=== PATIENT | male | born 1955 | race Caucasian/White ===

== ENCOUNTER → 2018-01-14 | Outpatient (CLI) | payer MEDICARE, MEDICAID ==
[~2018-01-14] MED LIST: ALBU2.5V4 IH; ALBU8.5H2 IH; ASPI-892 PO; BENZ-36 PO; CEFU500T5 PO; CHOL10003 PO; CRAN200C PO; DAYQUIL PO; DCS100C PO; DOCU100C37 PO; FURO20TA4 PO; FURO80TA3 PO; GENERLAC; GENERLAC PO; GUAI10SY4 PO; GUAI480S5 PO; HYDR-2856 PO; HYDR-700 PO; HYDR28CR43 TP; LACT10SO33 PO; MAGN296S PO; METO5TAB2 PO; METO5TAB75 PO; METO5TAB79 PO; MTL2.5T PO; MULT-418 PO; NA P133E22 RC; NEOM15OI26 TOP; NF-ESOM40C PO; NF-FLON16G NSEACH; NYQUIL PO; PETR368J TP; PHEN100C11 PO; PHEN100C4 PO; POLY17PO6 PO; POTA10CA16 PO; POTA20TA15 PO; RIVA15TA PO; RIVA20TA PO; RT-ALBUINH IH; SILV400C23 TP; SILVADENE TP; SNN187T PO; SPIR100T PO; SPIR100T4 PO; TERB24CR3 TP; TR1C15 TOP; VITA42.5 TP; WHEA1POW PO; [UNRECOGNIZED DRUG - OTHER] PO
--- NOTE | 2018-01-14 17:59 | Diagnostic Imaging Report ---
INDICATION: Pneumonia. FINDINGS: PA and lateral views of the chest are obtained. Since 01/17/2016, there is continued elevation of the left hemidiaphragm with significant gaseous distention of underlying bowel. There may be left parahilar atelectasis and/or scarring. There is no evidence of pneumothorax or focal consolidation. There is no evidence of significant pleural fluid. IMPRESSION: Continued elevation of left hemidiaphragm. There may be mild increase in left parahilar atelectasis and/or pneumonitis. No consolidation is identified. Dictated by: Dictated on workstation # [id number]
== END ==
LOC: RAD 12:52
PROVIDERS: ATTEND Family Medicine
DX: J18.9 Pneumonia, unspecified organism (principal)
CPT/HCPCS: 71046

== ENCOUNTER 2021-08-06 15:01 | Inpatient (IN) | payer MEDICARE, MEDICAID ==
[~2021-08-06] VITALS: Ht 170 cm; Wt 69.4 kg
[~2021-08-06 15:01] MED LIST changes: +ALBU2.5V4 NEB; +POTA-179 PO; -RIVA15TA PO; +RIVA15TA2 PO; -RIVA20TA PO; +RIVA20TA2 PO
[2021-08-06] MEDS ORDERED: NS IV 1000 ML 1,000 ML IV SCH (15:30)
[2021-08-06] MEDS ORDERED: VANCOMYCIN INJECTION 2,000 MG in NS (IVPB) 250 ML IV ONE (15:30)
--- NOTE | 2021-08-06 15:30 | ED Integumentary General ---
General Chief Complaint: Skin/Wound Problems Stated Complaint: SORE ON L ELBOW Source: other (health social work professor) Exam Limitations: language barrier History of Present Illness Date Seen by Provider: Aug 06, 2021 Time Seen by Provider: 15:09 Initial Comments 66-year-old male that is intellectually disabled and selectively mute, has high blood pressure, CHF coming in with a health social work professor from [place] due to concerns for left elbow infection. She believes he fell on it roughly 9 days ago. He has been picking at it incessantly, and now it is putting out purulent drainage and redness running up his arm. No fever that they know of. They said lately he has been refusing to swallow any medications and has not really been wanting to eat as well. The patient is mute and unable to add to the history and physical. Because of this further elements of the history and physical are were unable to be obtained. Allergies and Home Medications Allergies Coded Allergies: No Known Drug Allergies (Verified , 05/20/08) Patient Home Medication List Home Medication List Reviewed: Yes Albuterol Sulfate (Proair Hfa) 8.5 Gm Hfa.aer.ad, 2 PUFF IH Q4H PRN for SHORTNESS OF BREATH, (Reported) Entered as Reported by: KURTIS PA on 02/18/15 1453 Albuterol Sulfate (Albuterol Sulfate) 2.5 Mg/3 Ml Vial.neb, 2.5 MG IH Q4H PRN for SHORTNESS OF BREATH, (Reported) Entered as Reported by: KURTIS PA on 02/18/15 1453 Benzonatate (Benzonatate) 100 Mg Capsule, 100 MG PO TID PRN for COUGH, (Reported) Entered as Reported by: KURTIS PA on 02/18/15 1428 Cholecalciferol (Vitamin D) 1,000 Unit Tablet, 1,000 UNITS PO DAILY, (Reported) Entered as Reported by: TEDDY WAN on 02/23/112124 Docusate Sodium (Docusate Sodium) 100 Mg Capsule, 100 MG PO BID Prescribed by: RAMY SAMPSON on 03/02/15 1131 Esomeprazole Magnesium (Nexium) 40 Mg Cap, 40 MG PO DAILY, (Reported) Entered as Reported by: KURTIS PA on 02/18/15 1453 Furosemide (Furosemide) 20 Mg Tablet, 20 MG PO DAILY, (Reported) Entered as Reported by: KURTIS PA on 02/18/15 145 Guaifenesin/Dextromethorphan (Q-Tussin Dm Syrup) 473 Ml Syrup, 10 ML PO Q6H PRN for COUGH, (Reported) Entered as Reported by: KURTIS PA on 02/18/15 145 Hydrocortisone (Neosporin) 28 Gm Cream..g., TP DAILY PRN for UNTIL WOUND HEALS, (Reported) Entered as Reported by: KURTIS PA on 02/18/15 145 Metoclopramide HCl (Reglan) 5 Mg Tablet, 5 MG PO, (Reported) Entered as Reported by: MARTY PARKER on 04/28/15 1326 Na Phos,M-B/Na Phos,Di-Ba (Fleet Enema) 133 Ml Enema, RC BID PRN for CONSTIPATION, (Reported) Entered as Reported by: KURTIS PA on 02/24/15 1311 Petrolatum,White (Petroleum Jelly) 368 Gm Jelly..g., TP DAILY PRN for FOR WOUND, (Reported) Entered as Reported by: KURTIS PA on 02/18/15 145 Phenytoin Sodium Extended (Phenytoin Sodium Extended) 100 Mg Capsule, 300 MG PO HS, (Reported) Entered as Reported by: KURTIS PA on 02/18/15 145 Polyethylene Glycol 3350 (Miralax) 17 Gm Powd.pack, 17 GM PO BID Prescribed by: ELADIO QUEVEDO on 04/28/15 1544 Potassium Chloride (Potassium Chloride) 20 Meq Tab.er.prt, 20 MEQ PO DAILY, (Reported) Entered as Reported by: KURTIS PA on 02/18/15 145 Rivaroxaban (Xarelto Tablet) 15 Mg Tablet, 15 MG PO BID@07,17 Prescribed by: RAMY SAMPSON on 03/02/15 1143 Silver Sulfadiazine (Silver Sulfadiazine) 400 Gm Cream..g., TP BID PRN for UNTIL WOUND HEALS, (Reported) Entered as Reported by: KURTIS PA on 02/18/15 145 Spironolactone (Spironolactone) 100 Mg Tablet, 100 MG PO DAILY, (Reported) Entered as Reported by: KURTIS PA on 02/18/15 1453 Vits A & D/White Pet/Lanolin (A + D Ointment) 42.5 Gm Oint...g., TP DAILY PRN for FOR WOUND, (Reported) Entered as Reported by: KURTIS PA on 02/18/15 1453 [hydoxyzine] , 25 MG PO, (Reported) Entered as Reported by: MARTY PARKER on 04/28/15 1326 Review of Systems Review of Systems Constitutional: No fever Past Alihqnj-Cweeew-Qcczkf Hx Patient Social History Tobacco Use?: No Immunizations Up To Date Tetanus Booster (TDap): Less than 5yrs Seasonal Allergies Seasonal Allergies: No Past Medical History Surgeries: Yes Abdominal Asthma, Pulmonary Embolism Currently Using CPAP: No Currently Using BIPAP: No Seizure Disorder Reproductive Disorders: No Sexually Transmitted Disease: No HIV/AIDS: No Gastroesophageal Reflux, Chronic Constipation Adverse Reaction/Blood Tranf: No Family Medical History Patient reports no known family medical history. Physical Exam Vital Signs Vital Signs - First Documented 08/06/21 15:10 Temp 36.1 Pulse 65 Resp 20 B/P (MAP) 129/85 (100) Pulse Ox 95 Capillary Refill : General Appearance: WD/WN, no apparent distress HEENT: PERRL/EOMI, normal ENT inspection, pharynx normal Neck: non-tender, full range of motion, supple, normal inspection Cardiovascular: regular rate, rhythm, no edema, no murmur Respiratory: chest non-tender, lungs clear, normal breath sounds, no respiratory distress, no accessory muscle use Gastrointestinal: normal bowel sounds, non tender, soft; No distended, No guarding, No rebound Extremities: normal range of motion, no pedal edema, no calf tenderness, normal capillary refill, other (Left elbow with unstageable ulcer at this time with purulent discharge and erythematous margins going up the forearm that are blanching and concerning for cellulitis) Neurologic/Psychiatric: no motor/sensory deficits, alert, other (Moving all 4 extremities equally) Skin: normal color, warm/dry Lymphatic: no adenopathy Progress/Results/Core Measures Results/Orders Lab Results Laboratory Tests Test 08/06/21 15:38 Range/Units My Orders Orders - HIGINIO CHURCH MD Cbc With Automated Diff (08/06/21 15:23) Comprehensive Metabolic Panel (08/06/21 15:23) Blood Culture (08/06/21 15:23) Protime With Inr (08/06/21 15:23) Partial Thromboplastin Time (08/06/21 15:23) Ed Iv/Invasive Line Start (08/06/21 15:23) Ed Iv/Invasive Line Start (08/06/21 15:23) Vital Signs Adult Sepsis Patie Q15M (08/06/21 15:23) O2 (08/06/21 15:23) Remove Rings In Anticipation O (08/06/21 15:23) Lactic Acid Analyzer (08/06/21 15:23) Ns Iv 1000 Ml (Sodium Chloride 0.9%) (08/06/21 15:30) Vancomycin Injection (Vancomycin Injecti (08/06/21 15:30) Wound Culture (08/06/21 15:23) Erythrocyte Sedimentation Rate (08/06/21 15:23) Hs C Reactive Protein (08/06/21 15:23) Elbow, Left, 3 Views (08/06/21 15:23) Vital Signs/I&O 08/06/21 15:10 Temp 36.1 Pulse 65 Resp 20 B/P (MAP) 129/85 (100) Pulse Ox 95 Progress Progress Note : Progress Note 66-year-old male with above history coming in due to left elbow wound infection. ABCs were intact and vitals were stable on presentation. Physical exam with obvious purulent drainage and cellulitis of the left elbow with an unstageable ulcer. An IV was placed and the patient was given vancomycin after labs, lactate, blood cultures drawn. He currently is not willing to take oral medications so p.o. medications will not be possible at this time. I called and discussed the case with the hospitalist and she will admit the patient under inpatient status for further evaluation and management. Departure Impression Primary Impression: Elbow wound Qualified Codes: S51.002A - Unspecified open wound of left elbow, initial encounter Additional Impression: Cellulitis Qualified Codes: L03.114 - Cellulitis of left upper limb Disposition: ADMITTED INPATIENT Condition: Stable Admissions Decision to Admit Reason: Admit from ER (General) Decision to Admit/Date: Aug 06, 2021 Time/Decision to Admit Time: 15:40 Departure-Patient Inst. Referrals: ALMAZ SILVA MD (PCP/Family) Primary Care Physician HIGINIO CHURCH MD Aug 06, 2021 15:30
[2021-08-06 15:47] LABS: BASOPHILS % (AUTO) 1 % (0-10); EOSINOPHILS # (AUTO) 0.1 10^3/uL (0.0-0.3); EOSINOPHILS % (AUTO) 1 % (0-10); HEMATOCRIT 39 % (40-54); LYMPHOCYTES # (AUTO) 1.1 X 10^3 (1.0-4.0); LYMPHOCYTES % (AUTO) 12 % (12-44); MEAN CORPUSCULAR HEMOGLOBIN 28 pg (25-34); MEAN CORPUSCULAR HGB CONC 33 g/dL (32-36); MEAN CORPUSCULAR VOLUME 84 fL (80-99); MEAN PLATELET VOLUME 9.4 fL (9.0-12.2); MONOCYTES # (AUTO) 0.7 X 10^3 (0.0-1.0); MONOCYTES % (AUTO) 7 % (0-12); NEUTROPHILS % (AUTO) 79 % (42-75); PLATELET COUNT 230 10^3/uL (130-400); WHITE BLOOD COUNT 8.8 10^3/uL (4.3-11.0)
[2021-08-06 15:59] LABS: POTASSIUM 4.7 MMOL/L (3.6-5.0)
[2021-08-06 16:00] LABS: CALCIUM 10.5 MG/DL (8.5-10.1); INR 1.1 (0.8-1.4); PROTHROMBIN TIME PATIENT 14.7 SEC (12.2-14.7)
[2021-08-06 16:12] LABS: ERYTHROCYTE SEDIMENTATION RATE 54 MM/HR (0-30)
[2021-08-06 16:14] LABS: BILIRUBIN,TOTAL 0.3 MG/DL (0.1-1.0)
[2021-08-06 16:37] LABS: ALBUMIN 3.3 GM/DL (3.2-4.5); CREATININE SERUM 0.46 MG/DL (0.60-1.30)
--- NOTE | 2021-08-06 17:08 | Diagnostic Imaging Report ---
INDICATION: Wound on left elbow post fall two weeks ago. TECHNIQUE: 3 views of the left elbow. CORRELATION STUDY: None. FINDINGS: Soft tissue defect along the dorsal aspect of the elbow. The underlying osseous structures appear to be intact. No kian erosion or destructive change. Joint spaces maintained. IMPRESSION: Soft tissue defect at the dorsal aspect of the elbow along with some generalized soft tissue edema. No definitive acute bony abnormality or kian bony destructive change. If continued concern for potential osteomyelitis, MRI would be recommended. Dictated by: Dictated on workstation # [id number]
[2021-08-06 17:30] VITALS: BP 151/81
[2021-08-06] MEDS ORDERED: IBUP-30 PO (18:04)
[2021-08-06] MEDS ORDERED: ASPI-999 PO (18:07)
[2021-08-06] MEDS ORDERED: DIPH25CA79 PO (18:08)
[2021-08-06] MEDS ORDERED: CIME-48 PO (18:11)
[2021-08-06] MEDS ORDERED: MOM10U PO (18:15)
[2021-08-06] MEDS ORDERED: RT-ALBUINH INH (18:19)
[2021-08-06] MEDS ORDERED: MIRT-94 PO (18:21)
[2021-08-06] MEDS ORDERED: POLY17PO6 PO (18:24)
[2021-08-06] MEDS ORDERED: BENZ100C18 PO (18:25)
[2021-08-06] MEDS ORDERED: CALC500T7 PO (18:27)
[2021-08-06] MEDS ORDERED: ACET325T38 PO (18:28)
[2021-08-06] MEDS ORDERED: VITAMIN D PO (18:29)
[2021-08-06] MEDS ORDERED: SILVER SULFADIAZINE 400 GM CREAM TP PRN (18:45)
[2021-08-06] MEDS ORDERED: RT-ALBUTEROL SULF 2.5 MG/3 ML PRE-MIX VIAL IH PRN (18:45)
[2021-08-06] MEDS ORDERED: guaiFENesin/DM (ROBITUSSIN DM) 10 ML UDC PO PRN (18:45)
[2021-08-06] MEDS ORDERED: RT-ALBUTEROL SULF 2.5 MG/3 ML PRE-MIX VIAL INH SCH (18:45)
[2021-08-06 20:27] VITALS: BP 125/69
[2021-08-06] MEDS ORDERED: ACETAMINOPHEN 500 MG TAB (TYLENOL) PO PRN (21:00)
[2021-08-06] MEDS ORDERED: MILK OF MAGNESIA 400 MG/5 ML 30 ML UDC PO PRN (21:30)
[2021-08-06] MEDS: METOCLOPRAMIDE 5 MG (REGLAN) TAB PO SCH (21:47)
[2021-08-06] MEDS: PHENYTOIN 100 MG (DILANTIN) CAP PO SCH (21:47)
[2021-08-06] MEDS: DOCUSATE SODIUM 100 MG (COLACE) CAP PO SCH (21:47)
[2021-08-06] MEDS: hydrOXYzine (VISTARIL/ATARAX) 25 MG capsule/tablet PO SCH (21:48)
[2021-08-06] MEDS: CATHETER FLUSH 10 ML SYR IVP SCH ×2 (21:48→23:49)
[2021-08-06 23:41] VITALS: BP 141/76
[2021-08-06] MEDS: VANCOMYCIN 1250 MG/NS 250 ML IVPB IV SCH ×2 (23:46)
[2021-08-07 04:36] VITALS: BP 122/70
[2021-08-07 05:50] LABS: MONOCYTES # (AUTO) 0.5 10^3/uL (0.0-1.0)
[2021-08-07 05:51] LABS: BASOPHILS # (AUTO) 0.1 10^3/uL (0.0-0.1); BASOPHILS % (AUTO) 1 % (0-10); EOSINOPHILS # (AUTO) 0.1 10^3/uL (0.0-0.3); EOSINOPHILS % (AUTO) 1 % (0-10); HEMATOCRIT 34 % (40-54); HEMOGLOBIN 11.2 g/dL (13.3-17.7); LYMPHOCYTES # (AUTO) 1.1 10^3/uL (1.0-4.0); LYMPHOCYTES % (AUTO) 19 % (12-44); MEAN CORPUSCULAR HEMOGLOBIN 28 pg (25-34); MEAN CORPUSCULAR HGB CONC 33 g/dL (32-36); MEAN CORPUSCULAR VOLUME 86 fL (80-99); MEAN PLATELET VOLUME 9.9 fL (9.0-12.2); MONOCYTES % (AUTO) 8 % (0-12); NEUTROPHILS % (AUTO) 70 % (42-75); PLATELET COUNT 124 10^3/uL (130-400); WHITE BLOOD COUNT 5.8 10^3/uL (4.3-11.0)
[2021-08-07 07:10] VITALS: BP 119/79
[2021-08-07] MEDS: VANCOMYCIN 1250 MG/NS 250 ML IVPB IV SCH ×6 (08:06→23:42)
[2021-08-07] MEDS: polyethylene glycoL POWDER 17 GM (MIRALAX) PACK PO SCH (10:42)
[2021-08-07] MEDS: METOCLOPRAMIDE 5 MG (REGLAN) TAB PO SCH ×4 (10:42→20:30)
[2021-08-07] MEDS: hydrOXYzine (VISTARIL/ATARAX) 25 MG capsule/tablet PO SCH ×2 (10:42→20:30)
[2021-08-07] MEDS: DOCUSATE SODIUM 100 MG (COLACE) CAP PO SCH ×2 (10:42→20:30)
[2021-08-07] MEDS: SPIRONOLACTONE 100 MG (ALDACTONE) TABLET PO SCH (10:42)
[2021-08-07] MEDS: FAMOTIDINE 20 MG (PEPCID) TABLET PO SCH ×2 (10:42→20:30)
[2021-08-07] MEDS: ASPIRIN 81 MG CHEW (CHILDREN'S ASA) PO SCH (10:43)
[2021-08-07] MEDS: cefTRIAXone 1 GM/50 ML (PRE-MIX) IV SCH (10:43)
[2021-08-07 11:27] VITALS: BP 139/84
--- NOTE | 2021-08-07 11:50 | Consultation - Surgery ---
RONN NOE 08/07/21 1150: History of Present Illness History of Present Illness Patient Consulted On(samir/time) 08/07/21 11:50 Date Seen by Provider: Aug 07, 2021 Time Seen by Provider: 11:55 Reason for Visit: L elbow erythema and drainage History of Present Illness Consult requested by Dr. eHredia regarding a left elbow ulcer and cellulitis. Pt is 66 year old mute male who presented to the [facility] from [place]. According to ER documentation, he fell on his elbow 9 days ago and has been p icking at the wound. The ulceration is a [id number] deep wound on his left elbow. It is draining greenish-yellow fluid, which completely saturated his dressing overnight. The wound is deep enough to feel bone on palpation. The tissue does not appear to be necrotic; the tissue perimeter is a elaine color. There is erythema extending from the ulcer that is presumably cellulitis. It is a mottled red and white appearance. The micro for the elbow ulcer came back as Staph aureus, presumably MRSA, as well as a gram negative gato. His bilateral forearms are mottled white, possibly from healed scabbing. He has 3 other healing sores visible on his left forearm and hand that are scabbed over, as well as one other sore on his R forearm. The pt has bilateral cellulitis on his shins that also include scabbing. He is currently on Vancomycin and Ceftriaxone. According to the ER, he has a hx of abdominal surgery. He has a small ostomy bag on his L abdomen that is empty currently. The ER also reports a hx of pulmonary embolism, seizures, GERD, and chronic constipation. Xarelto is listed as a home medication, though it is not on his current medication list. Allergies and Home Medications Allergies Coded Allergies: No Known Drug Allergies (Verified , 05/20/08) Patient Home Medication List Acetaminophen (Tylenol) 325 Mg Tablet, 650 MG PO Q6H PRN for PAIN-MILD (1-4), (Reported) Entered as Reported by: PATRICE LEROY on 08/06/21 5848 Last Action: Reviewed Albuterol Sulfate (Albuterol Sulfate) 2.5 Mg/3 Ml Vial.neb, 3 ML NEB Q4H PRN for SHORTNESS OF BREATH, (Reported) Entered as Reported by: KURTIS PA on 02/18/15 1453 Last Action: Reviewed Albuterol Sulfate (Proventil Hfa) 6.7 Gm Hfa.aer.ad, 2 PUFF INH Q4H, (Reported) Entered as Reported by: PATRICE LEROY on 08/06/211818 Last Action: Reviewed Aspirin (Aspirin EC) 81 Mg Tablet.dr, 81 MG PO DAILY, (Reported) Entered as Reported by: ERIC MALHOTRA on 08/07/211150 Last Action: Reviewed Benzonatate (Tessalon Perles) 100 Mg Capsule, 100 MG PO Q8H PRN for COUGH, (Reported) Entered as Reported by: PATRICE LEROY on 08/06/211824 Last Action: Reviewed Calcium Carbonate (Antacid Maximum Strength) 400 Mg Tab.chew, 1,000 MG PO Q4H PRN for HEARTBURN/INDIGESTION, (Reported) Entered as Reported by: ERIC MALHOTRA on 08/07/211150 Last Action: Reviewed Cholecalciferol (Vitamin D3) (Vitamin D3) 25 Mcg Capsule, 25 MCG PO DAILY, (Reported) Entered as Reported by: ERIC MALHOTRA on 08/07/211150 Last Action: Reviewed Cimetidine (Cimetidine) 400 Mg Tablet, 400 MG PO BID, (Reported) Entered as Reported by: PATRICE LEROY on 08/06/211810 Last Action: Reviewed Diphenhydramine HCl (Benadryl) 25 Mg Capsule, 25-50 MG PO Q6H PRN for ALLERGY SYMPTOMS, (Reported) Entered as Reported by: PATRICE LEROY on 08/06/211807 Last Action: Reviewed Docusate Sodium (Dok) 100 Mg Tablet, 100 MG PO BID, (Reported) Entered as Reported by: ERIC MALHOTRA on 08/07/211150 Last Action: Reviewed Guaifenesin/Dextromethorphan (Expectorant Dm Cough Liquid) 118 Ml Liquid, 10 ML PO Q4H PRN for COUGH, (Reported) Entered as Reported by: ERIC MALHOTRA on 08/07/211150 Last Action: Reviewed Hydroxyzine HCl (Hydroxyzine HCl) 25 Mg Tablet, 25 MG PO BID PRN for ANXIETY/ITCHING, (Reported) Entered as Reported by: ERIC MALHOTRA on 08/07/211150 Last Action: Reviewed Ibuprofen (Advil) 200 Mg Tablet, 400 MG PO Q6H PRN for PAIN-MILD (1-4), (Reported) Entered as Reported by: PATRICE LEROY on 08/06/211803 Last Action: Reviewed Magnesium Hydroxide (Milk of Magnesia) 2,400 Mg/10 Ml Oral.susp, 30 ML PO Q12H PRN for CONSTIPATION-7TH LINE, (Reported) Entered as Reported by: PATRICE LEROY on 08/06/211814 Last Action: Reviewed Metoclopramide HCl (Reglan) 5 Mg Tablet, 5 MG PO QID, (Reported) Entered as Reported by: MARTY PARKER on 04/28/15 1326 Last Action: Reviewed Mirtazapine (Remeron) 30 Mg Tablet, 30 MG PO HS, (Reported) Entered as Reported by: PATRICE LEROY on 08/06/211820 Last Action: Reviewed Phenytoin Sodium Extended (Phenytoin Sodium Extended) 100 Mg Capsule, 200 MG PO HS, (Reported) Entered as Reported by: KURTIS PA on 02/18/151452 Last Action: Reviewed Polyethylene Glycol 3350 (Miralax) 17 Gm Powd.pack, 17 GM PO DAILY PRN for CONSTIPATION-2ND LINE, (Reported) Entered as Reported by: PATRICE LEROY on 08/06/211823 Last Action: Reviewed Silver Sulfadiazine (Silver Sulfadiazine) 50 Gm Cream..g., 1 APPLIC TP Q12H PRN for SKIN CONDITION, (Reported) Entered as Reported by: ERIC MALHOTRA on 08/07/21 1151 Last Action: Reviewed Spironolactone (Spironolactone) 100 Mg Tablet, 100 MG PO DAILY, (Reported) Entered as Reported by: KURTIS PA on 02/18/151452 Last Action: Reviewed Discontinued Medications Albuterol Sulfate (Proair Hfa) 8.5 Gm Hfa.aer.ad, 2 PUFF IH Q4H PRN for SHORTNESS OF BREATH, (Reported) Discontinued Reason: No Longer Taking Entered as Reported by: KURTIS PA on 02/18/151452 Last Action: Discontinued Aspirin (Aspirin) 81 Mg Tab.chew, 81 MG PO DAILY, (Reported) Discontinued Reason: Duplicate Order Entered as Reported by: PATRICE LEROY on 08/06/211806 Last Action: Discontinued Benzonatate (Benzonatate) 100 Mg Capsule, 100 MG PO TID PRN for COUGH, (Reported) Discontinued Reason: No Longer Taking Entered as Reported by: KURTIS PA on 02/18/15 1428 Last Action: Discontinued Calcium Carbonate (Tums) 200 Mg Tab.chew, 1,000 MG PO Q4H, (Reported) Discontinued Reason: Prescription changed Entered as Reported by: PATRICE LEROY on 08/06/21 182 Last Action: Held Cholecalciferol (Vitamin D) 1,000 Unit Tablet, 1,000 UNITS PO DAILY, (Reported) Discontinued Reason: Prescription changed Entered as Reported by: TEDDY WAN on 02/23/112124 Last Action: Held Docusate Sodium (Docusate Sodium) 100 Mg Capsule, 100 MG PO BID Discontinued Reason: Duplicate Order Prescribed by: RAMY SAMPSON on 03/02/15 113 Last Action: Discontinued Esomeprazole Magnesium (Nexium) 40 Mg Cap, 40 MG PO DAILY, (Reported) Discontinued Reason: No Longer Taking Entered as Reported by: KURTIS PA on 02/18/151452 Last Action: Discontinued Furosemide (Furosemide) 20 Mg Tablet, 20 MG PO DAILY, (Reported) Discontinued Reason: No Longer Taking Entered as Reported by: KURTIS PA on 02/18/151452 Last Action: Discontinued Guaifenesin/Dextromethorphan (Q-Tussin Dm Syrup) 473 Ml Syrup, 10 ML PO Q4H PRN for COUGH, (Reported) Discontinued Reason: Prescription changed Entered as Reported by: KURTIS PA on 02/18/151452 Last Action: Continued Hydrocortisone (Neosporin) 28 Gm Cream..g., TP DAILY PRN for UNTIL WOUND HEALS, (Reported) Discontinued Reason: No Longer Taking Entered as Reported by: KURTIS PA on 02/18/151452 Last Action: Discontinued Na Phos,M-B/Na Phos,Di-Ba (Fleet Enema) 133 Ml Enema, RC BID PRN for CONSTIPATI ON, (Reported) Discontinued Reason: No Longer Taking Entered as Reported by: KURTIS PA on 02/24/15 1311 Last Action: Discontinued Petrolatum,White (Petroleum Jelly) 368 Gm Jelly..g., TP DAILY PRN for FOR WOUND, (Reported) Discontinued Reason: No Longer Taking Entered as Reported by: KURTIS PA on 02/18/151452 Last Action: Discontinued Polyethylene Glycol 3350 (Miralax) 17 Gm Powd.pack, 17 GM PO BID Discontinued Reason: No Longer Taking Prescribed by: ELADIO QUEVEDO on 04/28/15 1544 Last Action: Discontinued Potassium Chloride (Potassium Chloride) 20 Meq Tab.er.prt, 20 MEQ PO DAILY, (Reported) Discontinued Reason: No Longer Taking Entered as Reported by: KURTIS PA on 02/18/151452 Last Action: Discontinued Rivaroxaban (Xarelto Tablet) 15 Mg Tablet, 15 MG PO BID@ Discontinued Reason: No Longer Taking Prescribed by: RAMY SAMPSON on 03/02/15 114 Last Action: Discontinued Silver Sulfadiazine (Silver Sulfadiazine) 400 Gm Cream..g., TP BID PRN for UNTIL WOUND HEALS, (Reported) Discontinued Reason: Prescription changed Entered as Reported by: KURTIS PA on 02/18/151452 Last Action: Continued Vits A & D/White Pet/Lanolin (A + D Ointment) 42.5 Gm Oint...g., TP DAILY PRN for FOR WOUND, (Reported) Discontinued Reason: No Longer Taking Entered as Reported by: KURTIS PA on 02/18/151452 Last Action: Discontinued [hydoxyzine] , 25 MG PO BID, (Reported) Discontinued Reason: Duplicate Order Entered as Reported by: MARTY PARKER on 04/28/15 1326 Last Action: Discontinued Past Efiixvb-Ayrcba-Efbabb Hx Patient Social History Recent Hopitalizations: Yes (colostomy placement) Alcohol Use?: No Have you traveled recently?: No Immunizations Up To Date Tetanus Booster (TDap): Less than 5yrs Date of Pneumonia Vaccine: Mar 02, 2015 Date of Influenza Vaccine: Mar 02, 2015 Seasonal Allergies Seasonal Allergies: No Surgeries History of Surgeries: Yes Surgeries: Abdominal Respiratory Respiratory Disorders: Asthma, Pulmonary Embolism Neurological Neurological Disorders: Seizure Disorder Reproductive System Hx Reproductive Disorders: No Sexually Transmitted Disease: No HIV/AIDS: No Gastrointestinal Gastrointestinal Disorders: Gastroesophageal Reflux, Chronic Constipation Blood Transfusions Adverse Reaction to a Blood Tr: No Family Medical History Other Unable to Obtain from pt due to aphasia; what is listed was gathered in the ER Family Medial History: Patient reports no known family medical history. Review of Systems-General Other Unable to obtain due to pt aphasia Physical Exam-General Problems Physical Exam Vital Signs Vital Signs - First Documented 08/06/21 08/06/21 15:10 17:30 Temp 36.1 Pulse 65 Resp 20 B/P (MAP) 129/85 (100) Pulse Ox 95 O2 Delivery Room Air Capillary Refill : General Appearance: no apparent distress, thin Respiratory: normal breath sounds, no respiratory distress, no accessory muscle use Cardiovascular: regular rate, rhythm, no murmur Peripheral Pulses: 2+ Radial Pulses (R), 2+ Radial Pulses (L) Gastrointestinal: soft, other (ostomy bag empty currently) Extremities: no pedal edema, other (bilateral cellulitis) Neurologic/Psychiatric: alert, other (aphasia) Skin: mottled (bilateral arms mottled white), rash (bilateral leg cellulitis, left elbow cellulitis with ulceration) Comments Exam limited by aphasia Data Review Labs Laboratory Tests 08/06/21 15:38: White Blood Count 8.8, Red Blood Count 4.66, Hemoglobin 13.0L, Hematocrit 39L, Mean Corpuscular Volume 84, Mean Corpuscular Hemoglobin 28, Mean Corpuscular Hemoglobin Concent 33, Red Cell Distribution Width 16.6H, Platelet Count 230, Mean Platelet Volume 9.4, Immature Granulocyte % (Auto) 1, Neutrophils (%) (Auto) 79H, Lymphocytes (%) (Auto) 12, Monocytes (%) (Auto) 7, Eosinophils (%) (Auto) 1, Basophils (%) (Auto) 1, Neutrophils # (Auto) 7.0, Lymphocytes # (Auto) 1.1, Monocytes # (Auto) 0.7, Eosinophils # (Auto) 0.1, Basophils # (Auto) 0.0, Immature Granulocyte # (Auto) 0.0, Erythrocyte Sedimentation Rate 54H, Prothrombin Time 14.7, INR Comment 1.1, Activated Partial Thromboplast Time 41H, Sodium Level 140, Potassium Level 4.7, Chloride Level 103, Carbon Dioxide Level 23, Anion Gap 14, Blood Urea Nitrogen 26H, Creatinine 0.46L, Estimat Glomerular Filtration Rate 115, BUN/Creatinine Ratio 57, Glucose Level 71, Lactic Acid Level 1.46, Calcium Level 10.5H, Corrected Calcium 11.1H, Total Bilirubin 0.3, Aspartate Amino Transf (AST/SGOT) 46H, Alanine Aminotransferase (ALT/SGPT) 51, Alkaline Phosphatase 121, C-Reactive Protein High Sensitivity 22.84H, Total Protein 7.0, Albumin 3.3 08/07/21 05:27: White Blood Count 5.8, Red Blood Count 3.99L, Hemoglobin 11.2L, Hematocrit 34L, Mean Corpuscular Volume 86, Mean Corpuscular Hemoglobin 28, Mean Corpuscular Hemoglobin Concent 33, Red Cell Distribution Width 16.0H, Platelet Count 124L, Mean Platelet Volume 9.9, Immature Granulocyte % (Auto) 1, Neutrophils (%) (Auto) 70, Lymphocytes (%) (Auto) 19, Monocytes (%) (Auto) 8, Eosinophils (%) (Auto) 1, Basophils (%) (Auto) 1, Neutrophils # (Auto) 4.0, Lymphocytes # (Auto) 1.1, Monocytes # (Auto) 0.5, Eosinophils # (Auto) 0.1, Basophils # (Auto) 0.1, Immature Granulocyte # (Auto) 0.1, Percent Immature Platelet Fraction 3.2 Microbiology 08/06/21 Gram Stain, Resulted Pending 08/06/21 Wound Culture - Preliminary, Resulted Staphylococcus aureus Gram Negative Gato Radiology ELBOW, LEFT, 3 VIEWS INDICATION: Wound on left elbow post fall two weeks ago. TECHNIQUE: 3 views of the left elbow. CORRELATION STUDY: None. FINDINGS: Soft tissue defect along the dorsal aspect of the elbow. The underlying osseous structures appear to be intact. No kian erosion or destructive change. Joint spaces maintained. IMPRESSION: Soft tissue defect at the dorsal aspect of the elbow along with some generalized soft tissue edema. No definitive acute bony abnormality or kian bony destructive change. If continued concern for potential osteomyelitis, MRI would be recommended. Assessment/Plan Assessment/Plan Assessment/Plan Left elbow ulceration/erythema- cellulitis, concern for osteomyelitis though XRay showed no acute bony abnormality Bilateral navarro cellulitis Hx abdominal surgery- ostomy bag Hx seizures Aphasia Hx Pulmonary embolism WBC 5.8 from 8.8 Hgb 11.2 from 13.0 Continue vancomycin and ceftriaxone MRI if suspicion for osteomyelitis grows Change dressing as needed Imer edges of erythema on L elbow and shins for progress Consider DVT prophylaxis when cleared by surgery Monitor labs and vitals JO ANN ÁLVAREZ DO 08/07/21 7346: History of Present Illness History of Present Illness Time Seen by Provider: 16:52 History of Present Illness Surgery asked to consult regarding Left elbow ulcer. Pt does not talk and therefore information is obtained from chart. Wound care nurse was concerned about depth of wound and possible osteomyelitis. Pt was eating when I saw him and did not appear to be in any pain, feeding himself with right arm. Allergies and Home Medications Allergies Coded Allergies: No Known Drug Allergies (Verified , 05/20/08) Patient Home Medication List Home Medication List Reviewed: Yes Acetaminophen (Tylenol) 325 Mg Tablet, 650 MG PO Q6H PRN for PAIN-MILD (1-4), (Reported) Entered as Reported by: PATRICE LEROY on 08/06/211827 Last Action: Reviewed Albuterol Sulfate (Albuterol Sulfate) 2.5 Mg/3 Ml Vial.neb, 3 ML NEB Q4H PRN for SHORTNESS OF BREATH, (Reported) Entered as Reported by: KURTIS PA on 02/18/15 1453 Last Action: Reviewed Albuterol Sulfate (Proventil Hfa) 6.7 Gm Hfa.aer.ad, 2 PUFF INH Q4H, (Reported) Entered as Reported by: PATRICE LEROY on 08/06/211818 Last Action: Reviewed Aspirin (Aspirin EC) 81 Mg Tablet.dr, 81 MG PO DAILY, (Reported) Entered as Reported by: ERIC MALHOTRA on 08/07/211150 Last Action: Reviewed Benzonatate (Tessalon Perles) 100 Mg Capsule, 100 MG PO Q8H PRN for COUGH, (Reported) Entered as Reported by: PATRICE LEROY on 08/06/211824 Last Action: Reviewed Calcium Carbonate (Antacid Maximum Strength) 400 Mg Tab.chew, 1,000 MG PO Q4H PRN for HEARTBURN/INDIGESTION, (Reported) Entered as Reported by: ERIC MALHOTRA on 08/07/211150 Last Action: Reviewed Cholecalciferol (Vitamin D3) (Vitamin D3) 25 Mcg Capsule, 25 MCG PO DAILY, (Reported) Entered as Reported by: ERIC MALHOTRA on 08/07/211150 Last Action: Reviewed Cimetidine (Cimetidine) 400 Mg Tablet, 400 MG PO BID, (Reported) Entered as Reported by: PATRICE LEROY on 08/06/211810 Last Action: Reviewed Diphenhydramine HCl (Benadryl) 25 Mg Capsule, 25-50 MG PO Q6H PRN for ALLERGY SYMPTOMS, (Reported) Entered as Reported by: PATRICE LEROY on 08/06/211807 Last Action: Reviewed Docusate Sodium (Dok) 100 Mg Tablet, 100 MG PO BID, (Reported) Entered as Reported by: ERIC MALHOTRA on 08/07/21 115 Last Action: Reviewed Guaifenesin/Dextromethorphan (Expectorant Dm Cough Liquid) 118 Ml Liquid, 10 ML PO Q4H PRN for COUGH, (Reported) Entered as Reported by: ERIC MALHOTRA on 08/07/211150 Last Action: Reviewed Hydroxyzine HCl (Hydroxyzine HCl) 25 Mg Tablet, 25 MG PO BID PRN for ANXIETY/ITCHING, (Reported) Entered as Reported by: ERIC MALHOTRA on 08/07/211150 Last Action: Reviewed Ibuprofen (Advil) 200 Mg Tablet, 400 MG PO Q6H PRN for PAIN-MILD (1-4), (Reported) Entered as Reported by: PATRICE LEROY on 08/06/211803 Last Action: Reviewed Magnesium Hydroxide (Milk of Magnesia) 2,400 Mg/10 Ml Oral.susp, 30 ML PO Q12H PRN for CONSTIPATION-7TH LINE, (Reported) Entered as Reported by: PATRICE LEROY on 08/06/211814 Last Action: Reviewed Metoclopramide HCl (Reglan) 5 Mg Tablet, 5 MG PO QID, (Reported) Entered as Reported by: MARTY PARKER on 04/28/15 1326 Last Action: Reviewed Mirtazapine (Remeron) 30 Mg Tablet, 30 MG PO HS, (Reported) Entered as Reported by: PATRICE LEROY on 08/06/211820 Last Action: Reviewed Phenytoin Sodium Extended (Phenytoin Sodium Extended) 100 Mg Capsule, 200 MG PO HS, (Reported) Entered as Reported by: KURTIS PA on 02/18/15 1453 Last Action: Reviewed Polyethylene Glycol 3350 (Miralax) 17 Gm Powd.pack, 17 GM PO DAILY PRN for CONSTIPATION-2ND LINE, (Reported) Entered as Reported by: PATRICE LEROY on 08/06/211823 Last Action: Reviewed Silver Sulfadiazine (Silver Sulfadiazine) 50 Gm Cream..g., 1 APPLIC TP Q12H PRN for SKIN CONDITION, (Reported) Entered as Reported by: ERIC MALHOTRA on 08/07/21 1151 Last Action: Reviewed Spironolactone (Spironolactone) 100 Mg Tablet, 100 MG PO DAILY, (Reported) Entered as Reported by: KURTIS PA on 02/18/151452 Last Action: Reviewed Discontinued Medications Albuterol Sulfate (Proair Hfa) 8.5 Gm Hfa.aer.ad, 2 PUFF IH Q4H PRN for SHORTNESS OF BREATH, (Reported) Discontinued Reason: No Longer Taking Entered as Reported by: KURTIS PA on 02/18/151452 Last Action: Discontinued Aspirin (Aspirin) 81 Mg Tab.chew, 81 MG PO DAILY, (Reported) Discontinued Reason: Duplicate Order Entered as Reported by: PATRICE LEROY on 08/06/21 180 Last Action: Discontinued Benzonatate (Benzonatate) 100 Mg Capsule, 100 MG PO TID PRN for COUGH, (Reported) Discontinued Reason: No Longer Taking Entered as Reported by: KURTIS PA on 02/18/151427 Last Action: Discontinued Calcium Carbonate (Tums) 200 Mg Tab.chew, 1,000 MG PO Q4H, (Reported) Discontinued Reason: Prescription changed Entered as Reported by: PATRICE LEROY on 08/06/211826 Last Action: Held Cholecalciferol (Vitamin D) 1,000 Unit Tablet, 1,000 UNITS PO DAILY, (Reported) Discontinued Reason: Prescription changed Entered as Reported by: TEDDY WAN on 02/23/112124 Last Action: Held Docusate Sodium (Docusate Sodium) 100 Mg Capsule, 100 MG PO BID Discontinued Reason: Duplicate Order Prescribed by: RAMY SAMPSON on 03/02/15 1131 Last Action: Discontinued Esomeprazole Magnesium (Nexium) 40 Mg Cap, 40 MG PO DAILY, (Reported) Discontinued Reason: No Longer Taking Entered as Reported by: KURTIS PA on 02/18/151452 Last Action: Discontinued Furosemide (Furosemide) 20 Mg Tablet, 20 MG PO DAILY, (Reported) Discontinued Reason: No Longer Taking Entered as Reported by: KURTIS PA on 02/18/151452 Last Action: Discontinued Guaifenesin/Dextromethorphan (Q-Tussin Dm Syrup) 473 Ml Syrup, 10 ML PO Q4H PRN for COUGH, (Reported) Discontinued Reason: Prescription changed Entered as Reported by: KURTIS PA on 02/18/151452 Last Action: Continued Hydrocortisone (Neosporin) 28 Gm Cream..g., TP DAILY PRN for UNTIL WOUND HEALS, (Reported) Discontinued Reason: No Longer Taking Entered as Reported by: KURTIS PA on 02/18/151452 Last Action: Discontinued Na Phos,M-B/Na Phos,Di-Ba (Fleet Enema) 133 Ml Enema, RC BID PRN for CONSTIPATION, (Reported) Discontinued Reason: No Longer Taking Entered as Reported by: KURTIS PA on 02/24/15 1311 Last Action: Discontinued Petrolatum,White (Petroleum Jelly) 368 Gm Jelly..g., TP DAILY PRN for FOR WOUND, (Reported) Discontinued Reason: No Longer Taking Entered as Reported by: KURTIS PA on 02/18/151452 Last Action: Discontinued Polyethylene Glycol 3350 (Miralax) 17 Gm Powd.pack, 17 GM PO BID Discontinued Reason: No Longer Taking Prescribed by: ELADIO QUEVEDO on 04/28/15 1544 Last Action: Discontinued Potassium Chloride (Potassium Chloride) 20 Meq Tab.er.prt, 20 MEQ PO DAILY, (Reported) Discontinued Reason: No Longer Taking Entered as Reported by: KURTIS PA on 02/18/151452 Last Action: Discontinued Rivaroxaban (Xarelto Tablet) 15 Mg Tablet, 15 MG PO BID@07,17 Discontinued Reason: No Longer Taking Prescribed by: RAMY SAMPSON on 03/02/15 1143 Last Action: Discontinued Silver Sulfadiazine (Silver Sulfadiazine) 400 Gm Cream..g., TP BID PRN for UNTIL WOUND HEALS, (Reported) Discontinued Reason: Prescription changed Entered as Reported by: KURTIS PA on 02/18/151452 Last Action: Continued Vits A & D/White Pet/Lanolin (A + D Ointment) 42.5 Gm Oint...g., TP DAILY PRN for FOR WOUND, (Reported) Discontinued Reason: No Longer Taking Entered as Reported by: KURTIS PA on 02/18/151452 Last Action: Discontinued [hydoxyzine] , 25 MG PO BID, (Reported) Discontinued Reason: Duplicate Order Entered as Reported by: MARTY PARKER on 04/28/15 4166 Last Action: Discontinued Past Alyvooj-Qyaicg-Jwfcsw Hx Family Medical History Significant Family History: Other Conditions/Hx (unable to obtain from pt) Family Medial History: Patient reports no known family medical history. Review of Systems-General ROS-Unable to Obtain: pt does not talk Physical Exam-General Problems Physical Exam General Appearance: no apparent distress, thin Eyes: Bilateral Eye PERRL, Bilateral Eye EOMI Respiratory: normal breath sounds, no respiratory distress, no accessory muscle use Cardiovascular: regular rate, rhythm, no murmur Gastrointestinal: soft, other (Ostomy pink and functioning) Extremities: no pedal edema, other (bilateral cellulitis) Skin: mottled (bilateral arms mottled white), rash (bilateral leg cellulitis, left elbow cellulitis with ulceration) Assessment/Plan Assessment/Plan Assessment/Plan Left elbow ulceration/erythema- cellulitis, concern for osteomyelitis though XRay showed no acute bony abnormality Bilateral navarro cellulitis Aphasia I think the best course of action is to get an MRI and if there is Osteomyelitis then place a PICC line and do IV ABX for 6--8 weeks. If at the end of that time it is not better or worse, then he would need to be sent to Ortho willing to do some debridement and try to save his arm from amputation. In the meantime; Continue vancomycin and ceftriaxone, good local wound care and consider Wound VAC. Monitor labs and vitals Supervisory-Addendum Brief Verification & Attestation Participated in pt care: history, MDM, physical Personally performed: exam, history, MDM, supervision of care Care discussed with: Medical Student Procedures: n/a Verification and Attestation of Medical Student E/M Service A medical student performed and documented this service. I then reviewed and verified all information documented by the medical student and made modifications to such information, when appropriate. I personally performed a physical exam, medical decision making and then discussed any differences between the notes and made revisions as necessary to create one note. Jo Ann Álvarez , 08/07/21 , 18:57 RONN NOE Aug 07, 2021 11:50 JO ANN ÁLVAREZ DO Aug 07, 2021 18:56
[2021-08-07] MEDS ORDERED: [UNRECOGNIZED DRUG - CODE] PO (11:51)
[2021-08-07] MEDS ORDERED: GUAI118L27 PO (11:51)
[2021-08-07] MEDS ORDERED: SILV50CR28 TP (11:51)
[2021-08-07] MEDS ORDERED: DOCU100T28 PO (11:51)
[2021-08-07] MEDS ORDERED: ASPI-1238 PO (11:51)
[2021-08-07] MEDS ORDERED: CHOL100048 PO (11:51)
[2021-08-07] MEDS ORDERED: HYDR-700 PO (11:51)
[2021-08-07] MEDS: CATHETER FLUSH 10 ML SYR IVP SCH ×2 (13:39→20:30)
[2021-08-07 15:43] VITALS: BP 130/76
--- NOTE | 2021-08-07 19:00 | History & Physical-Hospitalist ---
History of Present Illness HPI/Chief Complaint Edwardo Jones is a 66 year old male with PMH cognitive impairment, mutism, who fell a couple weeks ago at his facility. He had an abrasion to his left elbow and he has been picking at the wound. He reportedly will not leave it alone. There has been purulent drainage. There have not been any reported fevers. He is unable to provide any history. There are no caregivers Source: patient Exam Limitations: no limitations Date Seen 08/07/21 Time Seen by a Provider: 11:30 Attending Physician Kaz Chu MD PCP Gregory Miranda MD Referring Physician Date of Admission Aug 06, 2021 at 15:49 Home Medications & Allergies Home Medications Reviewed patient Home Medication Reconciliation performed by pharmacy medication reconciliations certified pest control technician and/or nursing. Patients Allergies have been reviewed. Allergies Allergies Coded Allergies No Known Drug Allergies (Verified05/20/08) Past Cttrpaq-Fohart-Fqccdp Hx Patient Social History Tobacco Use?: No Substance use?: No Alcohol Use?: No Immunizations Up To Date Date of Influenza Vaccine: Mar 02, 2015 Date of Pneumonia Vaccine: Mar 02, 2015 Seasonal Allergies Seasonal Allergies: No Current Status Communicates: Verbally Primary Language: Uzbek Preferred Spoken Language: Uzbek Sensory deficits: Speech impairment Past Medical History Surgeries: Abdominal Asthma, Pulmonary Embolism Currently Using CPAP: No Currently Using BIPAP: No Seizure Disorder Sexually Transmitted Disease: No HIV/AIDS: No Gastroesophageal Reflux, Chronic Constipation Adverse Reaction/Blood Tranf: No Past medical history 1. Mental retardation 2. Seizure disorder 3. 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 [place] syndrome Past surgical history 1. Multiple colonoscopies Family Medical History Patient reports no known family medical history. Review of Systems ROS-Unable to Obtain: noncommuniative Constitutional: see HPI Physical Exam Physical Exam Vital Signs Vital Signs - First Documented 08/06/21 08/06/21 15:10 17:30 Temp 36.1 Pulse 65 Resp 20 B/P (MAP) 129/85 (100) Pulse Ox 95 O2 Delivery Room Air Capillary Refill : Height, Weight, BMI Height: 6'1" Weight: 118lbs. 3.0oz. [id number]; 24.01 BMI Method:Estimated General Appearance: No Apparent Distress, Chronically ill Respiratory: Lungs Clear, Normal Breath Sounds, No Respiratory Distress Cardiovascular: Regular Rate, Rhythm, No Edema, No Murmur Gastrointestinal: Normal Bowel Sounds, Non Tender, Soft Extremity: Inflammation, Other (left arm wound with exposed soft tissue and bone) Neurologic/Psychiatric: Alert, Aphasia, Disoriented Skin: Warm/Dry, Other (left elbow wound) Results Results/Procedures Labs Laboratory Tests 08/06/21 15:38 08/07/21 05:27 Patient resulted labs reviewed. 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
[2021-08-07 19:38] VITALS: BP 135/67
[2021-08-07] MEDS: PHENYTOIN 100 MG (DILANTIN) CAP PO SCH (20:30)
[2021-08-07] MEDS: MIRTAZAPINE 15 MG (REMERON) TAB PO SCH (20:30)
[2021-08-07] MEDS: HYPOCHLOROUS ACID/NaCl (VASHE) 250 ML IR PRN (20:35)
[2021-08-07] MEDS: ENOXAPARIN 40 MG/0.4 ML (LOVENOX) SYR SQ SCH (22:08)
[2021-08-07 23:46] VITALS: BP 123/74
[2021-08-08 03:13] VITALS: BP 138/88
[2021-08-08] MEDS: CATHETER FLUSH 10 ML SYR IVP SCH ×3 (05:49→22:03)
--- NOTE | 2021-08-08 06:37 | Progress Note - Surgery ---
RONN NOE 08/08/21 0637: Subjective Date Seen by a Provider: Aug 08, 2021 Time Seen by a Provider: 06:35 Subjective/Events-last exam Pt selectively mute. Has new sore on R hand that is not scabbed over. Dressing on ulceration is not saturated, tightly wrapped. Spoke with nurse about how it looked overnight. She reported it was red, but had very minimal serosanguinous drainage. Cellulitis looked about the same as yesterday. Urine output was low yesterday (350mL total). Nurse reported that he was cursing when voiding, and could only void 50-100cc's at a time. Dr. Heredia had a catheter placed, after which they got 400cc's out. Preliminary blood culture from R hand showed gram positive cocci in clusters. R forearm blood culture showed no growth. Review of Systems unable to obtain due to pt's selective mutism Focused Exam Lactate Level 08/06/21 15:38: Lactic Acid Level 1.46 Respiratory: Lungs Clear, Normal Breath Sounds, No Accessory Muscle Use Cardiovascular: Regular Rate, Rhythm, No Murmur Peripheral Pulses: 2+ Radial Pulses (R), 2+ Radial Pulses (L) Skin: rash (cellulitis L elbow; bilat shins), ulcerations (L elbow) Objective Exam Vital Signs Date Time Temp Pulse Resp B/P (MAP) Pulse Ox O2 Delivery O2 Flow Rate FiO2 08/08/21 03:13 36.6 81 20 138/88 (105) 92 Room Air 08/07/21 23:46 36.7 83 20 123/74 (90) 93 Room Air 08/07/21 20:35 Room Air 08/07/21 19:38 36.5 81 20 135/67 (89) 92 Room Air 08/07/21 15:43 36.0 67 22 130/76 (94) 92 Room Air 08/07/21 11:27 35.8 71 18 139/84 (102) 97 Room Air 08/07/21 08:00 96 Room Air 08/07/21 07:10 36.0 57 18 119/79 (92) 96 Room Air I & O 08/08/21 07:00 Intake Total 562.5 ml Output Total 950 ml Balance -387.5 ml Capillary Refill : General Appearance: No Apparent Distress, Chronically ill Respiratory: Lungs Clear, Normal Breath Sounds, No Respiratory Distress Cardiovascular: Regular Rate, Rhythm, No Murmur Peripheral Pulses: 2+ Radial Pulses (R), 2+ Radial Pulses (L) Gastrointestinal: soft, other (Ostomy pink and functioning) Extremity: Inflammation, Other (bilat cellulitis on shins) Neurologic/Psychiatric: Alert, Aphasia Skin: Warm/Dry, Other (L elbow ulceration/cellulitis; bilateral navarro cellulitis; multiple scabbing wounds on forearms) Results Lab Microbiology 08/06/21 Blood Culture - Preliminary, Resulted No growth 08/06/21 Gram Stain - Final, Resulted 08/06/21 Wound Culture - Preliminary, Resulted Staphylococcus aureus Gram Negative Gato Assessment/Plan Assessment/Plan Assessment/Plan Left elbow ulceration/erythema- cellulitis, concern for osteomyelitis though XRay showed no acute bony abnormality Bilateral navarro cellulitis Aphasia Retention of urine Get MRI If osteomyelitis, put in PICC line and do IV ABX for 6--8 weeks May need debridement if still not improving Continue vancomycin and ceftriaxone Local wound care, consider Wound VAC Get UA Continue Lovenox Monitor labs and vitals REJI ÁLVAREZ DO 08/08/21 1416: Subjective Time Seen by a Provider: 11:48 Subjective/Events-last exam Pt seen and examined, no changes. Review of Systems unable to obtain due to pt's selective mutism Objective Exam General Appearance: No Apparent Distress, Chronically ill Respiratory: Lungs Clear, Normal Breath Sounds, No Accessory Muscle Use, No Respiratory Distress Cardiovascular: Regular Rate, Rhythm, No Murmur Gastrointestinal: soft, other (Ostomy pink and functioning) Extremity: Inflammation, Other (bilat cellulitis on shins) Neurologic/Psychiatric: Aphasia Skin: Other (L elbow ulceration/cellulitis; no change) Assessment/Plan Assessment/Plan Assessment/Plan Left elbow ulceration/erythema- cellulitis, concern for osteomyelitis though XRay showed no acute bony abnormality. Yesterday I roughly debrided with area with my finger, getting out some purulence and noting some undermining. Bilateral navarro cellulitis Aphasia Retention of urine Get MRI if osteomyelitis, put in PICC line and do IV ABX for 6--8 weeks May need debridement if still not improving, Continue vancomycin and ceftriaxone Local wound care, consider Wound VAC Get UA Continue Lovenox Monitor labs and vitals Supervisory-Addendum Brief Verification & Attestation Participated in pt care: history, MDM, physical Personally performed: exam, history, MDM, supervision of care Care discussed with: Medical Student Procedures: n/a Verification and Attestation of Medical Student E/M Service A medical student performed and documented this service. I then reviewed and verified all information documented by the medical student and made modifications to such information, when appropriate. I personally performed a physical exam, medical decision making and then discussed any differences between the notes and made revisions as necessary to create one note. Reji Álvarez , 08/08/21 , 14:16 RONN NOE Aug 08, 2021 06:37 REJI ÁLVAREZ DO Aug 08, 2021 14:16
[2021-08-08] MEDS ORDERED: TROUGH ORDER-PHARMACY XX ONE (07:00)
[2021-08-08 08:00] VITALS: BP 136/77
[2021-08-08 09:07] LABS: BASOPHILS # (AUTO) 0.1 10^3/uL (0.0-0.1); BASOPHILS % (AUTO) 1 % (0-10); EOSINOPHILS # (AUTO) 0.1 10^3/uL (0.0-0.3); EOSINOPHILS % (AUTO) 1 % (0-10); HEMATOCRIT 36 % (40-54); HEMOGLOBIN 11.9 g/dL (13.3-17.7); LYMPHOCYTES # (AUTO) 1.2 10^3/uL (1.0-4.0); LYMPHOCYTES % (AUTO) 15 % (12-44); MEAN CORPUSCULAR HEMOGLOBIN 28 pg (25-34); MEAN CORPUSCULAR HGB CONC 33 g/dL (32-36); MEAN CORPUSCULAR VOLUME 85 fL (80-99); MEAN PLATELET VOLUME 9.4 fL (9.0-12.2); MONOCYTES # (AUTO) 0.6 10^3/uL (0.0-1.0); MONOCYTES % (AUTO) 8 % (0-12); NEUTROPHILS # (AUTO) 5.6 10^3/uL (1.8-7.8); NEUTROPHILS % (AUTO) 75 % (42-75); PLATELET COUNT 182 10^3/uL (130-400); WHITE BLOOD COUNT 7.6 10^3/uL (4.3-11.0)
[2021-08-08 09:17] LABS: CALCIUM 8.8 MG/DL (8.5-10.1); CREATININE SERUM 0.44 MG/DL (0.60-1.30); POTASSIUM 3.8 MMOL/L (3.6-5.0)
[2021-08-08] MEDS: cefTRIAXone 1 GM/50 ML (PRE-MIX) IV SCH (10:07)
[2021-08-08] MEDS: ASPIRIN 81 MG CHEW (CHILDREN'S ASA) PO SCH (10:08)
[2021-08-08] MEDS: polyethylene glycoL POWDER 17 GM (MIRALAX) PACK PO SCH (10:08)
[2021-08-08] MEDS: FAMOTIDINE 20 MG (PEPCID) TABLET PO SCH ×2 (10:08→22:02)
[2021-08-08] MEDS: METOCLOPRAMIDE 5 MG (REGLAN) TAB PO SCH ×4 (10:09→22:02)
[2021-08-08] MEDS: SPIRONOLACTONE 100 MG (ALDACTONE) TABLET PO SCH (10:09)
[2021-08-08] MEDS: hydrOXYzine (VISTARIL/ATARAX) 25 MG capsule/tablet PO SCH ×2 (10:09→22:02)
[2021-08-08] MEDS: DOCUSATE SODIUM 100 MG (COLACE) CAP PO SCH ×2 (10:09→22:02)
[2021-08-08 11:07] VITALS: BP 135/62
--- NOTE | 2021-08-08 16:16 | Diagnostic Imaging Report ---
EXAMINATION: Magnetic resonance imaging of the left elbow without contrast DATE: August 08, 2021. COMPARISON: Left elbow radiographs August 06, 2021. HISTORY: 66-year-old male, ulcer at the posterior aspect of the left elbow. TECHNIQUE: Magnetic Resonance Imaging sequences were performed of the elbow without contrast. FINDINGS: There is a skin contour deformity posteriorly at the level of the olecranon. There is underlying abnormal fluid type signal in the posterior subcutaneous tissues. There is loss of T1 marrow signal and marrow edema in the olecranon consistent with osteomyelitis. This extends very near the distal triceps tendon insertion and measures approximately 2.9 cm in proximal to distal length. The abnormal signal extends near but does not directly contact the articulating surface of the proximal ulna. The distal biceps and brachialis tendons are intact. The distal triceps tendon is intact. The proximal common flexor and common extensor tendons are grossly intact. There are limitations of the exam relating to large ozxaa-su-tonc of acquisition and both signal to noise ratio as well as motion artifact. There is no elbow joint effusion. There is no pronounced joint space loss of the elbow joint. There is edema in the anconeus muscle. There is additional low level edema involving the additional musculature in the included [id number]. There is no identified sizable focal fluid collection or abscess with limited sensitivity for detection without the use of intravenous contrast. IMPRESSION: 1. Posterior skin contour abnormality compatible with soft tissue ulcer at the level of the proximal ulna with adjacent osteomyelitis of the olecranon extending near the distal triceps tendon insertion as described in detail above. 2. No elbow joint effusion or findings to suggest septic arthritis. 3. Multifocal abnormal intramuscular edema which may reflect nonspecific myositis and/or denervation related signal changes. 4. Negative for a tendon tear. Dictated by: Dictated on workstation # [id number]
[2021-08-08 16:33] VITALS: BP 102/67
[2021-08-08 19:00] VITALS: BP 130/64
--- NOTE | 2021-08-08 19:36 | Progress Note - Hospitalist ---
Subjective HPI/CC On Admission Date Seen by Provider: Aug 08, 2021 Time Seen by Provider: 11:30 Edwardo Jones is a 66 year old male with PMH cognitive impairment, mutism, who fell a couple weeks ago at his facility. He had an abrasion to his left elbow and he has been picking at the wound. He reportedly will not leave it alone. There has been purulent drainage. There have not been any reported fevers. He is unable to provide any history. There are no caregivers Subjective/Events-last exam He is unable to communicate. Focused Exam Lactate Level 08/06/21 15:38: Lactic Acid Level 1.46 Objective Exam Vital Signs Vital Signs Date Time Temp Pulse Resp B/P (MAP) Pulse Ox O2 Delivery O2 Flow Rate FiO2 08/08/21 16:33 36.0 82 18 102/67 (79) 93 Room Air Capillary Refill : General Appearance: No Apparent Distress, WD/WN Respiratory: Lungs Clear, No Respiratory Distress Cardiovascular: Regular Rate, Rhythm, No Murmur Gastrointestinal: Normal Bowel Sounds, Soft Extremity: Non Tender, No Pedal Edema, Other (left elbow bandaged) Neurologic/Psychiatric: Alert, Aphasia Skin: Warm/Dry, Other (left elbow wound) Results/Procedures Lab Laboratory Tests 08/08/21 07:14 Patient resulted labs reviewed. 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
[2021-08-08] MEDS: MIRTAZAPINE 15 MG (REMERON) TAB PO SCH (22:02)
[2021-08-08] MEDS: ENOXAPARIN 40 MG/0.4 ML (LOVENOX) SYR SQ SCH (22:02)
[2021-08-08] MEDS: PHENYTOIN 100 MG (DILANTIN) CAP PO SCH (22:02)
[2021-08-08 23:39] VITALS: BP 116/79
[2021-08-09 04:02] VITALS: BP 130/67
[2021-08-09] MEDS ORDERED: TROUGH ORDER-PHARMACY XX ONE (06:00)
[2021-08-09] MEDS: CATHETER FLUSH 10 ML SYR IVP SCH ×3 (06:16→20:12)
--- NOTE | 2021-08-09 06:53 | Progress Note - Surgery ---
RONN NOE 08/09/21 0652: Subjective Date Seen by a Provider: Aug 09, 2021 Time Seen by a Provider: 06:30 Subjective/Events-last exam Pt selectively mute. Overnight nurse reports increased yellow, purulent drainage from his left elbow ulceration. Said that it saturated his dressing yesterday af ternoon/evening. She is concerned he is aspirating on his food, suggests he may need a speech consult. MRI showed osteomyelitis of his olecranon extending to his triceps tendon insertion. Urine output improved with catheter. Ostomy bag empty this morning. Review of Systems unable to obtain due to pt's selective mutism Focused Exam Lactate Level 08/06/21 15:38: Lactic Acid Level 1.46 Respiratory: Lungs Clear, Normal Breath Sounds, No Respiratory Distress Cardiovascular: Regular Rate, Rhythm, No Murmur Peripheral Pulses: 2+ Radial Pulses (R), 2+ Radial Pulses (L) Skin: other (Left elbow ulceration and cellulitis, several scabbed over lesions on bilat forearms) Objective Exam Vital Signs Date Time Temp Pulse Resp B/P (MAP) Pulse Ox O2 Delivery O2 Flow Rate FiO2 08/09/21 04:02 36.8 88 18 130/67 (88) 91 Room Air 08/08/21 23:39 36.7 84 20 116/79 (91) 92 Room Air 08/08/21 20:59 Room Air 08/08/21 19:00 36.2 87 18 130/64 (86) 91 Room Air 08/08/21 16:33 36.0 82 18 102/67 (79) 93 Room Air 08/08/21 11:07 36.4 84 18 135/62 (86) 92 Room Air 08/08/21 08:00 35.8 73 18 136/77 (96) 92 Room Air 08/08/21 08:00 92 Room Air I & O 08/09/21 07:00 Intake Total 790 ml Output Total 1650 ml Balance -860 ml Capillary Refill : General Appearance: No Apparent Distress, WD/WN Respiratory: Lungs Clear, No Respiratory Distress Cardiovascular: Regular Rate, Rhythm, No Murmur Peripheral Pulses: 2+ Radial Pulses (R), 2+ Radial Pulses (L) Gastrointestinal: soft, other (Ostomy pink and functioning) Extremity: Non Tender, No Pedal Edema, Other (left elbow bandaged) Neurologic/Psychiatric: Alert, Aphasia Skin: Warm/Dry, Other (left elbow ulceration with purulent drainage; cellulitis) Results Lab Laboratory Tests 08/08/21 07:14: White Blood Count 7.6, Red Blood Count 4.25L, Hemoglobin 11.9L, Hematocrit 36L, Mean Corpuscular Volume 85, Mean Corpuscular Hemoglobin 28, Mean Corpuscular Hemoglobin Concent 33, Red Cell Distribution Width 16.0H, Platelet Count 182, Mean Platelet Volume 9.4, Immature Granulocyte % (Auto) 1, Neutrophils (%) (Auto) 75, Lymphocytes (%) (Auto) 15, Monocytes (%) (Auto) 8, Eosinophils (%) ( Auto) 1, Basophils (%) (Auto) 1, Neutrophils # (Auto) 5.6, Lymphocytes # (Auto) 1.2, Monocytes # (Auto) 0.6, Eosinophils # (Auto) 0.1, Basophils # (Auto) 0.1, Immature Granulocyte # (Auto) 0.1, Sodium Level 145, Potassium Level 3.8, Chloride Level 109H, Carbon Dioxide Level 25, Anion Gap 11, Blood Urea Nitrogen 14, Creatinine 0.44L, Estimat Glomerular Filtration Rate 117, BUN/Creatinine Ratio 32, Glucose Level 81, Calcium Level 8.8, Vancomycin Level Trough 33.3*H 08/09/21 05:28: Microbiology 08/06/21 Blood Culture - Preliminary, Resulted No growth 08/06/21 Gram Stain - Final, Resulted 08/06/21 Wound Culture - Preliminary, Resulted Staphylococcus aureus Gram Negative Gato Assessment/Plan Assessment/Plan Assessment/Plan Left elbow Osteomyelitis/Cellulitis Bilateral navarro cellulitis Aphasia Retention of urine- improved with catheter Put in PICC line and do IV ABX for 6--8 weeks May need debridement if still not improving Continue vancomycin (as trough allows) and ceftriaxone Local wound care, consider Wound VAC Continue Lovenox Get UA Monitor labs and vitals REJI JONES DO 08/09/21 1215: Subjective Time Seen by a Provider: 09:46 Subjective/Events-last exam Pt seen and examied, no new changes. Review of Systems unable to obtain due to pt's selective mutism Objective Exam General Appearance: No Apparent Distress, Chronically ill Respiratory: Lungs Clear, No Respiratory Distress Cardiovascular: Regular Rate, Rhythm, No Murmur Gastrointestinal: soft, other (Ostomy pink and functioning) Extremity: Other (left elbow bandaged) Neurologic/Psychiatric: Aphasia Assessment/Plan Assessment/Plan Assessment/Plan Left elbow Osteomyelitis/Cellulitis Bilateral navarro cellulitis Aphasia Retention of urine- improved with catheter Would plan to place PICC line and do IV ABX for 6--8 weeks May need debridement if still not improving, wound VAC or continue local care Continue vancomycin (as trough allows) and ceftriaxone Local wound care, consider Wound VAC Continue Lovenox Get UA Monitor labs and vitals Supervisory-Addendum Brief Verification & Attestation Participated in pt care: history, MDM, physical Personally performed: exam, history, MDM, supervision of care Care discussed with: Medical Student Procedures: n/a Verification and Attestation of Medical Student E/M Service A medical student performed and documented this service. I then reviewed and verified all information documented by the medical student and made modifications to such information, when appropriate. I personally performed a physical exam, medical decision making and then discussed any differences between the notes and made revisions as necessary to create one note. Reji Jones , 08/09/21 , 12:15 RONN NOE Aug 09, 2021 06:52 REJI JONES DO Aug 09, 2021 12:15
[2021-08-09 07:14] VITALS: BP 120/67
[2021-08-09] MEDS: hydrOXYzine (VISTARIL/ATARAX) 25 MG capsule/tablet PO SCH ×2 (09:08→20:12)
[2021-08-09] MEDS: SPIRONOLACTONE 100 MG (ALDACTONE) TABLET PO SCH (09:08)
[2021-08-09] MEDS: DOCUSATE SODIUM 100 MG (COLACE) CAP PO SCH ×2 (09:08→20:12)
[2021-08-09] MEDS: ASPIRIN 81 MG CHEW (CHILDREN'S ASA) PO SCH (09:08)
[2021-08-09] MEDS: FAMOTIDINE 20 MG (PEPCID) TABLET PO SCH ×2 (09:08→20:12)
[2021-08-09] MEDS: polyethylene glycoL POWDER 17 GM (MIRALAX) PACK PO SCH (09:09)
[2021-08-09] MEDS: METOCLOPRAMIDE 5 MG (REGLAN) TAB PO SCH ×4 (09:09→20:12)
[2021-08-09] MEDS: cefTRIAXone 1 GM/50 ML (PRE-MIX) IV SCH (09:11)
[2021-08-09 11:10] VITALS: BP 133/69
[2021-08-09 15:28] VITALS: BP 122/67
--- NOTE | 2021-08-09 18:19 | Progress Note - Hospitalist ---
Subjective HPI/CC On Admission Date Seen by Provider: Aug 09, 2021 Time Seen by Provider: 10:25 Edwardo Jones is a 66 year old male with PMH cognitive impairment, mutism, who fell a couple weeks ago at his facility. He had an abrasion to his left elbow and he has been picking at the wound. He reportedly will not leave it alone. There has been purulent drainage. There have not been any reported fevers. He is unable to provide any history. There are no caregivers Subjective/Events-last exam He is non-communicative. Objective Exam Vital Signs Vital Signs Date Time Temp Pulse Resp B/P (MAP) Pulse Ox O2 Delivery O2 Flow Rate FiO2 08/09/21 15:28 37.1 104 19 122/67 (85) 91 Room Air 08/09/21 07:53 2.00 Capillary Refill : General Appearance: No Apparent Distress, WD/WN Respiratory: Lungs Clear, No Respiratory Distress Cardiovascular: Regular Rate, Rhythm, No Murmur Gastrointestinal: Normal Bowel Sounds, Soft Extremity: No Pedal Edema, Other Neurologic/Psychiatric: Alert, Aphasia, Other (uncooperative) Skin: Normal Color, Warm/Dry, Other (left elbow wound) Results/Procedures Lab Patient resulted labs reviewed. 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
[2021-08-09] MEDS: LACTATED RINGERS 1,000 ML IV SCH (18:24)
[2021-08-09 19:39] VITALS: BP 136/77
[2021-08-09] MEDS: HYPOCHLOROUS ACID/NaCl (VASHE) 250 ML IR PRN (20:12)
[2021-08-09] MEDS: ENOXAPARIN 40 MG/0.4 ML (LOVENOX) SYR SQ SCH (20:12)
[2021-08-09] MEDS: PHENYTOIN 100 MG (DILANTIN) CAP PO SCH (20:12)
[2021-08-09] MEDS: MIRTAZAPINE 15 MG (REMERON) TAB PO SCH (20:12)
[2021-08-09 23:33] VITALS: BP 130/70
[2021-08-10 03:42] VITALS: BP 120/69
[2021-08-10] MEDS: LACTATED RINGERS 1,000 ML IV SCH (04:27)
[2021-08-10] MEDS: CATHETER FLUSH 10 ML SYR IVP SCH (04:27)
[2021-08-10] MEDS ORDERED: TROUGH ORDER-PHARMACY XX ONE (06:00)
[2021-08-10 06:10] LABS: BASOPHILS # (AUTO) 0.1 10^3/uL (0.0-0.1); BASOPHILS % (AUTO) 1 % (0-10); EOSINOPHILS % (AUTO) 0 % (0-10); HEMATOCRIT 36 % (40-54); HEMOGLOBIN 12.2 g/dL (13.3-17.7); LYMPHOCYTES # (AUTO) 1.7 10^3/uL (1.0-4.0); LYMPHOCYTES % (AUTO) 14 % (12-44); MEAN CORPUSCULAR HEMOGLOBIN 29 pg (25-34); MEAN CORPUSCULAR HGB CONC 34 g/dL (32-36); MEAN CORPUSCULAR VOLUME 86 fL (80-99); MEAN PLATELET VOLUME 8.7 fL (9.0-12.2); MONOCYTES % (AUTO) 8 % (0-12); NEUTROPHILS # (AUTO) 9.2 10^3/uL (1.8-7.8); NEUTROPHILS % (AUTO) 76 % (42-75); PLATELET COUNT 189 10^3/uL (130-400); WHITE BLOOD COUNT 12.1 10^3/uL (4.3-11.0)
[2021-08-10 06:32] LABS: CALCIUM 9.1 MG/DL (8.5-10.1); CREATININE SERUM 0.58 MG/DL (0.60-1.30); POTASSIUM 4.7 MMOL/L (3.6-5.0)
[2021-08-10 07:09] VITALS: BP 121/73
[2021-08-10] MEDS ORDERED: VANCOMYCIN 1 GM/NS 250 ML IVPB IV SCH ×2 (08:00)
[2021-08-10] MEDS: SPIRONOLACTONE 100 MG (ALDACTONE) TABLET PO SCH (08:21)
[2021-08-10] MEDS: ASPIRIN 81 MG CHEW (CHILDREN'S ASA) PO SCH (08:21)
[2021-08-10] MEDS: FAMOTIDINE 20 MG (PEPCID) TABLET PO SCH (08:21)
[2021-08-10] MEDS: DOCUSATE SODIUM 100 MG (COLACE) CAP PO SCH (08:21)
[2021-08-10] MEDS: METOCLOPRAMIDE 5 MG (REGLAN) TAB PO SCH (08:21)
[2021-08-10] MEDS: polyethylene glycoL POWDER 17 GM (MIRALAX) PACK PO SCH (08:21)
[2021-08-10] MEDS: hydrOXYzine (VISTARIL/ATARAX) 25 MG capsule/tablet PO SCH (08:21)
[2021-08-10] MEDS: cefTRIAXone 1 GM/50 ML (PRE-MIX) IV SCH (08:42)
--- NOTE | 2021-08-10 09:03 | ST Dysphagia Evaluation ---
Speech Evaluation-General Medical Diagnosis Left Elbow Wound Onset Date: Aug 10, 2021 Therapy Diagnosis Therapy Diagnosis: Oropharyngeal Dysphagia Precautions Precautions: Fall, Aspiration Precautions/Isolations: Aspiration, Fall Prevention, Standard Precautions Referral Referring Physician: Dr. Acevedo Reason for Referral: Evaluation/Treatment Medical History Current History The patient is a 66 year-old male with HTN, an "intellectual disability," and CHF, who presented to [facility] with a left elbow infect ion. A recent CXR is not available at this time. Speech PLF/Current-Dysphagia Prior Level of Function The patient's prior diet consistency is unknown to this clinician. The patient is currently receiving a regular diet with thin liquids. Subjective The patient is seated upright in bed, awake and alert upon entrance to his room by the clinician. The patient is currently receiving breakfast with the aid of a patient resident care spec. The patient does not verbally greet the clinician however does make eye contact in response to a verbal greeting. The patient is receiving supplemental oxygen via nasal cannula. Per RN, a swallowing evaluation was requested as the patient sounded congested following the swallow with thin liquids. Cognitive Status Patient Orientation: Non-Verbal/Aphasic Per chart review, the patient is "selectively mute." Oral Motor Skills Dentition: Edentalous Current Food Consistancy: Regular, Thin Liquids Ability to Follow Directions: Unable Oral Expression Ability: Severe Impairment Face Facial Symmetry: Symmetrical The patient's face is symmetrical at rest. The patient does not follow verbal directions for completion of the oral mechanism examination regardless of direct modeling. Oral-Facial Assessment Labial Seal Description: Weak Volitional Dry Swallow: No Voluntary Cough: No Can Clear Throat Volitionally: No Productive Cough: No Productive Throat Clear: No Dysphagia Evaluation Consistencies Presented: Thin Liquid, [place] Thick Liquid, Pureed Oral Phase: Reduced Oral Transit The patient demonstrated reduced coordination with posterior transfer of bolus material, displaying an intermittent tongue pumping behavior. Funct. Velo/Pharyngeal Symptom: Cough After Swallow Prior to the evaluation, the patient was self-administering straw drinks of thin liquid. Following the swallow (3/3), the patient demonstrated delayed throat clearing and coughing. The water was thickened to a nectar-thick liquid consistency. Five teaspoons, multiple straw drinks, and four ounces of puree were provided by the clinician. Overt s/s of suspected aspiration were not demonstrated with the nectar-thick liquids or puree. Vocal quality could not be assessed as the patient is nonverbal. Dietary Recommendations: Pureed Liquid Recommendations: [place] Consistancy Recommendations: - Dysphagia one (pureed) diet consistency with a mildly thick (nectar-thick) liquid, as tolerated. - Fully upright and alert for P.O. intake. - 1:1 meal set-up and assistance, as necessary and appropriate. - Small bites and sips. - Crush medication and place in puree for administration. - Monitor for s/s of suspected aspiration with P.O. intake. If demonstrated, contact speech pathology. - Speech pathology to monitor diet tolerance x1. Speech pathology visited with the Swing Bed Coordinator/RN. At this time, the patient is scheduled to admit to [facility]. Speech pathology will receive a consult to monitor the patient's diet consistency upon transfer. The results and recommendations were shared with the RN upon completion of the swallow evaluation. Swallowing Precautions: Oral Supervision Staff, Small Bites and Sips, Sitting 90 Degrees 30 Post Intake Dysphagia Evaluation Summary The patient presents with oropharyngeal dysphagia characterized by reduced lingual and oral coordination and poor airway protection throughout the swallow function. Please see above for diet consistency recommendations and specific det ails of the swallowing assessment. Barriers to Learning Cognition. Speech Short Term Goals Short Term Goals Short Term Goals 1. The patient and staff will demonstrated 90% accuracy with safe swallowing strategies. Time Frame-STG: Three Days. Speech Client Project Coordinator Goals Client Project Coordinator Goals 1. The patient will tolerate the least restrictive diet consistency without s/s of suspected aspiration. Time Frame: One Week. Speech-Plan Treatment Plan Speech Therapy Treatment Plan: Continue Plan of Care Treatment Duration: Aug 17, 2021 Frequency: 2 times per week Estimated Hrs Per Day: .25 hour per day Rehab Potential: Fair Barriers to Learning: Cognition. Pt/Family Agrees to Plan: Yes Safety Risks/Education Teaching Recipient: Patient Teaching Methods: Discussion Response to Teaching: Unable to Comprehend Education Topics Provided: Results, Recommendations Time Speech Therapy Time In: 08:25 Speech Therapy Time Out: 08:44 Total Billed Time: 19 Billed Treatment Time 1, NOMI LEMUSRYAN Aug 10, 2021 09:02
[2021-08-10 11:11] VITALS: BP 122/62
--- NOTE | 2021-08-10 17:23 | Progress Note - Surgery ---
Subjective Time Seen by a Provider: 09:42 Subjective/Events-last exam Pt seen and examined, no changes. Review of Systems unable to obtain due to pt's selective mutism Objective Exam Vital Signs Date Time Temp Pulse Resp B/P (MAP) Pulse Ox O2 Delivery O2 Flow Rate FiO2 08/10/21 12:09 08/10/21 11:11 36.0 102 18 122/62 (82) 94 Nasal Cannula 2.00 08/10/21 08:57 Room Air 08/10/21 08:32 Room Air 08/10/21 07:09 36.6 95 18 121/73 (89) 92 Room Air 08/10/21 03:42 37.0 99 18 120/69 (86) 93 Room Air 08/10/21 00:35 37.5 08/10/21 00:35 37.5 08/10/21 00:05 38.0 08/09/21 23:33 38.0 114 18 130/70 (90) 92 Room Air 08/09/21 20:15 Room Air 08/09/21 20:10 116 92 Nasal Cannula 2.00 08/09/21 19:39 36.4 20 136/77 (96) 90 Room Air I & O 08/10/21 07:00 Intake Total 800 ml Output Total 1450 ml Balance -650 ml Capillary Refill : General Appearance: No Apparent Distress, WD/WN Respiratory: Lungs Clear, No Respiratory Distress Cardiovascular: Regular Rate, Rhythm, No Murmur Peripheral Pulses: 2+ Radial Pulses (R), 2+ Radial Pulses (L) Gastrointestinal: soft, other (Ostomy pink and functioning) Extremity: No Pedal Edema, Other Neurologic/Psychiatric: Alert, Aphasia, Other (uncooperative) Skin: Normal Color, Warm/Dry, Other (left elbow wound) Results Lab Laboratory Tests 08/10/21 05:42: White Blood Count 12.1H, Red Blood Count 4.24L, Hemoglobin 12.2L, Hematocrit 36L , Mean Corpuscular Volume 86, Mean Corpuscular Hemoglobin 29, Mean Corpuscular Hemoglobin Concent 34, Red Cell Distribution Width 15.6H, Platelet Count 189, Mean Platelet Volume 8.7L, Immature Granulocyte % (Auto) 1, Neutrophils (%) (Auto) 76H, Lymphocytes (%) (Auto) 14, Monocytes (%) (Auto) 8, Eosinophils (%) (Auto) 0, Basophils (%) (Auto) 1, Neutrophils # (Auto) 9.2H, Lymphocytes # (Auto) 1.7, Monocytes # (Auto) 1.0, Eosinophils # (Auto) 0.0, Basophils # (Auto) 0.1, Immature Granulocyte # (Auto) 0.1, Sodium Level 142, Potassium Level 4.7, Chloride Level 106, Carbon Dioxide Level 23, Anion Gap 13, Blood Urea Nitrogen 26H, Creatinine 0.58L, Estimat Glomerular Filtration Rate 108, BUN/Creatinine Ratio 45, Glucose Level 88, Calcium Level 9.1, Vancomycin Level Trough 8.5L Microbiology 08/06/21 Blood Culture - Preliminary, Resulted No growth 08/06/21 Gram Stain - Final, Resulted 08/06/21 Wound Culture - Preliminary, Resulted Staphylococcus aureus Mixed Bacterial Makenzie Escherichia coli Proteus mirabilis Assessment/Plan Assessment/Plan Assessment/Plan Left elbow Osteomyelitis/Cellulitis Bilateral navarro cellulitis Aphasia Retention of urine- improved with catheter Pt will do IV ABX for 1 week and then oral ABX for 6-7 weeks May need debridement if still not improving, wound VAC or continue local care Continue vancomycin (as trough allows) and ceftriaxone Local wound care, consider Wound VAC Pt is being made Swing bed, will sign off and can re-consult if needed. JO ANN ÁLVAREZ DO Aug 10, 2021 17:23
--- NOTE | 2021-08-10 17:30 | Discharge Summary ---
Discharge Summary Hospital Course Problems/Dx: (1) Acute osteomyelitis of left elbow Status: Acute (2) Cognitive impairment Status: Chronic (3) Mutism Status: Chronic Hospital Course Date of Admission: Aug 06, 2021 at 15:49 Admission Diagnosis : Acute osteomyelitis of left elbow Family Physician/Provider: Tori Myers MD Date of Discharge: 08/10/21 Discharge Diagnosis: Acute osteomyelitis of left elbow Hospital Course: Edwardo Jones is a 66 year old male with PMH cognitive impairment, aphasia, who presented with left elbow wound and was admitted with osteomyelitis. He was started on IV antibiotics. MRI revealed osteomyelitis. Surgery was consulted. His course was complicated by dysphagia and he was placed on a modified diet. He was discharged to swing bed for ongoing IV antibiotics, physical therapy, occupational therapy, speech therapy, and wound care. Labs and Pending Lab Test: Laboratory Tests 08/10/21 05:42: White Blood Count 12.1H, Red Blood Count 4.24L, Hemoglobin 12.2L, Hematocrit 36L , Mean Corpuscular Volume 86, Mean Corpuscular Hemoglobin 29, Mean Corpuscular Hemoglobin Concent 34, Red Cell Distribution Width 15.6H, Platelet Count 189, Mean Platelet Volume 8.7L, Immature Granulocyte % (Auto) 1, Neutrophils (%) (Auto) 76H, Lymphocytes (%) (Auto) 14, Monocytes (%) (Auto) 8, Eosinophils (%) (Auto) 0, Basophils (%) (Auto) 1, Neutrophils # (Auto) 9.2H, Lymphocytes # (Auto) 1.7, Monocytes # (Auto) 1.0, Eosinophils # (Auto) 0.0, Basophils # (Auto) 0.1, Immature Granulocyte # (Auto) 0.1, Sodium Level 142, Potassium Level 4.7, Chloride Level 106, Carbon Dioxide Level 23, Anion Gap 13, Blood Urea Nitrogen 26H, Creatinine 0.58L, Estimat Glomerular Filtration Rate 108, BUN/Creatinine Ratio 45, Glucose Level 88, Calcium Level 9.1, Vancomycin Level Trough 8.5L Microbiology 08/06/21 Blood Culture - Preliminary, Resulted No growth 08/06/21 Gram Stain - Final, Resulted 08/06/21 Wound Culture - Preliminary, Resulted Staphylococcus aureus Mixed Bacterial Makenzie Escherichia coli Proteus mirabilis Home Meds Active Reported Hydroxyzine HCl 25 Mg Tablet 25 Mg PO BID PRN Dok (Docusate Sodium) 100 Mg Tablet 100 Mg PO BID Aspirin EC (Aspirin) 81 Mg Tablet.dr 81 Mg PO DAILY Antacid Maximum Strength (Calcium Carbonate) 400 Mg Tab.chew 1,000 Mg PO Q4H PRN Silver Sulfadiazine 50 Gm Cream..g. 1 Applic TP Q12H PRN APPLY TO OPEN WOUND ON LEGS Expectorant Dm Cough Liquid (Guaifenesin/Dextromethorphan) 118 Ml Liquid 10 Ml PO Q4H PRN MDD 60ML Vitamin D3 (Cholecalciferol (Vitamin D3)) 25 Mcg Capsule 25 Mcg PO DAILY Tylenol (Acetaminophen) 325 Mg Tablet 650 Mg PO Q6H PRN Tessalon Perles (Benzonatate) 100 Mg Capsule 100 Mg PO Q8H PRN Miralax (Polyethylene Glycol 3350) 17 Gm Powd.pack 17 Gm PO DAILY PRN Remeron (Mirtazapine) 30 Mg Tablet 30 Mg PO HS Proventil Hfa (Albuterol Sulfate) 6.7 Gm Hfa.aer.ad 2 Puff INH Q4H Milk of Magnesia (Magnesium Hydroxide) 2,400 Mg/10 Ml Oral.susp 30 Ml PO Q12H PRN Cimetidine 400 Mg Tablet 400 Mg PO BID Benadryl (Diphenhydramine HCl) 25 Mg Capsule 25-50 Mg PO Q6H PRN Advil (Ibuprofen) 200 Mg Tablet 400 Mg PO Q6H PRN Reglan (Metoclopramide HCl) 5 Mg Tablet 5 Mg PO QID Albuterol Sulfate 2.5 Mg/3 Ml Vial.neb 3 Ml NEB Q4H PRN Spironolactone 100 Mg Tablet 100 Mg PO DAILY Phenytoin Sodium Extended 100 Mg Capsule 200 Mg PO HS TAKES 2 (100MG) CAPS Assessment/Pt Instructions Discharged to swing bed Discharge Planning: >30 minutes discharge planning Discharge Instructions Discharge Diet: Other Diet (Pureed with nectar thick liquids) Activity as Tolerated: Yes Consultations Surgery Discharge Physical Examination Vital Signs Vital Signs Date Time Temp Pulse Resp B/P (MAP) Pulse Ox O2 Delivery O2 Flow Rate FiO2 08/10/21 12:09 08/10/21 11:11 36.0 102 18 94 Nasal Cannula 2.00 General Appearance: No Apparent Distress, WD/WN Respiratory: Lungs Clear, No Respiratory Distress Cardiovascular: Regular Rate, Rhythm, No Murmur Gastrointestinal: Normal Bowel Sounds, Soft Extremity: Non Tender, No Pedal Edema, Other (left elbow bandaged) Skin: Warm/Dry, Other (venous stasis dermatitis of lower extremities, left elbow wound) Neurologic/Psychiatric: Alert, Aphasia Allergies: Coded Allergies: No Known Drug Allergies (Verified , 05/20/08) Copy Copies To 1: TORI MYERS MD Discharge Summary Date of Admission Aug 06, 2021 at 15:49 Date of Discharge Aug 10, 2021 at 11:40 Discharge Date: Aug 10, 2021 Discharge Time: 11:40 Admission Diagnosis Osteomyelitis Consults/Procedures Consulations Surgery Discharge Diagnosis Acute osteomyelitis of left elbow (1) Acute osteomyelitis of left elbow Status: Acute (2) Cognitive impairment Status: Chronic (3) Mutism Status: Chronic KAZ CHU MD Aug 10, 2021 17:29
== END 2021-08-10 11:40 | disposition swing bed (61) | DRG 540 ==
LOC: EDUNIT# 15:01 → ER 15:03 → 4TH 15:49
PROVIDERS: ADMIT Family Medicine; ATTEND Internal Medicine
DX: M86.8X3 Other osteomyelitis, forearm (principal); R47.01 Aphasia; L03.114 Cellulitis of left upper limb; G31.84 Mild cognitive impairment of uncertain or unknown etiology; J45.909 Unspecified asthma, uncomplicated; Z86.711 Personal history of pulmonary embolism; G40.909 Epilepsy, unspecified, not intractable, without status epilepticus; K21.9 Gastro-esophageal reflux disease without esophagitis; Z79.82 Long term (current) use of aspirin; Z79.899 Other long term (current) drug therapy; R33.9 Retention of urine, unspecified; F79 Unspecified intellectual disabilities; K59.81 Ogilvie syndrome
CPT/HCPCS: 36415; 73080; 73221; 80048; 80053; 80202; 83605; 85025; 85610; 85652; 85730; 86141; 87040; 87070; 87077; 87186; 87205; 94760; 96361; 96365

== ENCOUNTER 2021-08-09 13:12 | Inpatient (IN) | payer MEDICARE, MEDICAID ==
[~2021-08-09] VITALS: Ht 185.4 cm; Wt 53.6 kg
[~2021-08-09 13:12] MED LIST changes: +ACET325T38 PO; +ASPI-1238 PO; +ASPI-999 PO; +BENZ100C18 PO; +CALC500T7 PO; +CHOL100048 PO; +CIME-48 PO; +DIPH25CA79 PO; +DOCU100T28 PO; +GUAI118L27 PO; +IBUP-30 PO; +MIRT-94 PO; +MOM10U PO; +RT-ALBUINH INH; +SILV50CR28 TP; +VITAMIN D PO; +[UNRECOGNIZED DRUG - CODE] PO
[2021-08-10] MEDS ORDERED: guaiFENesin/DM (ROBITUSSIN DM) 10 ML UDC PO PRN (11:45)
[2021-08-10] MEDS ORDERED: SILVER SULFADIAZINE 400 GM CREAM TP PRN (11:45)
[2021-08-10] MEDS ORDERED: RT-ALBUTEROL SULF 2.5 MG/3 ML PRE-MIX VIAL IH PRN (11:45)
[2021-08-10] MEDS ORDERED: MILK OF MAGNESIA 400 MG/5 ML 30 ML UDC PO PRN (11:45)
[2021-08-10] MEDS ORDERED: HYPOCHLOROUS ACID/NaCl (VASHE) 250 ML IR PRN (12:00)
[2021-08-10] MEDS: LACTATED RINGERS 1,000 ML IV SCH ×2 (12:40→22:56)
[2021-08-10] MEDS: METOCLOPRAMIDE 5 MG (REGLAN) TAB PO SCH ×3 (12:41→20:04)
[2021-08-10] MEDS: CATHETER FLUSH 10 ML SYR IVP SCH ×2 (12:41→20:04)
--- NOTE | 2021-08-10 13:45 | Physical Therapy Evaluation ---
PT Evaluation-General Medical Diagnosis Admission Date Aug 10, 2021 at 11:54 Medical Diagnosis: osteomyelitis left elbow Onset Date: Aug 03, 2021 Therapy Diagnosis Therapy Diagnosis: debility/weakness Height/Weight Height (Feet): 6 Height (Inches): 1 Weight (Pounds): 118 Weight (Ounces): 3.0 Precautions Precautions/Isolations: Contact Isolation, Fall Prevention Referral Physician: Yan Reason for Referral: Evaluation/Treatment Medical History Pertinent Medical History: Heart Failure, HTN Additional Medical History MR/mute Current History SWB status due to infection Reviewed History: Yes Social History Home: correction Prior Prior Level of Function SCALE: Activities may be completed with or without assistive devices. 7-Rdcnvibqgf-jbcsmzj completes the activity by him/herself with no assistance from a helper. 5-Set-up or Clean-up Assistance-helper sets up or cleans up; patient completes activity. [place] assists only prior to or following the activity. 4-Supervision or Touching Assistance-helper provides verbal cues and/or to uching/steadying and/or contact guard assistance as patient completes activity. Assistance may be provided throughout the activity or intermittently. 3-Partial/Moderate Assistance-helper does LESS THAN HALF the effort. [place] lifts, holds or supports trunk or limbs, but provides less than half the effort. 2-Substantial/Maximal Assistance-helper does MORE THAN HALF the effort. [place] lifts or holds trunk or limbs and provides more than half the effort. 9-Onxcsanxw-tnypbb does ALL the effort. Patient does none of the effort to complete the activity. Or, the assistance of 2 or more helpers is required for the patient to complete the activity. If activity was not attempted, code reason: 7-Patient Refused. 9-Not Applicable-not attempted and the patient did not perform the activity before the current illness, exacerbation or injury. 10-Not Attempted due to Environmental Limitations-(lack of equipment, weather restraints, etc.). 88-Not Attempted due to Medical Conditions or Safety Concerns. Bed Mobility: 3 Transfers (B,C,W/C): 3 Gait: 3 Indoor Mobility (Ambulation): Needed Some Help Stairs: Not Applicalbe PT Evaluation-Current Objective Patient Orientation: MR, Non-Verbal/Aphasic Attachments: Ramirez Catheter, IV ROM/Strength ROM Lower Extremities bilateral LE WFL Strength Lower Extremities 3+/5 grossly bilateral LE (unable to follow simple direction) Integumentary/Posture Integumentary refer to nursing notes Bowel Incontinence: Yes Bladder Incontinence: Ramirez Cath Posture slightly kyphotic Neuromuscular (Tone, Coordination, Reflexes) diminished coordination Sensory Vision: Functional Hearing: Functional Transfers Roll Left & Right (QC): 3 Sit to Lying (QC): 3 Lying to Sitting/Side of Bed(Q: 3 Sit to Stand (QC): 3 Chair/Ziw-pb-Dbjye Xfer(QC): 3 Toilet Transfer (QC): 3 Car Transfer (QC): 88 Gait Walk 10 feet (QC): 2 Walk 50 ft with 2 Turns(QC): 88 Walk 150 ft (QC): 88 Walking 10ft/uneven surface-QC: 88 Distance: 10' x 2 Gait Assistive Device: FWW Comments/Gait Description unsteady with PT correct/shuffle gait sequence Wheelchair Training Wheel 50 ft with 2 turns (QC): 9 Wheel 150 ft (QC): 9 Stairs 1 Step (curb) (QC): 9 4 Steps (QC): 9 12 Steps (QC): 9 Balance Sitting Static: Normal Sitting Dynamic: Normal Standing Static: Poor Standing Dynamic: Poor Picking up an Object (QC): 9 Treatment Patient incontinent BM requiring dependent assist to cleanse and PT transfer to commode. Ambulate with FWW 10' x 2 max assist due to diminished coordination. Assessment/Needs 66 y.o. male, will benefit from skilled PT to address functional strength and mobility to improve current LOF. Rehab Potential: Fair PT Long-Term Goals Fatback Trimmer Goals PT Long-Term Goals Time Frame: Aug 26, 2021 Roll Left & Right (QC): 3 Sit to Lying (QC): 3 Lying-Sitting on Side/Bed(QC): 3 Sit to Stand (QC): 3 Chair/Pez-jt-Qldlz Xfer(QC): 3 Toilet Transfer (QC): 3 Car Transfer (QC): 3 Does the Patient Walk: Yes Walk 10 feet (QC): 3 Walk 50ft with 2 Turns (QC): 3 Walk 150 ft (QC): 3 Walking 10ft on Uneven Surface: 3 1 Step (curb) (QC): 9 4 Steps (QC): 9 12 Steps (QC): 9 Picking up an Object (QC): 9 Wheel 50 feet with 2 turns (QC: 9 Wheel 150 feet: 9 PT Plan Problem List Problem List: Activity Tolerance, Functional Strength, Safety, Balance, Gait, Transfer, Bed Mobility Treatment/Plan Treatment Plan: Continue Plan of Care Treatment Plan: Bed Mobility, Education, Functional Activity Nita, Functional Strength, Gait, Safety, Therapeutic Exercise, Transfers Treatment Duration: Aug 26, 2021 Frequency: 6 times per week Estimated Hrs Per Day: .25 hour per day Time/GCodes Time In: 1245 Time Out: 1310 Total Billed Treatment Time: 25 Total Billed Treatment 1 visit EVModC 10 min FA 15 min PARAG HERMOSILLO PT Aug 10, 2021 13:45
--- NOTE | 2021-08-10 14:32 | Occupational Therapy Eval ---
OT Evaluation-General/PLF Medical Diagnosis Admission Date Aug 10, 2021 at 11:54 Medical Diagnosis: osteomyelitis left elbow Onset Date: Aug 03, 2021 Therapy Diagnosis Therapy Diagnosis: decreased ADL status Height/Weight Height (Feet): 6 Height (Inches): 1 Weight (Pounds): 118 Weight (Ounces): 3.0 Precautions Precautions/Isolations: Contact Isolation, Fall Prevention Referral Physician: Yan Referral Reason: Evaluation/Treatment Medical History Pertinent Medical History: Heart Failure, HTN Additional Medical History cognitive impairment, mutism Current History pt fell a couple of weeks ago, abrasion to L elbow and pt picked at would. Imaging revealed osteomyelitis of L elbow. Pt admitted SWB status Social History Home: correction ADL-Prior Level of Function SCALE: Activities may be completed with or without assistive devices. 1-Odxyzkbojr-cbfaivz completes the activity by him/herself with no assistance from a helper. 5-Set-up or Clean-up Assistance-helper sets up or cleans up; patient completes activity. [place] assists only prior to or following the activity. 4-Supervision or Touching Assistance-helper provides verbal cues and/or touching/steadying and/or contact guard assistance as patient completes activity. Assistance may be provided throughout the activity or intermittently. 3-Partial/Moderate Assistance-helper does LESS THAN HALF the effort. [place] lifts, holds or supports trunk or limbs, but provides less than half the effort. 2-Substantial/Maximal Assistance-helper does MORE THAN HALF the effort. [place] lifts or holds trunk or limbs and provides more than half the effort. 0-Rsbxdczgf-tfublo does ALL the effort. Patient does none of the effort to complete the activity. Or, the assistance of 2 or more helpers is required for the patient to complete the activity. If activity was not attempted, code reason: 7-Patient Refused. 9-Not Applicable-not attempted and the patient did not perform the activity before the current illness, exacerbation or injury. 10-Not Attempted due to Environmental Limitations-(lack of equipment, weather restraints, etc.). 88-Not Attempted due to Medical Conditions or Safety Concerns. ADL PLOF Comments PLOF unknown due to mutism Self Care: Needed Some Help Functional Cognition: Needed Some Help OT Current Status Subjective Pt laying in bed, nonverbal throughout tx. Pt able to follow simple commands Mental Status/Objective Patient Orientation: MR, Non-Verbal/Aphasic, Eyes Open Attachments: Ramirez Catheter, IV Current Upper Extremity ROM RUE AAROM shoulder flexion to approx 140 degrees, LUE shoulder flexion AAROM to approx 90 degrees. L elbow not tested due to dressing. L hand decreased gross grasp, unable to make full fist RUE elbow/hand wrist WFL Upper Extremity Coordination decreased Upper Extremity Strength unable to formally assess ADL-Treatment Eating (QC): 4 (Per nursing report, pt able to feed himself with supervision and set up assist) Oral Hygiene (QC): 4 (With verbal/tactile cues, pt able to use oral swab to brush tongue/gums.) Shower/Bathe Self (QC): 88 Upper Body Dressing (QC): 3 (Per clinical judgment.) Lower Body Dressing (QC): 10 On/Off Footwear (QC): 1 (assist donning gripper socks.) Toileting Hygiene (QC): 1 (dependent per PT report.) Other Treatments Pt in bed, OT introduced self and educated pt on purpose and benefit of OT tx. Pt nonverbal throughout tx, but able to follow simple commands. Pt participated in UE screening, washed his face with min A, and used oral swab on his gums with SBA. Pt required verbal and tactile cues throughout session. Per PT report, pt required QC (3) for the following: rolling, sit to/from lying, sit to/from stand, bed to chair and toilet transfers, max A with ambulation 10'x2 with FWW. Post tx, pt in bed, call light in reach and all needs met. Education OT Patient Education: Correct positioning, Energy conservation, Exercise program, Modified ADL techniques, Progress toward Goal/Update tx plan, Purpose of tx/functional activities, Rehab process Teaching Recipient: Patient Teaching Methods: Demonstration, Discussion Response to Teaching: Reinforcement Needed OT Short Term Goals Short Term Goals Time Frame: Aug 18, 2021 Shower/bathe self: 2 Lower body dressin Putting on/taking off footwear: 2 OT Shop Mechanic Goals Shop Mechanic Goals Time Frame: Sep 01, 2021 Eating (QC): 5 Oral Hygiene (QC): 5 Toileting Hygiene (QC): 3 Shower/Bathe Self (QC): 3 Upper Body Dressing (QC): 3 Lower Body Dressing (QC): 3 On/Off Footwear (QC): 3 Additional Goals: 1-Demonstrate ADL Tasks, 2-Verbalize Understanding, 3-ImproveStrength/Nita 1=Demonstrate adherence to instructed precautions during ADL tasks. 2=Patient will verbalize/demonstrate understanding of assistive devices/modifications for ADL. 3=Patient will improve strength/tolerance for activity to enable patient to perform ADL's. OT Education/Plan Problem List/Assessment Assessment: Decreased Activ Tolerance, Decreased Safety Aware, Decreased UE Strength, Impaired Cognition, Impaired Coordination, Impaired Funct Balance, Impaired I ADL's, Impaired Self-Care Skills, Restricted Funct UE ROM Discharge Recommendations Plan/Recommendations: Continue POC Treatment Plan/Plan of Care Patient would benefit from OT for education, treatment and training to promote independence in ADL's, mobility, safety and/or upper extremity function for ADL's. Plan of Care: ADL Retraining, Functional Mobility, UE Funct Exercise/Act Treatment Duration: Sep 01, 2021 Frequency: 5 times per week Estimated Hrs Per Day: .25 hour per day Rehab Potential: Guarded Time/GCodes Start Time: 13:55 Stop Time: 14:20 Total Time Billed (hr/min): 25 Billed Treatment Time 1, EVM (10'), ADL (15') JUAN JOSE MEEHAN OT Aug 10, 2021 14:32
[2021-08-10 15:37] VITALS: BP 117/66
[2021-08-10 19:14] VITALS: BP 111/64
[2021-08-10] MEDS: PHENYTOIN 100 MG (DILANTIN) CAP PO SCH (20:03)
[2021-08-10] MEDS: ENOXAPARIN 40 MG/0.4 ML (LOVENOX) SYR SQ SCH (20:04)
[2021-08-10] MEDS: MIRTAZAPINE 15 MG (REMERON) TAB PO SCH (20:04)
[2021-08-10] MEDS: FAMOTIDINE 20 MG (PEPCID) TABLET PO SCH (20:04)
[2021-08-10] MEDS: hydrOXYzine (VISTARIL/ATARAX) 25 MG capsule/tablet PO SCH (20:04)
[2021-08-10] MEDS: DOCUSATE SODIUM 100 MG (COLACE) CAP PO SCH (20:04)
[2021-08-11] MEDS: CATHETER FLUSH 10 ML SYR IVP SCH ×3 (06:41→20:24)
[2021-08-11 07:27] VITALS: BP 118/72
[2021-08-11] MEDS: LACTATED RINGERS 1,000 ML IV SCH ×3 (08:15→19:36)
[2021-08-11] MEDS: VANCOMYCIN INJECTION 1,000 MG in NS (IVPB) 250 ML IV SCH (08:16)
[2021-08-11] MEDS: cefTRIAXone 1 GM PRE-MIX 50 ML IV SCH (08:26)
[2021-08-11] MEDS: FAMOTIDINE 20 MG (PEPCID) TABLET PO SCH ×2 (08:26→20:22)
[2021-08-11] MEDS: ASPIRIN 81 MG CHEW (CHILDREN'S ASA) PO SCH (08:27)
[2021-08-11] MEDS: hydrOXYzine (VISTARIL/ATARAX) 25 MG capsule/tablet PO SCH ×2 (08:27→20:23)
[2021-08-11] MEDS: DOCUSATE SODIUM 100 MG (COLACE) CAP PO SCH ×2 (08:27→20:23)
[2021-08-11] MEDS: SPIRONOLACTONE 100 MG (ALDACTONE) TABLET PO SCH (08:27)
[2021-08-11] MEDS: polyethylene glycoL POWDER 17 GM (MIRALAX) PACK PO SCH (08:27)
[2021-08-11] MEDS: METOCLOPRAMIDE 5 MG (REGLAN) TAB PO SCH ×4 (08:27→20:23)
--- NOTE | 2021-08-11 09:52 | Physical Therapy Daily Note ---
PT Daily Note-Current Subjective Patient is in bed finishing breakfast. QUILTING MACHINE OPERATOR present. Mental Status Patient Orientation: MR Attachments: Oxygen, Ramirez Catheter, IV Transfers SCALE: Activities may be completed with or without assistive devices. 5-Zabrdeqdpz-ffgmwfo completes the activity by him/herself with no assistance from a helper. 5-Set-up or Clean-up Assistance-helper sets up or cleans up; patient completes activity. [place] assists only prior to or following the activity. 4-Supervision or Touching Assistance-helper provides verbal cues and/or touching/steadying and/or contact guard assistance as patient completes activity. Assistance may be provided throughout the activity or intermittently. 3-Partial/Moderate Assistance-helper does LESS THAN HALF the effort. [place] lifts, holds or supports trunk or limbs, but provides less than half the effort. 2-Substantial/Maximal Assistance-helper does MORE THAN HALF the effort. [place] lifts or holds trunk or limbs and provides more than half the effort. 7-Fdrhaknwe-yiokih does ALL the effort. Patient does none of the effort to complete the activity. Or, the assistance of 2 or more helpers is required for the patient to complete the activity. If activity was not attempted, code reason: 7-Patient Refused. 9-Not Applicable-not attempted and the patient did not perform the activity before the current illness, exacerbation or injury. 10-Not Attempted due to Environmental Limitations-(lack of equipment, weather restraints, etc.). 88-Not Attempted due to Medical Conditions or Safety Concerns. Sit to Lying (QC): 3 Lying to Sitting/Side of Bed(Q: 4 Sit to Stand (QC): 3 Gait Training Distance: 150' Walk 10 feet (QC): 3 Walk 50 ft with 2 Turns(QC): 3 Walk 150 ft (QC): 3 Gait Assistive Device: FWW mod assist with mobility to assist with balance and advancing FWW Assessment Patient returned to bed with needs met. Bed alarm activated. Increase activity as tolerated by patient. PT Director Of Placement Goals Senior Living Goals PT Director Of Placement Goals Time Frame: Aug 26, 2021 Roll Left & Right (QC): 3 Sit to Lying (QC): 3 Lying-Sitting on Side/Bed(QC): 3 Sit to Stand (QC): 3 Chair/Mtp-jx-Yeptq Xfer(QC): 3 Toilet Transfer (QC): 3 Car Transfer (QC): 3 Does the Patient Walk: Yes Walk 10 feet (QC): 3 Walk 50ft with 2 Turns (QC): 3 Walk 150 ft (QC): 3 Walking 10ft on Uneven Surface: 3 1 Step (curb) (QC): 9 4 Steps (QC): 9 12 Steps (QC): 9 Picking up an Object (QC): 9 Wheel 50 feet with 2 turns (QC: 9 Wheel 150 feet: 9 PT Plan Treatment/Plan Treatment Plan: Continue Plan of Care Treatment Plan: Bed Mobility, Education, Functional Activity Nita, Functional Strength, Gait, Safety, Therapeutic Exercise, Transfers Treatment Duration: Aug 26, 2021 Frequency: 6 times per week Estimated Hrs Per Day: .25 hour per day Time/GCodes Time In: 855 Time Out: 911 Total Billed Treatment Time: 16 Total Billed Treatment 1 visit GT 16 min PARAG HERMOSILLO PT Aug 11, 2021 09:52
--- NOTE | 2021-08-11 11:06 | Occupational Ther Daily Note ---
OT Current Status-Daily Note Subjective Pt lying in bed, sleeping. Difficult to wake. Pt opened eyes a few times during session then would close them. 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 Mental Status/Objective Patient Orientation: Unable to Assess Attachments: IV, Oxygen ADL-Treatment Therapy Code Descriptions/Definitions Functional [place] Measure: 0=Not Assessed/NA 4=Minimal Assistance 1=Total Assistance 5=Supervision or Setup 2=Maximal Assistance 6=Modified [place] 3=Moderate Assistance 7=Complete IndependenceSCALE: Activities may be completed with or without assistive devices. 5-Tqlvqcdtwk-trsfrai completes the activity by him/herself with no assistance from a helper. 5-Set-up or Clean-up Assistance-helper sets up or cleans up; patient completes activity. [place] assists only prior to or following the activity. 4-Supervision or Touching Assistance-helper provides verbal cues and/or touching/steadying and/or contact guard assistance as patient completes activity. Assistance may be provided throughout the activity or intermittently. 3-Partial/Moderate Assistance-helper does LESS THAN HALF the effort. [place] lifts, holds or supports trunk or limbs, but provides less than half the effort. 2-Substantial/Maximal Assistance-helper does MORE THAN HALF the effort. [place] lifts or holds trunk or limbs and provides more than half the effort. 4-Auashxuli-dxxvyk does ALL the effort. Patient does none of the effort to complete the activity. Or, the assistance of 2 or more helpers is required for the patient to complete the activity. If activity was not attempted, code reason: 7-Patient Refused. 9-Not Applicable-not attempted and the patient did not perform the activity before the current illness, exacerbation or injury. 10-Not Attempted due to Environmental Limitations-(lack of equipment, weather restraints, etc.). 88-Not Attempted due to Medical Conditions or Safety Concerns. Other Treatment APROM to B UE's. Pt would resist movement and COKER encouraged pt to resist to increase B UE strength. Pt would be able to resist about 8 reps then would relax and allow COKER to complete PROM to B UE's. After therapy, pt lying in bed with call light/phone in reach. All needs met in room. Safety measures in place. OT Short Term Goals Short Term Goals Time Frame: Aug 18, 2021 Shower/bathe self: 2 Lower body dressin Putting on/taking off footwear: 2 OT Bag Bailer Goals [facility] Goals Time Frame: Sep 01, 2021 Eating (QC): 5 Oral Hygiene (QC): 5 Toileting Hygiene (QC): 3 Shower/Bathe Self (QC): 3 Upper Body Dressing (QC): 3 Lower Body Dressing (QC): 3 On/Off Footwear (QC): 3 Additional Goals: 1-Demonstrate ADL Tasks, 2-Verbalize Understanding, 3- ImproveStrength/Nita 1=Demonstrate adherence to instructed precautions during ADL tasks. 2=Patient will verbalize/demonstrate understanding of assistive devices/modifications for ADL. 3=Patient will improve strength/tolerance for activity to enable patient to perform ADL's. OT Education/Plan Problem List/Assessment Assessment: Impaired Cognition, Impaired I ADL's, Impaired Self-Care Skills Discharge Recommendations Plan/Recommendations: Continue POC Treatment Plan/Plan of Care Patient would benefit from OT for education, treatment and training to promote independence in ADL's, mobility, safety and/or upper extremity function for ADL's. Plan of Care: ADL Retraining, Functional Mobility, UE Funct Exercise/Act Treatment Duration: Sep 01, 2021 Frequency: 5 times per week Estimated Hrs Per Day: .25 hour per day Rehab Potential: Guarded Time/GCodes Start Time: 10:40 Stop Time: 10:55 Total Time Billed (hr/min): 15 Billed Treatment Time 1 visit-FA 1 (15 min) JARET PAULA Aug 11, 2021 11:06
[2021-08-11 19:25] VITALS: BP 117/64
[2021-08-11] MEDS: ENOXAPARIN 40 MG/0.4 ML (LOVENOX) SYR SQ SCH (20:22)
[2021-08-11] MEDS: MIRTAZAPINE 15 MG (REMERON) TAB PO SCH (20:23)
[2021-08-11] MEDS: PHENYTOIN 100 MG (DILANTIN) CAP PO SCH (20:23)
[2021-08-11 23:29] VITALS: BP 104/68
[2021-08-12] MEDS: CATHETER FLUSH 10 ML SYR IVP SCH ×3 (06:21→20:59)
[2021-08-12] MEDS ORDERED: TROUGH ORDER-PHARMACY XX ONE (07:00)
[2021-08-12] MEDS: METOCLOPRAMIDE 5 MG (REGLAN) TAB PO SCH ×4 (07:58→20:58)
[2021-08-12] MEDS: polyethylene glycoL POWDER 17 GM (MIRALAX) PACK PO SCH (07:59)
[2021-08-12] MEDS: VANCOMYCIN INJECTION 1,000 MG in NS (IVPB) 250 ML IV SCH ×2 (07:59→18:30)
[2021-08-12] MEDS: FAMOTIDINE 20 MG (PEPCID) TABLET PO SCH ×2 (07:59→20:58)
[2021-08-12] MEDS: SPIRONOLACTONE 100 MG (ALDACTONE) TABLET PO SCH (07:59)
[2021-08-12] MEDS: DOCUSATE SODIUM 100 MG (COLACE) CAP PO SCH ×2 (07:59→20:59)
[2021-08-12] MEDS: LACTATED RINGERS 1,000 ML IV SCH ×2 (07:59→20:59)
[2021-08-12] MEDS: hydrOXYzine (VISTARIL/ATARAX) 25 MG capsule/tablet PO SCH ×2 (07:59→20:58)
[2021-08-12] MEDS: ASPIRIN 81 MG CHEW (CHILDREN'S ASA) PO SCH (07:59)
[2021-08-12 08:47] VITALS: BP 125/62
[2021-08-12] MEDS: cefTRIAXone 1 GM PRE-MIX 50 ML IV SCH (10:16)
--- NOTE | 2021-08-12 12:17 | Physical Therapy Daily Note ---
PT Daily Note-Current Subjective Pt compliant but non verbal Mental Status Attachments: IV Transfers SCALE: Activities may be completed with or without assistive devices. 7-Fckjqzhsco-apcpphz completes the activity by him/herself with no assistance from a helper. 5-Set-up or Clean-up Assistance-helper sets up or cleans up; patient completes activity. [place] assists only prior to or following the activity. 4-Supervision or Touching Assistance-helper provides verbal cues and/or touching/steadying and/or contact guard assistance as patient completes activity. Assistance may be provided throughout the activity or intermittently. 3-Partial/Moderate Assistance-helper does LESS THAN HALF the effort. [place] lifts, holds or supports trunk or limbs, but provides less than half the effort. 2-Substantial/Maximal Assistance-helper does MORE THAN HALF the effort. [place] lifts or holds trunk or limbs and provides more than half the effort. 7-Masnkhmsi-yxknyr does ALL the effort. Patient does none of the effort to complete the activity. Or, the assistance of 2 or more helpers is required for the patient to complete the activity. If activity was not attempted, code reason: 7-Patient Refused. 9-Not Applicable-not attempted and the patient did not perform the activity before the current illness, exacerbation or injury. 10-Not Attempted due to Environmental Limitations-(lack of equipment, weather restraints, etc.). 88-Not Attempted due to Medical Conditions or Safety Concerns. Roll Left & Right (QC): 4 Sit to Lying (QC): 4 Lying to Sitting/Side of Bed(Q: 4 Sit to Stand (QC): 4 Stood bedside with FWW for alo care post bowel incontinence. Min A for balance Gait Training Gait Assistive Device: FWW Ambulate 200ft with FWW and Min A for walker management and verbal cues for safety. PT Pegger Dobby Looms Goals Pegger Dobby Looms Goals PT Pegger Dobby Looms Goals Time Frame: Aug 26, 2021 Roll Left & Right (QC): 3 Sit to Lying (QC): 3 Lying-Sitting on Side/Bed(QC): 3 Sit to Stand (QC): 3 Chair/Xga-tl-Seuyt Xfer(QC): 3 Toilet Transfer (QC): 3 Car Transfer (QC): 3 Does the Patient Walk: Yes Walk 10 feet (QC): 3 Walk 50ft with 2 Turns (QC): 3 Walk 150 ft (QC): 3 Walking 10ft on Uneven Surface: 3 1 Step (curb) (QC): 9 4 Steps (QC): 9 12 Steps (QC): 9 Picking up an Object (QC): 9 Wheel 50 feet with 2 turns (QC: 9 Wheel 150 feet: 9 PT Plan Treatment/Plan Treatment Plan: Continue Plan of Care Treatment Plan: Bed Mobility, Education, Functional Activity Nita, Functional Strength, Gait, Safety, Therapeutic Exercise, Transfers Treatment Duration: Aug 26, 2021 Frequency: 6 times per week Estimated Hrs Per Day: .25 hour per day Time/GCodes Time In: 915 Time Out: 940 Total Billed Treatment Time: 22 Total Billed Treatment visit, FA 10 min, gt 12 min FABBY PRICE PT Aug 12, 2021 12:17
--- NOTE | 2021-08-12 16:26 | Progress Note - Hospitalist ---
Subjective HPI/CC On Admission Date Seen by Provider: Aug 12, 2021 Time Seen by Provider: 10:30 Subjective/Events-last exam He is laying in bed. He is non-communicative. Objective Exam Vital Signs Vital Signs Date Time Temp Pulse Resp B/P (MAP) Pulse Ox O2 Delivery O2 Flow Rate FiO2 08/12/21 09:00 Nasal Cannula 2.00 08/12/21 08:47 37.1 89 18 125/62 (83) 92 Capillary Refill : General Appearance: No Apparent Distress, WD/WN Respiratory: Lungs Clear, No Respiratory Distress Cardiovascular: Regular Rate, Rhythm, No Murmur Gastrointestinal: Normal Bowel Sounds, Soft Extremity: Normal Inspection, No Pedal Edema Neurologic/Psychiatric: Alert, Aphasia Skin: Normal Color, Warm/Dry Results/Procedures Lab Patient resulted labs reviewed. Assessment/Plan Assessment and Plan Assess & Plan/Chief Complaint Acute osteomyelitis of the left elbow Continue IV antibiotics Weekly labs, scheduled for Saturday Debility PT/OT Cognitive impairment Mutism Chronic, at baseline DVT prophylaxis: Lovenox Diagnosis/Problems Diagnosis/Problems (1) Acute osteomyelitis of left elbow Status: Acute (2) Cognitive impairment Status: Chronic (3) Mutism Status: Chronic KAZ CHU MD Aug 12, 2021 16:26
[2021-08-12 19:12] VITALS: BP 119/71
[2021-08-12] MEDS: ENOXAPARIN 40 MG/0.4 ML (LOVENOX) SYR SQ SCH (20:59)
[2021-08-12] MEDS: PHENYTOIN 100 MG (DILANTIN) CAP PO SCH (20:59)
[2021-08-12] MEDS: MIRTAZAPINE 15 MG (REMERON) TAB PO SCH (20:59)
[2021-08-12] MEDS: ACETAMINOPHEN 500 MG TAB (TYLENOL) PO PRN (22:45)
[2021-08-13] MEDS: CATHETER FLUSH 10 ML SYR IVP SCH ×3 (06:03→19:28)
[2021-08-13] MEDS: LACTATED RINGERS 1,000 ML IV SCH ×2 (06:04→20:17)
[2021-08-13] MEDS: VANCOMYCIN INJECTION 1,000 MG in NS (IVPB) 250 ML IV SCH ×2 (06:04→20:17)
[2021-08-13 08:22] VITALS: BP 127/72
[2021-08-13] MEDS: ASPIRIN 81 MG CHEW (CHILDREN'S ASA) PO SCH (10:14)
[2021-08-13] MEDS: hydrOXYzine (VISTARIL/ATARAX) 25 MG capsule/tablet PO SCH ×2 (10:14→20:58)
[2021-08-13] MEDS: METOCLOPRAMIDE 5 MG (REGLAN) TAB PO SCH ×4 (10:14→20:58)
[2021-08-13] MEDS: polyethylene glycoL POWDER 17 GM (MIRALAX) PACK PO SCH (10:15)
[2021-08-13] MEDS: DOCUSATE SODIUM 100 MG (COLACE) CAP PO SCH ×2 (10:15→20:58)
[2021-08-13] MEDS: SPIRONOLACTONE 100 MG (ALDACTONE) TABLET PO SCH (10:15)
[2021-08-13] MEDS: cefTRIAXone 1 GM PRE-MIX 50 ML IV SCH (10:15)
[2021-08-13] MEDS: FAMOTIDINE 20 MG (PEPCID) TABLET PO SCH ×2 (10:18→20:58)
[2021-08-13] MEDS ORDERED: TROUGH ORDER-PHARMACY XX NR (18:00)
[2021-08-13 19:29] VITALS: BP 112/64
[2021-08-13] MEDS: ACETAMINOPHEN 500 MG TAB (TYLENOL) PO PRN (20:58)
[2021-08-13] MEDS: MIRTAZAPINE 15 MG (REMERON) TAB PO SCH (20:58)
[2021-08-13] MEDS: PHENYTOIN 100 MG (DILANTIN) CAP PO SCH (20:58)
[2021-08-13] MEDS: ENOXAPARIN 40 MG/0.4 ML (LOVENOX) SYR SQ SCH (20:58)
[2021-08-14] MEDS: LACTATED RINGERS 1,000 ML IV SCH ×3 (05:35→16:27)
[2021-08-14] MEDS: CATHETER FLUSH 10 ML SYR IVP SCH ×3 (05:35→21:07)
[2021-08-14 06:12] LABS: BASOPHILS # (AUTO) 0.1 10^3/uL (0.0-0.1); BASOPHILS % (AUTO) 2 % (0-10); EOSINOPHILS # (AUTO) 0.1 10^3/uL (0.0-0.3); EOSINOPHILS % (AUTO) 2 % (0-10); HEMATOCRIT 33 % (40-54); HEMOGLOBIN 10.8 g/dL (13.3-17.7); LYMPHOCYTES # (AUTO) 1.2 10^3/uL (1.0-4.0); LYMPHOCYTES % (AUTO) 23 % (12-44); MEAN CORPUSCULAR HEMOGLOBIN 29 pg (25-34); MEAN CORPUSCULAR HGB CONC 32 g/dL (32-36); MEAN CORPUSCULAR VOLUME 89 fL (80-99); MONOCYTES # (AUTO) 0.5 10^3/uL (0.0-1.0); MONOCYTES % (AUTO) 10 % (0-12); NEUTROPHILS # (AUTO) 3.3 10^3/uL (1.8-7.8); NEUTROPHILS % (AUTO) 63 % (42-75); PLATELET COUNT 261 10^3/uL (130-400); WHITE BLOOD COUNT 5.2 10^3/uL (4.3-11.0)
[2021-08-14 06:28] LABS: ALBUMIN 2.6 GM/DL (3.2-4.5); POTASSIUM 4.1 MMOL/L (3.6-5.0)
[2021-08-14 06:29] LABS: CALCIUM 8.7 MG/DL (8.5-10.1)
[2021-08-14 06:30] LABS: TOTAL PROTEIN 5.4 GM/DL (6.4-8.2)
[2021-08-14 06:32] LABS: BILIRUBIN,TOTAL 0.1 MG/DL (0.1-1.0)
[2021-08-14] MEDS: VANCOMYCIN INJECTION 1,000 MG in NS (IVPB) 250 ML IV SCH ×2 (06:32→18:10)
[2021-08-14 06:34] LABS: CREATININE SERUM 0.42 MG/DL (0.60-1.30)
[2021-08-14 06:39] LABS: ERYTHROCYTE SEDIMENTATION RATE 45 MM/HR (0-30)
[2021-08-14 08:00] VITALS: BP 137/81
[2021-08-14] MEDS: cefTRIAXone 1 GM PRE-MIX 50 ML IV SCH (08:08)
[2021-08-14] MEDS: FAMOTIDINE 20 MG (PEPCID) TABLET PO SCH ×2 (08:08→21:06)
[2021-08-14] MEDS: hydrOXYzine (VISTARIL/ATARAX) 25 MG capsule/tablet PO SCH ×2 (08:08→21:06)
[2021-08-14] MEDS: SPIRONOLACTONE 100 MG (ALDACTONE) TABLET PO SCH (08:08)
[2021-08-14] MEDS: ASPIRIN 81 MG CHEW (CHILDREN'S ASA) PO SCH (08:08)
[2021-08-14] MEDS: DOCUSATE SODIUM 100 MG (COLACE) CAP PO SCH ×2 (08:08→21:06)
[2021-08-14] MEDS: METOCLOPRAMIDE 5 MG (REGLAN) TAB PO SCH ×4 (08:08→21:06)
[2021-08-14] MEDS: polyethylene glycoL POWDER 17 GM (MIRALAX) PACK PO SCH (08:13)
--- NOTE | 2021-08-14 10:49 | Physical Therapy Evaluation ---
PT Evaluation-General Medical Diagnosis Admission Date Aug 10, 2021 at 11:54 Medical Diagnosis: osteomyelitis left elbow Onset Date: Aug 03, 2021 Height/Weight Height (Feet): 6 Height (Inches): 1 Weight (Pounds): 118 Weight (Ounces): 3.0 Precautions Precautions/Isolations: Contact Isolation, Seizure, Fall Prevention Referral Physician: Yan Reason for Referral: Evaluation/Treatment Medical History Pertinent Medical History: Heart Failure, HTN Reviewed History: Yes Social History Home: care home Prior Prior Level of Function SCALE: Activities may be completed with or without assistive devices. 1-Ugnkyygqwh-cbdovvc completes the activity by him/herself with no assistance from a helper. 5-Set-up or Clean-up Assistance-helper sets up or cleans up; patient completes activity. [place] assists only prior to or following the activity. 4-Supervision or Touching Assistance-helper provides verbal cues and/or touching/steadying and/or contact guard assistance as patient completes act ivity. Assistance may be provided throughout the activity or intermittently. 3-Partial/Moderate Assistance-helper does LESS THAN HALF the effort. [place] lifts, holds or supports trunk or limbs, but provides less than half the effort. 2-Substantial/Maximal Assistance-helper does MORE THAN HALF the effort. [place] lifts or holds trunk or limbs and provides more than half the effort. 7-Kshozvbdy-cmlaep does ALL the effort. Patient does none of the effort to complete the activity. Or, the assistance of 2 or more helpers is required for the patient to complete the activity. If activity was not attempted, code reason: 7-Patient Refused. 9-Not Applicable-not attempted and the patient did not perform the activity before the current illness, exacerbation or injury. 10-Not Attempted due to Environmental Limitations-(lack of equipment, weather restraints, etc.). 88-Not Attempted due to Medical Conditions or Safety Concerns. Indoor Mobility (Ambulation): Needed Some Help Stairs: Not [place] PT Evaluation-Current Subjective Upon arrival pt was Pain Location: No Pain Reported Objective Patient Orientation: Non-Verbal/Aphasic Attachments: Oxygen, Ramirez Catheter, IV Integumentary/Posture Bowel Incontinence: Yes Bladder Incontinence: Ramirez Cath Sensory Vision: Functional Hearing: Functional Transfers Lying to Sitting/Side of Bed(Q: 3 Sit to Stand (QC): 3 Upon transferring from sitting to standing pt had incontinence on the the bed. Pt required assistance from therapist to clean up pt. Nurse was called for assistance in changing bed. Gait Does the Patient Walk?: Yes Walk 10 feet (QC): 4 Walk 50 ft with 2 Turns(QC): 4 Walk 150 ft (QC): 4 Distance: 200' Gait Assistive Device: FWW Comments/Gait Description Pt demonstrated a shuffling gait and LOB, but was corrected by therapist. Pt had quick fernanda upon ambulating. Assessment/Needs Rehab Potential: Good (Pt would benefit from more PT, to work on gait, balance, and activity tolerance.) PT Global Sales Manager Goals [facility] Goals PT [facility] Goals Time Frame: Aug 26, 2021 Roll Left & Right (QC): 3 Sit to Lying (QC): 3 Lying-Sitting on Side/Bed(QC): 3 Sit to Stand (QC): 3 Chair/Pog-yq-Qmrbt Xfer(QC): 3 Toilet Transfer (QC): 3 Car Transfer (QC): 3 Does the Patient Walk: Yes Walk 10 feet (QC): 3 Walk 50ft with 2 Turns (QC): 3 Walk 150 ft (QC): 3 Walking 10ft on Uneven Surface: 3 1 Step (curb) (QC): 9 4 Steps (QC): 9 12 Steps (QC): 9 Picking up an Object (QC): 9 Wheel 50 feet with 2 turns (QC: 9 Wheel 150 feet: 9 PT Plan Problem List Problem List: Activity Tolerance, Balance, Gait Treatment/Plan Treatment Plan: Continue Plan of Care Treatment Plan: Bed Mobility, Education, Functional Activity Nita, Functional Strength, Gait, Safety, Therapeutic Exercise, Transfers Treatment Duration: Aug 26, 2021 Frequency: 6 times per week Estimated Hrs Per Day: .25 hour per day Safety Risks/Education Patient Education: Gait Training, Transfer Techniques, Correct Positioning, Safety Issues Teaching Recipient: Patient Teaching Methods: Demonstration Response to Teaching: Return Demonstration Time/GCodes Time In: 1020 Time Out: 1038 Total Billed Treatment Time: 19 Total Billed Treatment 1, GT (19) CHEMA MONZON MEASURING MACHINE TENDER Aug 14, 2021 10:49
--- NOTE | 2021-08-14 11:15 | Physical Therapy Daily Note ---
PT Daily Note-Current Subjective Patient is mute but follows direction Mental Status Patient Orientation: MR Attachments: Oxygen, Ramirez Catheter, IV Transfers SCALE: Activities may be completed with or without assistive devices. 5-Bxylicncku-kuohvsq completes the activity by him/herself with no assistance from a helper. 5-Set-up or Clean-up Assistance-helper sets up or cleans up; patient completes activity. [place] assists only prior to or following the activity. 4-Supervision or Touching Assistance-helper provides verbal cues and/or touching/steadying and/or contact guard assistance as patient completes activity. Assistance may be provided throughout the activity or intermittently. 3-Partial/Moderate Assistance-helper does LESS THAN HALF the effort. [place] lifts, holds or supports trunk or limbs, but provides less than half the effort. 2-Substantial/Maximal Assistance-helper does MORE THAN HALF the effort. [place] lifts or holds trunk or limbs and provides more than half the effort. 2-Zrunkpbao-qvokeg does ALL the effort. Patient does none of the effort to complete the activity. Or, the assistance of 2 or more helpers is required for the patient to complete the activity. If activity was not attempted, code reason: 7-Patient Refused. 9-Not Applicable-not attempted and the patient did not perform the activity before the current illness, exacerbation or injury. 10-Not Attempted due to Environmental Limitations-(lack of equipment, weather restraints, etc.). 88-Not Attempted due to Medical Conditions or Safety Concerns. Sit to Lying (QC): 3 Lying to Sitting/Side of Bed(Q: 3 Sit to Stand (QC): 3 Gait Training Distance: 300' Walk 10 feet (QC): 3 Walk 50 ft with 2 Turns(QC): 3 Walk 150 ft (QC): 3 Gait Assistive Device: FWW Mod assist due to slight instability with gait and use of FWW Assessment Patient incontinent BM requiring assist to cleanse. Patient did demonstrate slight LOB with PT correct and quick fernanda with ambulation. Patient is unaware of safety concerns with mobility. Patient PLOF [facility] PT Computer Help Desk Representative Goals Computer Help Desk Representative Goals PT Jail Goals Time Frame: Aug 26, 2021 Roll Left & Right (QC): 3 Sit to Lying (QC): 3 Lying-Sitting on Side/Bed(QC): 3 Sit to Stand (QC): 3 Chair/Rhh-iz-Uwcin Xfer(QC): 3 Toilet Transfer (QC): 3 Car Transfer (QC): 3 Does the Patient Walk: Yes Walk 10 feet (QC): 3 Walk 50ft with 2 Turns (QC): 3 Walk 150 ft (QC): 3 Walking 10ft on Uneven Surface: 3 1 Step (curb) (QC): 9 4 Steps (QC): 9 12 Steps (QC): 9 Picking up an Object (QC): 9 Wheel 50 feet with 2 turns (QC: 9 Wheel 150 feet: 9 PT Plan Treatment/Plan Treatment Plan: Continue Plan of Care Treatment Plan: Bed Mobility, Education, Functional Activity Nita, Functional Strength, Gait, Safety, Therapeutic Exercise, Transfers Treatment Duration: Aug 26, 2021 Frequency: 6 times per week Estimated Hrs Per Day: .25 hour per day Time/GCodes Time In: 1020 Time Out: 1038 Total Billed Treatment Time: 18 Total Billed Treatment 1 visit GT 18 min PARAG HERMOSILLO PT Aug 14, 2021 11:15
--- NOTE | 2021-08-14 11:39 | Occupational Ther Daily Note ---
OT Current Status-Daily Note Subjective Pt lying in bed, eyes closed. Pt opened eyes initially then closed and did not open rest of session. Per report from pt's window caser, pt likes to watch sports and [employer]. [employer] selected on TV, pt did not acknowledge. Mental Status/Objective Patient Orientation: Unable to Assess, Non-Verbal/Aphasic (per report pt is selective mutism) Attachments: IV, Oxygen (2L) ADL-Treatment Offered pt to wash face and complete oral care. Pt continued to have eyes closed though did open mouth when asked about oral care. When oral swab was present to pt, pt would not grasp and required hand over hand to grasp then bring to mouth. Pt would not open mouth when swab touched lips, oral stimulation to lips with swab required to have pt open mouth and dependent with oral care. Bath wipe placed in pt's hand, pt would not grasp. Max A for washing face. Checked pt for BM, pt incontinent of bowel. Pt minimally assisted with rolling and staying on side then assist x2 to cleanse. Reported to nrsg. After session, pt lying in bed with call light/phone in reach. Safety measures in place. Therapy Code Descriptions/Definitions Functional [place] Measure: 0=Not Assessed/NA 4=Minimal Assistance 1=Total Assistance 5=Supervision or Setup 2=Maximal Assistance 6=Modified [place] 3=Moderate Assistance 7=Complete IndependenceSCALE: Activities may be completed with or without assistive devices. 3-Jcyvbrkwsl-pzfztlr completes the activity by him/herself with no assistance from a helper. 5-Set-up or Clean-up Assistance-helper sets up or cleans up; patient completes activity. [place] assists only prior to or following the activity. 4-Supervision or Touching Assistance-helper provides verbal cues and/or touching/steadying and/or contact guard assistance as patient completes activity. Assistance may be provided throughout the activity or intermittently. 3-Partial/Moderate Assistance-helper does LESS THAN HALF the effort. [place] lifts, holds or supports trunk or limbs, but provides less than half the effort. 2-Substantial/Maximal Assistance-helper does MORE THAN HALF the effort. [place] lifts or holds trunk or limbs and provides more than half the effort. 7-Gtxlzfjhx-jsepst does ALL the effort. Patient does none of the effort to complete the activity. Or, the assistance of 2 or more helpers is required for the patient to complete the activity. If activity was not attempted, code reason: 7-Patient Refused. 9-Not Applicable-not attempted and the patient did not perform the activity before the current illness, exacerbation or injury. 10-Not Attempted due to Environmental Limitations-(lack of equipment, weather restraints, etc.). 88-Not Attempted due to Medical Conditions or Safety Concerns. Oral Hygiene (QC): 1 Toileting Hygiene (QC): 1 OT Short Term Goals Short Term Goals Time Frame: Aug 18, 2021 Shower/bathe self: 2 Lower body dressin Putting on/taking off footwear: 2 OT Senior Care Goals Senior Care Goals Time Frame: Sep 01, 2021 Eating (QC): 5 Oral Hygiene (QC): 5 Toileting Hygiene (QC): 3 Shower/Bathe Self (QC): 3 Upper Body Dressing (QC): 3 Lower Body Dressing (QC): 3 On/Off Footwear (QC): 3 Additional Goals: 1-Demonstrate ADL Tasks, 2-Verbalize Understanding, 3-Im proveStrength/Nita 1=Demonstrate adherence to instructed precautions during ADL tasks. 2=Patient will verbalize/demonstrate understanding of assistive devices/modifications for ADL. 3=Patient will improve strength/tolerance for activity to enable patient to perform ADL's. OT Education/Plan Problem List/Assessment Assessment: Impaired Bed Mobility, Impaired Cognition, Impaired Self-Care Skills Discharge Recommendations Plan/Recommendations: Continue POC Treatment Plan/Plan of Care Patient would benefit from OT for education, treatment and training to promote independence in ADL's, mobility, safety and/or upper extremity function for ADL's. Plan of Care: ADL Retraining, Functional Mobility, UE Funct Exercise/Act Treatment Duration: Sep 01, 2021 Frequency: 5 times per week Estimated Hrs Per Day: .25 hour per day Rehab Potential: Good (Pt would benefit from more PT, to work on gait, balance, and activity tolerance.) Time/GCodes Start Time: 11:15 Stop Time: 11:30 Total Time Billed (hr/min): 15 Billed Treatment Time 1 visit-ADL 1 (15 min) JARET PAULA Aug 14, 2021 11:39
--- NOTE | 2021-08-14 12:24 | ST Dysphagia Evaluation ---
Speech Evaluation-General Medical Diagnosis osteomyelitis left elbow Onset Date: Aug 03, 2021 Therapy Diagnosis Therapy Diagnosis: Oropharyngeal Dysphagia Precautions Precautions: Fall, Aspiration Precautions/Isolations: Aspiration, Fall Prevention, Standard Precautions Referral Referring Physician: Dr. Nga Cope Reason for Referral: Evaluation/Treatment Medical History Pertinent Medical History: Heart Failure, HTN Current History The patient is a 66 year-old male, who was admitted to [facility] (swing bed) secondary to osteomyelitis of the left elbow. The patient was previously evaluated on the acute medical floor and received recommendations from speech pathology for a dysphagia one with nectar-thick liquids. Please see "history and physical" from admission for additional past medical history information. Reviewed History: Yes Speech PLF/Current-Dysphagia Prior Level of Function The patient was recently evaluated by speech language pathology and a diet consistency of dysphagia one (pureed) with nectar-thick liquids was recommended. Subjective The patient was seated upright in his bed, sleeping upon entrance to his room by the clinician. The patient woke with a verbal greeting from the clinician and required intermittent verbal cueing throughout the evaluation to remain at an appropriate level of alertness for safe P.O. trials. Cognitive Status Patient Orientation: Non-Verbal/Aphasic Oral Motor Skills Dentition: Edentalous Current Food Consistancy: Pureed, [place] Liquids Ability to Follow Directions: Good Oral Expression Ability: Severe Impairment Face Facial Symmetry: Symmetrical (The patient's face was symmetrical at rest.) Oral-Facial Assessment Oral-Facial Dentition: Normal Labial Seal Description: Weak Lingual Protrusion: Normal Volitional Dry Swallow: No Voluntary Cough: No Can Clear Throat Volitionally: No Productive Cough: No Productive Throat Clear: No Dysphagia Evaluation Consistencies Presented: [place] Thick Liquid, Pureed Mild lingual pumping behaviors were present however complete posterior transfer of the bolus was achieved. Pharyngeal Phase: Multiple Swallow Attempts The patient displays two, intermittently three, swallows per bolus. The patient consumed straw drinks of nectar-thick liquid and teaspoons of puree from his lunch tray (with the clinician feeding the patient). Overt s/s of suspected aspiration were not demonstrated. Dietary Recommendations: Pureed Liquid Recommendations: [place] Consistancy Dysphagia Evaluation Summary Please see above for results of the evaluation. At this time, the patient displays mild oropharyngeal dysphagia characterized by decreased lingual coordination and suspected reduced pharyngeal contractions. Overt s/s of suspected aspiration were not demonstrated throughout the evaluation with puree or nectar-thick liquid. Speech-Plan Treatment Plan Speech Therapy Treatment Plan: Discontinue ST Treatment Duration: Aug 14, 2021 Frequency: 1 time per week Estimated Hrs Per Day: .25 hour per day Rehab Potential: Fair Pt/Family Agrees to Plan: Yes Safety Risks/Education Teaching Recipient: Patient Teaching Methods: Discussion Response to Teaching: Reinforcement Needed Education Topics Provided: Evaluation Results, Safe Swallowing Strategies Time Speech Therapy Time In: 11:52 Speech Therapy Time Out: 12:07 Total Billed Time: 15 Billed Treatment Time MARIAH Monique ELIZ[facility] ST Aug 14, 2021 12:24
[2021-08-14] MEDS: ACETAMINOPHEN 500 MG TAB (TYLENOL) PO PRN (13:32)
[2021-08-14 20:19] VITALS: BP 116/67
[2021-08-14] MEDS: MIRTAZAPINE 15 MG (REMERON) TAB PO SCH (21:06)
[2021-08-14] MEDS: ENOXAPARIN 40 MG/0.4 ML (LOVENOX) SYR SQ SCH (21:06)
[2021-08-14] MEDS: PHENYTOIN 100 MG (DILANTIN) CAP PO SCH (21:06)
[2021-08-15] MEDS: LACTATED RINGERS 1,000 ML IV SCH (05:07)
[2021-08-15] MEDS ORDERED: TROUGH ORDER-PHARMACY XX ONE (06:00)
[2021-08-15] MEDS: CATHETER FLUSH 10 ML SYR IVP SCH ×2 (06:17→13:24)
[2021-08-15] MEDS: VANCOMYCIN INJECTION 1,000 MG in NS (IVPB) 250 ML IV SCH (06:33)
--- NOTE | 2021-08-15 07:20 | Therapy Team Discharge Summary ---
Therapy Discharge Summary Discharge Recommendations Date of Discharge Physical Therapy Patient seen by skilled PT to address functional strength and mobility. Patient is a selective mute, however, followed direction. Patient participated with PT and performed Gait training minimal assist with FWW 300'. Patient is min assist with bed mobility and transfers for safety. Patient, per [facility] staff, is independent PLOF with no assistive device. Plan to dismiss back to [facility]. Goals addressed and met. Roll Left to Right (QC): 4 Sit to Lying (QC): 3 Lying to Sitting/Side of Bed(Q: 3 Sit to Stand (QC): 3 Chair/Gxs-uc-Xtikw Xfer(QC): 3 Toilet Transfer (QC): 3 Car Transfer (QC): 88 Does the Patient Walk: Yes Walk 10 feet (QC): 3 Walk 50 ft with 2 Turns(QC): 3 Walk 150 ft (QC): 3 Walking 10ft on uneven surface: 88 Distance: 300' Gait Assistive Device: FWW Wheel 50 ft with 2 turns (QC): 9 Wheel 150 ft (QC): 9 1 Step (curb) (QC): 9 4 Steps (QC): 9 12 Steps (QC): 9 Balance Sitting Static: Normal Balance Sitting Dynamic: Normal Balance-Standing Static: Fair Picking up an Object (QC): 9 Occupational Therapy Impaired Bed Mobility, Impaired Cognition, Impaired Self-Care Skills Eating (QC): 4 (Per nursing report, pt able to feed himself with supervision and set up assist) Oral Hygiene (QC): 1 Shower/Bathe Self (QC): 88 Upper Body Dressing (QC): 3 (Per clinical judgment.) Lower Body Dressing (QC): 10 On/Off Footwear (QC): 1 (assist donning gripper socks.) Toileting Hygiene (QC): 1 PT Distribution Technician Goals Distribution Technician Goals PT Prison Goals Time Frame: Aug 26, 2021 Roll Left to Right (QC): 3 (met 08/14/21) Sit to Lying (QC): 3 (met 08/14/21) Lying-Sitting on Side/Bed(QC): 3 (met 08/14/21) Sit to Stand (QC): 3 (met 08/14/21) Chair/Shr-sa-Zvhzr Xfer(QC): 3 (met 08/14/21) Car Transfer (QC): 3 (met 08/14/21) Does the Patient Walk: Yes Walk 10 feet (QC): 3 (met 08/14/21) Walk 10ft-Uneven Surface(QC): 3 (met 08/14/21) Walk 50ft with 2 Turns (QC): 3 (met 08/14/21) Walk 150 ft (QC): 3 (met 08/14/21) Gait Assistive Device: FWW Does the Pt use WC or Scooter?: No Wheel 50 feet with 2 turns (QC: 9 1 Step (curb) (QC): 9 4 Steps (QC): 9 12 Steps (QC): 9 Picking up an Object (QC): 9 OT Prison Goals Distribution Technician Goals Time Frame: Sep 01, 2021 Eating (QC): 5 Oral Hygiene (QC): 5 Shower/Bathe Self (QC): 3 Upper Body Dressing (QC): 3 Lower Body Dressing (QC): 3 On/Off Footwear (QC): 3 Toileting Hygiene (QC): 3 Toilet/Commode Transfer (QC): 3 Additional Goals: 1-Demonstrate ADL Tasks, 2-Verbalize Understanding, 3- ImproveStrength/Nita 1=Demonstrate adherence to instructed precautions during ADL tasks. 2=Patient will verbalize/demonstrate understanding of assistive device s/modifications for ADL. 3=Patient will improve strength/tolerance for activity to enable patient to perform ADL's. PARAG HERMOSILLO PT Aug 15, 2021 07:20
[2021-08-15 08:00] VITALS: BP 134/78
[2021-08-15] MEDS: ASPIRIN 81 MG CHEW (CHILDREN'S ASA) PO SCH (09:15)
[2021-08-15] MEDS: DOCUSATE SODIUM 100 MG (COLACE) CAP PO SCH (09:15)
[2021-08-15] MEDS: cefTRIAXone 1 GM PRE-MIX 50 ML IV SCH (09:15)
[2021-08-15] MEDS: polyethylene glycoL POWDER 17 GM (MIRALAX) PACK PO SCH (09:16)
[2021-08-15] MEDS: SPIRONOLACTONE 100 MG (ALDACTONE) TABLET PO SCH (09:16)
[2021-08-15] MEDS: FAMOTIDINE 20 MG (PEPCID) TABLET PO SCH (09:16)
[2021-08-15] MEDS: METOCLOPRAMIDE 5 MG (REGLAN) TAB PO SCH ×2 (09:16→13:25)
[2021-08-15] MEDS: hydrOXYzine (VISTARIL/ATARAX) 25 MG capsule/tablet PO SCH (09:16)
--- NOTE | 2021-08-15 11:28 | Discharge Summary ---
Diagnosis/Chief Complaint Date of Admission Aug 10, 2021 at 11:54 Date of Discharge Primary Care Gregory Myers MD Discharge Diagnosis (1) Acute osteomyelitis of left elbow Status: Acute (2) Cognitive impairment Status: Chronic (3) Mutism Status: Chronic Discharge Summary Discharge Physical Exam Allergies: Coded Allergies: No Known Drug Allergies (Verified , 05/20/08) Vitals & I&Os Vital Signs Date Time Temp Pulse Resp B/P (MAP) Pulse Ox O2 Delivery O2 Flow Rate FiO2 08/15/21 13:42 88 Room Air 08/15/21 09:00 2.00 08/15/21 08:00 36.8 88 22 134/78 (96) General Appearance: No Apparent Distress, Chronically ill Cardiovascular: Regular Rate, Rhythm, No Murmur Neurologic/Psychiatric: Alert, Oriented x3 Hospital Course Patient is 66-year-old male who was admitted to swing bed for IV antibiotics due to 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 Cultures revealed MRSA, e coli, and proteus. He was transitioned to oral antibiotics after completing 10 days of IV antibiotics. He is to continue for 32 more days of oral antibiotics and weekly labs. I have called and updated his primary care office and spoken with their nurse practioner Annita regarding this. Labs (last 24 hrs) Laboratory Tests 08/15/21 05:20: Vancomycin Level Trough 19.8 Patient resulted labs reviewed. Pending Labs Discussion & Recommendations Discharge Planning: >30 minutes discharge planning Discharge Home Medications: Active Scripts Active Probiotic (L.acidoph & Paracasei,B.lactis) 1 Each Capsule 1 Each PO BID Bactrim Ds Tablet (Sulfamethoxazole/Trimethoprim) 1 Each Tablet 1 Each PO BID Amox Tr-K Clv 875-125 mg Tab (Amoxicillin/Potassium Clav) 1 Each Tablet 1 Each PO BID Reported Hydroxyzine HCl 25 Mg Tablet 25 Mg PO BID PRN Dok (Docusate Sodium) 100 Mg Tablet 100 Mg PO BID Aspirin EC (Aspirin) 81 Mg Tablet.dr 81 Mg PO DAILY Antacid Maximum Strength (Calcium Carbonate) 400 Mg Tab.chew 1,000 Mg PO Q4H PRN Silver Sulfadiazine 50 Gm Cream..g. 1 Applic TP Q12H PRN APPLY TO OPEN WOUND ON LEGS Expectorant Dm Cough Liquid (Guaifenesin/Dextromethorphan) 118 Ml Liquid 10 Ml PO Q4H PRN MDD 60ML Vitamin D3 (Cholecalciferol (Vitamin D3)) 25 Mcg Capsule 25 Mcg PO DAILY Tylenol (Acetaminophen) 325 Mg Tablet 650 Mg PO Q6H PRN Tessalon Perles (Benzonatate) 100 Mg Capsule 100 Mg PO Q8H PRN Miralax (Polyethylene Glycol 3350) 17 Gm Powd.pack 17 Gm PO DAILY PRN Remeron (Mirtazapine) 30 Mg Tablet 30 Mg PO HS Proventil Hfa (Albuterol Sulfate) 6.7 Gm Hfa.aer.ad 2 Puff INH Q4H Milk of Magnesia (Magnesium Hydroxide) 2,400 Mg/10 Ml Oral.susp 30 Ml PO Q12H PRN Cimetidine 400 Mg Tablet 400 Mg PO BID Benadryl (Diphenhydramine HCl) 25 Mg Capsule 25-50 Mg PO Q6H PRN Advil (Ibuprofen) 200 Mg Tablet 400 Mg PO Q6H PRN Reglan (Metoclopramide HCl) 5 Mg Tablet 5 Mg PO QID Albuterol Sulfate 2.5 Mg/3 Ml Vial.neb 3 Ml NEB Q4H PRN Spironolactone 100 Mg Tablet 100 Mg PO DAILY Phenytoin Sodium Extended 100 Mg Capsule 200 Mg PO HS TAKES 2 (100MG) CAPS Instructions to patient/family Please see electronic discharge instructions given to patient. Copy Copies To 1: GREGORY MYERS MD, KATELYN M MD Aug 15, 2021 11:28
[2021-08-15] MEDS ORDERED: L.AC1CAP6 PO (11:34)
[2021-08-15] MEDS ORDERED: SULF1TAB38 PO (11:34)
[2021-08-15] MEDS ORDERED: AMOX1TAB12 PO (11:34)
--- NOTE | 2021-08-15 11:51 | D/C HH Face to Face Order ---
D/C Face to Face Orders Instructions for Patient Via [facility], Patient Instructions/FollowUp: Please continue to take your medications as written. Please Physician to follow Patient: Dr Miranda Discharge Diet for Home: Soft Diet Patient Data-Allergies,Ht & Wt Patient Allergies: Coded Allergies: No Known Drug Allergies (Verified , 05/20/08) Height (Feet): 6 Height (Inches): 1 Weight (Pounds): 118 Weight (Ounces): 3.0 Home Health Need/Face to Face Date of Face to Face: Aug 15, 2021 Clinical Findings: Generalized weakness and fatigue I have seen Pt [id number]: Yes Discharged To: Home Diagnosis/Conditions: Ulnar osteomyelitis Patient is Homebound due to: CognItive deficits Homebound Status Due to the above stated illness, injury or surgical procedure (medical condition or diagnosis) and associated clinical findings, the patient is homebound because of his/her inability to leave home except with aid of a supportive device and/or person AND leaving the home requires a considerable and taxing effort or is medically contraindicated. Pt req the following assistanc: Aid of another person Home Health Nursing Orders Home Health Services Order: Nursing Services, Wound Care-Eval/Treat Wound dressing BID and prn: remove previous dressing, Using VASHE to wash wound. apply silvadene creme to dry gauze, apply to wound. Cover with ABD. wrap with kerlix, secure with medipore tape. Certify Stmt I certify that this patient is under my care and that I, a nurse practitioner or a physician; a learning and development assistant working with me, had a face to face encounter that - meets the physician face to face encounter requirements with this patient as dated. MIKE KURTZ MD Aug 15, 2021 11:46
[2021-08-15 15:30] VITALS: BP 134/78
--- NOTE | 2021-08-16 13:59 | Therapy Team Discharge Summary ---
Therapy Discharge Summary Discharge Recommendations Date of Discharge Aug 15, 2021 at 15:30 Physical Therapy Roll Left to Right (QC): 4 Sit to Lying (QC): 3 Lying to Sitting/Side of Bed(Q: 3 Sit to Stand (QC): 3 Chair/Xwu-zn-Jnaiq Xfer(QC): 3 Toilet Transfer (QC): 3 Car Transfer (QC): 88 Does the Patient Walk: Yes Walk 10 feet (QC): 3 Walk 50 ft with 2 Turns(QC): 3 Walk 150 ft (QC): 3 Walking 10ft on uneven surface: 88 Distance: 300' Gait Assistive Device: FWW Wheel 50 ft with 2 turns (QC): 9 Wheel 150 ft (QC): 9 1 Step (curb) (QC): 9 4 Steps (QC): 9 12 Steps (QC): 9 Balance Sitting Static: Normal Balance Sitting Dynamic: Normal Balance-Standing Static: Fair Picking up an Object (QC): 9 Occupational Therapy Pt admitted to [facility] status with osteomyelitis L elbow. At [facility], pt required assistance with ADLs and mobility. Upon initial evaluation, pt required supervision with eating, CGA oral care, min A UE dressing, and total assist footwear and toileting. OT txs focused on increasing BUE strength and activity tolerance, and increasing safety and independence with ADLs. Pt made poor progress towards goals, only attaining goal for UE dressing. Pt discharged from facility, d/c from OT. Impaired Bed Mobility, Impaired Cognition, Impaired Self-Care Skills Eating (QC): 4 (Per nursing report, pt able to feed himself with supervision and set up assist) Oral Hygiene (QC): 1 Shower/Bathe Self (QC): 88 Upper Body Dressing (QC): 3 (Per clinical judgment.) Lower Body Dressing (QC): 10 On/Off Footwear (QC): 1 (assist donning gripper socks.) Toileting Hygiene (QC): 1 PT Book Publisher Goals Book Publisher Goals PT Senior Care Goals Time Frame: Aug 26, 2021 Roll Left to Right (QC): 3 (met 08/14/21) Sit to Lying (QC): 3 (met 08/14/21) Lying-Sitting on Side/Bed(QC): 3 (met 08/14/21) Sit to Stand (QC): 3 (met 08/14/21) Chair/Gwx-bj-Pgdox Xfer(QC): 3 (met 08/14/21) Car Transfer (QC): 3 (met 08/14/21) Does the Patient Walk: Yes Walk 10 feet (QC): 3 (met 08/14/21) Walk 10ft-Uneven Surface(QC): 3 (met 08/14/21) Walk 50ft with 2 Turns (QC): 3 (met 08/14/21) Walk 150 ft (QC): 3 (met 08/14/21) Gait Assistive Device: FWW Does the Pt use WC or Scooter?: No Wheel 50 feet with 2 turns (QC: 9 1 Step (curb) (QC): 9 4 Steps (QC): 9 12 Steps (QC): 9 Picking up an Object (QC): 9 OT Senior Care Goals Book Publisher Goals Time Frame: Sep 01, 2021 Eating (QC): 5 Oral Hygiene (QC): 5 Shower/Bathe Self (QC): 3 Upper Body Dressing (QC): 3 Lower Body Dressing (QC): 3 On/Off Footwear (QC): 3 Toileting Hygiene (QC): 3 Toilet/Commode Transfer (QC): 3 Additional Goals: 1-Demonstrate ADL Tasks, 2-Verbalize Understanding, 3- ImproveStrength/Nita 1=Demonstrate adherence to instructed precautions during ADL tasks. 2=Patient will verbalize/demonstrate understanding of assistive devices/modifications for ADL. 3=Patient will improve strength/tolerance for activity to enable patient to perform ADL's. JUAN JOSE MEEHAN OT Aug 16, 2021 13:59
== END 2021-08-15 15:30 | disposition home health service (06) | DRG 540 ==
LOC: 4TH 08-10 11:54
PROVIDERS: ADMIT Internal Medicine; ATTEND Internal Medicine
DX: M86.8X2 Other osteomyelitis, upper arm (principal); R47.01 Aphasia; L03.114 Cellulitis of left upper limb; L03.113 Cellulitis of right upper limb; B95.62 Methicillin resistant Staphylococcus aureus infection as the cause of diseases classified elsewhere; G31.84 Mild cognitive impairment of uncertain or unknown etiology; R53.81 Other malaise; K21.9 Gastro-esophageal reflux disease without esophagitis; Z86.711 Personal history of pulmonary embolism; Z79.01 Long term (current) use of anticoagulants; Z79.82 Long term (current) use of aspirin; Z79.899 Other long term (current) drug therapy; Z93.3 Colostomy status; J45.909 Unspecified asthma, uncomplicated; F79 Unspecified intellectual disabilities
CPT/HCPCS: 36415; 80053; 80202; 85025; 85652; 86141; 94761

== ENCOUNTER → 2021-08-22 | Outpatient (CLI) | payer MEDICARE, MEDICAID ==
[~2021-08-22] MED LIST changes: +AMOX1TAB12 PO; +L.AC1CAP6 PO; +SULF1TAB38 PO
== END ==
LOC: WOUNDCARE 10:01
PROVIDERS: ATTEND Family Medicine
DX: L98.492 Non-pressure chronic ulcer of skin of other sites with fat layer exposed (principal); M86.132 Other acute osteomyelitis, left radius and ulna; E44.0 Moderate protein-calorie malnutrition; F72 Severe intellectual disabilities; G40.89 Other seizures
CPT/HCPCS: 11042; A6207; G0463

== ENCOUNTER → 2021-08-30 | Outpatient (CLI) | payer MEDICARE, MEDICAID | LOC: WOUNDCARE 09:26 | PROVIDERS: ATTEND Family Medicine | DX: L98.492 Non-pressure chronic ulcer of skin of other sites with fat layer exposed (principal); M86.132 Other acute osteomyelitis, left radius and ulna; E44.0 Moderate protein-calorie malnutrition; F72 Severe intellectual disabilities; G40.89 Other seizures; I96 Gangrene, not elsewhere classified | CPT/HCPCS: 11042 ==

== ENCOUNTER → 2021-09-07 | Outpatient (CLI) | payer MEDICARE, MEDICAID | LOC: WOUNDCARE 11:08 | PROVIDERS: ATTEND Family Medicine | DX: L98.492 Non-pressure chronic ulcer of skin of other sites with fat layer exposed (principal); M86.132 Other acute osteomyelitis, left radius and ulna; E44.0 Moderate protein-calorie malnutrition; F72 Severe intellectual disabilities; G40.89 Other seizures; I96 Gangrene, not elsewhere classified | CPT/HCPCS: 15271; G0463 ==

== ENCOUNTER → 2021-09-14 | Outpatient (CLI) | payer MEDICARE, MEDICAID | LOC: WOUNDCARE 11:03 | PROVIDERS: ATTEND Family Medicine | DX: L98.492 Non-pressure chronic ulcer of skin of other sites with fat layer exposed (principal); M86.132 Other acute osteomyelitis, left radius and ulna; E44.0 Moderate protein-calorie malnutrition; F72 Severe intellectual disabilities; G40.89 Other seizures; I96 Gangrene, not elsewhere classified | CPT/HCPCS: 15271; G0463 ==

== ENCOUNTER → 2021-09-21 | Outpatient (CLI) | payer MEDICARE, MEDICAID | LOC: WOUNDCARE 11:03 | PROVIDERS: ATTEND Family Medicine | DX: I96 Gangrene, not elsewhere classified (principal); L98.492 Non-pressure chronic ulcer of skin of other sites with fat layer exposed; M86.132 Other acute osteomyelitis, left radius and ulna; E44.0 Moderate protein-calorie malnutrition; G40.89 Other seizures | CPT/HCPCS: 15271; G0463 ==

== ENCOUNTER → 2021-09-28 | Outpatient (CLI) | payer MEDICARE, MEDICAID | LOC: WOUNDCARE 10:10 | PROVIDERS: ATTEND Family Medicine | DX: L98.492 Non-pressure chronic ulcer of skin of other sites with fat layer exposed (principal); M86.032 Acute hematogenous osteomyelitis, left radius and ulna; E44.0 Moderate protein-calorie malnutrition; F79 Unspecified intellectual disabilities; G40.89 Other seizures; R45.88 Nonsuicidal self-harm; I96 Gangrene, not elsewhere classified | CPT/HCPCS: 15271; G0463 ==

== ENCOUNTER → 2021-10-04 | Outpatient (CLI) | payer MEDICARE, MEDICAID ==
[~2021-10-04] MED LIST changes: +GADOTERATE 0.5 MMOL/ML (CLARISCAN) 15 ML VIAL IV ONE
--- NOTE | 2021-10-04 15:30 | Diagnostic Imaging Report ---
INDICATION: History of osteomyelitis of the proximal ulna with ulceration in the overlying soft tissues. Followup. EXAMINATION: Left upper extremity MRI with and without contrast dated 10/04/2021. COMPARISON: Correlation is made to an elbow MRI from 08/08/2021. FINDINGS: There is mild residual T2 hyperintensity within the olecranon process extending into the adjacent proximal ulna. This has slightly improved since the previous MRI. There is mild associated enhancement on post contrast imaging, consistent with the history of osteomyelitis. There is overlying T2 hyperintensity within the subcutaneous soft tissues, consistent with the known wound/ulceration. No associated drainable fluid collection/abscess is appreciated. The remaining visualized osseous structures demonstrate normal signal intensity. The triceps tendon is intact. The visualized aspects of the brachialis and distal biceps tendon are intact. There is no significant joint effusion. There is persistent mild edema within the visualized musculature of the proximal forearm which is nonspecific and could be due to myositis versus a denervation process. The extensor and flexor tendon origins are grossly intact. IMPRESSION: 1. Mild residual edema within the proximal posterior ulna which appears improved from previous imaging but demonstrates enhancement suggesting residual changes of osteomyelitis. An overlying soft tissue wound/ulceration is noted with no abscess appreciated. 2. Muscular edema within the visualized forearm which is nonspecific and could be due to myositis versus a denervation injury. Dictated by: Dictated on workstation # [id number]
== END | disposition home or self-care (01) ==
LOC: RAD 13:01
PROVIDERS: ATTEND Family Medicine
DX: L98.492 Non-pressure chronic ulcer of skin of other sites with fat layer exposed (principal); M86.132 Other acute osteomyelitis, left radius and ulna; E44.0 Moderate protein-calorie malnutrition; F72 Severe intellectual disabilities; G40.89 Other seizures
CPT/HCPCS: 73223

== ENCOUNTER → 2021-10-05 | Outpatient (CLI) | payer MEDICARE, MEDICAID ==
[~2021-10-05] MED LIST changes: -GADOTERATE 0.5 MMOL/ML (CLARISCAN) 15 ML VIAL IV ONE
== END ==
LOC: WOUNDCARE 10:43
PROVIDERS: ATTEND Family Medicine
DX: L98.492 Non-pressure chronic ulcer of skin of other sites with fat layer exposed (principal); M86.032 Acute hematogenous osteomyelitis, left radius and ulna; E44.0 Moderate protein-calorie malnutrition; F79 Unspecified intellectual disabilities; G40.89 Other seizures; R45.88 Nonsuicidal self-harm
CPT/HCPCS: 15271; G0463

== ENCOUNTER → 2021-11-09 | Outpatient (CLI) | payer MEDICARE, MEDICAID | LOC: WOUNDCARE 09:31 | PROVIDERS: ATTEND Family Medicine | DX: L98.492 Non-pressure chronic ulcer of skin of other sites with fat layer exposed (principal); E44.1 Mild protein-calorie malnutrition; F72 Severe intellectual disabilities; G40.89 Other seizures; R45.88 Nonsuicidal self-harm; M86.4 Chronic osteomyelitis with draining sinus; I96 Gangrene, not elsewhere classified | CPT/HCPCS: 11042; 87070; 87077; 87186; 87205; A6021; G0463 ==

== ENCOUNTER → 2021-11-16 | Outpatient (CLI) | payer MEDICARE, MEDICAID | LOC: WOUNDCARE 09:33 | PROVIDERS: ATTEND Family Medicine | DX: L98.492 Non-pressure chronic ulcer of skin of other sites with fat layer exposed (principal); E44.0 Moderate protein-calorie malnutrition; F72 Severe intellectual disabilities; G40.89 Other seizures; M86.4 Chronic osteomyelitis with draining sinus; I96 Gangrene, not elsewhere classified; R45.88 Nonsuicidal self-harm | CPT/HCPCS: 11042; G0463 ==

== ENCOUNTER → 2021-11-23 | Outpatient (CLI) | payer MEDICARE, MEDICAID | LOC: WOUNDCARE 09:25 | PROVIDERS: ATTEND Family Medicine | DX: S51.002A Unspecified open wound of left elbow, initial encounter (principal); J45.909 Unspecified asthma, uncomplicated; I11.0 Hypertensive heart disease with heart failure; I50.9 Heart failure, unspecified | CPT/HCPCS: A6021; G0463; 99212 ==

== ENCOUNTER 2021-11-26 14:14 | Inpatient (IN) | payer MEDICARE, MEDICAID ==
[~2021-11-26] VITALS: Ht 175.3 cm; Wt 88.0 kg
[2021-11-26] MEDS ORDERED: LIDOCAINE UROJET 2% GEL 10 ML PKG ONE (14:25)
[2021-11-26 14:29] VITALS: BP 136/97
[2021-11-26] MEDS ORDERED: LIDOCAINE UROJET 2% GEL 10 ML PKG TOP ONE (14:30)
[2021-11-26] MEDS ORDERED: NS IV 1000 ML 1,000 ML IV SCH (14:30)
--- NOTE | 2021-11-26 14:33 | ED General ---
General Stated Complaint: SOB Source of Information: EMS Exam Limitations: Physical Impairments History of Present Illness Date Seen by Provider: Nov 26, 2021 Time Seen by Provider: 14:21 Initial Comments Patient is a 66-year-old male who presents from a local custodial, history of severe intellectual disability, per review of the medical record nonverbal -with hypoxia from the [facility]. EMS was called secondary to patient's change in mental status. Normally he is up and ambulatory and interactive with residents. It was noted today that he was quite somnolent, difficult to arouse. They reportedly checked his oxygen saturations and they were in the 40s. They applied 2 L of oxygen and when EMS arrived he was satting somewhere in the 70s. On arrival he does rouse to voice and aggressive physical stimulation. He was placed on BiPAP with oxygen saturations consistently in the 70s. Auscultation revealed significant rales and crackles throughout both lungs. He is quite cold to the touch throughout. Lower extremities and hands appeared cyanotic. Not really in respiratory distress, a little tachypneic at about 30. He was per review of the medical record recently in the hospital for left elbow cellulitis/osteomyelitis. This was back in July of this year. He had IV antibiotics and wound care. On exam he has a shallow appearing wound to the left elbow which is not purulent. Other superficial abrasions and "pick slaughter" throughout both upper extremities. Abdomen is nondistended and soft. Review of systems entirely unobtainable from the patient secondary to his intellectual disability and now altered mentation. Timing/Duration: 1 Day Severity: Severe Allergies and Home Medications Allergies Coded Allergies: No Known Drug Allergies (Verified , 05/20/08) Patient Home Medication List Home Medication List Reviewed: Yes Acetaminophen (Tylenol) 325 Mg Tablet, 650 MG PO Q6H PRN for PAIN-MILD (1-4), (Reported) Entered as Reported by: PATRICE LEROY on 08/06/21 1828 Last Action: Held Albuterol Sulfate (Albuterol Sulfate) 2.5 Mg/3 Ml Vial.neb, 3 ML NEB Q4H PRN for SHORTNESS OF BREATH, (Reported) Entered as Reported by: KURTIS PA on 02/18/15 0343 Last Action: Held Albuterol Sulfate (Proventil Hfa) 6.7 Gm Hfa.aer.ad, 2 PUFF INH Q4H, (Reported) Entered as Reported by: PATRICE LEROY on 08/06/211818 Last Action: Held Aspirin (Aspirin EC) 81 Mg Tablet.dr, 81 MG PO DAILY, (Reported) Entered as Reported by: ERIC MALHOTRA on 08/07/211150 Last Action: Continued Benzonatate (Tessalon Perles) 100 Mg Capsule, 100 MG PO Q8H PRN for COUGH, (Reported) Entered as Reported by: PATRICE LEROY on 08/06/211824 Last Action: Held Calcium Carbonate (Antacid Maximum Strength) 400 Mg Tab.chew, 1,000 MG PO Q4H PRN for HEARTBURN/INDIGESTION, (Reported) Entered as Reported by: ERIC MALHOTRA on 08/07/211150 Last Action: Held Cholecalciferol (Vitamin D3) (Vitamin D3) 25 Mcg Capsule, 25 MCG PO DAILY, (Reported) Entered as Reported by: ERIC MALHOTRA on 08/07/211150 Last Action: Held Diphenhydramine HCl (Benadryl) 25 Mg Capsule, 25-50 MG PO Q6H PRN for ALLERGY SYMPTOMS, (Reported) Entered as Reported by: PATRICE LEROY on 08/06/211807 Last Action: Held Docusate Sodium (Dok) 100 Mg Tablet, 100 MG PO BID, (Reported) Entered as Reported by: ERIC MALHOTRA on 08/07/211150 Last Action: Converted Guaifenesin/Dextromethorphan (Expectorant Dm Cough Liquid) 118 Ml Liquid, 10 ML PO Q4H PRN for COUGH, (Reported) Entered as Reported by: ERIC MALHOTRA on 08/07/211150 Last Action: Held Hydroxyzine HCl (Hydroxyzine HCl) 25 Mg Tablet, 25 MG PO BID PRN for ANXIETY/ITCHING, (Reported) Entered as Reported by: ERIC MALHOTRA on 08/07/211150 Last Action: Held Ibuprofen (Advil) 200 Mg Tablet, 400 MG PO Q6H PRN for PAIN-MILD (1-4), (Reported) Entered as Reported by: PATRICE LEROY on 08/06/211803 Last Action: Held Magnesium Hydroxide (Milk of Magnesia) 2,400 Mg/10 Ml Oral.susp, 30 ML PO Q12H PRN for CONSTIPATION-7TH LINE, (Reported) Entered as Reported by: PATRICE LEROY on 08/06/211814 Last Action: Held Metoclopramide HCl (Reglan) 5 Mg Tablet, 5 MG PO QID, (Reported) Entered as Reported by: MARTY PARKER on 04/28/15 1326 Last Action: Continued Mirtazapine (Remeron) 30 Mg Tablet, 30 MG PO HS, (Reported) Entered as Reported by: PATRICE LEROY on 08/06/211820 Last Action: Converted Phenytoin Sodium Extended (Phenytoin Sodium Extended) 100 Mg Capsule, 200 MG PO HS, (Reported) Entered as Reported by: KURTIS PA on 02/18/151452 Last Action: Continued Polyethylene Glycol 3350 (Miralax) 17 Gm Powd.pack, 17 GM PO DAILY PRN for CONSTIPATION-2ND LINE, (Reported) Entered as Reported by: PATRICE LEROY on 08/06/211823 Last Action: Held Silver Sulfadiazine (Silver Sulfadiazine) 50 Gm Cream..g., 1 APPLIC TP Q12H PRN for SKIN CONDITION, (Reported) Entered as Reported by: ERIC MALHOTRA on 08/07/21 115 Last Action: Held Spironolactone (Spironolactone) 100 Mg Tablet, 100 MG PO DAILY, (Reported) Entered as Reported by: KURTIS PA on 02/18/151452 Last Action: Reviewed Discontinued Medications Amoxicillin/Potassium Clav (Amox Tr-K Clv 875-125 mg Tab) 1 Each Tablet, 1 EACH PO BID Discontinued Reason: Duplicate Order Prescribed by: MIKE MCDONALD on 08/15/21 1134 Last Action: Discontinued Cimetidine (Cimetidine) 400 Mg Tablet, 400 MG PO BID, (Reported) Discontinued Reason: Duplicate Order Entered as Reported by: PATRICE LEROY on 08/06/211810 Last Action: Discontinued Famotidine (Famotidine) 20 Mg Tablet, 20 MG PO, (Reported) Discontinued Reason: No Longer Taking Entered as Reported by: ERIC MALHOTRA on 11/28/21 2347 Last Action: Discontinued L.acidoph & Paracasei,B.lactis (Probiotic) 1 Each Capsule, 1 EACH PO BID Discontinued Reason: Duplicate Order Prescribed by: MIKE MCDONALD on 08/15/211133 Last Action: Discontinued Sulfamethoxazole/Trimethoprim (Bactrim Ds Tablet) 1 Each Tablet, 1 EACH PO BID Discontinued Reason: No Longer Taking Prescribed by: MIKE MCDONALD on 08/15/211133 Last Action: Discontinued Review of Systems Review of Systems Constitutional: see HPI Review of systems unobtainable secondary to intellectual disability/mute status/clinical condition Past Dnxqert-Ziscpd-Rvoaec Hx Immunizations Up To Date Tetanus Booster (TDap): Less than 5yrs Seasonal Allergies Seasonal Allergies: No Past Medical History Surgeries: Yes Abdominal Asthma, Pulmonary Embolism Currently Using CPAP: No Currently Using BIPAP: No Seizure Disorder Reproductive Disorders: No Sexually Transmitted Disease: No HIV/AIDS: No Gastroesophageal Reflux, Chronic Constipation Adverse Reaction/Blood Tranf: No Family Medical History Patient reports no known family medical history. Other Conditions/Hx Physical Exam-Suspected Sepsis Physical Exam Vital Signs Vital Signs - First Documented 11/26/21 11/26/21 14:29 14:41 Temp 32.1 Pulse 80 Resp 29 B/P (MAP) 136/97 (110) Pulse Ox 96 O2 Delivery NIV Bilevel O2 Flow Rate 65.00 FiO2 80 Capillary Refill : Height, Weight, BMI Height: 6'1" Weight: 118lbs. 3.0oz. 53.250105ut; 24.01 BMI Method:Estimated General Appearance: Chronically ill, Thin Eyes: Bilateral Eye Normal Inspection HEENT: Other (dry oral mucosa) Neck: Normal Inspection Respiratory: Crackles, Rales (throughout), Respiratory Distress (moderate - tachypnea, RR30-32) Cardiovascular: Regular Rate, Rhythm, Normal Peripheral Pulses (2+ bilateral Radia) Gastrointestinal: Normal Bowel Sounds, Soft Extremity: Pedal Edema (Trace to 1+ edema noted in both lower extremities, bluish/cyanotic discoloration to the lower limbs and forearms and hands. He was quite cold to the touch.) Neurologic/Psychiatric: Other (Mute, rouses to voice and physical stimulation, briefly opens his eyes. Does not follow command) Skin: cool, pallor, ulcerations (Left elbow), other (Multiple superficial wounds noted to the bilateral forearms none of which appear cellulitic) Focused Exam Sepsis Stage: Severe Sepsis Possible Source: Pulmonary Lactate Level Time of Focused Exam: 13:45 Respiratory: Crackles, Rhonci Cardiovascular: Regular Rate, Rhythm, Normal Peripheral Pulses Capillary Refill: Less Than 3 Seconds Peripheral Pulses: 2+ Radial Pulses (R), 2+ Radial Pulses (L) Skin: warm/dry, ulcerations (left elbow) Lactic Acid Level Within 3hrs of presentation: Admin 30ml/kg IBW due to BMI>30, Admin ABX, Blood cultures prior to ABX's, Focus exam, Lactate level, Vasopressin therapy Procedures/Interventions Lumen: triple Central Line Procedure: betadine prep, sterile drapes applied, sterile dressing applied Position: internal jugular (R) Anesthesia: Lidocaine Volume Anesthetic (ccs): 2 Complications: none Post Position: sutured, good blood return Progress/Results/Core Measures Suspected Sepsis Recent Fever Within 48 Hours: No Infection Criteria Present: Suspected New Infection New/Unexplained Altered Menta: Yes Within 3hrs of presentation: Admin fluids, Admin 30ml/kg IBW due to BMI>30, Admin ABX, Blood cultures prior to ABX's, Focus exam, Lactate level Sepsis Diagnosis: (1) Acute respiratory failure with hypoxia (2) RESPIRATORY FAILURE, UNSP, UNSP W HYPOXIA OR HYPERCAPNIA (3) Severe sepsis SIRS Temperature: Pulse: 80 Respiratory Rate: 29 Laboratory Tests 11/29/21 06:45: White Blood Count 8.0 11/30/21 04:38: White Blood Count 7.2 12/01/21 04:20: White Blood Count 6.6 Blood Pressure 136 /97 Mean: Laboratory Tests 11/29/21 06:45: Creatinine 0.40L, Platelet Count 123L 11/30/21 04:38: Creatinine 0.40L, Platelet Count 112L 11/30/21 11:40: INR Comment 1.1 12/01/21 04:20: Creatinine 0.39L, Platelet Count 102L Results/Orders Lab Results Laboratory Tests Test 11/29/21 18:50 11/29/21 20:42 11/29/21 23:32 11/30/21 04:38 Range/Units Glucometer 103 103 114 H 70-110 MG/DL White Blood Count 7.2 4.3-11.0 10^3/uL Red Blood Count 2.89 L 4.30-5.52 10^6/uL Hemoglobin 8.4 L 13.3-17.7 g/dL Hematocrit 25 L 40-54 % Mean Corpuscular Volume 88 80-99 fL Mean Corpuscular Hemoglobin 29 25-34 pg Mean Corpuscular Hemoglobin Concent 33 32-36 g/dL Red Cell Distribution Width 15.8 H 10.0-14.5 % Platelet Count 112 L 130-400 10^3/uL Mean Platelet Volume 10.0 9.0-12.2 fL Immature Granulocyte % (Auto) 4 % Neutrophils (%) (Auto) 71 42-75 % Lymphocytes (%) (Auto) 16 12-44 % Monocytes (%) (Auto) 8 0-12 % Eosinophils (%) (Auto) 1 0-10 % Basophils (%) (Auto) 1 0-10 % Neutrophils # (Auto) 5.1 1.8-7.8 10^3/uL Lymphocytes # (Auto) 1.2 1.0-4.0 10^3/uL Monocytes # (Auto) 0.6 0.0-1.0 10^3/uL Eosinophils # (Auto) 0.1 0.0-0.3 10^3/uL Basophils # (Auto) 0.0 0.0-0.1 10^3/uL Immature Granulocyte # (Auto) 0.3 H 0.0-0.1 10^3/uL Percent Immature Platelet Fraction 2.9 0.0-7.6 % Sodium Level 138 135-145 MMOL/L Potassium Level 3.5 L 3.6-5.0 MMOL/L Chloride Level 112 H 98-107 MMOL/L Carbon Dioxide Level 19 L 21-32 MMOL/L Anion Gap 7 5-14 MMOL/L Blood Urea Nitrogen 22 H 7-18 MG/DL Creatinine 0.40 L 0.60-1.30 MG/DL Estimat Glomerular Filtration Rate 120 BUN/Creatinine Ratio 55 Glucose Level 117 H 70-105 MG/DL Calcium Level 8.0 L 8.5-10.1 MG/DL Phosphorus Level 1.6 L 2.3-4.7 MG/DL Magnesium Level 1.8 1.6-2.4 MG/DL Test 11/30/21 11:40 11/30/21 11:56 11/30/21 13:55 11/30/21 17:22 Range/Units Prothrombin Time 14.1 12.2-14.7 SEC INR Comment 1.1 0.8-1.4 Activated Partial Thromboplast Time 30 24-35 SEC Fibrinogen 688 H 221-496 MG/DL D-Dimer 2.80 H 0.00-0.49 UG/ML Iron Level 42 37-167 ug/dL Total Iron Binding Capacity 160 L 237-330 ug/dL Unsaturated Iron Binding Capacity 118 25-500 ug/dL Transferrin % Saturation 26 17-57 % Ferritin 241.6 32.0-356.0 ng/mL Vancomycin Level Trough 14.4 10.0-20.0 UG/ML Heparin-Induced Platelet Ab (Aga) Negative Glucometer 99 121 H 70-110 MG/DL Blood Gas Puncture Site L RADIAL Blood Gas Patient Temperature 36.5 Arterial Blood pH 7.32 *L 7.37-7.43 Arterial Blood Partial Pressure CO2 49 H 35-45 MMHG Arterial Blood Partial Pressure O2 68 L 79-93 MMHG Arterial Blood HCO3 24 23-27 MMOL/L Arterial Blood Total CO2 25.8 21.0-31.0 MMOL/L Arterial Blood Oxygen Saturation 93 L 94-100 % Arterial Blood Base Excess -1.2 -2.5-2.5 MMOL/L Gustavo Test YES-POS Blood Gas Ventilator Setting YES Blood Gas Inspired Oxygen 50% Test 11/30/21 23:17 12/01/21 04:20 12/01/21 06:00 12/01/21 08:44 Range/Units Glucometer 118 H 131 H 70-110 MG/DL White Blood Count 6.6 4.3-11.0 10^3/uL Red Blood Count 2.78 L 4.30-5.52 10^6/uL Hemoglobin 8.0 L 13.3-17.7 g/dL Hematocrit 24 L 40-54 % Mean Corpuscular Volume 87 80-99 fL Mean Corpuscular Hemoglobin 29 25-34 pg Mean Corpuscular Hemoglobin Concent 33 32-36 g/dL Red Cell Distribution Width 15.6 H 10.0-14.5 % Platelet Count 102 L 130-400 10^3/uL Mean Platelet Volume 10.3 9.0-12.2 fL Immature Granulocyte % (Auto) 4 % Neutrophils (%) (Auto) 75 42-75 % Lymphocytes (%) (Auto) 12 12-44 % Monocytes (%) (Auto) 8 0-12 % Eosinophils (%) (Auto) 1 0-10 % Basophils (%) (Auto) 0 0-10 % Neutrophils # (Auto) 5.0 1.8-7.8 10^3/uL Lymphocytes # (Auto) 0.8 L 1.0-4.0 10^3/uL Monocytes # (Auto) 0.5 0.0-1.0 10^3/uL Eosinophils # (Auto) 0.1 0.0-0.3 10^3/uL Basophils # (Auto) 0.0 0.0-0.1 10^3/uL Immature Granulocyte # (Auto) 0.3 H 0.0-0.1 10^3/uL Percent Immature Platelet Fraction 4.1 0.0-7.6 % Sodium Level 140 135-145 MMOL/L Potassium Level 4.7 3.6-5.0 MMOL/L Chloride Level 109 H 98-107 MMOL/L Carbon Dioxide Level 20 L 21-32 MMOL/L Anion Gap 11 5-14 MMOL/L Blood Urea Nitrogen 23 H 7-18 MG/DL Creatinine 0.39 L 0.60-1.30 MG/DL Estimat Glomerular Filtration Rate 121 BUN/Creatinine Ratio 59 Glucose Level 107 H 70-105 MG/DL Calcium Level 7.9 L 8.5-10.1 MG/DL Phosphorus Level 2.2 L 2.3-4.7 MG/DL Magnesium Level 1.8 1.6-2.4 MG/DL Triglycerides Level 92 <150 MG/DL Blood Gas Puncture Site RT RADIAL Blood Gas Patient Temperature 36.9 Arterial Blood pH 7.37 7.37-7.43 Arterial Blood Partial Pressure CO2 42 35-45 MMHG Arterial Blood Partial Pressure O2 70 L 79-93 MMHG Arterial Blood HCO3 24 23-27 MMOL/L Arterial Blood Total CO2 25.1 21.0-31.0 MMOL/L Arterial Blood Oxygen Saturation 93 L 94-100 % Arterial Blood Base Excess -0.7 -2.5-2.5 MMOL/L Gustavo Test YES-POS Blood Gas Ventilator Setting YES Blood Gas Inspired Oxygen 50% Test 12/01/21 14:50 Range/Units Blood Gas Puncture Site RT RAD Blood Gas Patient Temperature 36.7 Arterial Blood pH 7.39 7.37-7.43 Arterial Blood Partial Pressure CO2 42 35-45 MMHG Arterial Blood Partial Pressure O2 70 L 79-93 MMHG Arterial Blood HCO3 25 23-27 MMOL/L Arterial Blood Total CO2 25.8 21.0-31.0 MMOL/L Arterial Blood Oxygen Saturation 95 94-100 % Arterial Blood Base Excess 0.0 -2.5-2.5 MMOL/L Gustavo Test YES-POS Blood Gas Ventilator Setting YES Blood Gas Inspired Oxygen 60% My Orders Medications Given in ED Vital Signs/I&O 12/01/21 12/01/21 12/01/21 12/01/21 07:00 07:00 07:15 08:00 Temp 37.1 Pulse 54 56 61 Resp 16 17 B/P (MAP) 116/79 Pulse Ox 97 96 O2 Delivery Mechanical Ventilator Mechanical Ventilator O2 Flow Rate 50.00 FiO2 50 50 12/01/21 12/01/21 12/01/21 12/01/21 08:00 09:00 10:00 10:12 Temp 37.0 37.0 37.0 Pulse 61 61 55 78 Resp 15 B/P (MAP) 105/64 105/64 132/85 Pulse Ox 95 95 92 90 O2 Delivery Mechanical Ventilator Mechanical Ventilator Mechanical Ventilator O2 Flow Rate 50.00 50.00 50.00 FiO2 50 12/01/21 12/01/21 12/01/21 12/01/21 11:00 11:22 12:00 12:00 Temp 36.8 36.8 Pulse 79 77 66 Resp 11 B/P (MAP) 120/70 117/73 116/68 Pulse Ox 91 90 O2 Delivery Mechanical Ventilator Mechanical Ventilator Mechanical Ventilator O2 Flow Rate 50.00 50.00 FiO2 50 12/01/21 12/01/21 12/01/21 12/01/21 12:54 13:00 14:00 14:30 Temp 36.8 36.7 Pulse 72 66 66 67 Resp 16 16 B/P (MAP) 123/81 125/84 Pulse Ox 92 90 91 O2 Delivery Mechanical Ventilator Mechanical Ventilator O2 Flow Rate 50.00 50.00 FiO2 60 12/01/21 12/01/21 12/01/21 12/01/21 15:00 16:00 17:00 18:00 Temp 36.7 36.7 36.4 36.2 Pulse 64 63 68 65 Resp 16 16 19 B/P (MAP) 112/66 113/74 98/62 94/63 Pulse Ox 90 90 92 90 O2 Delivery Mechanical Ventilator Mechanical Ventilator Mechanical Ventilator Mechanical Ventilator O2 Flow Rate 60.00 60.00 60.00 60.00 12/01/21 12/01/21 18:21 18:27 Pulse 58 Resp 17 Pulse Ox 91 FiO2 65 70 Capillary Refill : Progress Note #1: Time: 15:50 Progress Note Medical records reviewed. 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 He is a full code. He is a stockton of the [facility]. It is of the expectation by the [facility] that the patient receives aggressive care. This would include intubation, central line placement, pressors, CPR. The insulator apprentice states that he is going to call the guardian and inquire about a DNR status. Patient has become hypotensive during his course here in the emergency department. Broad-spectrum antibiotics were ordered early in the course of therapy with aggressive fluid resuscitation due to severe sepsis criteria with hypotension, elevated lactic acid suspicion of pneumonia. Progress Note #2: Time: 16:14 Progress Note I spoke with Dr. TYLER after I evaluated the post central line chest x-ray. Patient has a really large right middle lobe infiltrate, no evidence of pneumothorax. The central line is actually turned into the right subclavian vein. In talking with Dr. TYLER about this placement he states that it is absolutely okay to leave the line in place in the subclavian. He says often times the flow of the subclavian may change the positioning of the line. He states the risk of thrombosis is low. He states that the line is perfectly okay to use. He recommended repeat chest x-ray in the morning. Patient has also received 30ml/kg fluids with 2 liters and meds administered - current BP on 0.1mcg'kg/min levo 94/69 HR 75; 88% sats on 80% FIO2 Bipap settings 18/6 RR 22 (3256) ECG Initial ECG Impression Date: Nov 26, 2021 Initial ECG Impression Time: 14:39 Initial ECG Rate: 86 Initial ECG Rhythm: Normal Sinus Initial ECG Intervals: Normal Comment Diffuse low voltage, no obvious ST segment elevation or depression. Nonspecific ST-T wave changes in the lateral/precordial lead Diagnostic Imaging Diagonstic Imaging: Xray Plain Films/CT/US/NM/MRI: chest Comments Large right middle Lobe infiltrate; Central line is turned in right subclavian vein (?). no evidence of pneumothorax (interpreted by me) [facility], [place] NAME: CHATO ROTH [facility] REC#: [id number] PT STATUS: REG ER : 1955 PHYSICIAN: LASHON TYLER MD ADMIT DATE: 11/26/21/ER Signed Date of Exam:11/26/21 CHEST 1 VIEW, AP/PA ONLY INDICATION: Hypoxia. Central line placement. EXAMINATION: Chest, 11/26/2021. COMPARISON: 01/17/2016. FINDINGS: There is a central line on the right with the tip extending upwards to the neck. This should be pulled back and repositioned. There is marked elevation of the left hemidiaphragm, similar to previous imaging with shift of the mediastinum and heart to the right, unchanged. There is atelectasis at the left lung base with an infiltrate in the right midlung. No pneumothorax. No effusion. Diffuse dilatation of visualized loops of bowel incidentally noted. IMPRESSION: 1. Central line tip extends up to the neck and should be pulled back and repositioned. 2. Right midlung infiltrate with remaining findings similar to the previous examination. Dictated by: Dictated on workstation # [id number] Dict: 11/26/21 1609 Trans: 11/26/21 1630 [facility] [id number] Interpreted by: DORA WHIPPLE MD Electronically signed by: DORA WHIPPLE MD 11/26/21 1630 Critical Care Note Critical Care Start Time: 14:21 Stop Time: 15:50 Total Time (minutes) 45 minutes critical care time in the evaluation and management of this 66-year-old with acute respiratory failure and severe sepsis. Time includes initial evaluation and management of hypoxia with ongoing fluid resuscitation. Time also includes review of the medical record, discussion with case loader operator, review and interpretation of labs and imaging studies. Administration and management of pressors, antibiotics; discussion with admitting physician. Departure Communication (Admissions) Time/Spoke to Admitting Phy: 15:[address] Mcdonald - accepts to the ICU Time/Spoke to Consulting Phy: 16:57 eicu - Dr Buenrostro Impression Primary Impression: Severe sepsis Additional Impression: Acute respiratory failure Qualified Codes: J96.01 - Acute respiratory failure with hypoxia Disposition: ADMITTED INPATIENT Condition: Critical Admissions Decision to Admit Reason: Admit from ER (General) Decision to Admit/Date: Nov 26, 2021 Time/Decision to Admit Time: 15:55 Departure-Patient Inst. Referrals: TORI MYERS MD (PCP/Family) Primary Care Physician Copy Copies To 1: TORI MYERS MD, KATHRYN M MD Nov 26, 2021 14:33
[2021-11-26 14:40] LABS: BASOPHILS # (AUTO) 0.1 10^3/uL (0.0-0.1); BASOPHILS % (AUTO) 1 % (0-10); EOSINOPHILS % (AUTO) 0 % (0-10); HEMATOCRIT 43 % (40-54); HEMOGLOBIN 13.8 g/dL (13.3-17.7); LYMPHOCYTES # (AUTO) 0.8 10^3/uL (1.0-4.0); LYMPHOCYTES % (AUTO) 5 % (12-44); MEAN CORPUSCULAR HEMOGLOBIN 29 pg (25-34); MEAN CORPUSCULAR HGB CONC 32 g/dL (32-36); MEAN CORPUSCULAR VOLUME 88 fL (80-99); MONOCYTES # (AUTO) 0.7 10^3/uL (0.0-1.0); MONOCYTES % (AUTO) 4 % (0-12); NEUTROPHILS # (AUTO) 13.6 10^3/uL (1.8-7.8); NEUTROPHILS % (AUTO) 90 % (42-75); PLATELET COUNT 204 10^3/uL (130-400); WHITE BLOOD COUNT 15.2 10^3/uL (4.3-11.0)
[2021-11-26 14:43] LABS: BILIRUBIN,URINE NEGATIVE (NEGATIVE); CLARITY,URINE SL CLOUDY; COLOR,URINE YELLOW; GLUCOSE, URINE (UA) NEGATIVE (NEGATIVE); KETONES,URINE NEGATIVE (NEGATIVE); LEUKOCYTE ESTERASE ,URINE NEGATIVE (NEGATIVE); NITRITE,URINE NEGATIVE (NEGATIVE); PH,URINE 5.5 (5-9); PROTEIN,URINE 1+ (NEGATIVE)
[2021-11-26 14:52] LABS: ALBUMIN 3.7 GM/DL (3.2-4.5); CHLORIDE 100 MMOL/L (98-107); POTASSIUM 4.1 MMOL/L (3.6-5.0); SODIUM 138 MMOL/L (135-145)
[2021-11-26 14:54] LABS: CALCIUM 9.9 MG/DL (8.5-10.1)
[2021-11-26 14:55] LABS: GLUCOSE 193 MG/DL (70-105); TOTAL PROTEIN 7.1 GM/DL (6.4-8.2)
[2021-11-26 14:56] LABS: CARBON DIOXIDE 23 MMOL/L (21-32)
[2021-11-26 14:57] LABS: BILIRUBIN,TOTAL 0.3 MG/DL (0.1-1.0)
[2021-11-26 14:58] LABS: ALKALINE PHOSPHATASE 162 U/L (40-136)
[2021-11-26 14:59] LABS: CREATININE SERUM 0.57 MG/DL (0.60-1.30); GFR ESTIMATED 108
[2021-11-26 15:00] LABS: BUN/CREATININE RATIO 44
[2021-11-26 15:01] LABS: ALANINE AMINOTRANSFERASE 32 U/L (0-55)
[2021-11-26 15:01] LABS: AMORPHOUS SEDIMENT,UR RARE AMOR URATES /LPF; BACTERIA,URINE TRACE /HPF; SQUAMOUS EPITHELIAL CELL,UR RARE /HPF
[2021-11-26 15:02] LABS: BAND NEUTROPHILS 12 %; BASOPHILS % (MANUAL) 0 %; EOSINOPHILS % (MANUAL) 0 %; LYMPHOCYTES % (MANUAL) 3 %; MONOCYTES % (MANUAL) 7 %; NEUTROPHILS % (MANUAL) 78 %
[2021-11-26 15:03] LABS: RBC MORPH NORMAL
[2021-11-26 15:05] LABS: FIBRIN DEGRADATION PRODUCTS 4.19 UG/ML (0.00-0.49); INR 1.1 (0.8-1.4); PROTHROMBIN TIME PATIENT 14.6 SEC (12.2-14.7)
[2021-11-26] MEDS ORDERED: CEFEPIME INJECTION 1,000 MG in NS (IVPB) 50 ML IV ONE (15:15)
[2021-11-26] MEDS ORDERED: VANCOMYCIN INJECTION 1,000 MG in NS (IVPB) 250 ML IV ONE (15:15)
[2021-11-26] MEDS ORDERED: NS IV 1000 ML 1,000 ML ONE (15:18)
[2021-11-26] MEDS: NS IV 1000 ML 1,000 ML IV SCH ×3 (15:20→22:50)
[2021-11-26] MEDS ORDERED: NOREPINEPHRINE 8 MG/250 ML 250 ML IV ONE (15:42)
--- NOTE | 2021-11-26 16:11 | Diagnostic Imaging Report ---
INDICATION: Hypoxia. Central line placement. EXAMINATION: Chest, 11/26/2021. COMPARISON: 01/17/2016. FINDINGS: There is a central line on the right with the tip extending upwards to the neck. This should be pulled back and repositioned. There is marked elevation of the left hemidiaphragm, similar to previous imaging with shift of the mediastinum and heart to the right, unchanged. There is atelectasis at the left lung base with an infiltrate in the right midlung. No pneumothorax. No effusion. Diffuse dilatation of visualized loops of bowel incidentally noted. IMPRESSION: 1. Central line tip extends up to the neck and should be pulled back and repositioned. 2. Right midlung infiltrate with remaining findings similar to the previous examination. Dictated by: Dictated on workstation # [id number]
[2021-11-26] MEDS: NOREPINEPHRINE 8 MG/250 ML 250 ML IV SCH (16:17)
[2021-11-26] MEDS ORDERED: NS IV 500 ML 500 ML IV STA (16:51)
[2021-11-26 16:59] LABS: ABG BASE EXCESS -0.6 MMOL/L (-2.5-2.5); ABG OXYGEN SATURATION 88 % (94-100); ABG PCO2 68 MMHG (35-45); ABG PO2 53 MMHG (79-93); ABG TCO2 30.1 MMOL/L (21.0-31.0)
[2021-11-26 17:01] LABS: PATIENT TEMP 32.9; VENTILATOR NO
[2021-11-26] MEDS ORDERED: RT-ALBUTEROL/IPRATROPIUM 3 ML (DUONEB) VIAL INH PRN (17:15)
--- NOTE | 2021-11-26 17:17 | Tele-ICU Progress Note ---
Subjective Date Seen by a Provider: Nov 26, 2021 Time Seen by a Provider: 16:45 Subjective/Events-last exam This virtual visit was conducted using real time audio/video. Thank you for asking us to see this patient for respiratory insufficiency due to RUL pna. Also septic shock. 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 SH: smoking history:N FH: Non-contributory ROS: limited by patient's clinical condition. PE: Chronically ill appearing. VSS. 94/69 on Levo. O2 sat 88% on BiPAP 18/, 80%. HEENT: No obvious masses, adenopathy or JVD. Chest: B crackles.. CV: RRR S1 S2 No murmur or added sounds. Abd: Non-tender. Bowel sounds Y. : Unremarkable. Ramirez Y. FERRIS WHEEL OPERATOR/psychiatric: Grossly intact. No obvious focal findings. Extremities: No edema. Capillary refill < 3 seconds. Skin: unremarkable. Results: Elevated WCC 15.2, BUN 25, BG 193, Lact. 2.69. Decreased . ABG: Pending. CXR: RUL infilt.. Available chart/ vitals / labs / images reviewed. Video assessment done using teleICU camera, rest of exam as per RN. A/P: Respiratory insufficiency: Continue present management with BiPAP. will add PRN Duonebs. Monitor for increasing oxygenation needs and/or need for intubation. Critical Care: critically ill patient. Cont. Cefipime, Vanco, IVF, Levaphed. Discussed with ER Eusebia Ridley Dr. RN . Asked RN to reach out to eICU if any questions or concerns later. Time spent with patient/coordination of care with other health professionals (mins): 30 Sepsis Event Evaluation Height, Weight, BMI Height: 6'1" Weight: 118lbs. 3.0oz. 53.065017vs; 24.01 BMI Method:Estimated Focused Exam Lactate Level 11/26/21 14:22: Lactic Acid Level 2.69*H 11/26/21 16:16: Lactic Acid Level 1.13 Time of Focused Exam: 13:45 Lactic Acid Level Laboratory Tests Test 11/26/21 14:22 11/26/21 16:16 Lactic Acid Level 2.69 MMOL/L (0.50-2.00) *H 1.13 MMOL/L (0.50-2.00) Exam Exam Patient acknowledged, consented, and participated in this virtual visit which was conducted using real time audio/video Vital Signs Date Time Temp Pulse Resp B/P (MAP) Pulse Ox O2 Delivery O2 Flow Rate FiO2 11/26/21 16:17 79 78/58 11/26/21 14:41 94 NIV Bilevel 80 11/26/21 14:41 32.1 87 30 136/97 (110) NIV Bilevel 11/26/21 14:29 80 29 96 65.00 Height & Weight Height: 6'1" Weight: 118lbs. 3.0oz. 53.206187gv; 24.01 BMI Method:Estimated General Appearance: Chronically ill, Thin HEENT: Other (dry oral mucosa) Neck: Normal Inspection Respiratory: Crackles, Rhonci Cardiovascular: Regular Rate, Rhythm, Normal Peripheral Pulses Capillary Refill: Less Than 3 Seconds Peripheral Pulses: 2+ Radial Pulses (R), 2+ Radial Pulses (L) Extremity: Pedal Edema (Trace to 1+ edema noted in both lower extremities, bluish/cyanotic discoloration to the lower limbs and forearms and hands. He was quite cold to the touch.) Neurologic/Psychiatric: Other (Mute, rouses to voice and physical stimulation, briefly opens his eyes. Does not follow command) Results Lab Laboratory Tests 11/26/21 14:22 Assessment/Plan Assessment/Plan See free text Critical Care: Critically Ill Patient YADI SAINZ MD Nov 26, 2021 17:16
[2021-11-26 19:24] VITALS: BP 128/74
[2021-11-26 19:32] VITALS: BP 128/74
--- NOTE | 2021-11-26 21:07 | Tele-ICU Progress Note ---
Progress Note Called by the nurse with Pt saturating 88% and obtunded , on BiPAP with 100% O2. Abg AND cxr reviewed. Pt has Rt sided PNA and elevated diaphragm on the Rt. Decided to emergently intubate. Post intubation Pt became bradycardiac and had PEA. Resusciated to ROSC. CODE blue was run by ED MD at the bedside. All vent orders, placed. will order post CODE labs. 1, Septic shock 2/2 PNA Abx, Pressors and IVF c/s. 2.Acute hypoxic and hypercapnic resp failure Requiring intubation and MV support. 3. PEA arrest post intubation F/U on ABG, LABS and CXR. Interventions Major-Hypoxemia - evaluation and management, Sepsis - evaluation and management Focused Exam Lactate Level 11/26/21 14:22: Lactic Acid Level 2.69*H 11/26/21 16:16: Lactic Acid Level 1.13 11/26/21 19:15: Lactic Acid Level 0.84 Height, Weight, BMI Height: 6'1" Weight: 118lbs. 3.0oz. 53.420651qi; 23.55 BMI Method:Estimated Time of Focused Exam: 13:45 Lactic Acid Level Laboratory Tests Test 11/26/21 19:15 Lactic Acid Level 0.84 MMOL/L (0.50-2.00) JOSÉ MARSHALL MD Nov 26, 2021 21:07
[2021-11-26 21:16] LABS: BASOPHILS # (AUTO) 0.1 10^3/uL (0.0-0.1); BASOPHILS % (AUTO) 1 % (0-10); EOSINOPHILS # (AUTO) 0.2 10^3/uL (0.0-0.3); EOSINOPHILS % (AUTO) 1 % (0-10); HEMATOCRIT 39 % (40-54); HEMOGLOBIN 12.5 g/dL (13.3-17.7); LYMPHOCYTES # (AUTO) 1.5 10^3/uL (1.0-4.0); LYMPHOCYTES % (AUTO) 11 % (12-44); MEAN CORPUSCULAR HEMOGLOBIN 29 pg (25-34); MEAN CORPUSCULAR HGB CONC 32 g/dL (32-36); MEAN CORPUSCULAR VOLUME 90 fL (80-99); MEAN PLATELET VOLUME 10.1 fL (9.0-12.2); MONOCYTES # (AUTO) 0.4 10^3/uL (0.0-1.0); MONOCYTES % (AUTO) 3 % (0-12); NEUTROPHILS # (AUTO) 11.4 10^3/uL (1.8-7.8); NEUTROPHILS % (AUTO) 82 % (42-75); PLATELET COUNT 185 10^3/uL (130-400); WHITE BLOOD COUNT 13.8 10^3/uL (4.3-11.0)
--- NOTE | 2021-11-26 21:20 | History & Physical-Hospitalist ---
History of Present Illness HPI/Chief Complaint Pt is a 66yoCMcognitive impairment, mutism, and recent osteomyelitis of elbow presented to the ER due to altered mental status. He is intubated during my exam and unable to provide any history. He reportedly was found altered by his care staff at [place] and was found to be quite hypoxic. Reportedly his oxygen saturation was 40% at the longterm and increased to 70% with 2 L. He was placed on BiPAP in the emergency department. He was also found to be very hypothermic with a temperature of 32. He was found to have a right middle lobe pneumonia and was placed on broad-spectrum IV antibiotics. He was placed on Levophed after central line placement due to hypotension. He was admitted to the ICU and shortly following that he had progressive respiratory distress and required intubation. Following intubation he suffered a PEA arrest and CPR was started immediately. They obtained ROSC but then he had a V. fib arrest which per the ER doctor looks similar to torsades at times. He responded to defibrill ation and has maintained ROSC. Source: patient Exam Limitations: clinical condition Date Seen 11/26/21 Time Seen by a Provider: 21:15 Attending Physician Tori Miranda MD PCP Admitting Physician: Damaris Mcdonald MD Attending Physician: Damaris Mcdonald MD Referring Physician Date of Admission Nov 26, 2021 at 17:05 Home Medications & Allergies Home Medications Reviewed patient Home Medication Reconciliation performed by pharmacy medication reconciliations avionics electronics technician and/or nursing. Patients Allergies have been reviewed. Allergies Allergies Coded Allergies No Known Drug Allergies (Verified05/20/08) Past Fvhhtrb-Suxdfo-Rmtupy Hx Patient Social History Marrital Status: single Living Status: At [place]- guardian Ronit Alonzo Employed/Student: unemployed Tobacco Use?: No Use of E-Cig and/or Vaping dev: No Substance use?: No Alcohol Use?: No Pt feels they are or have been: Unable to obtain Immunizations Up To Date Date of Influenza Vaccine: Mar 02, 2015 Date of Pneumonia Vaccine: Mar 02, 2015 Seasonal Allergies Seasonal Allergies: No Current Status Advance Directives: Unable to obtain Communicates: Does Not Communicate Primary Language: Congolese Preferred Spoken Language: Congolese Is interpretation needed?: No Sensory deficits: Other Additional sensory deficits: PT NONVERBAL Implanted or Applied Medical D: None Past Medical History Surgeries: Abdominal Asthma, Pulmonary Embolism Currently Using CPAP: No Currently Using BIPAP: No Seizure Disorder Sexually Transmitted Disease: No HIV/AIDS: No Gastroesophageal Reflux, Chronic Constipation Adverse Reaction/Blood Tranf: No Past medical history 1. Mental retardation 2. Seizure disorder 3. 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 [place] syndrome Past surgical history 1. Multiple colonoscopies Family Medical History Reviewed Nursing Family Hx Patient reports no known family medical history. Other Conditions/Hx Unable to provide any history due to clinical condition/intubated Review of Systems ROS-Unable to Obtain: intubated Constitutional: see HPI Physical Exam Physical Exam Vital Signs Vital Signs - First Documented 11/28/21 11/28/21 00:00 00:22 Temp 36.5 Pulse 70 Resp 24 B/P (MAP) 104/74 Pulse Ox 97 O2 Delivery Mechanical Ventilator O2 Flow Rate 50.00 FiO2 50 Capillary Refill : Less Than 3 Seconds Height, Weight, BMI Height: 6'1" Weight: 118lbs. 3.0oz. 53.994050en; 23.55 BMI Method:Estimated General Appearance: Chronically ill, Thin, Other (intubated and sedated) HEENT: Moist Mucous Membranes; No Scleral Icterus (L), No Scleral Icterus (R); Other (let pupil dilated and minimally reactive, right pupil 3mm and reactive) Neck: Normal Inspection, Supple, Other (central line) Respiratory: Decreased Breath Sounds (left side, right with crackles diffusely), Other (intubated) Cardiovascular: No JVD, No Murmur, Tachycardia Gastrointestinal: Normal Bowel Sounds, Non Tender, Soft; No Distended, No Hepatomegaly Genital/Rectal: Other (robb in place) Extremity: Pedal Edema, Slow Capillary Refill (3-4 seconds) Neurologic/Psychiatric: Other (unresponsive, pupillary exam as above) Skin: Normal Color, Warm/Dry; No Jaundice, No Mottled Results Results/Procedures Labs Laboratory Tests 12/03/21 05:05 12/04/21 03:00 Patient resulted labs reviewed. Imaging: Reviewed Imaging Report Imaging [facility] [place] NAME: CHATO ROTH [facility] REC#: [id number] PT STATUS: REG ER : 1955 PHYSICIAN: LASHON TYLER MD ADMIT DATE: 11/26/21/ER Signed Date of Exam:11/26/21 CHEST 1 VIEW, AP/PA ONLY INDICATION: Hypoxia. Central line placement. EXAMINATION: Chest, 11/26/2021. COMPARISON: 01/17/2016. FINDINGS: There is a central line on the right with the tip extending upwards to the neck. This should be pulled back and repositioned. There is marked elevation of the left hemidiaphragm, similar to previous imaging with shift of the mediastinum and heart to the right, unchanged. There is atelectasis at the left lung base with an infiltrate in the right midlung. No pneumothorax. No effusion. Diffuse dilatation of visualized loops of bowel incidentally noted. IMPRESSION: 1. Central line tip extends up to the neck and should be pulled back and repositioned. 2. Right midlung infiltrate with remaining findings similar to the previous examination. Dictated by: Dictated on workstation # [id number] Dict: 11/26/21 1609 Trans: 11/26/[address] [facility] [id number] Interpreted by: DORA WHIPPLE MD Electronically signed by: DORA WHIPPLE MD 11/26/21 1630 Assessment/Plan Admission Diagnosis Septic Shock Admission Status: Inpatient Order (span 2 midnights) Reason for Inpatient Admission: see below Assessment and Plan Septic Shock Pneumonia Acute respiratory failure Cardiac arrest Continue on IV abx Continue IVF On pressors Had PEA arrest to v-fib- code run by ER and pt shocked and responded with ROSC Continue amiodarone drip TeleICU consulted, appreciate recs Decreased breath sounds on left- stat CXR ordered to check placement had bilateral sounds post intubation Unequal pupils- will get CT Head when stable enough to go to CT Hold anticoagulation Defer initiating therapeutic hypothermia until then Await blood cultures I called and updated his guardian, Ronit of critical illness- she confirms full code status Critical Care Critically Ill Patient Copy Copies To 1: TORI MIRANDA MD, KATELYN M MD Nov 26, 2021 21:20
[2021-11-26 21:24] LABS: ABG BASE EXCESS -4.3 MMOL/L (-2.5-2.5); ABG OXYGEN SATURATION 96 % (94-100); ABG PCO2 59 MMHG (35-45); ABG PO2 91 MMHG (79-93); ABG TCO2 24.8 MMOL/L (21.0-31.0)
[2021-11-26 21:25] LABS: ALLENS TEST YES-POS
[2021-11-26 21:26] LABS: INSPIRED O2 NOT INDICATED; PATIENT TEMP 35.7; VENTILATOR NO
[2021-11-26 21:28] LABS: POTASSIUM 4.6 MMOL/L (3.6-5.0)
[2021-11-26 21:29] LABS: CALCIUM 8.8 MG/DL (8.5-10.1)
[2021-11-26 21:30] LABS: TOTAL PROTEIN 5.8 GM/DL (6.4-8.2)
[2021-11-26] MEDS ORDERED: EPINEPHrine 1 MG INJECTION 4 MG in NS (IVPB) 248 ML IV SCH (21:30)
[2021-11-26] MEDS ORDERED: VANCOMYCIN 500 MG/NS 100 ML IV ONE ×2 (21:30)
[2021-11-26] MEDS ORDERED: ACETAMINOPHEN 650 MG SUPP (TYLENOL) PR PRN (21:30)
[2021-11-26] MEDS ORDERED: PROPOFOL DRIP (ICU) 100 ML IV SCH (21:30)
[2021-11-26 21:32] LABS: BILIRUBIN,TOTAL 0.2 MG/DL (0.1-1.0)
[2021-11-26 21:34] LABS: CREATININE SERUM 0.51 MG/DL (0.60-1.30)
[2021-11-26 21:45] VITALS: BP 82/62
--- NOTE | 2021-11-26 21:45 | Diagnostic Imaging Report ---
INDICATION: Respiratory distress. FINDINGS: ET tube placed with its tip in the midthoracic trachea and OG catheter tip is likely just below the diaphragm. Catheter via the right neck extends distally laterally through the subclavian and into the axillary segment, unchanged. There is some overlying artifacts in the right chest limiting radiographic detail. There are progressive and severe infiltrates, greater right. There is nonspecific gaseous distention of the visualized upper abdominal viscus. There is likely right pleural fluid probably increased in the interim. IMPRESSION: 1. OG in the upper stomach just below the EG junction. ET tube in the mid thoracic trachea in good position. The right neck catheter remains directed laterally through the subclavian into the axillary segment. Bilateral infiltrates are severe and have increased on the right with likely increasing right pleural effusion. 2. Distention of the upper abdominal viscus noted. Dictated by: Dictated on workstation # [id number]
--- NOTE | 2021-11-26 22:03 | Anesthesia-Procedure Note ---
Procedures/Interventions Procedure Start/Stop/Diagnosis Date of Procedure: Nov 26, 2021 Start Time: 20:35 Preprocedural Diagnosis: Altered mental status/respiratory failure/sepsis Brief History Called to ICU to intubate.RT/RN at bedside. Brief history obtained. Pt was broug ht to ER after a hypoxic event, was put on BIPAP and was no longer tolerating full settings. Upon my arrival, pt obtunded and SPo2 88% on bipap. Supplies gathered for intubation. NISBP noted in the 120's, with HR around 100. See nurses notes for exact values. Propofol 80mg, and rocuronium 40mg IV given while simultaneously delivering PPV via ambu at 15L. 80mm OPA placed and SP02 remained 86-90% while preparing for intubation. DL x 1 attempt, with easy placement of tube. Immediate color change and +bilateral breath sounds. NIBP cycled following, due to low dose vasopressors being infused. Requested medications to bolus to treat transient hypotension/bradycardia, which were unavailable. Atropine amp pulled from intubation medication box and given while waiting. It was then recognized rhythm was lost and code blue initiated. See record for details. Successful ROSC and RT x 2 at bedside. Care turned over to ICU staff. Stop Time: 21:00 Intubation RSI: No 100% pre-Ox, [id number]: Yes Intubation Method: orotracheal (7.5) Fam (size used 0-4): 2 Videoscope used: No Medications: Propofol, Rocuronium Mask Ventilation: positive Positive End Tide CO2: Yes Breath Sounds after Intubation: bilateral-equal ETT Securred @ (cm): 22 Intubated with ease: Yes Intubation Complications: other (see notes re: code blue) Post Intubation Xray-done: Yes Care turned over to: House Sup:Amanda, RT, [employer] YUNG RAO CRNA Nov 26, 2021 22:03
[2021-11-26] MEDS: RT-ALBUTEROL SULF 2.5 MG/3 ML PRE-MIX VIAL INH SCH (22:14)
[2021-11-26 22:15] VITALS: BP 117/79
[2021-11-26] MEDS: fentaNYL DRIP PRE-MIX 250 ML IV SCH (22:52)
[2021-11-26] MEDS: VASOPRESSIN INJECTION 20 UNIT in NS (IVPB) 100 ML IV SCH (22:53)
[2021-11-27] MEDS: CEFEPIME 1,000 MG/NS 50 ML IVPB IV SCH ×10 (00:16→20:51)
[2021-11-27] MEDS: PROPOFOL DRIP (ICU) 100 ML IV SCH ×2 (00:46→13:26)
[2021-11-27] MEDS ORDERED: LACTATED RINGERS 1,000 ML IV ONE (00:53)
[2021-11-27] MEDS ORDERED: LACTATED RINGERS 1,000 ML IV SCH ×2 (01:00→04:15)
--- NOTE | 2021-11-27 01:12 | Tele-ICU Progress Note ---
Progress Note During CODE BLUE , pt had Vfib / torsads for which he received defibrillation. Subsiquently Amiodarone dripn was started by the bedside MD. Amiodarone drip order placed. CT head negative , Done due to one sided dilated pupil Focused Exam Lactate Level 11/26/21 19:15: Lactic Acid Level 0.84 11/26/21 21:08: Lactic Acid Level 2.83*H 11/26/21 23:05: Lactic Acid Level 1.90 Height, Weight, BMI Height: 6'1" Weight: 118lbs. 3.0oz. 53.893442nw; 23.55 BMI Method:Estimated Time of Focused Exam: 13:45 Lactic Acid Level Laboratory Tests Test 11/26/21 23:05 Lactic Acid Level 1.90 MMOL/L (0.50-2.00) JOSÉ MARSHALL MD Nov 27, 2021 01:12
[2021-11-27] MEDS: AMIODARONE INJECTION 450 MG in NORMAL SALINE 250 ML IV SCH ×3 (01:34→19:44)
[2021-11-27 02:14] LABS: ABG BASE EXCESS -3.1 MMOL/L (-2.5-2.5); ABG OXYGEN SATURATION 94 % (94-100); ABG PCO2 55 MMHG (35-45); ABG PH 7.25 (7.37-7.43); ABG PO2 74 MMHG (79-93); ABG TCO2 24.7 MMOL/L (21.0-31.0)
[2021-11-27 02:16] LABS: INSPIRED O2 100%; PATIENT TEMP 37.2; VENTILATOR YES
[2021-11-27] MEDS: RT-ALBUTEROL SULF 2.5 MG/3 ML PRE-MIX VIAL INH SCH ×6 (02:32→22:03)
[2021-11-27 02:33] VITALS: BP 97/58
[2021-11-27] MEDS: VANCOMYCIN 1 GM/NS 250 ML IVPB IV SCH ×4 (02:57→11:59)
[2021-11-27 03:42] LABS: BASOPHILS # (AUTO) 0.1 10^3/uL (0.0-0.1); BASOPHILS % (AUTO) 1 % (0-10); EOSINOPHILS % (AUTO) 0 % (0-10); HEMATOCRIT 36 % (40-54); HEMOGLOBIN 11.5 g/dL (13.3-17.7); LYMPHOCYTES # (AUTO) 0.3 10^3/uL (1.0-4.0); LYMPHOCYTES % (AUTO) 2 % (12-44); MEAN CORPUSCULAR HEMOGLOBIN 29 pg (25-34); MEAN CORPUSCULAR HGB CONC 32 g/dL (32-36); MEAN CORPUSCULAR VOLUME 88 fL (80-99); MONOCYTES # (AUTO) 0.6 10^3/uL (0.0-1.0); MONOCYTES % (AUTO) 3 % (0-12); NEUTROPHILS # (AUTO) 15.9 10^3/uL (1.8-7.8); NEUTROPHILS % (AUTO) 93 % (42-75); PLATELET COUNT 185 10^3/uL (130-400); WHITE BLOOD COUNT 17.1 10^3/uL (4.3-11.0)
[2021-11-27 03:51] LABS: POTASSIUM 4.9 MMOL/L (3.6-5.0)
[2021-11-27 03:52] LABS: CALCIUM 8.6 MG/DL (8.5-10.1)
[2021-11-27 03:57] LABS: CREATININE SERUM 0.58 MG/DL (0.60-1.30)
--- NOTE | 2021-11-27 04:10 | Tele-ICU Progress Note ---
Progress Note Low U/O , so far 1 L of LR in 2 divided doses given. Reviewed the repeat labs. Interventions Minor-Other: Low u/o Focused Exam Lactate Level 11/26/21 19:15: Lactic Acid Level 0.84 11/26/21 21:08: Lactic Acid Level 2.83*H 11/26/21 23:05: Lactic Acid Level 1.90 Height, Weight, BMI Height: 6'1" Weight: 118lbs. 3.0oz. 53.716239wd; 23.55 BMI Method:Estimated Time of Focused Exam: 13:45 JOSÉ MARSHALL MD Nov 27, 2021 04:10
[2021-11-27] MEDS: NS IV 1000 ML 1,000 ML IV SCH ×4 (05:08→20:51)
[2021-11-27] MEDS: NOREPINEPHRINE 8 MG/250 ML 250 ML IV SCH ×2 (05:08→14:31)
[2021-11-27 06:25] VITALS: BP 123/79
--- NOTE | 2021-11-27 06:46 | Occ Therapy Progress Note ---
Therapy Progress Note OT orders received. OT will continue to monitor pt and will initiate treatment when pt is able to tolerant and actively participate in skilled therapy. JARET PAULA Nov 27, 2021 06:46
[2021-11-27] MEDS: VASOPRESSIN INJECTION 20 UNIT in NS (IVPB) 100 ML IV SCH ×2 (06:48→17:53)
--- NOTE | 2021-11-27 07:24 | Physical Therapy Progress Note ---
Therapy Progress Note Patient currently intubated and sedated. PT will continue to monitor patient status and initiate treatment when patient is medically stable and able to actively participate with skilled therapy. PARAG HERMOSILLO PT Nov 27, 2021 07:24
--- NOTE | 2021-11-27 07:45 | Diagnostic Imaging Report ---
PROCEDURE: CT head without contrast. TECHNIQUE: Multiple contiguous axial images were obtained through the brain without the use of intravenous contrast. Auto Exposure Controls were utilized during the CT exam to meet ALARA standards for radiation dose reduction. INDICATION: Sepsis, pneumonia, post code, dilated left pupil. COMPARISON: None available FINDINGS: Mild atrophy. Endotracheal tube is partially visualized. No intracranial hemorrhage. Some regions of poor corticomedullary differentiation are identified bilaterally. However, some motion artifact is identified. No intracranial mass, mass effect, midline shift, herniation, obstructive hydrocephalus, or extra-axial fluid collection. Prominent tortuosity seen within the superior aspect of the right orbit. 7 mm hyperdensity is identified within the posterior aspect of the left orbit inferiorly. The globes themselves appear unremarkable. The paranasal sinuses are clear. The calvarium is intact. Degenerative changes of the temporomandibular joints. The anterior aspect of the nasal septum appears absent. IMPRESSION: Slight indistinct appearance of scattered regions of the corticomedullary junction. This could relate to edema and underlying infarctions, though given motion, this could be artifactual. Recommend followup examination versus MRI for further evaluation. Bilateral orbital densities of uncertain etiology. The right may relate to a dilated superior ophthalmic vein. However, evaluation for intraorbital mass lesions is recommended. Recommend an MRI of the brain with and without contrast using orbital mass protocol for further evaluation. Absence of the anterior aspect of the nasal septum. I agree with the preliminary interpretation that the acute abnormality may relate to underlying mild edema. Called to [place] at 7:44 a.m. by cvb. Dictated by: Dictated on workstation # [id number]
[2021-11-27] MEDS ORDERED: ROCURONIUM 50 MG/5 ML (ZEMURON) VIAL IV ONE (08:32)
[2021-11-27] MEDS ORDERED: EPINEPHrine 0.1 MG/ML 10 ML (HOSPIRA) SYR IJ ONE (08:32)
[2021-11-27] MEDS ORDERED: proPOfol 200 MG/20 ML (DIPRIVAN) VIAL IV ONE (08:32)
[2021-11-27] MEDS ORDERED: AMIODARONE (BOLUS) 150 MG/3 ML IV ONE (08:32)
[2021-11-27] MEDS ORDERED: ATROPINE INJECTION 1 MG/10 ML SYR (ABBOTT) INJ ONE (08:32)
--- NOTE | 2021-11-27 09:41 | Diagnostic Imaging Report ---
INDICATION: Evaluate central line. Time of Exam: 8:02 AM Correlation is made with prior chest from one day earlier. ET tube has tip above the garth. The OG tube has been removed. The right-sided line continues to be malpositioned with tip directed laterally in the region of the axillary vein. Right upper lobe infiltrate persists. There is no pneumothorax. Left hemidiaphragm is elevated. IMPRESSION: Continued malpositioned right-sided central line, as described. Dictated by: Dictated on workstation # [id number]
[2021-11-27 09:53] VITALS: BP 81/57
[2021-11-27 14:03] VITALS: BP 101/71
--- NOTE | 2021-11-27 14:49 | Tele-ICU Progress Note ---
Subjective Date Seen by a Provider: Nov 27, 2021 Time Seen by a Provider: 14:48 Subjective/Events-last exam (Tele-ICU Physician , Progress Note ) Available chart/ vitals / labs / Images reviewed Video assessment done using teleICU camera, rest of exam as per RN Discussed with RN , EXAM PER RN Events overnight : Afebrile FiO2 - 70% I/O = Drips: amio , NS 150 Pressors: levo , vaso Sedation gtt: propofol 22 ( RASS -2 ) VENT SETTINGS and ABG reviewed Not candidate for SBT today REVIEWED Cardiovascular Stability / Sedation Score / FI02/PEEP / ABG / CXR Consultants: Hospital course: (11/26) 66M Admitted from assisted with intellectual disability and septic shock Intubated then PEA arrest 11/27 - 70% +10 , vaso /levo /propofol A/P Acute hypoxic and hypercapnic resp failure - AC 22 450 75% peep 10 . 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 Discussed with RN to reach out if any questions or concerns A total of 34 minutes of critical care time was devoted to this patient today, required to treat and/or prevent further deterioration of critical care condition ( as above) . Sepsis Event Evaluation Height, Weight, BMI Height: 6'1" Weight: 118lbs. 3.0oz. 53.316738tq; 24.60 BMI Method:Estimated Focused Exam Lactate Level 11/26/21 19:15: Lactic Acid Level 0.84 11/26/21 21:08: Lactic Acid Level 2.83*H 11/26/21 23:05: Lactic Acid Level 1.90 Time of Focused Exam: 13:45 Exam Exam Patient acknowledged, consented, and participated in this virtual visit which was conducted using real time audio/video Vital Signs Date Time Temp Pulse Resp B/P (MAP) Pulse Ox O2 Delivery O2 Flow Rate FiO2 11/27/21 14:31 78 100/71 11/27/21 13:26 73 92/64 11/27/21 12:31 37.5 11/27/21 12:01 38.1 11/27/21 10:15 79 22 89/59 93 Mechanical Ventilator 75.00 11/27/21 10:00 80 22 82/58 95 Mechanical Ventilator 75.00 11/27/21 09:45 79 21 81/57 94 Mechanical Ventilator 75.00 11/27/21 09:30 81 18 95/77 95 Mechanical Ventilator 75.00 11/27/21 09:15 80 24 85/53 95 Mechanical Ventilator 75.00 11/27/21 09:00 81 23 89/55 94 Mechanical Ventilator 75.00 11/27/21 08:45 85 23 106/72 95 Mechanical Ventilator 75.00 11/27/21 08:30 90 15 107/64 94 Mechanical Ventilator 75.00 11/27/21 08:15 93 13 107/72 94 Mechanical Ventilator 75.00 11/27/21 08:00 98 28 116/75 93 Mechanical Ventilator 75.00 11/27/21 07:45 95 29 119/74 93 Mechanical Ventilator 75.00 11/27/21 07:30 94 19 112/84 93 Mechanical Ventilator 75.00 11/27/21 07:15 89 21 123/79 93 Mechanical Ventilator 75.00 11/27/21 07:00 81 11/27/21 07:00 83 22 93/69 94 Mechanical Ventilator 75.00 11/27/21 06:51 Mechanical Ventilator 70.00 11/27/21 06:07 37.6 82 14 80/56 94 Mechanical Ventilator 80.00 11/27/21 05:15 Mechanical Ventilator 80.00 11/27/21 05:00 37.6 92 14 113/70 97 Mechanical Ventilator 100.00 11/27/21 04:00 Mechanical Ventilator 11/27/21 04:00 37.5 95 14 91/59 96 Mechanical Ventilator 100.00 11/27/21 03:41 37.4 11/27/21 03:30 37.4 100 14 100/66 94 Mechanical Ventilator 100.00 11/27/21 02:33 94 28 92 100 11/27/21 02:15 37.2 93 14 101/67 92 Mechanical Ventilator 100.00 11/27/21 01:09 36.7 92 14 91/65 95 Mechanical Ventilator 100.00 11/27/21 01:00 99 11/27/21 00:46 108 11/27/21 00:20 36.3 11/27/21 00:02 36.2 102 14 104/80 96 Mechanical Ventilator 100.00 11/27/21 00:00 Mechanical Ventilator 11/26/21 23:58 35.5 11/26/21 23:00 35.3 112 14 112/84 94 Mechanical Ventilator 100.00 11/26/21 22:15 105 22 91 100 11/26/21 22:03 35.3 107 14 119/63 95 Mechanical Ventilator 100.00 11/26/21 21:45 115 22 93 100 11/26/21 21:00 35.6 133 21 125/86 95 Mechanical Ventilator 100.00 11/26/21 20:56 35.6 154 Mechanical Ventilator 100.00 11/26/21 20:00 35.0 101 13 128/77 91 NIV Bilevel 100.00 11/26/21 20:00 NIV Bilevel 11/26/21 19:45 34.9 97 123/76 91 NIV Bilevel 90.00 11/26/21 19:38 34.8 98 39 122/82 91 NIV Bilevel 80.00 11/26/21 19:34 35.4 11/26/21 19:32 34.4 94 91 90 11/26/21 19:24 94 38 91 90.00 11/26/21 19:15 34.6 95 36 123/77 91 NIV Bilevel 80.00 11/26/21 19:07 34.5 95 36 106/77 92 NIV Bilevel 80.00 11/26/21 19:00 86 11/26/21 18:49 91 19 107/75 90 NIV Bilevel 80.00 11/26/21 18:37 92 11/26/21 18:04 33.9 90 27 90/68 92 NIV Bilevel 80.00 11/26/21 16:17 79 78/58 I & O 11/27/21 07:00 Intake Total 6769 ml Output Total 225 ml Balance 6544 ml Height & Weight Height: 6'1" Weight: 118lbs. 3.0oz. 53.716514ey; 24.60 BMI Method:Estimated General Appearance: Chronically ill, Thin HEENT: Other (dry oral mucosa) Neck: Normal Inspection Respiratory: Crackles, Rhonci Cardiovascular: Regular Rate, Rhythm, Normal Peripheral Pulses Capillary Refill: Less Than 3 Seconds Peripheral Pulses: 2+ Radial Pulses (R), 2+ Radial Pulses (L) Extremity: Pedal Edema (Trace to 1+ edema noted in both lower extremities, bluish/cyanotic discoloration to the lower limbs and forearms and hands. He was quite cold to the touch.) Neurologic/Psychiatric: Other (Mute, rouses to voice and physical stimulation, briefly opens his eyes. Does not follow command) Results Lab Laboratory Tests 11/26/21 14:22 11/26/21 21:08 11/27/21 03:35 Assessment/Plan Assessment/Plan 1 ALEJANDRINA PLASCENCIA MD Nov 27, 2021 14:49
[2021-11-27 15:10] LABS: ABG BASE EXCESS -3.8 MMOL/L (-2.5-2.5); ABG OXYGEN SATURATION 99 % (94-100); ABG PCO2 49 MMHG (35-45); ABG PO2 119 MMHG (79-93); ABG TCO2 23.3 MMOL/L (21.0-31.0)
[2021-11-27 15:12] LABS: ABG PH 7.27 (7.37-7.43); ALLENS TEST YES-POS; INSPIRED O2 75%; VENTILATOR YES
[2021-11-27 15:13] LABS: PATIENT TEMP 37.6
--- NOTE | 2021-11-27 15:46 | Diagnostic Imaging Report ---
INDICATION: Central line repositioned. TIME OF EXAM: 3:08 PM. COMPARISON: Correlation is made to the prior study from earlier this same day. FINDINGS: The central line has been pulled back but continues to have a lateral course, likely within the subclavian vein. The ET tube has its tip above the garth. Parenchymal consolidation in the right lung persists. The left hemidiaphragm is elevated with subsegmental atelectasis in the left base. No pneumothorax is seen. IMPRESSION: The right IJ line has been pulled back but continues to be malpositioned with the tip directed laterally in the subclavian vein. Dictated by: Dictated on workstation # [id number]
[2021-11-27] MEDS ORDERED: TROUGH ORDER-PHARMACY XX ONE (17:00)
--- NOTE | 2021-11-27 17:06 | Progress Note - Hospitalist ---
Subjective HPI/CC On Admission Date Seen by Provider: Nov 27, 2021 Time Seen by Provider: 09:30 Subjective/Events-last exam He remains intubated and sedated. There is no family at the bedside. Focused Exam Lactate Level 11/26/21 19:15: Lactic Acid Level 0.84 11/26/21 21:08: Lactic Acid Level 2.83*H 11/26/21 23:05: Lactic Acid Level 1.90 Time of Focused Exam: 13:45 Objective Exam Vital Signs Vital Signs Date Time Temp Pulse Resp B/P (MAP) Pulse Ox O2 Delivery O2 Flow Rate FiO2 11/27/21 16:30 70 23 125/81 99 Mechanical Ventilator 70.00 11/27/21 15:46 37.6 11/27/21 02:33 100 Capillary Refill : Less Than 3 Seconds General Appearance: No Apparent Distress, WD/WN, Other (intubated and sedated) Respiratory: Lungs Clear, No Respiratory Distress, Other (intubated and mechanically ventilated) Cardiovascular: Regular Rate, Rhythm, No Murmur Gastrointestinal: Normal Bowel Sounds, Soft Extremity: Normal Inspection, No Pedal Edema Neurologic/Psychiatric: Other (sedated) Skin: Warm/Dry, Pallor Results/Procedures Lab Laboratory Tests 11/26/21 21:08 11/27/21 03:35 Patient resulted labs reviewed. Imaging: Reviewed Imaging Report Assessment/Plan Assessment and Plan Assess & Plan/Chief Complaint Septic Shock Pneumonia Lactic acidosis Acute respiratory failure with hypoxia and hypercapnia Cardiac arrest Continue on IV abx Continue IV fluids Continue pressors Central line needs to be repositioned, Dr. 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 Cognitive impairment Mutism Critical Care Critically Ill Patient Diagnosis/Problems Diagnosis/Problems (1) Septic shock Status: Acute (2) CAP (community acquired pneumonia) Status: Acute (3) Cardiac arrest Status: Acute (4) Lactic acidosis Status: Acute (5) Acute respiratory failure Status: Acute Qualifiers: Respiratory failure complication: hypoxia and hypercapnia Qualified Codes: J96.01 - Acute respiratory failure with hypoxia; J96.02 - Acute respiratory failure with hypercapnia (6) Endotracheally intubated Status: Acute (7) Cognitive impairment Status: Chronic (8) Mutism Status: Chronic KAZ CHU MD Nov 27, 2021 17:06
[2021-11-27] MEDS: METOCLOPRAMIDE 5 MG (REGLAN) TAB PO SCH ×2 (17:26→20:52)
[2021-11-27] MEDS: FAMOTIDINE 20 MG (PEPCID) TABLET PO SCH (17:27)
[2021-11-27] MEDS: MIRTAZAPINE 15 MG (REMERON) TAB PO SCH (17:28)
[2021-11-27 18:49] VITALS: BP 116/86
[2021-11-27] MEDS: DOCUSATE SODIUM 100 MG (COLACE) CAP PO SCH (20:52)
[2021-11-27] MEDS ORDERED: PHENYTOIN 100 MG (DILANTIN) CAP PO SCH (21:00)
[2021-11-27] MEDS ORDERED: NS IV NR ×3 (21:00)
[2021-11-27] MEDS ORDERED: PHENYTOIN IV NR ×3 (21:00)
[2021-11-27] MEDS ORDERED: MICRON FILTER IV NR ×3 (21:00)
[2021-11-27] MEDS ORDERED: NON-FORMULARY MEDICATION 1 EA EA (Mirtazapine (Remeron) 30 MG) PO SCH (21:00)
[2021-11-27] MEDS ORDERED: CIMETIDINE 400 MG PO SCH (21:00)
[2021-11-27] MEDS ORDERED: NON-FORMULARY MEDICATION 1 EA EA (Docusate Sodium (Dok) 100 MG) PO SCH (21:00)
[2021-11-27] MEDS: fentaNYL DRIP PRE-MIX 250 ML IV SCH (21:59)
[2021-11-27 22:04] VITALS: BP 103/74
[2021-11-28] MEDS: PROPOFOL DRIP (ICU) 100 ML IV SCH ×3 (00:30→21:45)
[2021-11-28 01:53] VITALS: BP 99/68
[2021-11-28] MEDS: RT-ALBUTEROL SULF 2.5 MG/3 ML PRE-MIX VIAL INH SCH ×3 (01:53→18:35)
[2021-11-28] MEDS: NOREPINEPHRINE 8 MG/250 ML 250 ML IV SCH (03:05)
[2021-11-28] MEDS: CEFEPIME 1,000 MG/NS 50 ML IVPB IV SCH ×8 (03:05→21:45)
[2021-11-28] MEDS: NS IV 1000 ML 1,000 ML IV SCH ×3 (03:05→21:44)
[2021-11-28] MEDS ORDERED: TROUGH ORDER-PHARMACY XX NR (06:00)
[2021-11-28 06:15] LABS: MONOCYTES % (AUTO) 5 % (0-12)
[2021-11-28 06:16] LABS: BASOPHILS # (AUTO) 0.1 10^3/uL (0.0-0.1); BASOPHILS % (AUTO) 1 % (0-10); EOSINOPHILS % (AUTO) 0 % (0-10); HEMATOCRIT 28 % (40-54); HEMOGLOBIN 9.4 g/dL (13.3-17.7); LYMPHOCYTES # (AUTO) 1.3 10^3/uL (1.0-4.0); LYMPHOCYTES % (AUTO) 13 % (12-44); MEAN CORPUSCULAR HEMOGLOBIN 29 pg (25-34); MEAN CORPUSCULAR HGB CONC 34 g/dL (32-36); MEAN CORPUSCULAR VOLUME 87 fL (80-99); MEAN PLATELET VOLUME 9.5 fL (9.0-12.2); MONOCYTES # (AUTO) 0.5 10^3/uL (0.0-1.0); NEUTROPHILS # (AUTO) 8.1 10^3/uL (1.8-7.8); NEUTROPHILS % (AUTO) 80 % (42-75); PLATELET COUNT 138 10^3/uL (130-400); WHITE BLOOD COUNT 10.1 10^3/uL (4.3-11.0)
[2021-11-28 06:21] LABS: POTASSIUM 3.2 MMOL/L (3.6-5.0)
[2021-11-28 06:22] LABS: CALCIUM 8.4 MG/DL (8.5-10.1); SMEAR SCAN COMMENT YES
[2021-11-28 06:27] LABS: CREATININE SERUM 0.44 MG/DL (0.60-1.30); PHOSPHORUS 1.9 MG/DL (2.3-4.7)
[2021-11-28] MEDS ORDERED: POTASSIUM CL 10MEQ/50ML IVPB 200 ML IV ONE (06:28)
[2021-11-28 06:29] LABS: MAGNESIUM 1.5 MG/DL (1.6-2.4)
[2021-11-28] MEDS: POTASSIUM CL 10MEQ/50ML IVPB 50 ML IV SCH ×3 (06:29→08:20)
[2021-11-28] MEDS: VASOPRESSIN INJECTION 20 UNIT in NS (IVPB) 100 ML IV SCH ×2 (06:37→18:56)
[2021-11-28] MEDS ORDERED: MAGNESIUM 1 GM/100 ML IVPB 200 ML IV ONE (06:43)
[2021-11-28] MEDS: MAGNESIUM 1 GM/100 ML IVPB 100 ML IV SCH ×2 (06:43→06:44)
[2021-11-28 06:48] VITALS: BP 102/82
--- NOTE | 2021-11-28 06:50 | Occ Therapy Progress Note ---
Therapy Progress Note Pt currently intubated. OT will continue to monitor pt status and will initiate treatment when pt is medically stable and able to actively participate in skilled therapy. JARET PAULA Nov 28, 2021 06:50
--- NOTE | 2021-11-28 07:17 | Physical Therapy Progress Note ---
Therapy Progress Note Patient currently intubated and sedated. PT will continue to monitor patient status and initiate treatment when patient is medically stable and able to actively participate with skilled therapy. PARAG HERMOSILLO PT Nov 28, 2021 07:17
--- NOTE | 2021-11-28 08:17 | Diagnostic Imaging Report ---
EXAMINATION: Chest 1 view HISTORY: Tube placement COMPARISON: 11/27/2021 FINDINGS: Heart size and pulmonary vasculature are normal. Stable consolidation within the right mid and lower lung. There is unchanged elevation left hemidiaphragm with prominent loops of colon at the diaphragm. An enteric catheter is present which courses below the diaphragm the tip located within the left upper quadrant in expected location of the mid stomach. Medical support lines and tubes are otherwise unchanged. IMPRESSION: 1. Enteric catheter placement with the tip located within the left upper quadrant in expected location of the mid stomach. 2. Otherwise stable chest radiograph. Dictated by: Dictated on workstation # [id number]
[2021-11-28] MEDS: METOCLOPRAMIDE 5 MG (REGLAN) TAB PO SCH ×4 (08:43→21:45)
[2021-11-28] MEDS: ASPIRIN E.C. 81 MG (ECOTRIN) TAB PO SCH (08:43)
[2021-11-28] MEDS: FAMOTIDINE 20 MG (PEPCID) TABLET PO SCH ×2 (08:43→21:45)
[2021-11-28] MEDS: DOCUSATE SODIUM 100 MG (COLACE) CAP PO SCH (08:43)
[2021-11-28] MEDS ORDERED: FAMO20TA5 PO (09:28)
--- NOTE | 2021-11-28 10:08 | Tele-ICU Progress Note ---
Subjective Date Seen by a Provider: Nov 28, 2021 Time Seen by a Provider: 10:07 Subjective/Events-last exam (Tele-ICU Physician , Progress Note ) Available chart/ vitals / labs / Images reviewed Video assessment done using teleICU camera, rest of exam as per RN Discussed with RN , EXAM PER RN Events overnight : Afebrile FiO2 - 70% I/O = neg 3 L Drips: amio , NS 150 Pressors: levo .05 , vaso Sedation gtt: propofol 20 ( RASS -2 ) VENT SETTINGS and ABG reviewed Not candidate for SBT today REVIEWED Cardiovascular Stability / Sedation Score / FI02/PEEP / ABG / CXR Consultants: Hospital course: (11/26) 66M Admitted from senior care with intellectual disability and septic shoc k Intubated then PEA arrest 11/27 - 70% +10 , vaso /levo /propofol 11/28 - 50 % +8 A/P Acute hypoxic and hypercapnic resp failure - AC 24 450 50% peep 8 . PAP 16 Septic shock - cont IVF - decrease to 100 - try to wean off pressors PNA, RUL/RML and possible wound on elbow - WOUND AND SPUTUM + for STAPH - presumed MRSA - neg covid - cefepime 11/26 abd vanco 11/26 Elev Ddimer - low clinical susp for DVT or PE - - check US LE S/p PEA arrest post intubation - CTH 11/26 - no acute findings, but reported slight edema and underlying infarctions - to be repeated CT vs MRI latter - Cognitive impairment at baseline , off propofol seems follow scommands - follow off sedation Vfib / torsads for which he received defibrillation - Amiodarone gtt -OFF due to ken - ECHO elevation of the left hemidiaphragm, - chronic H/o SZ - cont phosphenitoin 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 Discussed with RN to reach out if any questions or concerns A total of 40 minutes of critical care time was devoted to this patient today, required to treat and/or prevent further deterioration of critical care condition ( as above) . Sepsis Event Evaluation Height, Weight, BMI Height: 6'1" Weight: 118lbs. 3.0oz. 53.268803ls; 24.76 BMI Method:Estimated Focused Exam Lactate Level 11/26/21 19:15: Lactic Acid Level 0.84 11/26/21 21:08: Lactic Acid Level 2.83*H 11/26/21 23:05: Lactic Acid Level 1.90 Time of Focused Exam: 13:45 Exam Exam Patient acknowledged, consented, and participated in this virtual visit which was conducted using real time audio/video Vital Signs Date Time Temp Pulse Resp B/P (MAP) Pulse Ox O2 Delivery O2 Flow Rate FiO2 11/28/21 09:00 36.4 77 24 112/75 95 Mechanical Ventilator 50.00 11/28/21 08:42 75 93/71 11/28/21 08:00 36.2 80 19 104/77 95 Mechanical Ventilator 50.00 11/28/21 07:39 36.2 11/28/21 07:00 36.1 88 25 102/70 94 Mechanical Ventilator 50.00 11/28/21 06:48 82 24 94 50 11/28/21 06:30 80 11/28/21 06:00 36.1 76 13 106/75 93 Mechanical Ventilator 50.00 11/28/21 05:00 35.9 74 24 102/74 97 Mechanical Ventilator 50.00 11/28/21 04:19 Mechanical Ventilator 50 11/28/21 04:00 35.9 11/28/21 04:00 35.9 77 24 101/73 95 Mechanical Ventilator 50.00 11/28/21 03:10 36.0 Mechanical Ventilator 50.00 11/28/21 03:05 72 99/68 11/28/21 03:00 35.9 80 24 94/68 95 Mechanical Ventilator 50.00 11/28/21 02:00 35.9 79 14 96/70 93 Mechanical Ventilator 50.00 11/28/21 01:53 72 24 92 50 11/28/21 01:00 36.1 71 19 113/73 97 Mechanical Ventilator 50.00 11/28/21 01:00 71 11/28/21 00:30 69 102/75 11/28/21 00:22 Mechanical Ventilator 50 11/28/21 00:00 36.4 70 24 104/74 97 Mechanical Ventilator 50.00 11/28/21 00:00 36.5 11/27/21 23:50 36.5 Mechanical Ventilator 50.00 11/27/21 23:00 36.7 71 24 101/74 97 Mechanical Ventilator 50.00 11/27/21 22:04 68 24 97 50 11/27/21 22:00 37.0 65 23 103/74 97 Mechanical Ventilator 50.00 11/27/21 21:09 Mechanical Ventilator 50.00 11/27/21 21:00 37.1 75 9 105/65 96 Mechanical Ventilator 50.00 11/27/21 20:30 Mechanical Ventilator 50.00 11/27/21 20:27 36.3 11/27/21 20:00 37.2 76 23 132/83 99 Mechanical Ventilator 70.00 11/27/21 20:00 Mechanical Ventilator 65 11/27/21 19:00 71 11/27/21 19:00 37.1 71 23 122/82 97 Mechanical Ventilator 70.00 11/27/21 19:00 37.1 Mechanical Ventilator 70.00 11/27/21 18:49 71 24 96 65 11/27/21 18:15 76 12 122/73 93 Mechanical Ventilator 70.00 11/27/21 18:00 78 13 118/85 98 Mechanical Ventilator 70.00 11/27/21 17:53 74 88/58 11/27/21 17:45 81 23 88/58 98 Mechanical Ventilator 70.00 11/27/21 17:30 73 23 123/84 98 Mechanical Ventilator 70.00 11/27/21 17:15 72 24 129/84 99 Mechanical Ventilator 70.00 11/27/21 17:00 70 23 133/83 99 Mechanical Ventilator 70.00 11/27/21 16:45 68 24 128/84 99 Mechanical Ventilator 70.00 11/27/21 16:30 70 23 125/81 99 Mechanical Ventilator 70.00 11/27/21 16:15 71 23 120/81 99 Mechanical Ventilator 70.00 11/27/21 16:00 73 21 120/80 99 Mechanical Ventilator 70.00 11/27/21 16:00 Mechanical Ventilator 75 11/27/21 15:46 37.6 11/27/21 15:45 72 17 115/79 98 Mechanical Ventilator 70.00 11/27/21 15:30 74 17 111/76 98 Mechanical Ventilator 70.00 11/27/21 15:15 74 29 123/78 97 Mechanical Ventilator 70.00 11/27/21 15:00 75 17 108/75 95 Mechanical Ventilator 70.00 11/27/21 14:45 77 17 105/74 95 Mechanical Ventilator 70.00 11/27/21 14:31 78 100/71 11/27/21 14:30 76 21 100/71 93 Mechanical Ventilator 70.00 11/27/21 14:15 75 16 95/70 92 Mechanical Ventilator 75.00 11/27/21 14:03 75 22 97 70 11/27/21 14:00 73 7 101/71 97 Mechanical Ventilator 75.00 11/27/21 13:45 75 21 96/69 96 Mechanical Ventilator 75.00 11/27/21 13:30 75 17 98/70 96 Mechanical Ventilator 75.00 11/27/21 13:26 73 92/64 11/27/21 13:15 76 22 92/67 96 Mechanical Ventilator 75.00 11/27/21 13:00 84 11/27/21 13:00 84 21 97/68 96 Mechanical Ventilator 75.00 11/27/21 12:45 80 21 109/84 95 Mechanical Ventilator 75.00 11/27/21 12:31 37.5 11/27/21 12:30 81 23 108/69 95 Mechanical Ventilator 75.00 11/27/21 12:15 83 24 107/86 97 Mechanical Ventilator 75.00 11/27/21 12:01 38.1 11/27/21 12:00 Mechanical Ventilator 75 11/27/21 12:00 81 24 103/70 93 Mechanical Ventilator 75.00 11/27/21 11:45 80 22 96/62 94 Mechanical Ventilator 75.00 11/27/21 11:30 80 23 98/64 94 Mechanical Ventilator 75.00 11/27/21 11:15 79 22 89/65 94 Mechanical Ventilator 75.00 11/27/21 11:00 80 23 88/63 95 Mechanical Ventilator 75.00 11/27/21 10:45 80 22 85/59 94 Mechanical Ventilator 75.00 11/27/21 10:30 81 23 87/59 95 Mechanical Ventilator 75.00 11/27/21 10:15 79 22 89/59 93 Mechanical Ventilator 75.00 I & O 11/28/21 07:00 Intake Total 2594 ml Output Total 1550 ml Balance 1044 ml Height & Weight Height: 6'1" Weight: 118lbs. 3.0oz. 53.690117hb; 24.76 BMI Method:Estimated General Appearance: Chronically ill, Thin HEENT: Other (dry oral mucosa) Neck: Normal Inspection Respiratory: Crackles, Rhonci Cardiovascular: Regular Rate, Rhythm, Normal Peripheral Pulses Capillary Refill: Less Than 3 Seconds Peripheral Pulses: 2+ Radial Pulses (R), 2+ Radial Pulses (L) Extremity: Pedal Edema (Trace to 1+ edema noted in both lower extremities, bluish/cyanotic discoloration to the lower limbs and forearms and hands. He was quite cold to the touch.) Neurologic/Psychiatric: Other (Mute, rouses to voice and physical stimulation, briefly opens his eyes. Does not follow command) Skin: Warm/Dry, Pallor Results Lab Laboratory Tests 11/26/21 14:22 11/26/21 21:08 11/27/21 03:35 11/28/21 06:02 Assessment/Plan Assessment/Plan 1 ALEJANDRINA PLASCENCIA MD Nov 28, 2021 10:08
[2021-11-28] MEDS ORDERED: POTASSIUM PHOSPHATE INJ 30 MM in NS (IVPB) 250 ML IV ONE (10:15)
[2021-11-28 10:24] VITALS: BP 84/58
[2021-11-28] MEDS: RT-ALBUTEROL/IPRATROPIUM 3 ML (DUONEB) VIAL INH SCH ×4 (10:24→22:27)
[2021-11-28] MEDS: ENOXAPARIN 40 MG/0.4 ML (LOVENOX) SYR SC SCH (11:05)
[2021-11-28] MEDS: VANCOMYCIN 1 GM/NS 250 ML IVPB IV SCH ×2 (11:05)
[2021-11-28 11:08] LABS: ABG BASE EXCESS -3.2 MMOL/L (-2.5-2.5); ABG OXYGEN SATURATION 96 % (94-100); ABG PCO2 35 MMHG (35-45); ABG PH 7.39 (7.37-7.43); ABG PO2 88 MMHG (79-93); ABG TCO2 22.1 MMOL/L (21.0-31.0)
[2021-11-28 11:09] LABS: INSPIRED O2 50%; PATIENT TEMP 36.5; VENTILATOR NO
[2021-11-28] MEDS ORDERED: RT-ALBUTEROL/IPRATROPIUM 3 ML (DUONEB) VIAL INH SCH (12:00)
[2021-11-28] MEDS ORDERED: fentaNYL INJ 100 MCG/2 ML AMP PRN (12:30)
--- NOTE | 2021-11-28 13:35 | Diagnostic Imaging Report ---
PROCEDURE: US Venous Lower Ext Hilario. TECHNIQUE: Multiple Real-time grayscale images were obtained over the lower extremities in various projections bilaterally. Additional duplex Doppler and color Doppler images were also obtained. INDICATION: Lower extremity edema. FINDINGS: There is no evidence of right or left lower extremity DVT. Both lower extremity deep venous systems demonstrate normal compressibility with normal response to augmentation and Valsalva. No fluid collection or mass is detected. IMPRESSION: No evidence of right or left lower extremity DVT. Dictated by: Dictated on workstation # [id number]
[2021-11-28] MEDS ORDERED: MAG SULFATE 1 GM/100 ML IV PRE-MIX BAG IV ONE (14:37)
[2021-11-28] MEDS ORDERED: AMIODARONE 450 MG/9 ML (CORDARONE) VIAL IV ONE (14:37)
[2021-11-28] MEDS: fentaNYL DRIP PRE-MIX 250 ML IV SCH (14:37)
[2021-11-28] MEDS ORDERED: D5W 250 ML (EXCEL) BAG IV ONE (14:37)
[2021-11-28 14:51] VITALS: BP 86/57
--- NOTE | 2021-11-28 17:08 | Progress Note - Hospitalist ---
Subjective HPI/CC On Admission Date Seen by Provider: Nov 28, 2021 Time Seen by Provider: 09:45 Subjective/Events-last exam He remains intubated and sedated. Focused Exam Lactate Level 11/26/21 19:15: Lactic Acid Level 0.84 11/26/21 21:08: Lactic Acid Level 2.83*H 11/26/21 23:05: Lactic Acid Level 1.90 Time of Focused Exam: 13:45 Objective Exam Vital Signs Vital Signs Date Time Temp Pulse Resp B/P (MAP) Pulse Ox O2 Delivery O2 Flow Rate FiO2 11/28/21 16:06 37.0 11/28/21 15:00 81 23 92/65 92 Mechanical Ventilator 70.00 11/28/21 14:51 40 Capillary Refill : Less Than 3 Seconds General Appearance: No Apparent Distress, WD/WN Respiratory: Lungs Clear, No Respiratory Distress, Other (intubated and mechanically ventilated) Cardiovascular: Regular Rate, Rhythm, No Murmur Gastrointestinal: Normal Bowel Sounds, Soft Extremity: Normal Inspection, No Pedal Edema Neurologic/Psychiatric: Other (sedated) Skin: Warm/Dry, Pallor Results/Procedures Lab Laboratory Tests 11/28/21 06:02 Patient resulted labs reviewed. Imaging: Reviewed Imaging Report Assessment/Plan Assessment and Plan Assess & Plan/Chief Complaint Septic Shock MRSA pneumonia MRSA wound infection UTI Acute respiratory failure with hypoxia and hypercapnia Cardiac arrest Continue on IV abx Continue IV fluids Continue pressors TeleICU following Blood cultures with no growth Sputum culture with presumptive MRSA Wound culture with presumptive MRSA Urine culture with Morganella morganii and Enterococcus faecalis 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 Cognitive impairment Mutism Lactic acidosis, resolved Critical Care Critically Ill Patient Diagnosis/Problems Diagnosis/Problems (1) Septic shock Status: Acute (2) PNA (pneumonia) Qualifiers: Pneumonia type: due to methicillin-resistant Staphylococcus aureus (MRSA) Laterality: right Lung location: middle lobe of lung Qualified Codes: J15.212 - Pneumonia due to methicillin resistant Staphylococcus aureus (3) Cardiac arrest Status: Acute (4) Lactic acidosis Status: Acute (5) Acute respiratory failure Status: Acute Qualifiers: Respiratory failure complication: hypoxia and hypercapnia Qualified Codes: J96.01 - Acute respiratory failure with hypoxia; J96.02 - Acute respiratory failure with hypercapnia (6) Endotracheally intubated Status: Acute (7) Cognitive impairment Status: Chronic (8) Mutism Status: Chronic KAZ CHU MD Nov 28, 2021 17:08
[2021-11-28 18:35] VITALS: BP 89/58
[2021-11-28] MEDS: PHENYTOIN 100 MG (DILANTIN) CAP PO SCH (21:45)
[2021-11-28] MEDS: MIRTAZAPINE 15 MG (REMERON) TAB PO SCH (21:45)
[2021-11-28 22:19] VITALS: BP 86/66
[2021-11-28] MEDS: DOCUSATE SODIUM 10 MG/ML 10 ML UDC (COLACE) PO SCH (23:02)
[2021-11-29 02:07] VITALS: BP 108/72
[2021-11-29] MEDS: RT-ALBUTEROL/IPRATROPIUM 3 ML (DUONEB) VIAL INH SCH ×6 (02:12→22:10)
[2021-11-29] MEDS: CEFEPIME 1,000 MG/NS 50 ML IVPB IV SCH ×8 (02:32→20:15)
[2021-11-29] MEDS: fentaNYL DRIP PRE-MIX 250 ML IV SCH (02:32)
[2021-11-29] MEDS: VANCOMYCIN 1 GM/NS 250 ML IVPB IV SCH ×4 (02:35→20:15)
[2021-11-29] MEDS: NS IV 1000 ML 1,000 ML IV SCH (03:52)
[2021-11-29] MEDS ORDERED: NS IV 1000 ML 1,000 ML IV SCH (04:00)
[2021-11-29] MEDS: NOREPINEPHRINE 8 MG/250 ML 250 ML IV SCH (04:49)
[2021-11-29] MEDS: VASOPRESSIN INJECTION 20 UNIT in NS (IVPB) 100 ML IV SCH ×3 (06:05→20:24)
--- NOTE | 2021-11-29 06:42 | Occ Therapy Progress Note ---
Therapy Progress Note Pt is currently intubated. OT to continue to monitor pt's status and will initiate treatment when pt is medically stable and able to actively participate in skilled therapy. JARET PAULA Nov 29, 2021 06:42
[2021-11-29 06:56] LABS: BASOPHILS # (AUTO) 0.1 10^3/uL (0.0-0.1); HEMOGLOBIN 8.9 g/dL (13.3-17.7)
[2021-11-29 06:58] LABS: BASOPHILS % (AUTO) 1 % (0-10); EOSINOPHILS % (AUTO) 1 % (0-10); HEMATOCRIT 27 % (40-54); LYMPHOCYTES # (AUTO) 1.4 10^3/uL (1.0-4.0); LYMPHOCYTES % (AUTO) 17 % (12-44); MEAN CORPUSCULAR HEMOGLOBIN 29 pg (25-34); MEAN CORPUSCULAR HGB CONC 33 g/dL (32-36); MEAN CORPUSCULAR VOLUME 88 fL (80-99); MEAN PLATELET VOLUME 9.9 fL (9.0-12.2); MONOCYTES # (AUTO) 0.6 10^3/uL (0.0-1.0); MONOCYTES % (AUTO) 8 % (0-12); NEUTROPHILS # (AUTO) 5.8 10^3/uL (1.8-7.8); NEUTROPHILS % (AUTO) 72 % (42-75); PLATELET COUNT 123 10^3/uL (130-400)
[2021-11-29 07:09] LABS: POTASSIUM 3.9 MMOL/L (3.6-5.0)
[2021-11-29 07:10] LABS: CALCIUM 8.3 MG/DL (8.5-10.1)
[2021-11-29 07:14] LABS: CREATININE SERUM 0.4 MG/DL (0.60-1.30); PHOSPHORUS 2.6 MG/DL (2.3-4.7)
[2021-11-29 07:17] LABS: MAGNESIUM 1.7 MG/DL (1.6-2.4)
[2021-11-29 07:26] VITALS: BP 106/63
[2021-11-29] MEDS: POTASSIUM CL 10MEQ/50ML IVPB 50 ML IV SCH (07:28)
[2021-11-29] MEDS: MAGNESIUM 1 GM/100 ML IVPB 100 ML IV SCH ×4 (07:30→09:26)
--- NOTE | 2021-11-29 07:48 | Physical Therapy Progress Note ---
Therapy Progress Note Patient currently intubated and sedated. PT will continue to monitor patient status and initiate treatment when patient is medically stable and able to actively participate with skilled therapy. BERONICA HOLBROOK PT Nov 29, 2021 07:48
[2021-11-29] MEDS: ENOXAPARIN 40 MG/0.4 ML (LOVENOX) SYR SC SCH (08:28)
[2021-11-29] MEDS: FAMOTIDINE 20 MG (PEPCID) TABLET PO SCH ×2 (08:28→20:14)
[2021-11-29] MEDS: ASPIRIN E.C. 81 MG (ECOTRIN) TAB PO SCH (08:28)
[2021-11-29] MEDS: PROPOFOL DRIP (ICU) 100 ML IV SCH ×2 (08:28→20:14)
[2021-11-29] MEDS: DOCUSATE SODIUM 10 MG/ML 10 ML UDC (COLACE) PO SCH ×2 (08:28→20:14)
[2021-11-29] MEDS: METOCLOPRAMIDE 5 MG (REGLAN) TAB PO SCH ×4 (08:28→20:14)
--- NOTE | 2021-11-29 10:29 | Tele-ICU Progress Note ---
Subjective Date Seen by a Provider: Nov 29, 2021 Time Seen by a Provider: 10:28 Subjective/Events-last exam (Tele-ICU Physician , Progress Note ) Available chart/ vitals / labs / Images reviewed Video assessment done using teleICU camera, rest of exam as per RN Discussed with RN , EXAM PER RN Events overnight : Afebrile FiO2 - 40% I/O =positive 3 L Drips: amio , NS 150 Pressors: levo .[email or web address] Sedation gtt: propofol 20 ( RASS -2 ) VENT SETTINGS and ABG reviewed Not candidate for SBT today REVIEWED Cardiovascular Stability / Sedation Score / FI02/PEEP / ABG / CXR Consultants: Hospital course: (11/26) 66M Admitted from custodial with intellectual disability and septic shock Intubated then PEA arrest 11/27 - 70% +10 , vaso /levo /propofol 11/28 - 50 % +8 , follows commands . LEVO 0.02 11/29- 40% +8 A/P Acute hypoxic and hypercapnic resp failure - AC 20 450 40% peep 8 . PAP 16 - secretions moderate , less thick - CPM Septic shock - off fluid - check cortiosol - try to wean off pressors PNA, RUL/RML and wound on elbow - WOUND AND SPUTUM + for STAPH - presumed MRSA - neg covid - cefepime 11/26 abd vanco 11/26 Elev Ddimer - low clinical susp for DVT or PE - - US LE NEG for DVT S/p PEA arrest post intubation - CTH 11/26 - no acute findings, but reported slight edema and underlying infarctions - to be repeated CT vs MRI latter - Cognitive impairment at baseline , off propofol seems follow scommands - follow off sedation - try precedex Vfib / torsads for which he received defibrillation - Amiodarone gtt -OFF due to ken - ECHO - 11/28 -EF 60% elevation of the left hemidiaphragm, - chronic H/o SZ - cont phosphenitoin Pulm HTN - by ECHO RVSP 45mm Hg 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 Discussed with RN to reach out if any questions or concerns A total of 40 minutes of critical care time was devoted to this patient today, required to treat and/or prevent further deterioration of critical care condition ( as above) . Sepsis Event Evaluation Height, Weight, BMI Height: 6'1" Weight: 118lbs. 3.0oz. 53.609772ku; 24.86 BMI Method:Estimated Focused Exam Lactate Level 11/26/21 19:15: Lactic Acid Level 0.84 11/26/21 21:08: Lactic Acid Level 2.83*H 11/26/21 23:05: Lactic Acid Level 1.90 Time of Focused Exam: 13:45 Exam Exam Patient acknowledged, consented, and participated in this virtual visit which was conducted using real time audio/video Vital Signs Date Time Temp Pulse Resp B/P (MAP) Pulse Ox O2 Delivery O2 Flow Rate FiO2 11/29/21 09:00 36.8 82 19 95/57 89 Mechanical Ventilator 40.00 11/29/21 08:28 80 98/64 11/29/21 08:00 36.7 78 19 93/56 93 Mechanical Ventilator 40.00 11/29/21 08:00 Mechanical Ventilator 40 11/29/21 08:00 36.4 11/29/21 07:26 70 19 94 40 11/29/21 07:00 36.5 69 19 102/64 95 Mechanical Ventilator 40.00 11/29/21 06:46 66 11/29/21 06:05 77 101/66 11/29/21 06:00 36.4 71 20 113/65 94 Mechanical Ventilator 40.00 11/29/21 05:00 36.5 73 20 106/64 92 Mechanical Ventilator 40.00 11/29/21 05:00 92 32 86 11/29/21 04:49 77 101/66 11/29/21 04:00 36.5 11/29/21 04:00 36.5 76 20 101/61 92 Mechanical Ventilator 40.00 11/29/21 03:59 Mechanical Ventilator 40 11/29/21 03:15 36.6 77 20 101/66 91 Mechanical Ventilator 40.00 11/29/21 03:00 36.6 80 20 87/54 90 Mechanical Ventilator 40.00 11/29/21 02:46 36.6 20 Mechanical Ventilator 40.00 11/29/21 02:07 61 20 95 40 11/29/21 02:00 36.6 64 24 108/72 95 Mechanical Ventilator 40.00 11/29/21 01:00 70 11/29/21 01:00 36.6 67 24 101/72 94 Mechanical Ventilator 40.00 11/29/21 00:15 36.6 70 24 116/76 94 Mechanical Ventilator 40.00 11/29/21 00:03 Mechanical Ventilator 40 11/29/21 00:00 36.6 11/28/21 23:00 36.7 Mechanical Ventilator 40.00 11/28/21 23:00 36.7 69 24 101/72 94 Mechanical Ventilator 40.00 11/28/21 22:19 73 20 92 40 11/28/21 22:00 36.7 73 24 96/67 93 Mechanical Ventilator 40.00 11/28/21 21:45 73 89/58 11/28/21 21:00 36.7 81 24 92/68 92 Mechanical Ventilator 40.00 11/28/21 20:06 36.9 73 24 104/68 92 Mechanical Ventilator 40.00 11/28/21 20:00 Mechanical Ventilator 40 11/28/21 19:54 36.9 11/28/21 19:00 Mechanical Ventilator 40.00 11/28/21 19:00 37.0 71 24 89/60 93 Mechanical Ventilator 40.00 11/28/21 19:00 71 11/28/21 18:35 73 20 94 40 11/28/21 18:00 37.0 78 20 92/58 92 Mechanical Ventilator 70.00 11/28/21 17:00 37.1 82 19 86/55 90 Mechanical Ventilator 70.00 11/28/21 16:06 37.0 11/28/21 16:00 36.9 79 23 95/62 93 Mechanical Ventilator 70.00 11/28/21 16:00 Mechanical Ventilator 50 11/28/21 15:00 37.0 81 23 92/65 92 Mechanical Ventilator 70.00 11/28/21 14:51 79 24 92 40 11/28/21 14:00 36.9 75 24 98/61 94 Mechanical Ventilator 70.00 11/28/21 13:00 36.7 80 24 90/62 93 Mechanical Ventilator 70.00 11/28/21 12:33 81 11/28/21 12:00 Mechanical Ventilator 50 11/28/21 12:00 36.6 81 21 118/74 93 Mechanical Ventilator 70.00 11/28/21 11:45 36.5 11/28/21 11:00 36.6 76 25 91/59 95 Mechanical Ventilator 70.00 I & O 11/29/21 07:00 Intake Total 5616 ml Output Total 1275 ml Balance 4341 ml Height & Weight Height: 6'1" Weight: 118lbs. 3.0oz. 53.205193ae; 24.86 BMI Method:Estimated General Appearance: No Apparent Distress, WD/WN HEENT: Other (dry oral mucosa) Neck: Normal Inspection Respiratory: Lungs Clear, No Respiratory Distress, Other (intubated and mechanically ventilated) Cardiovascular: Regular Rate, Rhythm, No Murmur Capillary Refill: Less Than 3 Seconds Peripheral Pulses: 2+ Radial Pulses (R), 2+ Radial Pulses (L) Extremity: Normal Inspection, No Pedal Edema Neurologic/Psychiatric: Other (sedated) Skin: Warm/Dry, Pallor Results Lab Laboratory Tests 11/28/21 06:02 11/29/21 06:45 Assessment/Plan Assessment/Plan 1 ALEJANDRINA PLASCENCIA MD Nov 29, 2021 10:29
[2021-11-29] MEDS ORDERED: FUROSEMIDE 40 MG/4 ML INJ (LASIX) IVP ONE (10:30)
[2021-11-29 10:40] VITALS: BP 91/60
--- NOTE | 2021-11-29 11:11 | Progress Note - Hospitalist ---
Subjective HPI/CC On Admission Date Seen by Provider: Nov 29, 2021 Time Seen by Provider: 09:30 Subjective/Events-last exam He remains intubated and sedated. He has been following commands when sedation is weaned according to bedside nurse. Focused Exam Lactate Level 11/26/21 19:15: Lactic Acid Level 0.84 11/26/21 21:08: Lactic Acid Level 2.83*H 11/26/21 23:05: Lactic Acid Level 1.90 Time of Focused Exam: 13:45 Objective Exam Vital Signs Vital Signs Date Time Temp Pulse Resp B/P (MAP) Pulse Ox O2 Delivery O2 Flow Rate FiO2 11/29/21 10:40 76 20 94 40 11/29/21 10:00 36.9 89/62 Mechanical Ventilator 40.00 Capillary Refill : Less Than 3 Seconds General Appearance: No Apparent Distress, WD/WN, Other (intubated and sedated) Respiratory: Lungs Clear, No Respiratory Distress, Other (intubated and mechanically ventilated) Cardiovascular: Regular Rate, Rhythm, No Murmur Gastrointestinal: Normal Bowel Sounds, Non Tender, Soft Extremity: Pedal Edema, Other (left elbow wound) Neurologic/Psychiatric: Other (sedated) Results/Procedures Lab Laboratory Tests 11/29/21 06:45 Patient resulted labs reviewed. Imaging: Reviewed Imaging Report Assessment/Plan Assessment and Plan Assess & Plan/Chief Complaint Septic Shock MRSA pneumonia MRSA wound infection UTI Acute respiratory failure with hypoxia and hypercapnia Cardiac arrest Stop IV fluids Continue pressors TeleICU following Blood cultures with no growth Sputum culture with presumptive MRSA Wound culture with presumptive MRSA Urine culture with Morganella morganii and Enterococcus faecalis, <16797 CFU each Continue Vancomycin Likely stop Cefepime once sensitivities return 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 Cognitive impairment Mutism Lactic acidosis, resolved Critical Care Critically Ill Patient Diagnosis/Problems Diagnosis/Problems (1) Septic shock Status: Acute (2) PNA (pneumonia) Qualifiers: Pneumonia type: due to methicillin-resistant Staphylococcus aureus (MRSA) Laterality: right Lung location: middle lobe of lung Qualified Codes: J15.212 - Pneumonia due to methicillin resistant Staphylococcus aureus (3) Cardiac arrest Status: Acute (4) Lactic acidosis Status: Acute (5) Acute respiratory failure Status: Acute Qualifiers: Respiratory failure complication: hypoxia and hypercapnia Qualified Codes: J96.01 - Acute respiratory failure with hypoxia; J96.02 - Acute respiratory failure with hypercapnia (6) Endotracheally intubated Status: Acute (7) Cognitive impairment Status: Chronic (8) Mutism Status: Chronic KAZ CHU MD Nov 29, 2021 11:11
[2021-11-29] MEDS: DexMEDEtomidine 250 ML DRIP 250 ML IV SCH (11:42)
[2021-11-29] MEDS ORDERED: HYPOCHLOROUS ACID/NaCl (VASHE) 250 ML IR SCH (12:00)
--- NOTE | 2021-11-29 12:28 | Wound Care Assessment ---
Wound Care Assessment Date Seen by Provider: Nov 29, 2021 Time Seen by Provider: 12:23 Chief Complaint Left elbow ulcer RUBÉN Brooke is a minimally verbal patient that is a long-standing patient at the outpatient wound care center. He has a h/o osteomyelitis of the left elbow recently healed with prolonged antibiotics and conservative management which has reopened in last several weeks. He very well could have a chronic osteomyelitis. He was admitted to the hospital with acute respiratory failure due to pneumonia and sepsis. He did experience a code blue upon admission and remains intubated currently. His labs and vitals do appear to be stabilizing somewhat today. Edwardo's wound appears improved from when I last saw him. He is on Vancomycin and Cefepime. Recent wound culture with MRSA. seizure disorder. Severe intellectual disability Smoking Status: Never a Smoker Recreational Drug Use: No Alcohol Use: Denies Use Review of Systems Other systems Unable to obtain ROS due to ventilator status Exam Vital Signs Date Time Temp Pulse Resp B/P (MAP) Pulse Ox O2 Delivery O2 Flow Rate FiO2 11/29/21 12:02 36.9 11/29/21 11:42 84 11/29/21 11:41 115/73 11/29/21 11:11 Mechanical Ventilator 40 11/29/21 11:00 19 94 40.00 Capillary Refill : Less Than 3 Seconds General Appearance: other (Appears ill, anasarca) Respiratory: other (ventilated) Extremities: pedal edema (Edema to b/l LE and UE) Neurologic/Psychiatric: other (Ventilated. Arouses to tactile stimuli) Skin: pallor Skin Problem Location: upper extremities Skin Character: other Wound assessment: 1.5x0.5x0.2cm. The epithelialization is medium. There is no tunneling or undermining. Drainage is medium and serosanguinous. Granulation is medium and pink, necrotic is medium and slough. The margins show epibole. Results Laboratory Tests 11/28/21 18:02: Glucometer 68L 11/28/21 19:00: Glucometer 66L 11/28/21 20:11: Glucometer 69L 11/28/21 23:38: Glucometer 72 11/29/21 03:40: Glucometer 89 11/29/21 06:45: White Blood Count 8.0, Red Blood Count 3.07L, Hemoglobin 8.9L, Hematocrit 27L, Mean Corpuscular Volume 88, Mean Corpuscular Hemoglobin 29, Mean Corpuscular Hemoglobin Concent 33, Red Cell Distribution Width 16.0H, Platelet Count 123L, Mean Platelet Volume 9.9, Immature Granulocyte % (Auto) 2, Neutrophils (%) (Auto) 72, Lymphocytes (%) (Auto) 17, Monocytes (%) (Auto) 8, Eosinophils (%) (Auto) 1, Basophils (%) (Auto) 1, Neutrophils # (Auto) 5.8, Lymphocytes # (Auto) 1.4, Monocytes # (Auto) 0.6, Eosinophils # (Auto) 0.0, Basophils # (Auto) 0.1, Immature Granulocyte # (Auto) 0.1, Percent Immature Platelet Fraction 3.1, Sodium Level 144, Potassium Level 3.9, Chloride Level 117H, Carbon Dioxide Level 18L, Anion Gap 9, Blood Urea Nitrogen 23H, Creatinine 0.40L, Estimat Glomerular Filtration Rate 120, BUN/Creatinine Ratio 58, Glucose Level 89, Calcium Level 8.3L, Phosphorus Level 2.6, Magnesium Level 1.7 11/29/21 07:54: Glucometer 94 11/29/21 11:24: Glucometer 106 11/29/21 11:55: Microbiology 11/27/21 Gram Stain - Final, Resulted 11/27/21 Wound Culture - Preliminary, Resulted Staphylococcus aureus Mixed Bacterial Makenzie Testing In Progress 11/27/21 Gram Stain - Final, Resulted 11/27/21 Sputum Culture - Preliminary, Resulted Staphylococcus aureus Mixed Bacterial Makenzie 11/26/21 Urine Culture - Preliminary, Resulted Morganella morganii Enterococcus faecalis 11/26/21 Blood Culture - Preliminary, Resulted No growth Assessment/Plan/Dx Assessment: 1. 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 Acute respiratory failure 3. Sepsis with pneumonia Plan: 1. Cleanse daily with vashe. Apply silver alginate hydrofiber to wound bed. Secure with bordered foam dressing. Change daily 2. Per primary team 3. Per primary team 4. We are in the middle of an outpatient workup for chronic osteomyelitis and considering more aggressive treatment to chronic ulcer (surgery and longer antibiotic course). Patient is currently gravely ill. Continue current antibiotics and we will need to address the need for further evaluation of chronic osteo once acute issues are settled and patient is more stable. This will require a discussion with patient's guardian as well. ALMAZ SILVA MD Nov 29, 2021 12:28
[2021-11-29 15:26] VITALS: BP 84/58
--- NOTE | 2021-11-29 16:23 | Consultation-Cardiology ---
HPI-Cardiology Cardiology Consultation: Date of Consultation 11/29/21 Date of Admission 11/26/21 Attending Physician Gregory Miranda MD Admitting Physician Admitting Physician: Mike Kurtz MD Attending Physician: Nidia Heredia MD Consulting Physician MIGUELINA THAYER JR, MD HPI: Time Seen by a Provider: 16:19 Chief Complaint: REASON FOR CONSULTATION: Status postcardiac arrest. I saw the Ray in the intensive care unit at [facility] in [place], [place] today. He presented to the hospital several days ago in respiratory distress. He was placed on BiPAP and admitted to the intensive care unit. Later that evening, he required intubation and also developed cardiac arrest. At some point in time, he apparently had what was felt to be ventricular fibrillation as well as possible torsades de point. The eICU placed him on intravenous amiodarone at that time. After the first bag of amiodarone was completed, the medication was not reordered and was discontinued. He has been treated for MRSA pneumonia and septic shock since that time. Due to the cardiac arrest and refractory shock, a cardiology consultation was requested. When I saw the patient, he was intubated and sedated. His nurse tells me that he was following commands earlier today when the sedation was lightened. He remains on norepinephrine and vasopressin infusions due to the shock. I could not obtain any history from the patient due to his sedation and he also has underlying developmental delays making history obtaining difficult even when he is not intubated. I did also speak with the hospitalist. Certain portions of this document may have been dictated utilizing voice recognition technology. Inherent to this technology, typographical and grammatical errors may exist. As much as I am diligent to identify and correct these mistakes, some errors may remain in the document. Review of Systems-Cardiology Review of Systems Other comments Review of systems is not obtainable due to sedation. LAQ-Wegyfg-Jrulsc Hx Patient Social History Smoking Status: Never a Smoker Have you traveled recently?: Unable to obtain Alcohol Use?: No Pt feels they are or have been: Unable to obtain Immunizations Up To Date Tetanus Booster (TDap): Less than 5yrs Date of Pneumonia Vaccine: Mar 02, 2015 Date of Influenza Vaccine: Mar 02, 2015 Past Medical History PMH As described under Assessment. Family Medical History Family Medical History: Not obtainable due to sedation. Furthermore, the patient is a [facility] of the [facility] and due to his underlying developmental delay, cannot supply a family history. Family History: Patient reports no known family medical history. Allergies and Home Medications Allergies Coded Allergies: No Known Drug Allergies (Verified , 05/20/08) Patient Home Medication List Home Medication List Reviewed: Yes Acetaminophen (Tylenol) 325 Mg Tablet, 650 MG PO Q6H PRN for PAIN-MILD (1-4), (Reported) Entered as Reported by: PATRICE LEROY on 08/06/211827 Last Action: Held Albuterol Sulfate (Albuterol Sulfate) 2.5 Mg/3 Ml Vial.neb, 3 ML NEB Q4H PRN for SHORTNESS OF BREATH, (Reported) Entered as Reported by: KURTIS PA on 02/18/15 145 Last Action: Held Albuterol Sulfate (Proventil Hfa) 6.7 Gm Hfa.aer.ad, 2 PUFF INH Q4H, (Reported) Entered as Reported by: PATRICE LEROY on 08/06/211818 Last Action: Held Aspirin (Aspirin EC) 81 Mg Tablet.dr, 81 MG PO DAILY, (Reported) Entered as Reported by: ERIC MALHOTRA on 08/07/211150 Last Action: Continued Benzonatate (Tessalon Perles) 100 Mg Capsule, 100 MG PO Q8H PRN for COUGH, (Reported) Entered as Reported by: PATRICE LEROY on 08/06/211824 Last Action: Held Calcium Carbonate (Antacid Maximum Strength) 400 Mg Tab.chew, 1,000 MG PO Q4H PRN for HEARTBURN/INDIGESTION, (Reported) Entered as Reported by: ERIC MALHOTRA on 08/07/211150 Last Action: Held Cholecalciferol (Vitamin D3) (Vitamin D3) 25 Mcg Capsule, 25 MCG PO DAILY, (Reported) Entered as Reported by: ERIC MALHOTRA on 08/07/211150 Last Action: Held Diphenhydramine HCl (Benadryl) 25 Mg Capsule, 25-50 MG PO Q6H PRN for ALLERGY SYMPTOMS, (Reported) Entered as Reported by: PATRICE LEROY on 08/06/211807 Last Action: Held Docusate Sodium (Dok) 100 Mg Tablet, 100 MG PO BID, (Reported) Entered as Reported by: ERIC MALHOTRA on 08/07/21 115 Last Action: Converted Guaifenesin/Dextromethorphan (Expectorant Dm Cough Liquid) 118 Ml Liquid, 10 ML PO Q4H PRN for COUGH, (Reported) Entered as Reported by: ERIC MALHOTRA on 08/07/21 115 Last Action: Held Hydroxyzine HCl (Hydroxyzine HCl) 25 Mg Tablet, 25 MG PO BID PRN for ANXIETY/ITCHING, (Reported) Entered as Reported by: ERIC MALHOTRA on 08/07/21 115 Last Action: Held Ibuprofen (Advil) 200 Mg Tablet, 400 MG PO Q6H PRN for PAIN-MILD (1-4), (Reported) Entered as Reported by: PATRICE LEROY on 08/06/211803 Last Action: Held Magnesium Hydroxide (Milk of Magnesia) 2,400 Mg/10 Ml Oral.susp, 30 ML PO Q12H PRN for CONSTIPATION-7TH LINE, (Reported) Entered as Reported by: PATRICE LEROY on 08/06/211814 Last Action: Held Metoclopramide HCl (Reglan) 5 Mg Tablet, 5 MG PO QID, (Reported) Entered as Reported by: MARTY PARKER on 04/28/15 1326 Last Action: Continued Mirtazapine (Remeron) 30 Mg Tablet, 30 MG PO HS, (Reported) Entered as Reported by: PATRICE LEROY on 08/06/211820 Last Action: Converted Phenytoin Sodium Extended (Phenytoin Sodium Extended) 100 Mg Capsule, 200 MG PO HS, (Reported) Entered as Reported by: KURTIS PA on 02/18/15 1453 Last Action: Continued Polyethylene Glycol 3350 (Miralax) 17 Gm Powd.pack, 17 GM PO DAILY PRN for CONSTIPATION-2ND LINE, (Reported) Entered as Reported by: PATRICE LEROY on 08/06/211823 Last Action: Held Silver Sulfadiazine (Silver Sulfadiazine) 50 Gm Cream..g., 1 APPLIC TP Q12H PRN for SKIN CONDITION, (Reported) Entered as Reported by: ERIC MALHOTRA on 08/07/21 115 Last Action: Held Spironolactone (Spironolactone) 100 Mg Tablet, 100 MG PO DAILY, (Reported) Entered as Reported by: KURTIS PA on 02/18/15 1453 Last Action: Reviewed Discontinued Medications Amoxicillin/Potassium Clav (Amox Tr-K Clv 875-125 mg Tab) 1 Each Tablet, 1 EACH PO BID Discontinued Reason: Duplicate Order Prescribed by: MIKE KURTZ on 08/15/214 Last Action: Discontinued Cimetidine (Cimetidine) 400 Mg Tablet, 400 MG PO BID, (Reported) Discontinued Reason: Duplicate Order Entered as Reported by: PATRICE LEROY on 08/06/21 181 Last Action: Discontinued Famotidine (Famotidine) 20 Mg Tablet, 20 MG PO, (Reported) Discontinued Reason: No Longer Taking Entered as Reported by: ERIC MALHOTRA on 11/28/21 0998 Last Action: Discontinued L.acidoph & Paracasei,B.lactis (Probiotic) 1 Each Capsule, 1 EACH PO BID Discontinued Reason: Duplicate Order Prescribed by: MIKE KURTZ on 08/15/211133 Last Action: Discontinued Sulfamethoxazole/Trimethoprim (Bactrim Ds Tablet) 1 Each Tablet, 1 EACH PO BID Discontinued Reason: No Longer Taking Prescribed by: MIKE KURTZ on 08/15/211133 Last Action: Discontinued Exam Vital Signs Vital Signs Date Time Temp Pulse Resp B/P (MAP) Pulse Ox O2 Delivery O2 Flow Rate FiO2 11/29/21 16:00 37.7 85 18 86/57 93 Mechanical Ventilator 40.00 11/29/21 15:39 40 Physical Exam General: Intubated and sedated. Well nourished and appears stated age. Eye: Conjunctivae are clear. There are no xanthelasma. HENT: Normocephalic. Atraumatic. Carotid pulsations 2/2 without bruits. Neck: Jugular venous pressure does not appear elevated. No thyromegaly appreciated. Respiratory: Symmetrical expansion bilaterally. Coarse breath sounds due to the ventilator. Cardiovascular: Normal rate. Regular rhythm. No murmur. No gallop. Point of maximal impulse is not appear displaced. Good pulses equal in all extremities. 1+ bilateral pretibial edema as well as 2+ edema of his arms. Gastrointestinal: Soft. Normal bowel sounds. Skin: Skin turgor is normal. There is no pallor. Musculoskeletal: No obvious deformities. Neurologic: Intubated and sedated. Psychiatric: Not obtainable due to clinical status. Labs Laboratory Tests Test 7/19/22 18:02 11/28/21 19:00 11/28/21 20:11 11/28/21 23:38 Range/Units Glucometer 68 L 66 L 69 L 72 70-110 MG/DL Test 11/29/21 03:40 11/29/21 06:45 11/29/21 07:54 11/29/21 11:24 Range/Units Glucometer 89 94 106 70-110 MG/DL White Blood Count 8.0 4.3-11.0 10^3/uL Red Blood Count 3.07 L 4.30-5.52 10^6/uL Hemoglobin 8.9 L 13.3-17.7 g/dL Hematocrit 27 L 40-54 % Mean Corpuscular Volume 88 80-99 fL Mean Corpuscular Hemoglobin 29 25-34 pg Mean Corpuscular Hemoglobin Concent 33 32-36 g/dL Red Cell Distribution Width 16.0 H 10.0-14.5 % Platelet Count 123 L 130-400 10^3/uL Mean Platelet Volume 9.9 9.0-12.2 fL Immature Granulocyte % (Auto) 2 % Neutrophils (%) (Auto) 72 42-75 % Lymphocytes (%) (Auto) 17 12-44 % Monocytes (%) (Auto) 8 0-12 % Eosinophils (%) (Auto) 1 0-10 % Basophils (%) (Auto) 1 0-10 % Neutrophils # (Auto) 5.8 1.8-7.8 10^3/uL Lymphocytes # (Auto) 1.4 1.0-4.0 10^3/uL Monocytes # (Auto) 0.6 0.0-1.0 10^3/uL Eosinophils # (Auto) 0.0 0.0-0.3 10^3/uL Basophils # (Auto) 0.1 0.0-0.1 10^3/uL Immature Granulocyte # (Auto) 0.1 0.0-0.1 10^3/uL Percent Immature Platelet Fraction 3.1 0.0-7.6 % Sodium Level 144 135-145 MMOL/L Potassium Level 3.9 3.6-5.0 MMOL/L Chloride Level 117 H 98-107 MMOL/L Carbon Dioxide Level 18 L 21-32 MMOL/L Anion Gap 9 5-14 MMOL/L Blood Urea Nitrogen 23 H 7-18 MG/DL Creatinine 0.40 L 0.60-1.30 MG/DL Estimat Glomerular Filtration Rate 120 BUN/Creatinine Ratio 58 Glucose Level 89 70-105 MG/DL Calcium Level 8.3 L 8.5-10.1 MG/DL Phosphorus Level 2.6 2.3-4.7 MG/DL Magnesium Level 1.7 1.6-2.4 MG/DL Test 11/29/21 11:55 Range/Units ECG Impression ECG Comment Electrocardiogram from this morning shows sinus rhythm with low voltage in the limb leads and early transition versus precordial leads all reversed. Diagnosis/Problems Diagnosis/Problems (1) Cardiac arrest Status: Acute Assessment & Plan: He reportedly had ventricular fibrillation and/or torsades de pointe. He had an echocardiogram following the event and his ejection fraction is normal. Given his clinical status even prior to admission, he would not be a good candidate for an invasive cardiac evaluation. Once he is off vasopressor medications, I will consider starting low-dose beta-lindsey. (2) Mitral regurgitation Assessment & Plan: His echocardiogram showed mild mitral regurgitation. This should not be contributing to his current clinical status. (3) Pulmonary hypertension Assessment & Plan: His echocardiogram showed mild pulmonary hypertension. I suspect this is related to his acute respiratory failure and underlying pneumonia. (4) Septic shock Status: Acute Assessment & Plan: He continues to require vasopressor medications. The eICU and hospitalist are managing these. He is also on intravenous antibiotics. (5) Acute respiratory failure with hypoxia Status: Acute Assessment & Plan: Most likely due to the underlying pneumonia. MIGUELINA THAYER JR, MD Nov 29, 2021 16:23
[2021-11-29 19:07] VITALS: BP 94/58
[2021-11-29] MEDS: MIRTAZAPINE 15 MG (REMERON) TAB PO SCH (20:14)
[2021-11-29] MEDS: PHENYTOIN 100 MG (DILANTIN) CAP PO SCH (20:14)
[2021-11-29 22:11] VITALS: BP 94/58
[2021-11-30 02:18] VITALS: BP 98/67
[2021-11-30] MEDS: RT-ALBUTEROL/IPRATROPIUM 3 ML (DUONEB) VIAL INH SCH ×6 (02:18→22:29)
[2021-11-30] MEDS: CEFEPIME 1,000 MG/NS 50 ML IVPB IV SCH ×2 (03:40)
[2021-11-30 05:11] LABS: EOSINOPHILS # (AUTO) 0.1 10^3/uL (0.0-0.3); EOSINOPHILS % (AUTO) 1 % (0-10)
[2021-11-30 05:13] LABS: BASOPHILS % (AUTO) 1 % (0-10); HEMATOCRIT 25 % (40-54); HEMOGLOBIN 8.4 g/dL (13.3-17.7); LYMPHOCYTES # (AUTO) 1.2 10^3/uL (1.0-4.0); LYMPHOCYTES % (AUTO) 16 % (12-44); MEAN CORPUSCULAR HEMOGLOBIN 29 pg (25-34); MEAN CORPUSCULAR HGB CONC 33 g/dL (32-36); MEAN CORPUSCULAR VOLUME 88 fL (80-99); MONOCYTES # (AUTO) 0.6 10^3/uL (0.0-1.0); MONOCYTES % (AUTO) 8 % (0-12); NEUTROPHILS # (AUTO) 5.1 10^3/uL (1.8-7.8); NEUTROPHILS % (AUTO) 71 % (42-75); PLATELET COUNT 112 10^3/uL (130-400); WHITE BLOOD COUNT 7.2 10^3/uL (4.3-11.0)
[2021-11-30 05:24] LABS: POTASSIUM 3.5 MMOL/L (3.6-5.0)
[2021-11-30 05:30] LABS: CREATININE SERUM 0.4 MG/DL (0.60-1.30); PHOSPHORUS 1.6 MG/DL (2.3-4.7)
[2021-11-30 05:32] LABS: MAGNESIUM 1.8 MG/DL (1.6-2.4)
[2021-11-30] MEDS: MAGNESIUM 1 GM/100 ML IVPB 100 ML IV SCH ×2 (05:41)
[2021-11-30] MEDS: POTASSIUM CL 10MEQ/50ML IVPB 50 ML IV SCH ×2 (05:42→06:46)
--- NOTE | 2021-11-30 06:48 | Occ Therapy Progress Note ---
Therapy Progress Note Pt is currently intubated. OT to monitor pt's status and will initiate treatment when pt is medically stable and able to actively participate in skilled therapy. JARET PAULA Nov 30, 2021 06:48
[2021-11-30 07:10] VITALS: BP 102/70
--- NOTE | 2021-11-30 07:41 | Physical Therapy Progress Note ---
Therapy Progress Note Patient currently intubated and sedated. PT will continue to monitor patient status and initiate treatment when patient is medically stable and able to actively participate with skilled therapy. PARAG HERMOSILLO PT Nov 30, 2021 07:41
[2021-11-30] MEDS ORDERED: POTASSIUM PHOSPHATE INJ 15 MM in NS (IVPB) 250 ML IV ONE (08:15)
--- NOTE | 2021-11-30 08:26 | Diagnostic Imaging Report ---
EXAMINATION: Abdomen 1 view HISTORY: Constipation COMPARISON: 02/22/2015, 11/28/2021 FINDINGS: There is a large volume of gas and stool throughout the colon. There is elevation of the left hemidiaphragm with prominent bowel loops under the diaphragm. Nonobstructive bowel gas pattern. No radiopaque foreign body. There is bibasilar atelectasis or consolidation. The osseous structures are intact. An enteric catheter courses below the diaphragm with the tip located within the left upper quadrant. A right IJ central line is present with the tip coursing laterally over the right upper lobe, unchanged from prior exams. IMPRESSION: Large volume of air and stool seen throughout the colon compatible with history of constipation. Dictated by: Dictated on workstation # [id number]
[2021-11-30] MEDS: NOREPINEPHRINE 8 MG/250 ML 250 ML IV SCH (08:46)
[2021-11-30] MEDS: VASOPRESSIN INJECTION 20 UNIT in NS (IVPB) 100 ML IV SCH ×2 (08:48→17:55)
[2021-11-30] MEDS: FAMOTIDINE 20 MG (PEPCID) TABLET PO SCH ×2 (08:49→20:45)
[2021-11-30] MEDS: ASPIRIN E.C. 81 MG (ECOTRIN) TAB PO SCH (08:49)
[2021-11-30] MEDS: METOCLOPRAMIDE 5 MG (REGLAN) TAB PO SCH ×4 (08:49→20:45)
[2021-11-30] MEDS: DOCUSATE SODIUM 10 MG/ML 10 ML UDC (COLACE) PO SCH ×2 (08:49→20:45)
[2021-11-30] MEDS ORDERED: ALBUMIN 25% 25 GM/100 ML 50 ML IV ONE (09:45)
[2021-11-30] MEDS ORDERED: FUROSEMIDE 40 MG/4 ML INJ (LASIX) IVP ONE (09:45)
--- NOTE | 2021-11-30 09:52 | Tele-ICU Progress Note ---
Subjective Date Seen by a Provider: Nov 30, 2021 Time Seen by a Provider: 09:51 Subjective/Events-last exam Available chart/ vitals / labs / Images reviewed Video assessment done using teleICU camera, rest of exam as per RN Discussed with RN , EXAM PER RN Events overnight : Afebrile FiO2 - 50% I/O =positive 3 L Drips: Pressors: levo .06 vaso Sedation gtt: propofol 15 precedex 0.5 ( RASS -2 ) VENT SETTINGS and ABG reviewed ? candidate for SBT today REVIEWED Cardiovascular Stability / Sedation Score / FI02/PEEP / ABG / CXR Consultants: Hospital course: (11/26) 66M Admitted from care home with intellectual disability and septic shock Intubated then PEA arrest 11/27 - 70% +10 , vaso /levo /propofol 11/28 - 50 % +8 , follows commands . LEVO 0.02 11/29- 40% +8 changed to recedex 11/30- 50 % + 5. A/P Acute hypoxic and hypercapnic resp failure - AC 20 450 50% peep 5 . PAP 16 - secretions moderate , less thick - CPM - stopping sedation -> re-eval ? candidate for SBT today Septic shock - off fluid , gentle diuresis - cortiosol level 13 - ON PRESSORS - if can not wean off today will add stress dose , - try to wean off pressors PNA, RUL/RML and wound on elbow - WOUND AND SPUTUM + for STAPH - presumed MRSA - neg covid - cefepime 11/26 abd vanco 11/26 Elev Ddimer - low clinical susp for DVT or PE - - US LE NEG for DVT PLT count trending down , with decreasing HB too - most likely delutiona;l - anemia w.up ordered by PCP - will not order HIPA w/up now - monitor S/p PEA arrest post intubation - CTH 11/26 - no acute findings, but reported slight edema and underlying infarctions - to be repeated CT vs MRI latter - Cognitive impairment at baseline , off propofol seems follow scommands - follow off sedation - try precedex Vfib / torsads for which he received defibrillation - Amiodarone gtt -OFF due to ken - ECHO - 11/28 -EF 60% elevation of the left hemidiaphragm, - chronic H/o SZ - cont phosphenitoin Pulm HTN - by ECHO RVSP 45mm Hg 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 Discussed with RN to reach out if any questions or concerns A total of 35 minutes of critical care time was devoted to this patient today, required to treat and/or prevent further deterioration of critical care condition ( as above) . Sepsis Event Evaluation Height, Weight, BMI Height: 6'1" Weight: 118lbs. 3.0oz. 53.069931ex; 26.42 BMI Method:Estimated Focused Exam Time of Focused Exam: 13:45 Exam Exam Patient acknowledged, consented, and participated in this virtual visit which was conducted using real time audio/video Vital Signs Date Time Temp Pulse Resp B/P (MAP) Pulse Ox O2 Delivery O2 Flow Rate FiO2 11/30/21 09:00 36.4 72 20 81/56 94 Mechanical Ventilator 50.00 11/30/21 08:48 74 84/54 11/30/21 08:46 72 84/54 11/30/21 08:00 36.4 65 20 97/65 97 Mechanical Ventilator 50.00 11/30/21 07:10 61 20 97 50 11/30/21 07:00 36.3 63 20 102/70 96 Mechanical Ventilator 50.00 11/30/21 06:29 67 11/30/21 06:00 36.3 64 20 106/67 95 Mechanical Ventilator 50.00 11/30/21 05:29 75 36 83 11/30/21 05:00 36.3 71 20 98/67 93 Mechanical Ventilator 50.00 11/30/21 04:02 Mechanical Ventilator 50 11/30/21 04:00 36.5 83 22 93/61 93 Mechanical Ventilator 50.00 11/30/21 03:00 36.4 66 19 94/67 98 Mechanical Ventilator 50.00 11/30/21 02:18 62 20 98 50 7/21/22 02:00 36.4 63 20 95/68 98 Mechanical Ventilator 50.00 11/30/21 01:00 36.3 63 20 94/63 98 Mechanical Ventilator 50.00 11/30/21 00:52 61 11/30/21 00:00 Mechanical Ventilator 50 11/30/21 00:00 36.3 66 20 114/72 97 Mechanical Ventilator 50.00 11/29/21 23:00 36.3 64 20 94/62 97 Mechanical Ventilator 50.00 11/29/21 22:11 72 20 98 50 11/29/21 22:00 36.6 78 18 83/56 97 Mechanical Ventilator 50.00 11/29/21 21:14 24 93 Mechanical Ventilator 50.00 11/29/21 21:00 36.7 76 13 93/57 92 Mechanical Ventilator 50.00 11/29/21 20:24 77 94/58 11/29/21 20:14 77 94/58 11/29/21 20:00 Mechanical Ventilator 50 11/29/21 20:00 37.0 82 15 93/62 91 Mechanical Ventilator 50.00 11/29/21 19:07 77 20 93 50 11/29/21 19:00 85 11/29/21 19:00 Mechanical Ventilator 50.00 11/29/21 19:00 37.2 79 21 94/58 89 Mechanical Ventilator 50.00 11/29/21 18:00 37.2 70 15 84/59 93 Mechanical Ventilator 40.00 11/29/21 17:00 37.4 81 12 92/61 92 Mechanical Ventilator 40.00 11/29/21 16:00 37.7 85 18 86/57 93 Mechanical Ventilator 40.00 11/29/21 15:39 Mechanical Ventilator 40 11/29/21 15:26 82 20 96 40 11/29/21 15:00 37.8 77 20 92/59 95 Mechanical Ventilator 40.00 11/29/21 14:00 37.7 75 22 99/63 94 Mechanical Ventilator 40.00 11/29/21 13:00 37.4 80 20 88/64 93 Mechanical Ventilator 40.00 11/29/21 12:51 82 11/29/21 12:02 36.9 11/29/21 12:00 37.2 86 20 95/43 93 Mechanical Ventilator 40.00 11/29/21 11:42 84 11/29/21 11:41 89 115/73 11/29/21 11:11 Mechanical Ventilator 40 11/29/21 11:00 36.8 81 19 125/78 94 Mechanical Ventilator 40.00 11/29/21 10:40 76 20 94 40 11/29/21 10:00 36.9 79 20 89/62 92 Mechanical Ventilator 40.00 I & O 11/30/21 07:00 Intake Total 3900 ml Output Total 2700 ml Balance 1200 ml Height & Weight Height: 6'1" Weight: 118lbs. 3.0oz. 53.754542qo; 26.42 BMI Method:Estimated General Appearance: No Apparent Distress, WD/WN, Other (intubated and sedated) HEENT: Other (dry oral mucosa) Neck: Normal Inspection Respiratory: Lungs Clear, No Respiratory Distress, Other (intubated and mechanically ventilated) Cardiovascular: Regular Rate, Rhythm, No Murmur Capillary Refill: Less Than 3 Seconds Peripheral Pulses: 2+ Radial Pulses (R), 2+ Radial Pulses (L) Extremity: Pedal Edema, Other (left elbow wound) Neurologic/Psychiatric: Other (sedated) Skin: Warm/Dry, Pallor Results Lab Laboratory Tests 11/29/21 06:45 11/30/21 04:38 Assessment/Plan Assessment/Plan 1 ALEJANDRINA PLASCENCIA MD Nov 30, 2021 09:52
[2021-11-30] MEDS: ENOXAPARIN 40 MG/0.4 ML (LOVENOX) SYR SC SCH (10:59)
[2021-11-30] MEDS ORDERED: VANCOMYCIN INJECTION 0.1 MG in NS (IVPB) 250 ML IV SCH (11:00)
[2021-11-30 11:57] VITALS: BP 91/58
[2021-11-30] MEDS ORDERED: TROUGH ORDER-PHARMACY XX NR (12:30)
--- NOTE | 2021-11-30 12:48 | Cardiology Progress Note ---
Progress Note-Cardiology Events since last exam Date Seen by Provider: Nov 30, 2021 Time Seen by Provider: 12:55 Events since last exam I am following him due to in-hospital cardiac arrest. He remains in the int ensive care unit. He is intubated but the nurse has turned off his sedation. He is starting to follow commands. However, I cannot obtain any history from the patient due to his intubation. He also has underlying, baseline developmental delay. The nurse turned off the norepinephrine infusion earlier today. As per the instructions from the eICU, she will be stopping the vasopressin infusion this afternoon. Certain portions of this document may have been dictated utilizing voice recognition technology. Inherent to this technology, typographical and grammatical errors may exist. As much as I am diligent to identify and correct these mistakes, some errors may remain in the document. Vitals Last set of Vitals Signs Vital Signs 11/30/21 11/30/21 11/30/21 18:00 18:09 18:24 Temp 36.5 Pulse 64 Resp 16 B/P (MAP) 81/57 Pulse Ox 96 O2 Delivery Mechanical Ventilator O2 Flow Rate 50.00 FiO2 50 Labs Labs Laboratory Tests 11/30/21 04:38 Exam Vital Signs Vital Signs Date Time Temp Pulse Resp B/P (MAP) Pulse Ox O2 Delivery O2 Flow Rate FiO2 11/30/21 18:24 64 16 96 50 11/30/21 18:09 81/57 11/30/21 18:00 36.5 Mechanical Ventilator 50.00 Physical Exam General: Intubated and following some simple commands. Well nourished and appears stated age. Eye: Conjunctivae are clear. There are no xanthelasma. HENT: Normocephalic. Atraumatic. Carotid pulsations 2/2 without bruits. Neck: Jugular venous pressure does not appear elevated. No thyromegaly appreciated. Respiratory: Symmetrical expansion bilaterally. Coarse breath sounds due to the ventilator. Cardiovascular: Normal rate. Regular rhythm. No murmur. No gallop. Point of maximal impulse is not appear displaced. Good pulses equal in all extremities. 1+ bilateral pretibial edema. Gastrointestinal: Soft. Normal bowel sounds. Skin: Skin turgor is normal. There is no pallor. Musculoskeletal: No obvious deformities. Neurologic: Intubated and following some simple commands. Psychiatric: As above, awake and following some simple commands. Labs Laboratory Tests Test 11/29/21 18:50 11/29/21 20:42 11/29/21 23:32 11/30/21 04:38 Range/Units Glucometer 103 103 114 H 70-110 MG/DL White Blood Count 7.2 4.3-11.0 10^3/uL Red Blood Count 2.89 L 4.30-5.52 10^6/uL Hemoglobin 8.4 L 13.3-17.7 g/dL Hematocrit 25 L 40-54 % Mean Corpuscular Volume 88 80-99 fL Mean Corpuscular Hemoglobin 29 25-34 pg Mean Corpuscular Hemoglobin Concent 33 32-36 g/dL Red Cell Distribution Width 15.8 H 10.0-14.5 % Platelet Count 112 L 130-400 10^3/uL Mean Platelet Volume 10.0 9.0-12.2 fL Immature Granulocyte % (Auto) 4 % Neutrophils (%) (Auto) 71 42-75 % Lymphocytes (%) (Auto) 16 12-44 % Monocytes (%) (Auto) 8 0-12 % Eosinophils (%) (Auto) 1 0-10 % Basophils (%) (Auto) 1 0-10 % Neutrophils # (Auto) 5.1 1.8-7.8 10^3/uL Lymphocytes # (Auto) 1.2 1.0-4.0 10^3/uL Monocytes # (Auto) 0.6 0.0-1.0 10^3/uL Eosinophils # (Auto) 0.1 0.0-0.3 10^3/uL Basophils # (Auto) 0.0 0.0-0.1 10^3/uL Immature Granulocyte # (Auto) 0.3 H 0.0-0.1 10^3/uL Percent Immature Platelet Fraction 2.9 0.0-7.6 % Sodium Level 138 135-145 MMOL/L Potassium Level 3.5 L 3.6-5.0 MMOL/L Chloride Level 112 H 98-107 MMOL/L Carbon Dioxide Level 19 L 21-32 MMOL/L Anion Gap 7 5-14 MMOL/L Blood Urea Nitrogen 22 H 7-18 MG/DL Creatinine 0.40 L 0.60-1.30 MG/DL Estimat Glomerular Filtration Rate 120 BUN/Creatinine Ratio 55 Glucose Level 117 H 70-105 MG/DL Calcium Level 8.0 L 8.5-10.1 MG/DL Phosphorus Level 1.6 L 2.3-4.7 MG/DL Magnesium Level 1.8 1.6-2.4 MG/DL Test 11/30/21 11:40 11/30/21 11:56 11/30/21 13:55 11/30/21 17:22 Range/Units Prothrombin Time 14.1 12.2-14.7 SEC INR Comment 1.1 0.8-1.4 Activated Partial Thromboplast Time 30 24-35 SEC Fibrinogen 688 H 221-496 MG/DL D-Dimer 2.80 H 0.00-0.49 UG/ML Vancomycin Level Trough 14.4 10.0-20.0 UG/ML Glucometer 99 121 H 70-110 MG/DL Blood Gas Puncture Site L RADIAL Blood Gas Patient Temperature 36.5 Arterial Blood pH 7.32 *L 7.37-7.43 Arterial Blood Partial Pressure CO2 49 H 35-45 MMHG Arterial Blood Partial Pressure O2 68 L 79-93 MMHG Arterial Blood HCO3 24 23-27 MMOL/L Arterial Blood Total CO2 25.8 21.0-31.0 MMOL/L Arterial Blood Oxygen Saturation 93 L 94-100 % Arterial Blood Base Excess -1.2 -2.5-2.5 MMOL/L Gustavo Test YES-POS Blood Gas Ventilator Setting YES Blood Gas Inspired Oxygen 50% Diagnosis/Problems Diagnosis/Problems (1) Cardiac arrest Status: Acute Assessment & Plan: He reportedly had ventricular fibrillation and/or torsades de pointe. He had an echocardiogram following the event and his ejection fraction is normal. Given his clinical status even prior to admission, he would not be a good candidate for an invasive cardiac evaluation. Once he is off vasopressor medications, I will consider starting low-dose beta-lindsey. (2) Ventricular tachycardia Assessment & Plan: By report, he may have had torsade de pointes during his cardiac arrest. As above, we will attempt to get the patient on beta-lindsey once he is off vasopressor medication. Also as above, he would not be an ideal candidate for an invasive cardiac evaluation or defibrillator due to his supa gstanding severe developmental delay. (3) Mitral regurgitation Assessment & Plan: His echocardiogram showed mild mitral regurgitation. This should not be contributing to his current clinical status. (4) Pulmonary hypertension Assessment & Plan: His echocardiogram showed mild pulmonary hypertension. I suspect this is related to his acute respiratory failure and underlying pneumonia. (5) Septic shock Status: Acute Assessment & Plan: He continues to require vasopressor medications. The eICU and hospitalist are managing these. He is also on intravenous antibiotics. (6) Acute respiratory failure with hypoxia Status: Acute Assessment & Plan: Most likely due to the underlying pneumonia. Hopefully, he will be extubated soon. MIGUELINA THAYER JR, MD Nov 30, 2021 12:48
[2021-11-30 12:58] LABS: FIBRIN DEGRADATION PRODUCTS 2.8 UG/ML (0.00-0.49); INR 1.1 (0.8-1.4); PROTHROMBIN TIME PATIENT 14.1 SEC (12.2-14.7)
[2021-11-30] MEDS: VANCOMYCIN 1500 MG/NS 500 ML IVPB IV SCH ×2 (13:13)
[2021-11-30 14:08] LABS: ABG BASE EXCESS -1.2 MMOL/L (-2.5-2.5); ABG OXYGEN SATURATION 93 % (94-100); ABG PCO2 49 MMHG (35-45); ABG PO2 68 MMHG (79-93); ABG TCO2 25.8 MMOL/L (21.0-31.0)
[2021-11-30 14:13] LABS: ABG PH 7.32 (7.37-7.43); ALLENS TEST YES-POS
[2021-11-30 14:14] LABS: INSPIRED O2 50%; PATIENT TEMP 36.5; VENTILATOR YES
[2021-11-30 14:59] VITALS: BP 84/55
[2021-11-30] MEDS ORDERED: VANCOMYCIN 1 GM/NS 250 ML IVPB IV SCH ×2 (15:00)
--- NOTE | 2021-11-30 16:39 | Progress Note - Hospitalist ---
Subjective HPI/CC On Admission Date Seen by Provider: Nov 30, 2021 Time Seen by Provider: 09:55 Subjective/Events-last exam He remains intubated and sedated. Focused Exam Time of Focused Exam: 13:45 Objective Exam Vital Signs Vital Signs Date Time Temp Pulse Resp B/P (MAP) Pulse Ox O2 Delivery O2 Flow Rate FiO2 11/30/21 16:00 36.3 73 16 93/64 95 Mechanical Ventilator 50.00 11/30/21 14:59 50 Capillary Refill : Less Than 3 Seconds General Appearance: No Apparent Distress, WD/WN, Other (intubated and sedated) Respiratory: Lungs Clear, No Respiratory Distress, Other (intubated and mechanically ventilated) Cardiovascular: Regular Rate, Rhythm, No Murmur Gastrointestinal: Normal Bowel Sounds, Soft Extremity: Normal Inspection, Pedal Edema Neurologic/Psychiatric: Other (sedated) Skin: Warm/Dry, Pallor Results/Procedures Lab Laboratory Tests 11/30/21 04:38 Patient resulted labs reviewed. Imaging: Reviewed Imaging Report Assessment/Plan Assessment and Plan Assess & Plan/Chief Complaint Septic Shock MRSA pneumonia MRSA wound infection UTI Acute respiratory failure with hypoxia and hypercapnia Cardiac arrest Weaning pressors as able Lasix added TeleICU following Blood cultures with no growth Sputum culture with MRSA Wound culture with MRSA Urine culture with Morganella morganii and Enterococcus faecalis, <54030 CFU each Continue Vancomycin Stop Cefepime 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 Cognitive impairment Mutism Lactic acidosis, resolved Critical Care Critically Ill Patient Diagnosis/Problems Diagnosis/Problems (1) Septic shock Status: Acute (2) PNA (pneumonia) Qualifiers: Pneumonia type: due to methicillin-resistant Staphylococcus aureus (MRSA) Laterality: right Lung location: middle lobe of lung Qualified Codes: J15.212 - Pneumonia due to methicillin resistant Staphylococcus aureus (3) Cardiac arrest Status: Acute (4) Lactic acidosis Status: Acute (5) Acute respiratory failure Status: Acute Qualifiers: Respiratory failure complication: hypoxia and hypercapnia Qualified Codes: J96.01 - Acute respiratory failure with hypoxia; J96.02 - Acute respiratory failure with hypercapnia (6) Endotracheally intubated Status: Acute (7) Cognitive impairment Status: Chronic (8) Mutism Status: Chronic KAZ CHU MD Nov 30, 2021 16:39
[2021-11-30] MEDS: DexMEDEtomidine 250 ML DRIP 250 ML IV SCH (17:56)
[2021-11-30] MEDS: fentaNYL INJ 100 MCG/2 ML AMP IVP PRN ×2 (17:57→20:31)
[2021-11-30 18:24] VITALS: BP 90/65
[2021-11-30] MEDS ORDERED: HYDROCORTISONE 100 MG/2 ML (Solu-CORTEF) VIAL ONE (19:47)
[2021-11-30] MEDS: MIRTAZAPINE 15 MG (REMERON) TAB PO SCH (20:45)
[2021-11-30] MEDS: PHENYTOIN 100 MG (DILANTIN) CAP PO SCH (20:45)
[2021-11-30] MEDS: HYDROCORTISONE 100 MG/2 ML (Solu-CORTEF) VIAL IV SCH (21:22)
[2021-11-30 22:30] VITALS: BP 95/68
[2021-12-01] MEDS: NOREPINEPHRINE 8 MG/250 ML 250 ML IV SCH ×2 (00:45→18:20)
[2021-12-01] MEDS: RT-ALBUTEROL/IPRATROPIUM 3 ML (DUONEB) VIAL INH SCH ×6 (02:15→21:29)
[2021-12-01 02:16] VITALS: BP 93/59
[2021-12-01] MEDS: HYDROCORTISONE 100 MG/2 ML (Solu-CORTEF) VIAL IV SCH ×6 (03:44→20:42)
[2021-12-01 04:32] LABS: BASOPHILS % (AUTO) 0 % (0-10)
[2021-12-01 04:33] LABS: EOSINOPHILS # (AUTO) 0.1 10^3/uL (0.0-0.3); EOSINOPHILS % (AUTO) 1 % (0-10); HEMATOCRIT 24 % (40-54); LYMPHOCYTES # (AUTO) 0.8 10^3/uL (1.0-4.0); LYMPHOCYTES % (AUTO) 12 % (12-44); MEAN CORPUSCULAR HEMOGLOBIN 29 pg (25-34); MEAN CORPUSCULAR HGB CONC 33 g/dL (32-36); MEAN CORPUSCULAR VOLUME 87 fL (80-99); MEAN PLATELET VOLUME 10.3 fL (9.0-12.2); MONOCYTES # (AUTO) 0.5 10^3/uL (0.0-1.0); MONOCYTES % (AUTO) 8 % (0-12); NEUTROPHILS % (AUTO) 75 % (42-75); PLATELET COUNT 102 10^3/uL (130-400); WHITE BLOOD COUNT 6.6 10^3/uL (4.3-11.0)
[2021-12-01 04:48] LABS: CALCIUM 7.9 MG/DL (8.5-10.1); CREATININE SERUM 0.39 MG/DL (0.60-1.30); MAGNESIUM 1.8 MG/DL (1.6-2.4); PHOSPHORUS 2.2 MG/DL (2.3-4.7); POTASSIUM 4.7 MMOL/L (3.6-5.0)
[2021-12-01] MEDS: POTASSIUM CL 10MEQ/50ML IVPB 50 ML IV SCH (04:50)
[2021-12-01] MEDS: MAGNESIUM 1 GM/100 ML IVPB 100 ML IV SCH (04:51)
[2021-12-01] MEDS: fentaNYL INJ 100 MCG/2 ML AMP IVP PRN ×2 (05:13→11:21)
[2021-12-01] MEDS: VASOPRESSIN INJECTION 20 UNIT in NS (IVPB) 100 ML IV SCH (05:23)
[2021-12-01 06:09] LABS: ABG BASE EXCESS -0.7 MMOL/L (-2.5-2.5); ABG OXYGEN SATURATION 93 % (94-100); ABG PCO2 42 MMHG (35-45); ABG PH 7.37 (7.37-7.43); ABG PO2 70 MMHG (79-93); ABG TCO2 25.1 MMOL/L (21.0-31.0)
[2021-12-01 06:11] LABS: ALLENS TEST YES-POS; INSPIRED O2 50%; PATIENT TEMP 36.9; VENTILATOR YES
[2021-12-01] MEDS ORDERED: LACTATED RINGERS 1,000 ML IV ONE (06:35)
[2021-12-01] MEDS: VANCOMYCIN 1500 MG/NS 500 ML IVPB IV SCH ×2 (06:39)
--- NOTE | 2021-12-01 06:40 | Occ Therapy Progress Note ---
Therapy Progress Note Pt is currently intubated. OT to monitor pt's status and will initiate treatment when pt is medically stable and able to actively participate in skilled therapy. JARET PAULA Dec 01, 2021 06:40
[2021-12-01] MEDS ORDERED: LACTATED RINGERS 500 ML IV ONE (06:45)
--- NOTE | 2021-12-01 07:14 | Physical Therapy Progress Note ---
Therapy Progress Note Patient currently intubated and sedated. PT will continue to monitor patient status and initiate treatment when patient is medically stable and able to actively participate with skilled therapy. PARAG HERMOSILLO PT Dec 01, 2021 07:14
[2021-12-01 07:15] VITALS: BP 118/74
[2021-12-01] MEDS: METOCLOPRAMIDE 5 MG (REGLAN) TAB PO SCH ×4 (08:50→20:41)
[2021-12-01] MEDS: ASPIRIN E.C. 81 MG (ECOTRIN) TAB PO SCH (08:50)
[2021-12-01] MEDS: FAMOTIDINE 20 MG (PEPCID) TABLET PO SCH ×2 (08:50→20:42)
[2021-12-01] MEDS: LACTATED RINGERS 1,000 ML IV SCH ×2 (08:50→18:19)
[2021-12-01] MEDS: DOCUSATE SODIUM 10 MG/ML 10 ML UDC (COLACE) PO SCH ×2 (08:50→20:41)
--- NOTE | 2021-12-01 08:59 | Cardiology Progress Note ---
Progress Note-Cardiology Events since last exam Date Seen by Provider: Dec 01, 2021 Time Seen by Provider: 08:58 Events since last exam We are following him due to in-hospital cardiac arrest. He remains in the i ntensive care unit intubated on ventilator. He has minimal sedation and opens his eyes to voice and is following some simple commands. The nurses have been attempting to wean off vasopressin but he has intermittently been requiring norepinephrine infusion. As such, he is currently on both vasopressin and norepinephrine. I am not able to obtain any history from the patient due to his intubation and underlying developmental delay. I did speak with his nurse in his room. Certain portions of this document may have been dictated utilizing voice recognition technology. Inherent to this technology, typographical and grammatical errors may exist. As much as I am diligent to identify and correct these mistakes, some errors may remain in the document. Vitals Last set of Vitals Signs Vital Signs 12/01/21 12/01/21 14:30 16:00 Temp 36.7 Pulse 63 Resp 21 B/P (MAP) 113/74 Pulse Ox 90 O2 Delivery Mechanical Ventilator O2 Flow Rate 60.00 FiO2 60 Labs Labs Laboratory Tests 12/01/21 04:20 Exam Vital Signs Vital Signs Date Time Temp Pulse Resp B/P (MAP) Pulse Ox O2 Delivery O2 Flow Rate FiO2 12/01/21 16:00 36.7 63 21 113/74 90 Mechanical Ventilator 60.00 12/01/21 14:30 60 Physical Exam General: Intubated and following some simple commands. Well nourished and appears stated age. Eye: Conjunctivae are clear. There are no xanthelasma. HENT: Normocephalic. Atraumatic. Carotid pulsations 2/2 without bruits. Neck: Jugular venous pressure does not appear elevated. No thyromegaly appreciated. Respiratory: Symmetrical expansion bilaterally. Coarse breath sounds due to the ventilator. Cardiovascular: Normal rate. Regular rhythm. No murmur. No gallop. Point of maximal impulse is not appear displaced. Good pulses equal in all extremities. 1+ bilateral pretibial edema. 2+ bilateral upper extremity edema. Gastrointestinal: Soft. Normal bowel sounds. Skin: Skin turgor is normal. There is no pallor. Musculoskeletal: No obvious deformities. Neurologic: Intubated and following some simple commands. Psychiatric: As above, awake and following some simple commands. Labs Laboratory Tests Test 11/30/21 17:22 11/30/21 23:17 12/01/21 04:20 12/01/21 06:00 Range/Units Glucometer 121 H 118 H 70-110 MG/DL White Blood Count 6.6 4.3-11.0 10^3/uL Red Blood Count 2.78 L 4.30-5.52 10^6/uL Hemoglobin 8.0 L 13.3-17.7 g/dL Hematocrit 24 L 40-54 % Mean Corpuscular Volume 87 80-99 fL Mean Corpuscular Hemoglobin 29 25-34 pg Mean Corpuscular Hemoglobin Concent 33 32-36 g/dL Red Cell Distribution Width 15.6 H 10.0-14.5 % Platelet Count 102 L 130-400 10^3/uL Mean Platelet Volume 10.3 9.0-12.2 fL Immature Granulocyte % (Auto) 4 % Neutrophils (%) (Auto) 75 42-75 % Lymphocytes (%) (Auto) 12 12-44 % Monocytes (%) (Auto) 8 0-12 % Eosinophils (%) (Auto) 1 0-10 % Basophils (%) (Auto) 0 0-10 % Neutrophils # (Auto) 5.0 1.8-7.8 10^3/uL Lymphocytes # (Auto) 0.8 L 1.0-4.0 10^3/uL Monocytes # (Auto) 0.5 0.0-1.0 10^3/uL Eosinophils # (Auto) 0.1 0.0-0.3 10^3/uL Basophils # (Auto) 0.0 0.0-0.1 10^3/uL Immature Granulocyte # (Auto) 0.3 H 0.0-0.1 10^3/uL Percent Immature Platelet Fraction 4.1 0.0-7.6 % Sodium Level 140 135-145 MMOL/L Potassium Level 4.7 3.6-5.0 MMOL/L Chloride Level 109 H 98-107 MMOL/L Carbon Dioxide Level 20 L 21-32 MMOL/L Anion Gap 11 5-14 MMOL/L Blood Urea Nitrogen 23 H 7-18 MG/DL Creatinine 0.39 L 0.60-1.30 MG/DL Estimat Glomerular Filtration Rate 121 BUN/Creatinine Ratio 59 Glucose Level 107 H 70-105 MG/DL Calcium Level 7.9 L 8.5-10.1 MG/DL Phosphorus Level 2.2 L 2.3-4.7 MG/DL Magnesium Level 1.8 1.6-2.4 MG/DL Triglycerides Level 92 <150 MG/DL Blood Gas Puncture Site RT RADIAL Blood Gas Patient Temperature 36.9 Arterial Blood pH 7.37 7.37-7.43 Arterial Blood Partial Pressure CO2 42 35-45 MMHG Arterial Blood Partial Pressure O2 70 L 79-93 MMHG Arterial Blood HCO3 24 23-27 MMOL/L Arterial Blood Total CO2 25.1 21.0-31.0 MMOL/L Arterial Blood Oxygen Saturation 93 L 94-100 % Arterial Blood Base Excess -0.7 -2.5-2.5 MMOL/L Gustavo Test YES-POS Blood Gas Ventilator Setting YES Blood Gas Inspired Oxygen 50% Test 12/01/21 08:44 12/01/21 14:50 Range/Units Glucometer 131 H 70-110 MG/DL Blood Gas Puncture Site RT RAD Blood Gas Patient Temperature 36.7 Arterial Blood pH 7.39 7.37-7.43 Arterial Blood Partial Pressure CO2 42 35-45 MMHG Arterial Blood Partial Pressure O2 70 L 79-93 MMHG Arterial Blood HCO3 25 23-27 MMOL/L Arterial Blood Total CO2 25.8 21.0-31.0 MMOL/L Arterial Blood Oxygen Saturation 95 94-100 % Arterial Blood Base Excess 0.0 -2.5-2.5 MMOL/L Gustavo Test YES-POS Blood Gas Ventilator Setting YES Blood Gas Inspired Oxygen 60% Diagnosis/Problems Diagnosis/Problems (1) Cardiac arrest Status: Acute Assessment & Plan: He reportedly had ventricular fibrillation and/or torsades de pointe. He had an echocardiogram following the event and his ejection fraction is normal. Given his clinical status even prior to admission, he would not be a good candidate for an invasive cardiac evaluation. Once he is off vasopressor medications, I will consider starting low-dose beta-lindsey. Furthermore, given his overall clinical status prior to admission, it would not be a good candidate for defibrillator implantation for secondary prevention. (2) Ventricular tachycardia Assessment & Plan: By report, he may have had torsade de pointes during his cardiac arrest. As above, we will attempt to get the patient on beta-lindsey once he is off vasopressor medication. Also as above, he would not be an ideal candidate for an invasive cardiac evaluation or defibrillator due to his longstanding severe developmental delay which could increase the risk of device related complications and adverse events. (3) Pulmonary hypertension Assessment & Plan: His echocardiogram showed mild pulmonary hypertension. I suspect this is related to his acute respiratory failure and underlying pneumonia. (4) Mitral regurgitation Assessment & Plan: His echocardiogram showed mild mitral regurgitation. This should not be contributing to his current clinical status. (5) Septic shock Status: Acute Assessment & Plan: He continues to require vasopressor medications. The eICU and hospitalist are managing these. He is also on intravenous antibiotics. (6) Acute respiratory failure with hypoxia Status: Acute Assessment & Plan: Most likely due to the underlying pneumonia. Hopefully, he will be extubated soon. MIGUELINA THAYER JR, MD Dec 01, 2021 08:59
--- NOTE | 2021-12-01 09:53 | Tele-ICU Progress Note ---
Subjective Date Seen by a Provider: Dec 01, 2021 Time Seen by a Provider: 09:52 Subjective/Events-last exam Available chart/ vitals / labs / Images reviewed Video assessment done using teleICU camera, rest of exam as per RN Discussed with RN , EXAM PER RN Events overnight : Afebrile FiO2 - 50% I/O =positive 3 L Drips: Pressors: levo .06 vaso hydrocor Sedation gtt: propofol OFF precedex 1.0 ( RASS -2 ) VENT SETTINGS and ABG reviewed ? candidate for SBT today REVIEWED Cardiovascular Stability / Sedation Score / FI02/PEEP / ABG / CXR Consultants: Hospital course: (11/26) 66M Admitted from senior care with intellectual disability and septic shock Intubated then PEA arrest 11/27 - 70% +10 , vaso /levo /propofol 11/28 - 50 % +8 , follows commands . LEVO 0.02 11/29- 40% +8 changed to recedex 11/30- 50 % + 5. diuresuis SBT 2 h -retained CO2 12/01 - 59% , bcak in pressoers , Stress dose steroids , A/P Acute hypoxic and hypercapnic resp failure - AC 20 450 50% peep 5 . PAP 16 - secretions moderate , less thick - CPM - stopping sedation ->11/30: diuresuis SBT 2 h 0 retained CO2 , try today again Septic shock - off fluid , hold diuresis - cortiosol level 13 - ON PRESSORS - starting hydrocrt 50 q 8 - try to wean off pressors PNA, RUL/RML and wound on elbow - WOUND AND SPUTUM + for STAPH - presumed MRSA - neg covid - cefepime 11/26 abd vanco 11/26 Elev Ddimer - low clinical susp for DVT or PE - - US LE NEG for DVT PLT count trending down , with decreasing HB too - most likely delutiona;l - anemia w.up ordered by PCP - order HIPA w/up now - monitor on lovenoc proph S/p coplostomy - seems not functional - as per bedside MD exam and plan - KUB 11/30 Nonobstructive bowel gas patter S/p PEA arrest post intubation - CTH 11/26 - no acute findings, but reported slight edema and underlying infarctions - to be repeated CT vs MRI latter - Cognitive impairment at baseline , off propofol seems follow scommands - follow off sedation - try precedex Vfib / torsads for which he received defibrillation - Amiodarone gtt -OFF due to ken - ECHO - 11/28 -EF 60% elevation of the left hemidiaphragm, - chronic H/o SZ - cont phosphenitoin Pulm HTN - by ECHO RVSP 45mm Hg - diuresis when can 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 Discussed with RN to reach out if any questions or concerns A total of 35 minutes of critical care time was devoted to this patient today, required to treat and/or prevent further deterioration of critical care condition ( as above) . Sepsis Event Evaluation Height, Weight, BMI Height: 6'1" Weight: 118lbs. 3.0oz. 53.941355mi; 27.92 BMI Method:Estimated Focused Exam Time of Focused Exam: 13:45 Exam Exam Patient acknowledged, consented, and participated in this virtual visit which was conducted using real time audio/video Vital Signs Date Time Temp Pulse Resp B/P (MAP) Pulse Ox O2 Delivery O2 Flow Rate FiO2 12/01/21 09:00 37.0 61 15 105/64 95 Mechanical Ventilator 50.00 12/01/21 08:00 37.0 61 15 105/64 95 Mechanical Ventilator 50.00 12/01/21 08:00 Mechanical Ventilator 50 12/01/21 07:15 61 17 96 50 12/01/21 07:00 56 12/01/21 07:00 37.1 54 16 116/79 97 Mechanical Ventilator 50.00 12/01/21 06:00 36.9 53 16 112/77 95 Mechanical Ventilator 50.00 12/01/21 05:23 61 99/67 12/01/21 05:00 36.8 64 17 99/67 91 Mechanical Ventilator 50.00 12/01/21 05:00 65 19 90 12/01/21 04:41 70 85/55 12/01/21 04:00 37.0 66 18 89/61 93 Mechanical Ventilator 50.00 12/01/21 04:00 Mechanical Ventilator 50 12/01/21 03:46 37.2 12/01/21 03:00 37.2 62 16 89/63 96 Mechanical Ventilator 50.00 12/01/21 02:16 56 16 99 50 12/01/21 02:00 37.3 57 16 93/59 97 Mechanical Ventilator 50.00 12/01/21 01:00 37.4 56 16 93/69 99 Mechanical Ventilator 50.00 12/01/21 01:00 60 12/01/21 00:00 Mechanical Ventilator 50 12/01/21 00:00 37.3 61 16 98/71 98 Mechanical Ventilator 50.00 11/30/21 23:36 37.4 11/30/21 23:00 37.3 64 16 93/68 97 Mechanical Ventilator 50.00 11/30/21 22:30 58 16 96 50 11/30/21 22:00 37.2 61 16 89/64 96 Mechanical Ventilator 50.00 11/30/21 21:33 67 89/61 11/30/21 21:00 37.1 67 15 85/61 91 Mechanical Ventilator 50.00 11/30/21 20:26 70 87/61 11/30/21 20:00 36.9 68 18 87/61 94 Mechanical Ventilator 50.00 11/30/21 20:00 Mechanical Ventilator 50 11/30/21 19:38 36.7 11/30/21 19:37 36.8 61 16 87/60 96 Mechanical Ventilator 50.00 11/30/21 19:00 36.7 62 15 91/63 97 Mechanical Ventilator 50.00 11/30/21 19:00 62 11/30/21 18:24 64 16 96 50 11/30/21 18:09 61 81/57 11/30/21 18:00 36.5 70 22 81/57 91 Mechanical Ventilator 50.00 11/30/21 17:56 62 97/67 11/30/21 17:55 62 97/67 11/30/21 17:00 36.5 65 16 98/67 96 Mechanical Ventilator 50.00 11/30/21 16:00 36.3 73 16 93/64 95 Mechanical Ventilator 50.00 11/30/21 16:00 Mechanical Ventilator 50 11/30/21 15:35 36.3 11/30/21 15:00 36.5 75 19 84/55 95 Mechanical Ventilator 50.00 11/30/21 14:59 77 18 92 50 11/30/21 14:00 36.5 81 29 95/61 93 Mechanical Ventilator 50.00 11/30/21 13:04 87 11/30/21 13:00 36.6 87 32 99/66 91 Mechanical Ventilator 50.00 11/30/21 12:00 36.7 81 17 95/63 93 Mechanical Ventilator 50.00 11/30/21 12:00 Mechanical Ventilator 50 11/30/21 11:57 80 24 92 50 11/30/21 11:00 36.6 78 15 96/70 95 Mechanical Ventilator 50.00 11/30/21 10:00 36.5 62 20 114/77 96 Mechanical Ventilator 50.00 11/30/21 10:00 124/77 I & O 12/01/21 06:59 Intake Total 2805 ml Output Total 1725 ml Balance 1080 ml Height & Weight Height: 6'1" Weight: 118lbs. 3.0oz. 53.446215tc; 27.92 BMI Method:Estimated General Appearance: No Apparent Distress, WD/WN, Other (intubated and sedated) HEENT: Other (dry oral mucosa) Neck: Normal Inspection Respiratory: Lungs Clear, No Respiratory Distress, Other (intubated and mechanically ventilated) Cardiovascular: Regular Rate, Rhythm, No Murmur Capillary Refill: Less Than 3 Seconds Peripheral Pulses: 2+ Radial Pulses (R), 2+ Radial Pulses (L) Extremity: Normal Inspection, Pedal Edema Neurologic/Psychiatric: Other (sedated) Skin: Warm/Dry, Pallor Results Lab Laboratory Tests 11/30/21 04:38 12/01/21 04:20 Assessment/Plan Assessment/Plan 1 ALEJANDRINA PLASCENCIA MD Dec 01, 2021 09:52
[2021-12-01 10:12] VITALS: BP 120/81
--- NOTE | 2021-12-01 10:18 | Diagnostic Imaging Report ---
INDICATION: Endotracheal tube placement. Time of Exam: 9:40 AM Correlation is made with prior exam from 11/28/2021. ET tube has tip in good position above the garth. NG tube passes below the diaphragm. Left hemidiaphragm is elevated. There is infiltrate or atelectasis in the perihilar and bibasilar regions. There are central congestive changes noted. The right-sided line continues to show a lateral course similar to 3 days earlier, likely in the right subclavian vein. IMPRESSION: Stable chest with bilateral infiltrates/atelectasis when compared with examination 3 days earlier. Dictated by: Dictated on workstation # [id number]
[2021-12-01] MEDS: ENOXAPARIN 40 MG/0.4 ML (LOVENOX) SYR SC SCH (10:19)
[2021-12-01] MEDS: ALBUMIN 25% 25 GM/100 ML 50 ML IV SCH ×2 (10:19→18:20)
[2021-12-01] MEDS: PROPOFOL DRIP (ICU) 100 ML IV SCH (11:22)
[2021-12-01] MEDS: DexMEDEtomidine 250 ML DRIP 250 ML IV SCH (11:28)
--- NOTE | 2021-12-01 13:02 | Diagnostic Imaging Report ---
INDICATION: PICC line placement. EXAMINATION: Chest 12/01/2021 COMPARISON: 12/01/2021 at 9:40 a.m. FINDINGS: The right-sided central line tip has been repositioned. It is now pointed towards the lateral chest looped over the neck. This should be pulled back and repositioned. The ET tube is unremarkable. There is an enteric tube coursing beneath the diaphragm. There is marked elevation of the left hemidiaphragm with adjacent atelectasis. There is infiltrate throughout the right mid and lower lung. There is a likely right effusion. No pneumothorax. There are findings of edema throughout both lungs with pulmonary vascular congestion. The heart is prominent IMPRESSION: 1. Central line malposition. See above discussion. 2. Findings of pulmonary edema with scattered infiltrates right worse than left. Likely right effusion. 3. There has been interval placement of a left-sided PICC line with the tip in the distal SVC. Dictated by: Dictated on workstation # [id number]
[2021-12-01 14:30] VITALS: BP 117/73
[2021-12-01 14:55] LABS: ABG OXYGEN SATURATION 95 % (94-100); ABG PCO2 42 MMHG (35-45); ABG PH 7.39 (7.37-7.43); ABG PO2 70 MMHG (79-93); ABG TCO2 25.8 MMOL/L (21.0-31.0)
[2021-12-01 15:01] LABS: ALLENS TEST YES-POS; INSPIRED O2 60%; PATIENT TEMP 36.7; VENTILATOR YES
--- NOTE | 2021-12-01 15:55 | Progress Note - Hospitalist ---
Subjective HPI/CC On Admission Date Seen by Provider: Dec 01, 2021 Time Seen by Provider: 09:45 Subjective/Events-last exam He remains intubated and sedated. Focused Exam Time of Focused Exam: 13:45 Objective Exam Vital Signs Vital Signs Date Time Temp Pulse Resp B/P (MAP) Pulse Ox O2 Delivery O2 Flow Rate FiO2 12/01/21 16:00 36.7 63 21 113/74 90 Mechanical Ventilator 60.00 12/01/21 14:30 60 Capillary Refill : Less Than 3 Seconds General Appearance: No Apparent Distress, WD/WN, Other (intubated and sedated) Respiratory: Lungs Clear, No Respiratory Distress Cardiovascular: Regular Rate, Rhythm, No Murmur Gastrointestinal: Normal Bowel Sounds, Soft Extremity: Normal Inspection, No Pedal Edema Neurologic/Psychiatric: Alert, Normal Mood/Affect Skin: Warm/Dry, Pallor Results/Procedures Lab Laboratory Tests 12/01/21 04:20 Patient resulted labs reviewed. 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 Cognitive impairment Mutism Lactic acidosis, resolved Critical Care Critically Ill Patient Diagnosis/Problems Diagnosis/Problems (1) Septic shock Status: Acute (2) PNA (pneumonia) Qualifiers: Pneumonia type: due to methicillin-resistant Staphylococcus aureus (MRSA) Laterality: right Lung location: middle lobe of lung Qualified Codes: J15.212 - Pneumonia due to methicillin resistant Staphylococcus aureus (3) Cardiac arrest Status: Acute (4) Lactic acidosis Status: Acute (5) Acute respiratory failure Status: Acute Qualifiers: Respiratory failure complication: hypoxia and hypercapnia Qualified Codes: J96.01 - Acute respiratory failure with hypoxia; J96.02 - Acute respiratory failure with hypercapnia (6) Endotracheally intubated Status: Acute (7) Cognitive impairment Status: Chronic (8) Mutism Status: Chronic KAZ CHU MD Dec 01, 2021 15:55
[2021-12-01 18:21] VITALS: BP 100/66
[2021-12-01] MEDS ORDERED: ALBUMIN 5% 12.5 GM/250 ML 250 ML IV ONE (19:00)
[2021-12-01] MEDS: MIRTAZAPINE 15 MG (REMERON) TAB PO SCH (20:41)
[2021-12-01] MEDS: polyethylene glycoL POWDER 17 GM (MIRALAX) PACK PO SCH (20:41)
[2021-12-01] MEDS: PHENYTOIN 100 MG (DILANTIN) CAP PO SCH (20:42)
[2021-12-01 21:29] VITALS: BP 86/59
[2021-12-02] MEDS ORDERED: TROUGH ORDER-PHARMACY XX NR
[2021-12-02] MEDS: DexMEDEtomidine 250 ML DRIP 250 ML IV SCH ×2 (00:39→11:10)
[2021-12-02] MEDS: PROPOFOL DRIP (ICU) 100 ML IV SCH ×3 (00:39→20:51)
[2021-12-02] MEDS: VASOPRESSIN INJECTION 20 UNIT in NS (IVPB) 100 ML IV SCH ×3 (00:51→22:28)
[2021-12-02] MEDS: VANCOMYCIN 1500 MG/NS 500 ML IVPB IV SCH ×4 (01:55→18:49)
[2021-12-02 02:46] VITALS: BP 94/61
[2021-12-02] MEDS: RT-ALBUTEROL/IPRATROPIUM 3 ML (DUONEB) VIAL INH SCH ×6 (02:46→22:17)
[2021-12-02] MEDS: HYDROCORTISONE 100 MG/2 ML (Solu-CORTEF) VIAL IV SCH ×5 (03:35→16:57)
[2021-12-02] MEDS: LACTATED RINGERS 1,000 ML IV SCH (03:40)
[2021-12-02 04:16] LABS: ABG BASE EXCESS 0.2 MMOL/L (-2.5-2.5); ABG OXYGEN SATURATION 95 % (94-100); ABG PCO2 43 MMHG (35-45); ABG PH 7.37 (7.37-7.43); ABG PO2 68 MMHG (79-93); ABG TCO2 26.4 MMOL/L (21.0-31.0)
[2021-12-02 04:17] LABS: ALLENS TEST YES-POS
[2021-12-02 04:18] LABS: INSPIRED O2 75%; VENTILATOR YES
[2021-12-02 04:35] LABS: MEAN CORPUSCULAR HEMOGLOBIN 29 pg (25-34)
[2021-12-02 04:37] LABS: BASOPHILS # (AUTO) 0.1 10^3/uL (0.0-0.1); BASOPHILS % (AUTO) 0 % (0-10); EOSINOPHILS % (AUTO) 0 % (0-10); HEMATOCRIT 23 % (40-54); HEMOGLOBIN 7.6 g/dL (13.3-17.7); LYMPHOCYTES # (AUTO) 0.8 10^3/uL (1.0-4.0); LYMPHOCYTES % (AUTO) 6 % (12-44); MEAN CORPUSCULAR HGB CONC 33 g/dL (32-36); MEAN CORPUSCULAR VOLUME 88 fL (80-99); MEAN PLATELET VOLUME 10.5 fL (9.0-12.2); MONOCYTES # (AUTO) 0.7 10^3/uL (0.0-1.0); MONOCYTES % (AUTO) 5 % (0-12); NEUTROPHILS # (AUTO) 10.8 10^3/uL (1.8-7.8); NEUTROPHILS % (AUTO) 87 % (42-75); PLATELET COUNT 109 10^3/uL (130-400); WHITE BLOOD COUNT 12.4 10^3/uL (4.3-11.0)
[2021-12-02 04:53] LABS: CALCIUM 7.9 MG/DL (8.5-10.1); CREATININE SERUM 0.38 MG/DL (0.60-1.30); MAGNESIUM 1.7 MG/DL (1.6-2.4); PHOSPHORUS 1.7 MG/DL (2.3-4.7); POTASSIUM 4.3 MMOL/L (3.6-5.0)
[2021-12-02 05:12] LABS: ANISOCYTOSIS SLIGHT; BAND NEUTROPHILS 5 %; HYPOCHROMASIA SLIGHT; LYMPHOCYTES % (MANUAL) 6 %; MONOCYTES % (MANUAL) 5 %; NEUTROPHILS % (MANUAL) 84 %; TOXIC GRANULATION/VACUOLAZATIO 1+
[2021-12-02] MEDS: MAGNESIUM 1 GM/100 ML IVPB 100 ML IV SCH (05:32)
[2021-12-02] MEDS: POTASSIUM CL 10MEQ/50ML IVPB 50 ML IV SCH (05:32)
[2021-12-02 06:55] VITALS: BP 103/73
--- NOTE | 2021-12-02 08:29 | Tele-ICU Progress Note ---
Progress Note video rounds completed 66 y/o male with developmental delay intubated for PNA and septic shock Vent: 16/450/60%/10 Appears comfortably sedated Pulse: 77 NSR (was previously in a fib) BP: 106/66 O2 sat 94% On antibiotics for PNA suffered cardiac arrest with fixed pupi;s CT head negative for infaction May need trach and PEG if neuro status does not improve Focused Exam Height, Weight, BMI Height: 6'1" Weight: 118lbs. 3.0oz. 53.416113qe; 28.31 BMI Method:Estimated Time of Focused Exam: 13:45 Labs Laboratory Tests 12/02/21 04:20 Results Results/Procedures Lab Laboratory Tests 12/01/21 04:20 12/02/21 04:20 Results Labs Labs Laboratory Tests 12/01/21 08:44: Glucometer 131H 12/01/21 14:50: Blood Gas Puncture Site RT RAD, Blood Gas Patient Temperature 36.7, Arterial Blood pH 7.39, Arterial Blood Partial Pressure CO2 42, Arterial Blood Partial Pressure O2 70L, Arterial Blood HCO3 25, Arterial Blood Total CO2 25.8, Arterial Blood Oxygen Saturation 95, Arterial Blood Base Excess 0.0, Gustavo Test YES-POS, Blood Gas Ventilator Setting YES, Blood Gas Inspired Oxygen 60% 12/01/21 17:31: Glucometer 128H 12/02/21 00:08: Glucometer 157H 12/02/21 00:10: Vancomycin Level Trough 17.2 12/02/21 04:10: Blood Gas Puncture Site RT RAD, Blood Gas Patient Temperature 36.0, Arterial Blood pH 7.37, Arterial Blood Partial Pressure CO2 43, Arterial Blood Partial Pressure O2 68L, Arterial Blood HCO3 25, Arterial Blood Total CO2 26.4, Arterial Blood Oxygen Saturation 95, Arterial Blood Base Excess 0.2, Gustavo Test YES-POS, Blood Gas Ventilator Setting YES, Blood Gas Inspired Oxygen 75% 12/02/21 04:20: White Blood Count 12.4H, Red Blood Count 2.60L, Hemoglobin 7.6L, Hematocrit 23L, Mean Corpuscular Volume 88, Mean Corpuscular Hemoglobin 29, Mean Corpuscular Hemoglobin Concent 33, Red Cell Distribution Width 15.6H, Platelet Count 109L, Mean Platelet Volume 10.5, Immature Granulocyte % (Auto) 2, Neutrophils (%) (Auto) 87H, Lymphocytes (%) (Auto) 6L, Monocytes (%) (Auto) 5, Eosinophils (%) (Auto) 0, Basophils (%) (Auto) 0, Neutrophils # (Auto) 10.8H, Lymphocytes # (Auto) 0.8L, Monocytes # (Auto) 0.7, Eosinophils # (Auto) 0.0, Basophils # (Auto) 0.1, Immature Granulocyte # (Auto) 0.2H, Neutrophils % (Manual) 84, Lymphocytes % (Manual) 6, Monocytes % (Manual) 5, Band Neutrophils 5, Toxic Granulation 1+, Percent Immature Platelet Fraction 4.6, Hypochromasia SLIGHT, Anisocytosis SLIGHT, Sodium Level 138, Potassium Level 4.3, Chloride Level 107, Carbon Dioxide Level 22, Anion Gap 9, Blood Urea Nitrogen 28H, Creatinine 0.38L, Estimat Glomerular Filtration Rate 122, BUN/Creatinine Ratio 74, Glucose Level 150H, Calcium Level 7.9L, Phosphorus Level 1.7L, Magnesium Level 1.7, Triglycerides Level 80 Microbiology 11/27/21 Gram Stain - Final, Complete 11/27/21 Wound Culture - Final, Complete Mixed Bacterial Makenzie Staphylococcus aureus Staphylococcus aureus#2 11/27/21 Gram Stain - Final, Resulted 11/27/21 Sputum Culture - Preliminary, Resulted Staphylococcus aureus Mixed Bacterial Makenzie 11/26/21 Urine Culture - Final, Complete Morganella morganii Enterococcus faecalis 11/26/21 Blood Culture - Final, Complete No growth JAYDE MORRISSEY MD Dec 02, 2021 08:29
[2021-12-02] MEDS: DOCUSATE SODIUM 10 MG/ML 10 ML UDC (COLACE) PO SCH ×2 (08:54→20:51)
[2021-12-02] MEDS: METOCLOPRAMIDE 5 MG (REGLAN) TAB PO SCH ×4 (08:54→20:51)
[2021-12-02] MEDS: polyethylene glycoL POWDER 17 GM (MIRALAX) PACK PO SCH ×2 (08:54→20:51)
[2021-12-02] MEDS: FAMOTIDINE 20 MG (PEPCID) TABLET PO SCH ×2 (08:54→20:51)
[2021-12-02] MEDS: ASPIRIN 81 MG CHEW (CHILDREN'S ASA) PO SCH (08:55)
[2021-12-02] MEDS ORDERED: D5 1/2 NS 1000 ML IV SOLUTION 1,000 ML IV SCH (09:30)
[2021-12-02 10:29] VITALS: BP 103/73
[2021-12-02] MEDS ORDERED: FUROSEMIDE 40 MG/4 ML INJ (LASIX) IVP ONE ×2 (10:29→16:15)
--- NOTE | 2021-12-02 10:32 | Cardiology Progress Note ---
Progress Note-Cardiology Events since last exam Date Seen by Provider: Dec 02, 2021 Time Seen by Provider: 10:28 Events since last exam I am following him due to in-hospital cardiac arrest. He remains in the int ensive care unit intubated but on minimal sedation at times. Yesterday his FiO2 and PEEP had to be increased due to worsening oxygenation. He is awake and following some simple commands but unable to answer any questions from me with nodding or blinking eyes. On 12/01 the vasopressors had been discontinued but then he developed recurrent shock and was placed back on vasopressin. There are orders for both vasopressin and norepinephrine. He has not been having any arrhythmias. Certain portions of this document may have been dictated utilizing voice recognition technology. Inherent to this technology, typographical and grammatical errors may exist. As much as I am diligent to identify and correct these mistakes, some errors may remain in the document. Vitals Last set of Vitals Signs Vital Signs 12/02/21 12/02/21 07:49 10:00 Temp 37.0 Pulse 77 Resp 16 B/P (MAP) 110/67 Pulse Ox 94 O2 Delivery Mechanical Ventilator O2 Flow Rate 60.00 FiO2 60 Labs Labs Laboratory Tests 12/02/21 04:20 Exam Vital Signs Vital Signs Date Time Temp Pulse Resp B/P (MAP) Pulse Ox O2 Delivery O2 Flow Rate FiO2 12/02/21 10:00 37.0 77 16 110/67 94 Mechanical Ventilator 60.00 12/02/21 07:49 60 Physical Exam General: Intubated and following some simple commands. Well nourished and appears stated age. Eye: Conjunctivae are clear. There are no xanthelasma. HENT: Normocephalic. Atraumatic. Carotid pulsations 2/2 without bruits. Neck: Jugular venous pressure does not appear elevated. No thyromegaly appreciated. Respiratory: Symmetrical expansion bilaterally. Coarse breath sounds due to the ventilator. Cardiovascular: Normal rate. Regular rhythm. No murmur. No gallop. Point of maximal impulse is not appear displaced. Good pulses equal in all extremities. 1+ bilateral pretibial edema. 2+ bilateral upper extremity edema. Gastrointestinal: Soft. Normal bowel sounds. Skin: Skin turgor is normal. There is no pallor. Musculoskeletal: No obvious deformities. Neurologic: Intubated and following some simple commands. Psychiatric: As above, awake and following some simple commands. Labs Laboratory Tests Test 12/01/21 14:50 12/01/21 17:31 12/02/21 00:08 12/02/21 00:10 Range/Units Blood Gas Puncture Site RT RAD Blood Gas Patient Temperature 36.7 Arterial Blood pH 7.39 7.37-7.43 Arterial Blood Partial Pressure CO2 42 35-45 MMHG Arterial Blood Partial Pressure O2 70 L 79-93 MMHG Arterial Blood HCO3 25 23-27 MMOL/L Arterial Blood Total CO2 25.8 21.0-31.0 MMOL/L Arterial Blood Oxygen Saturation 95 94-100 % Arterial Blood Base Excess 0.0 -2.5-2.5 MMOL/L Gustavo Test YES-POS Blood Gas Ventilator Setting YES Blood Gas Inspired Oxygen 60% Glucometer 128 H 157 H 70-110 MG/DL Vancomycin Level Trough 17.2 10.0-20.0 UG/ML Test 12/02/21 04:10 12/02/21 04:20 Range/Units Blood Gas Puncture Site RT RAD Blood Gas Patient Temperature 36.0 Arterial Blood pH 7.37 7.37-7.43 Arterial Blood Partial Pressure CO2 43 35-45 MMHG Arterial Blood Partial Pressure O2 68 L 79-93 MMHG Arterial Blood HCO3 25 23-27 MMOL/L Arterial Blood Total CO2 26.4 21.0-31.0 MMOL/L Arterial Blood Oxygen Saturation 95 94-100 % Arterial Blood Base Excess 0.2 -2.5-2.5 MMOL/L Gustavo Test YES-POS Blood Gas Ventilator Setting YES Blood Gas Inspired Oxygen 75% White Blood Count 12.4 H 4.3-11.0 10^3/uL Red Blood Count 2.60 L 4.30-5.52 10^6/uL Hemoglobin 7.6 L 13.3-17.7 g/dL Hematocrit 23 L 40-54 % Mean Corpuscular Volume 88 80-99 fL Mean Corpuscular Hemoglobin 29 25-34 pg Mean Corpuscular Hemoglobin Concent 33 32-36 g/dL Red Cell Distribution Width 15.6 H 10.0-14.5 % Platelet Count 109 L 130-400 10^3/uL Mean Platelet Volume 10.5 9.0-12.2 fL Immature Granulocyte % (Auto) 2 % Neutrophils (%) (Auto) 87 H 42-75 % Lymphocytes (%) (Auto) 6 L 12-44 % Monocytes (%) (Auto) 5 0-12 % Eosinophils (%) (Auto) 0 0-10 % Basophils (%) (Auto) 0 0-10 % Neutrophils # (Auto) 10.8 H 1.8-7.8 10^3/uL Lymphocytes # (Auto) 0.8 L 1.0-4.0 10^3/uL Monocytes # (Auto) 0.7 0.0-1.0 10^3/uL Eosinophils # (Auto) 0.0 0.0-0.3 10^3/uL Basophils # (Auto) 0.1 0.0-0.1 10^3/uL Immature Granulocyte # (Auto) 0.2 H 0.0-0.1 10^3/uL Neutrophils % (Manual) 84 % Lymphocytes % (Manual) 6 % Monocytes % (Manual) 5 % Band Neutrophils 5 % Toxic Granulation 1+ Percent Immature Platelet Fraction 4.6 0.0-7.6 % Hypochromasia SLIGHT Anisocytosis SLIGHT Sodium Level 138 135-145 MMOL/L Potassium Level 4.3 3.6-5.0 MMOL/L Chloride Level 107 98-107 MMOL/L Carbon Dioxide Level 22 21-32 MMOL/L Anion Gap 9 5-14 MMOL/L Blood Urea Nitrogen 28 H 7-18 MG/DL Creatinine 0.38 L 0.60-1.30 MG/DL Estimat Glomerular Filtration Rate 122 BUN/Creatinine Ratio 74 Glucose Level 150 H 70-105 MG/DL Calcium Level 7.9 L 8.5-10.1 MG/DL Phosphorus Level 1.7 L 2.3-4.7 MG/DL Magnesium Level 1.7 1.6-2.4 MG/DL Triglycerides Level 80 <150 MG/DL Diagnosis/Problems Diagnosis/Problems (1) Cardiac arrest Status: Acute Assessment & Plan: He reportedly had ventricular fibrillation and/or torsades de pointe while in the intensive care unit. He had an echocardiogram following the event and his ejection fraction is normal. Given his clinical status even prior to admission, he would not be a good candidate for an invasive cardiac evaluation. Once he is off vasopressor medications, I will consider starting low-dose beta-lindsey. Furthermore, given his overall clinical status prior to admission, it would not be a good candidate for defibrillator implantation for secondary prevention. He apparently lives in a detention and is able to do ADLs but is nonconversant. I am concerned that this could put him at increased risk device infection if not properly cared for following implant. (2) Ventricular tachycardia Assessment & Plan: By report, he may have had torsade de pointes during his cardiac arrest. As above, we will attempt to get the patient on beta-lindsey once he is off vasopressor medication. Also as above, he would not be an ideal candidate for an invasive cardiac evaluation or defibrillator due to his longst anding severe developmental delay which could increase the risk of device related complications and adverse events. (3) Pulmonary hypertension Assessment & Plan: His echocardiogram showed mild pulmonary hypertension. I suspect this is related to his acute respiratory failure and underlying pneumonia. We can reassess this with a follow-up echocardiogram after discharge. (4) Mitral regurgitation Assessment & Plan: His echocardiogram showed mild mitral regurgitation. This should not be contributing to his current clinical status. (5) Septic shock Status: Acute Assessment & Plan: He continues to intermittently require vasopressor medicatio ns. The eICU and hospitalist are managing these. He is also on intravenous antibiotics. (6) Acute respiratory failure with hypoxia Status: Acute Assessment & Plan: Most likely due to the underlying pneumonia. The eICU and hospitalist are managing the ventilator. MIGUELINA THAYER JR, MD Dec 02, 2021 10:32
[2021-12-02] MEDS: NOREPINEPHRINE 8 MG/250 ML 250 ML IV SCH (10:49)
[2021-12-02] MEDS: ENOXAPARIN 40 MG/0.4 ML (LOVENOX) SYR SC SCH (11:02)
[2021-12-02 14:32] VITALS: BP 93/56
--- NOTE | 2021-12-02 15:09 | Progress Note - Hospitalist ---
Subjective HPI/CC On Admission Date Seen by Provider: Dec 02, 2021 Time Seen by Provider: 09:30 Subjective/Events-last exam He remains intubated and sedated. Focused Exam Time of Focused Exam: 13:45 Objective Exam Vital Signs Vital Signs Date Time Temp Pulse Resp B/P (MAP) Pulse Ox O2 Delivery O2 Flow Rate FiO2 12/02/21 14:32 79 16 94 60 12/02/21 14:00 37.1 91/52 Mechanical Ventilator 60.00 Capillary Refill : Less Than 3 Seconds General Appearance: No Apparent Distress, WD/WN, Other (intubated and sedated) Respiratory: Lungs Clear, No Respiratory Distress Cardiovascular: Regular Rate, Rhythm, No Murmur Gastrointestinal: Normal Bowel Sounds, Soft Extremity: No Inflammation; Pedal Edema, Swelling Neurologic/Psychiatric: Alert, Other (partially sedated, easily arousable) Skin: Normal Color, Warm/Dry Results/Procedures Lab Laboratory Tests 12/02/21 04:20 Patient resulted labs reviewed. Imaging: Reviewed Imaging Report Assessment/Plan Assessment and Plan Assess & Plan/Chief Complaint Septic Shock MRSA pneumonia MRSA wound infection UTI Acute respiratory failure with hypoxia and hypercapnia Cardiac arrest Weaning pressors as able, off Levophed this morning, stop Vasopressin Giving Lasix Hold fluids Weaning oxygen as able TeleICU following Blood cultures with no growth Sputum culture with MRSA Wound culture with MRSA Urine culture with Morganella morganii and Enterococcus faecalis, <42653 CFU each Continue Vancomycin WBC up today, consider repeating cultures and adding Meropenem if fevers or unstable Constipation Colostomy Miralax Consult surgery 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 Cognitive impairment Mutism Lactic acidosis, resolved Critical Care Critically Ill Patient Diagnosis/Problems Diagnosis/Problems (1) Septic shock Status: Acute (2) PNA (pneumonia) Qualifiers: Pneumonia type: due to methicillin-resistant Staphylococcus aureus (MRSA) Laterality: right Lung location: middle lobe of lung Qualified Codes: J15.212 - Pneumonia due to methicillin resistant Staphylococcus aureus (3) Cardiac arrest Status: Acute (4) Lactic acidosis Status: Acute (5) Acute respiratory failure Status: Acute Qualifiers: Respiratory failure complication: hypoxia and hypercapnia Qualified Codes: J96.01 - Acute respiratory failure with hypoxia; J96.02 - Acute respiratory failure with hypercapnia (6) Endotracheally intubated Status: Acute (7) Cognitive impairment Status: Chronic (8) Mutism Status: Chronic KAZ CHU MD Dec 02, 2021 15:09
[2021-12-02 18:27] VITALS: BP 102/58
[2021-12-02] MEDS: MIRTAZAPINE 15 MG (REMERON) TAB PO SCH (20:51)
[2021-12-02] MEDS: PHENYTOIN 100 MG (DILANTIN) CAP PO SCH (20:57)
[2021-12-02 22:18] VITALS: BP 99/59
[2021-12-03] MEDS: DexMEDEtomidine 250 ML DRIP 250 ML IV SCH ×2 (00:39→13:51)
[2021-12-03] MEDS: HYDROCORTISONE 100 MG/2 ML (Solu-CORTEF) VIAL IV SCH ×3 (01:52→17:55)
[2021-12-03 02:06] LABS: ABG BASE EXCESS 3.8 MMOL/L (-2.5-2.5); ABG OXYGEN SATURATION 94 % (94-100); ABG PCO2 47 MMHG (35-45); ABG PO2 73 MMHG (79-93); ABG TCO2 29.8 MMOL/L (21.0-31.0)
[2021-12-03 02:15] LABS: ALLENS TEST YES-POS
[2021-12-03 02:16] LABS: INSPIRED O2 50%; VENTILATOR YES
[2021-12-03] MEDS: RT-ALBUTEROL/IPRATROPIUM 3 ML (DUONEB) VIAL INH SCH ×6 (02:47→21:49)
[2021-12-03 02:48] VITALS: BP 97/54
[2021-12-03] MEDS: NOREPINEPHRINE 8 MG/250 ML 250 ML IV SCH ×2 (03:36→19:54)
[2021-12-03 05:24] LABS: BASOPHILS % (AUTO) 0 % (0-10); EOSINOPHILS # (AUTO) 0.1 10^3/uL (0.0-0.3); EOSINOPHILS % (AUTO) 1 % (0-10); HEMATOCRIT 26 % (40-54); HEMOGLOBIN 8.5 g/dL (13.3-17.7); LYMPHOCYTES # (AUTO) 0.6 10^3/uL (1.0-4.0); LYMPHOCYTES % (AUTO) 6 % (12-44); MEAN CORPUSCULAR HEMOGLOBIN 29 pg (25-34); MEAN CORPUSCULAR HGB CONC 33 g/dL (32-36); MEAN CORPUSCULAR VOLUME 89 fL (80-99); MEAN PLATELET VOLUME 10.2 fL (9.0-12.2); MONOCYTES # (AUTO) 0.6 10^3/uL (0.0-1.0); MONOCYTES % (AUTO) 6 % (0-12); NEUTROPHILS % (AUTO) 82 % (42-75); PLATELET COUNT 165 10^3/uL (130-400); WHITE BLOOD COUNT 9.7 10^3/uL (4.3-11.0)
[2021-12-03] MEDS: PROPOFOL DRIP (ICU) 100 ML IV SCH ×2 (05:37→20:51)
[2021-12-03 05:46] LABS: CALCIUM 8.4 MG/DL (8.5-10.1); CREATININE SERUM 0.41 MG/DL (0.60-1.30); MAGNESIUM 1.9 MG/DL (1.6-2.4); PHOSPHORUS 2.4 MG/DL (2.3-4.7); POTASSIUM 4.1 MMOL/L (3.6-5.0)
[2021-12-03] MEDS: POTASSIUM CL 10MEQ/50ML IVPB 50 ML IV SCH (06:06)
[2021-12-03] MEDS: MAGNESIUM 1 GM/100 ML IVPB 100 ML IV SCH (06:06)
[2021-12-03 07:04] VITALS: BP 99/59
[2021-12-03] MEDS: polyethylene glycoL POWDER 17 GM (MIRALAX) PACK PO SCH ×2 (08:30→20:50)
[2021-12-03] MEDS: DOCUSATE SODIUM 10 MG/ML 10 ML UDC (COLACE) PO SCH ×2 (08:30→20:50)
[2021-12-03] MEDS: FAMOTIDINE 20 MG (PEPCID) TABLET PO SCH ×2 (08:30→20:51)
[2021-12-03] MEDS: ASPIRIN 81 MG CHEW (CHILDREN'S ASA) PO SCH (08:30)
[2021-12-03] MEDS: METOCLOPRAMIDE 5 MG (REGLAN) TAB PO SCH ×4 (08:30→20:50)
[2021-12-03] MEDS: VASOPRESSIN INJECTION 20 UNIT in NS (IVPB) 100 ML IV SCH ×2 (08:51→19:53)
--- NOTE | 2021-12-03 09:04 | Tele-ICU Progress Note ---
Subjective Date Seen by a Provider: Dec 03, 2021 Time Seen by a Provider: 06:50 Subjective/Events-last exam This virtual visit was conducted using real time audio/video. Thank you for asking us to see this patient for respiratory insufficiency due to MRSA pna. Also septic shock. Intubated 11/26 followed by PEA arrest. Recent events:FiO2 down to 40%, PEEP down to 8. 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 SH: smoking history:N PE: Chronically ill appearing. VSS. Off pressors. O2 sat 94% on AC 16/450/40%/+8 HEENT: No obvious masses, adenopathy or JVD. Chest: clear CV: RRR S1 S2 No murmur or added sounds. Abd: Non-tender. Bowel sounds Y. : Unremarkable. Ramirez Y. [employer]/psychiatric: Grossly intact. No obvious focal findings. Extremities: 3+ edema. Capillary refill < 3 seconds. Skin: unremarkable. Results: Decreased Hb 8.5. AB.4/47/73 on 50%. CXR:right infilt. Available chart/ vitals / labs / images reviewed. Video assessment done using teleICU camera, rest of exam as per RN. A/P: Respiratory insufficiency: Continue present management with vent, PRN Duonebs. Wean FiO2 and PEEP as daron. Critical Care: critically ill patient. Cont. abx,hydrocort., pepcid, dilantin, ASA, Alva. Discussed with Ankita SCOTT . Asked RN to reach out to eICU if any questions or concerns later. Time spent with patient/coordination of care with other health professionals (mins): 25 Sepsis Event Evaluation Height, Weight, BMI Height: 6'1" Weight: 118lbs. 3.0oz. 53.615545jg; 28.96 BMI Method:Estimated Focused Exam Time of Focused Exam: 13:45 Exam Exam Patient acknowledged, consented, and participated in this virtual visit which was conducted using real time audio/video Vital Signs Date Time Temp Pulse Resp B/P (MAP) Pulse Ox O2 Delivery O2 Flow Rate FiO2 12/03/21 08:28 Mechanical Ventilator 40.00 12/03/21 08:24 94 Mechanical Ventilator 40 12/03/21 08:00 37.1 88 16 96/58 94 Mechanical Ventilator 50.00 12/03/21 07:19 36.3 96 16 102/60 95 Mechanical Ventilator 50.00 12/03/21 07:04 92 16 96 50 12/03/21 07:00 91 12/03/21 06:00 36.8 92 16 106/61 94 Mechanical Ventilator 50.00 12/03/21 05:37 95 108/60 12/03/21 05:00 36.9 81 15 100/61 94 Mechanical Ventilator 50.00 12/03/21 05:00 95 20 96 12/03/21 04:39 80 108/60 12/03/21 04:00 Mechanical Ventilator 50 12/03/21 04:00 36.8 80 16 108/60 93 Mechanical Ventilator 50.00 12/03/21 03:00 36.8 76 16 105/62 92 Mechanical Ventilator 50.00 12/03/21 02:48 74 16 92 50 12/03/21 02:00 36.9 76 16 97/54 92 Mechanical Ventilator 50.00 12/03/21 01:00 80 12/03/21 01:00 37.0 80 12 96/56 96 Mechanical Ventilator 50.00 12/03/21 00:51 75 99/59 12/03/21 00:39 75 99/59 12/03/21 00:00 Mechanical Ventilator 50 12/03/21 00:00 36.9 72 15 98/60 95 Mechanical Ventilator 50.00 12/02/21 23:00 37.0 76 16 102/62 96 Mechanical Ventilator 50.00 12/02/21 22:18 75 16 96 50 12/02/21 22:00 36.9 78 15 103/58 96 Mechanical Ventilator 50.00 12/02/21 21:00 36.8 75 16 109/63 96 Mechanical Ventilator 50.00 12/02/21 20:51 75 104/58 12/02/21 20:00 36.8 80 15 111/58 95 Mechanical Ventilator 50.00 12/02/21 20:00 96 Mechanical Ventilator 50 12/02/21 19:00 36.8 80 26 109/59 95 Mechanical Ventilator 50.00 12/02/21 19:00 81 12/02/21 18:27 80 17 96 50 12/02/21 18:00 36.6 78 17 99/57 96 Mechanical Ventilator 50.00 12/02/21 17:04 Mechanical Ventilator 50.00 12/02/21 17:00 36.6 80 25 99/56 97 Mechanical Ventilator 60.00 12/02/21 16:02 95 Mechanical Ventilator 60 12/02/21 16:00 36.7 77 15 96/59 98 Mechanical Ventilator 60.00 12/02/21 15:02 79 93/56 12/02/21 15:01 79 93/56 12/02/21 15:00 36.8 79 21 97/58 94 Mechanical Ventilator 60.00 12/02/21 14:32 79 16 94 60 12/02/21 14:00 37.1 81 17 91/52 95 Mechanical Ventilator 60.00 12/02/21 13:00 37.1 86 23 89/56 94 Mechanical Ventilator 60.00 12/02/21 12:46 79 12/02/21 12:42 93 Mechanical Ventilator 60 12/02/21 12:00 37.1 81 19 94/57 94 Mechanical Ventilator 60.00 12/02/21 11:10 80 95/51 12/02/21 11:07 80 95/51 12/02/21 11:00 37.1 80 17 95/51 94 Mechanical Ventilator 60.00 12/02/21 10:29 84 23 92 60 12/02/21 10:00 37.0 77 16 110/67 94 Mechanical Ventilator 60.00 12/02/21 09:00 36.7 76 17 112/68 94 Mechanical Ventilator 60.00 I & O 12/03/21 07:00 Intake Total 3400 ml Output Total 5100 ml Balance -1700 ml Height & Weight Height: 6'1" Weight: 118lbs. 3.0oz. 53.619506nw; 28.96 BMI Method:Estimated General Appearance: No Apparent Distress, WD/WN, Other (intubated and sedated) HEENT: Other (dry oral mucosa) Neck: Normal Inspection Respiratory: Lungs Clear, No Respiratory Distress Cardiovascular: Regular Rate, Rhythm, No Murmur Capillary Refill: Less Than 3 Seconds Peripheral Pulses: 2+ Radial Pulses (R), 2+ Radial Pulses (L) Extremity: No Inflammation; Pedal Edema, Swelling Neurologic/Psychiatric: Alert, Other (partially sedated, easily arousable) Skin: Normal Color, Warm/Dry Results Lab Laboratory Tests 12/02/21 04:20 12/03/21 05:05 Assessment/Plan Assessment/Plan See free text. Critical Care: Ventilator Management YADI SAINZ MD Dec 03, 2021 09:04
[2021-12-03] MEDS ORDERED: FUROSEMIDE 40 MG/4 ML INJ (LASIX) IVP ONE ×2 (09:15→17:15)
[2021-12-03] MEDS: ENOXAPARIN 40 MG/0.4 ML (LOVENOX) SYR SC SCH (09:56)
--- NOTE | 2021-12-03 10:20 | Cardiology Progress Note ---
Progress Note-Cardiology Events since last exam Date Seen by Provider: Dec 03, 2021 Time Seen by Provider: 10:14 Events since last exam I am following him due to in-hospital cardiac arrest. He remains in the int ensive care unit and intubated but on minimal sedation. His vasopressors were discontinued on 12/02 and he has remained normotensive although on the lower side of normal. He has been following some simple commands. His PEEP and FiO2 were able to be decreased over the past 24 hours. He has been receiving intravenous Lasix and has had a significant amount of urine output. I am not able to obtain any history from the patient due to his intubated status and underlying developmental delay and he is nonverbal at baseline. Certain portions of this document may have been dictated utilizing voice recognition technology. Inherent to this technology, typographical and grammatical errors may exist. As much as I am diligent to identify and correct these mistakes, some errors may remain in the document. Vitals Last set of Vitals Signs Vital Signs 12/03/21 12/03/21 12/03/21 08:24 09:00 09:56 Temp 37.0 Pulse 86 Resp 16 B/P (MAP) 102/66 Pulse Ox 93 O2 Delivery Mechanical Ventilator O2 Flow Rate 40.00 FiO2 40 Labs Labs Laboratory Tests 12/03/21 05:05 Exam Vital Signs Vital Signs Date Time Temp Pulse Resp B/P (MAP) Pulse Ox O2 Delivery O2 Flow Rate FiO2 12/03/21 09:56 86 102/66 12/03/21 09:00 37.0 16 93 Mechanical Ventilator 40.00 12/03/21 08:24 40 Physical Exam General: Intubated and following some simple commands. Well nourished and appears stated age. Eye: Conjunctivae are clear. There are no xanthelasma. HENT: Normocephalic. Atraumatic. Carotid pulsations 2/2 without bruits. Neck: Jugular venous pressure does not appear elevated. No thyromegaly appreciated. Respiratory: Symmetrical expansion bilaterally. Coarse breath sounds due to the ventilator. Cardiovascular: Normal rate. Regular rhythm. No murmur. No gallop. Point of maximal impulse is not appear displaced. Good pulses equal in all extremities. 1+ bilateral pretibial edema. 2+ bilateral upper extremity edema. Gastrointestinal: Soft. Normal bowel sounds. Skin: Skin turgor is normal. There is no pallor. Musculoskeletal: No obvious deformities. Neurologic: Intubated and following some simple commands. Psychiatric: As above, awake and following some simple commands. Labs Laboratory Tests Test 12/02/21 12:45 12/02/21 18:32 12/02/21 23:55 12/03/21 02:00 Range/Units Glucometer 124 H 106 94 70-110 MG/DL Blood Gas Puncture Site RT RAD Blood Gas Patient Temperature 37.0 Arterial Blood pH 7.40 7.37-7.43 Arterial Blood Partial Pressure CO2 47 H 35-45 MMHG Arterial Blood Partial Pressure O2 73 L 79-93 MMHG Arterial Blood HCO3 28 H 23-27 MMOL/L Arterial Blood Total CO2 29.8 21.0-31.0 MMOL/L Arterial Blood Oxygen Saturation 94 94-100 % Arterial Blood Base Excess 3.8 H -2.5-2.5 MMOL/L Gustavo Test YES-POS Blood Gas Ventilator Setting YES Blood Gas Inspired Oxygen 50% Test 12/03/21 05:05 Range/Units White Blood Count 9.7 4.3-11.0 10^3/uL Red Blood Count 2.90 L 4.30-5.52 10^6/uL Hemoglobin 8.5 L 13.3-17.7 g/dL Hematocrit 26 L 40-54 % Mean Corpuscular Volume 89 80-99 fL Mean Corpuscular Hemoglobin 29 25-34 pg Mean Corpuscular Hemoglobin Concent 33 32-36 g/dL Red Cell Distribution Width 15.9 H 10.0-14.5 % Platelet Count 165 130-400 10^3/uL Mean Platelet Volume 10.2 9.0-12.2 fL Immature Granulocyte % (Auto) 5 % Neutrophils (%) (Auto) 82 H 42-75 % Lymphocytes (%) (Auto) 6 L 12-44 % Monocytes (%) (Auto) 6 0-12 % Eosinophils (%) (Auto) 1 0-10 % Basophils (%) (Auto) 0 0-10 % Neutrophils # (Auto) 8.0 H 1.8-7.8 10^3/uL Lymphocytes # (Auto) 0.6 L 1.0-4.0 10^3/uL Monocytes # (Auto) 0.6 0.0-1.0 10^3/uL Eosinophils # (Auto) 0.1 0.0-0.3 10^3/uL Basophils # (Auto) 0.0 0.0-0.1 10^3/uL Immature Granulocyte # (Auto) 0.5 H 0.0-0.1 10^3/uL Sodium Level 146 H 135-145 MMOL/L Potassium Level 4.1 3.6-5.0 MMOL/L Chloride Level 111 H 98-107 MMOL/L Carbon Dioxide Level 24 21-32 MMOL/L Anion Gap 11 5-14 MMOL/L Blood Urea Nitrogen 26 H 7-18 MG/DL Creatinine 0.41 L 0.60-1.30 MG/DL Estimat Glomerular Filtration Rate 119 BUN/Creatinine Ratio 63 Glucose Level 91 70-105 MG/DL Calcium Level 8.4 L 8.5-10.1 MG/DL Phosphorus Level 2.4 2.3-4.7 MG/DL Magnesium Level 1.9 1.6-2.4 MG/DL Diagnosis/Problems Diagnosis/Problems (1) Cardiac arrest Status: Acute Assessment & Plan: He reportedly had ventricular fibrillation and/or torsades de pointe while in the intensive care unit. He had an echocardiogram following the event and his ejection fraction was normal. Given his clinical status even prior to admission, he would not be a good candidate for an invasive cardiac evaluation. If he remains normotensive off vasopressors, I will consider starting low-dose beta-lindsey in the next 24-48 hours. Furthermore, given his overall clinical status prior to admission, he would not be a good candidate for defibrillator implantation for secondary prevention. He apparently lives in a care home and is able to do ADLs but is nonconversant. I am concerned that this could put him at increased risk for device infection if not properly cared for following implant. (2) Ventricular tachycardia Assessment & Plan: By report, he may have had torsade de pointes during his cardiac arrest. As above, we will attempt to get the patient on beta-lindsey once he is off vasopressor medication. Also as above, he would not be an ideal candidate for an invasive cardiac evaluation or defibrillator due to his longstanding severe developmental delay which could increase the risk of device related complications and adverse events. (3) Pulmonary hypertension Assessment & Plan: His echocardiogram showed mild pulmonary hypertension. I suspect this is related to his acute respiratory failure and underlying pneumonia. We can reassess this with a follow-up echocardiogram after discharge. (4) Volume overload Assessment & Plan: This is most likely related to the significant amount of intravenous fluids and vasopressors that he was receiving for the septic shock. He has been responding well to intravenous diuresis. This does not represent heart failure. (5) Mitral regurgitation Assessment & Plan: His echocardiogram showed mild mitral regurgitation. This should not be contributing to his current clinical status. (6) Septic shock Status: Acute Assessment & Plan: He has now been off vasopressors since 12/02. The eICU and hospitalist are managing this. (7) Acute respiratory failure with hypoxia Status: Acute Assessment & Plan: Most likely due to the underlying pneumonia. The eICU and hospitalist are managing the ventilator. MIGUELINA THAYER JR, MD Dec 03, 2021 10:20
[2021-12-03 10:44] VITALS: BP 110/73
[2021-12-03] MEDS: VANCOMYCIN 1500 MG/NS 500 ML IVPB IV SCH ×2 (13:25)
--- NOTE | 2021-12-03 13:47 | Consultation - Surgery ---
History of Present Illness History of Present Illness Patient Consulted On(samir/time) 12/03/21 13:41 Time Seen by Provider: 12:29 History of Present Illness Surgery asked to consult regarding constipation and ??ostomy. HPI per ED: Patient is a 66-year-old male who presents from a local detention, history of severe intellectual disability, per review of the medical record nonverbal -with hypoxia from the prison. EMS was called secondary to patient's change in mental status. Normally he is up and ambulatory and interactive with residents. It was noted today that he was quite somnolent, difficult to arouse. They reportedly checked his oxygen saturations and they w ere in the 40s. They applied 2 L of oxygen and when EMS arrived he was satting somewhere in the 70s. On arrival he does rouse to voice and aggressive physical stimulation. He was placed on BiPAP with oxygen saturations consistently in the 70s. Auscultation revealed significant rales and crackles throughout both lungs. He is quite cold to the touch throughout. Lower extremities and hands appeared cyanotic. Not really in respiratory distress, a little tachypneic at about 30. He was per review of the medical record recently in the hospital for left elbow cellulitis/osteomyelitis. This was back in July of this year. He had IV antibiotics and wound care. On exam he has a shallow appearing wound to the left elbow which is not purulent. Other superficial abrasions and "pick slaughter" throughout both upper extremities. Abdomen is nondistended and soft. Review of systems entirely unobtainable from the patient secondary to his intellectual disability and now altered mentation. Nurse asked me to see the pt because she was concerned that his "ostomy" was no longer putting anything out and she was wiping "smears" from his bottom. She states that he is on Miralax but they are not getting a lot of output. The rest of the information obtained from the chart, pt is intubated. Allergies and Home Medications Allergies Coded Allergies: No Known Drug Allergies (Verified , 05/20/08) Patient Home Medication List Home Medication List Reviewed: Yes Acetaminophen (Tylenol) 325 Mg Tablet, 650 MG PO Q6H PRN for PAIN-MILD (1-4), (Reported) Entered as Reported by: PATRICE LEROY on 08/06/21 2214 Last Action: Held Albuterol Sulfate (Albuterol Sulfate) 2.5 Mg/3 Ml Vial.neb, 3 ML NEB Q4H PRN for SHORTNESS OF BREATH, (Reported) Entered as Reported by: KURTIS PA on 02/18/15 145 Last Action: Held Albuterol Sulfate (Proventil Hfa) 6.7 Gm Hfa.aer.ad, 2 PUFF INH Q4H, (Reported) Entered as Reported by: PATRICE LEROY on 08/06/211818 Last Action: Held Aspirin (Aspirin EC) 81 Mg Tablet.dr, 81 MG PO DAILY, (Reported) Entered as Reported by: ERIC MALHOTRA on 08/07/211150 Last Action: Continued Benzonatate (Tessalon Perles) 100 Mg Capsule, 100 MG PO Q8H PRN for COUGH, (Reported) Entered as Reported by: PATRICE LEROY on 08/06/211824 Last Action: Held Calcium Carbonate (Antacid Maximum Strength) 400 Mg Tab.chew, 1,000 MG PO Q4H PRN for HEARTBURN/INDIGESTION, (Reported) Entered as Reported by: ERIC MALHOTRA on 08/07/211150 Last Action: Held Cholecalciferol (Vitamin D3) (Vitamin D3) 25 Mcg Capsule, 25 MCG PO DAILY, (Reported) Entered as Reported by: ERIC MALHOTRA on 08/07/211150 Last Action: Held Diphenhydramine HCl (Benadryl) 25 Mg Capsule, 25-50 MG PO Q6H PRN for ALLERGY SYMPTOMS, (Reported) Entered as Reported by: PATRICE LEROY on 08/06/21 180 Last Action: Held Docusate Sodium (Dok) 100 Mg Tablet, 100 MG PO BID, (Reported) Entered as Reported by: ERIC MALHOTRA on 08/07/21 115 Last Action: Converted Guaifenesin/Dextromethorphan (Expectorant Dm Cough Liquid) 118 Ml Liquid, 10 ML PO Q4H PRN for COUGH, (Reported) Entered as Reported by: ERIC MALHOTRA on 08/07/211150 Last Action: Held Hydroxyzine HCl (Hydroxyzine HCl) 25 Mg Tablet, 25 MG PO BID PRN for ANXIETY/ITCHING, (Reported) Entered as Reported by: ERIC MALHOTRA on 08/07/211150 Last Action: Held Ibuprofen (Advil) 200 Mg Tablet, 400 MG PO Q6H PRN for PAIN-MILD (1-4), (Reported) Entered as Reported by: PATRICE LEROY on 08/06/211803 Last Action: Held Magnesium Hydroxide (Milk of Magnesia) 2,400 Mg/10 Ml Oral.susp, 30 ML PO Q12H PRN for CONSTIPATION-7TH LINE, (Reported) Entered as Reported by: PATRICE LEROY on 08/06/211814 Last Action: Held Metoclopramide HCl (Reglan) 5 Mg Tablet, 5 MG PO QID, (Reported) Entered as Reported by: MARTY PARKER on 04/28/15 1326 Last Action: Continued Mirtazapine (Remeron) 30 Mg Tablet, 30 MG PO HS, (Reported) Entered as Reported by: PATRICE LEROY on 08/06/211820 Last Action: Converted Phenytoin Sodium Extended (Phenytoin Sodium Extended) 100 Mg Capsule, 200 MG PO HS, (Reported) Entered as Reported by: KURTIS PA on 02/18/151452 Last Action: Continued Polyethylene Glycol 3350 (Miralax) 17 Gm Powd.pack, 17 GM PO DAILY PRN for CONSTIPATION-2ND LINE, (Reported) Entered as Reported by: PATRICE LEROY on 08/06/211823 Last Action: Held Silver Sulfadiazine (Silver Sulfadiazine) 50 Gm Cream..g., 1 APPLIC TP Q12H PRN for SKIN CONDITION, (Reported) Entered as Reported by: ERIC MALHOTRA on 08/07/21 115 Last Action: Held Spironolactone (Spironolactone) 100 Mg Tablet, 100 MG PO DAILY, (Reported) Entered as Reported by: KURTIS PA on 02/18/151452 Last Action: Reviewed Discontinued Medications Amoxicillin/Potassium Clav (Amox Tr-K Clv 875-125 mg Tab) 1 Each Tablet, 1 EACH PO BID Discontinued Reason: Duplicate Order Prescribed by: MIKE KURTZ on 08/15/21 1134 Last Action: Discontinued Cimetidine (Cimetidine) 400 Mg Tablet, 400 MG PO BID, (Reported) Discontinued Reason: Duplicate Order Entered as Reported by: PATRICE LEROY on 08/06/211810 Last Action: Discontinued Famotidine (Famotidine) 20 Mg Tablet, 20 MG PO, (Reported) Discontinued Reason: No Longer Taking Entered as Reported by: ERIC MALHOTRA on 11/28/2128 Last Action: Discontinued L.acidoph & Paracasei,B.lactis (Probiotic) 1 Each Capsule, 1 EACH PO BID Discontinued Reason: Duplicate Order Prescribed by: MIKE KURTZ on 08/15/211133 Last Action: Discontinued Sulfamethoxazole/Trimethoprim (Bactrim Ds Tablet) 1 Each Tablet, 1 EACH PO BID Discontinued Reason: No Longer Taking Prescribed by: MIKE KURTZ on 08/15/211133 Last Action: Discontinued Past Bcdyave-Alxmmu-Ywqobj Hx Patient Social History Smoking Status: Never a Smoker Recent Hopitalizations: Yes (colostomy placement) Alcohol Use?: No Have you traveled recently?: Unable to obtain Immunizations Up To Date Tetanus Booster (TDap): Less than 5yrs Date of Pneumonia Vaccine: Mar 02, 2015 Date of Influenza Vaccine: Mar 02, 2015 Seasonal Allergies Seasonal Allergies: No Surgeries History of Surgeries: Yes Surgeries: Abdominal Respiratory Respiratory Disorders: Asthma, Pulmonary Embolism Neurological Neurological Disorders: Seizure Disorder Reproductive System Hx Reproductive Disorders: No Sexually Transmitted Disease: No HIV/AIDS: No Gastrointestinal Gastrointestinal Disorders: Gastroesophageal Reflux, Chronic Constipation Blood Transfusions Adverse Reaction to a Blood Tr: No Family Medical History Significant Family History: Other Conditions/Hx Family Medial History: Patient reports no known family medical history. Review of Systems-General ROS-Unable to Obtain: pt intubated Physical Exam-General Problems Physical Exam Vital Signs Vital Signs - First Documented 11/27/21 11/27/21 11/27/21 00:00 00:02 02:33 Temp 36.2 Pulse 102 Resp 14 B/P (MAP) 104/80 Pulse Ox 96 O2 Delivery Mechanical Ventilator O2 Flow Rate 100.00 FiO2 100 Capillary Refill : Less Than 3 Seconds General Appearance: no apparent distress (intubated and may be sedated), thin HEENT: No scleral icterus (R), No scleral icterus (L); other (ET tube in place) Respiratory: no respiratory distress, no accessory muscle use, decreased breath sounds, crackles Cardiovascular: no murmur, tachycardia Gastrointestinal: soft, distended (slight), other (opening just above and to left of umbilicus (covered with ostomy device) no output) Neurologic/Psychiatric: other (intubated and sedated) Data Review Labs Laboratory Tests 12/02/21 18:32: Glucometer 106 12/02/21 23:55: Glucometer 94 12/03/21 02:00: Blood Gas Puncture Site RT RAD, Blood Gas Patient Temperature 37.0, Arterial Blood pH 7.40, Arterial Blood Partial Pressure CO2 47H, Arterial Blood Partial Pressure O2 73L, Arterial Blood HCO3 28H, Arterial Blood Total CO2 29.8, Arterial Blood Oxygen Saturation 94, Arterial Blood Base Excess 3.8H, Gustavo Test YES-POS, Blood Gas Ventilator Setting YES, Blood Gas Inspired Oxygen 50% 12/03/21 05:05: White Blood Count 9.7, Red Blood Count 2.90L, Hemoglobin 8.5L, Hematocrit 26L, Mean Corpuscular Volume 89, Mean Corpuscular Hemoglobin 29, Mean Corpuscular He moglobin Concent 33, Red Cell Distribution Width 15.9H, Platelet Count 165, Mean Platelet Volume 10.2, Immature Granulocyte % (Auto) 5, Neutrophils (%) (Auto) 82H, Lymphocytes (%) (Auto) 6L, Monocytes (%) (Auto) 6, Eosinophils (%) (Auto) 1, Basophils (%) (Auto) 0, Neutrophils # (Auto) 8.0H, Lymphocytes # (Auto) 0.6L, Monocytes # (Auto) 0.6, Eosinophils # (Auto) 0.1, Basophils # (Auto) 0.0, Imm ature Granulocyte # (Auto) 0.5H, Sodium Level 146H, Potassium Level 4.1, Chloride Level 111H, Carbon Dioxide Level 24, Anion Gap 11, Blood Urea Nitrogen 26H, Creatinine 0.41L, Estimat Glomerular Filtration Rate 119, BUN/Creatinine Ratio 63, Glucose Level 91, Calcium Level 8.4L, Phosphorus Level 2.4, Magnesium Level 1.9 12/03/21 11:58: Glucometer 98 Microbiology 12/02/21 Gram Stain, Resulted Pending 12/02/21 Sputum Culture - Preliminary, Resulted Staphylococcus aureus 11/27/21 Gram Stain - Final, Complete 11/27/21 Wound Culture - Final, Complete Mixed Bacterial Makenzie Staphylococcus aureus Staphylococcus aureus#2 11/26/21 Urine Culture - Final, Complete Morganella morganii Enterococcus faecalis 11/26/21 Blood Culture - Final, Complete No growth Assessment/Plan Assessment/Plan Assessment/Plan Constipation Respiratory Failure Ostomy status I looked through old charts and old films as well as the Abd X-ray from this visit. Pt has had multiple decompressive colonoscopies; the last ones done at this hospital were in 2014. CT from that time shows very dilated colon with most of left sided colon up in the left chest. My best guess is that he had a decompressive tube placed into the colon to help with the chronic constipation. That fistulized over time and tube was no longer needed. This explains why the prison staff thought he had a colostomy. Now it most likely has started to close up. He continues to have constipation which most likely is going to get worse because he doesn't have the "pressure release" in the left upper abdomen. He most likely needs a colectomy; however, this is very invasive and would be complicated by the fact that he has a lot of colon in his chest cavity. He may need decompressive colonoscopies and/or placement of tube back through opening and into colon. This may need radiology to dilate it with wire and do with CT or some other radiologic guidance. It may also be able to be done with some sounds and then place a robb or G-tube to help drain colon. Would wait and see if he is able to pass most of stool through rectum; unfortunately, with his history I am not optimistic about this occurring. I will monitor his progress. JO ANN ÁLVAREZ DO Dec 03, 2021 13:47
[2021-12-03 14:44] VITALS: BP 110/74
[2021-12-03] MEDS: fentaNYL INJ 100 MCG/2 ML AMP IVP PRN (16:52)
--- NOTE | 2021-12-03 17:53 | Progress Note - Hospitalist ---
Subjective HPI/CC On Admission Date Seen by Provider: Dec 03, 2021 Time Seen by Provider: 10:15 Subjective/Events-last exam He remains intubated and sedated. Focused Exam Time of Focused Exam: 13:45 Objective Exam Vital Signs Vital Signs Date Time Temp Pulse Resp B/P (MAP) Pulse Ox O2 Delivery O2 Flow Rate FiO2 12/03/21 17:25 80 80/55 12/03/21 17:00 37.5 15 94 Mechanical Ventilator 40.00 12/03/21 16:00 40 Capillary Refill : Less Than 3 Seconds General Appearance: No Apparent Distress, WD/WN Respiratory: Lungs Clear, No Respiratory Distress Cardiovascular: Regular Rate, Rhythm, No Murmur Gastrointestinal: Normal Bowel Sounds, Soft Extremity: Normal Inspection, Pedal Edema Neurologic/Psychiatric: Other (sedated mildly, easily awakens) Skin: Normal Color, Warm/Dry Results/Procedures Lab Laboratory Tests 12/03/21 05:05 Patient resulted labs reviewed. Imaging: Reviewed Imaging Report Assessment/Plan Assessment and Plan Assess & Plan/Chief Complaint MRSA pneumonia MRSA wound infection UTI Acute respiratory failure with hypoxia and hypercapnia Cardiac arrest Off pressors Ventilator requirements improving Continue Lasix TeleICU following Blood cultures with no growth Sputum culture with MRSA Wound culture with MRSA Urine culture with Morganella morganii and Enterococcus faecalis, <42071 CFU each Continue Vancomycin Constipation Colostomy Miralax Surgery consulted 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 Cognitive impairment Mutism Lactic acidosis, resolved Septic Shock, resolved Critical Care Critically Ill Patient Diagnosis/Problems Diagnosis/Problems (1) Septic shock Status: Acute (2) PNA (pneumonia) Qualifiers: Pneumonia type: due to methicillin-resistant Staphylococcus aureus (MRSA) Laterality: right Lung location: middle lobe of lung Qualified Codes: J15.212 - Pneumonia due to methicillin resistant Staphylococcus aureus (3) Cardiac arrest Status: Acute (4) Lactic acidosis Status: Acute (5) Acute respiratory failure Status: Acute Qualifiers: Respiratory failure complication: hypoxia and hypercapnia Qualified Codes: J96.01 - Acute respiratory failure with hypoxia; J96.02 - Acute respiratory failure with hypercapnia (6) Endotracheally intubated Status: Acute (7) Cognitive impairment Status: Chronic (8) Mutism Status: Chronic KAZ CHU MD Dec 03, 2021 17:53
[2021-12-03 18:23] VITALS: BP 94/55
[2021-12-03] MEDS: MIRTAZAPINE 15 MG (REMERON) TAB PO SCH (20:51)
[2021-12-03] MEDS: PHENYTOIN 100 MG (DILANTIN) CAP PO SCH (20:51)
[2021-12-03 21:49] VITALS: BP 97/65
[2021-12-04] MEDS: HYDROCORTISONE 100 MG/2 ML (Solu-CORTEF) VIAL IV SCH (02:28)
[2021-12-04 02:35] VITALS: BP 87/56
[2021-12-04] MEDS: RT-ALBUTEROL/IPRATROPIUM 3 ML (DUONEB) VIAL INH SCH ×4 (02:35→14:54)
[2021-12-04 03:08] LABS: BASOPHILS # (AUTO) 0.1 10^3/uL (0.0-0.1); BASOPHILS % (AUTO) 1 % (0-10); EOSINOPHILS # (AUTO) 0.1 10^3/uL (0.0-0.3); EOSINOPHILS % (AUTO) 1 % (0-10); HEMATOCRIT 26 % (40-54); HEMOGLOBIN 8.3 g/dL (13.3-17.7); LYMPHOCYTES # (AUTO) 1.3 10^3/uL (1.0-4.0); LYMPHOCYTES % (AUTO) 13 % (12-44); MEAN CORPUSCULAR HEMOGLOBIN 29 pg (25-34); MEAN CORPUSCULAR HGB CONC 32 g/dL (32-36); MEAN CORPUSCULAR VOLUME 90 fL (80-99); MEAN PLATELET VOLUME 9.6 fL (9.0-12.2); MONOCYTES # (AUTO) 0.7 10^3/uL (0.0-1.0); MONOCYTES % (AUTO) 7 % (0-12); NEUTROPHILS # (AUTO) 7.7 10^3/uL (1.8-7.8); NEUTROPHILS % (AUTO) 76 % (42-75); PLATELET COUNT 225 10^3/uL (130-400); WHITE BLOOD COUNT 10.1 10^3/uL (4.3-11.0)
[2021-12-04] MEDS: DexMEDEtomidine 250 ML DRIP 250 ML IV SCH (03:11)
[2021-12-04 03:20] LABS: POTASSIUM 3.6 MMOL/L (3.6-5.0)
[2021-12-04 03:21] LABS: CALCIUM 8.2 MG/DL (8.5-10.1)
[2021-12-04 03:25] LABS: CREATININE SERUM 0.42 MG/DL (0.60-1.30)
[2021-12-04 03:28] LABS: MAGNESIUM 1.9 MG/DL (1.6-2.4)
[2021-12-04] MEDS: POTASSIUM CL 10MEQ/50ML IVPB 50 ML IV SCH ×3 (04:01→05:21)
[2021-12-04] MEDS: MAGNESIUM 1 GM/100 ML IVPB 100 ML IV SCH (05:21)
--- NOTE | 2021-12-04 06:57 | Occ Therapy Progress Note ---
Therapy Progress Note Pt currently intubated. OT to monitor pt's status and will initiate treatment when pt is medically stable and able to actively participate in skilled therapy. JARET PAULA Dec 04, 2021 06:57
[2021-12-04] MEDS: VANCOMYCIN 1500 MG/NS 500 ML IVPB IV SCH ×2 (07:16)
[2021-12-04 07:17] VITALS: BP 101/63
--- NOTE | 2021-12-04 07:20 | Progress Note - Surgery ---
MATTHEW MARQUEZ 12/04/21 0720: Subjective Date Seen by a Provider: Dec 04, 2021 Time Seen by a Provider: 06:01 Subjective/Events-last exam Mr. Jones is being followed for colonic distension. He is intubated and sedated. Ventilator settings are as follows: 16/450/5/40. He opened his eyes to stimul ation this morning but was unable to respond. Unable to obtain ROS. Focused Exam Time of Focused Exam: 13:45 Objective Exam Vital Signs Date Time Temp Pulse Resp B/P (MAP) Pulse Ox O2 Delivery O2 Flow Rate FiO2 12/04/21 06:59 73 12/04/21 06:00 37.1 80 17 94/66 94 Mechanical Ventilator 40.00 12/04/21 05:00 37.1 78 17 98/56 93 Mechanical Ventilator 40.00 12/04/21 05:00 80 20 95 12/04/21 04:00 37.1 12/04/21 04:00 37.2 76 16 103/66 92 Mechanical Ventilator 40.00 12/04/21 03:52 94 Mechanical Ventilator 40 12/04/21 03:11 77 90/55 12/04/21 03:00 37.3 80 18 91/58 95 Mechanical Ventilator 40.00 12/04/21 02:35 75 16 96 40 12/04/21 02:00 37.4 71 15 90/55 95 Mechanical Ventilator 40.00 12/04/21 01:00 37.4 81 15 86/56 94 Mechanical Ventilator 40.00 12/04/21 01:00 83 12/04/21 00:51 80 95/60 12/04/21 00:17 94 Mechanical Ventilator 40 12/04/21 00:00 37.5 90 17 95/60 92 Mechanical Ventilator 40.00 12/03/21 23:44 37.6 12/03/21 23:00 37.7 94 18 101/60 92 Mechanical Ventilator 40.00 12/03/21 22:00 37.7 81 16 102/61 96 Mechanical Ventilator 40.00 12/03/21 21:49 81 18 96 40 12/03/21 21:00 37.7 82 16 97/65 92 Mechanical Ventilator 40.00 12/03/21 20:51 86 103/67 12/03/21 20:00 94 Mechanical Ventilator 40 7/24/22 20:00 37.6 89 18 103/67 92 Mechanical Ventilator 40.00 12/03/21 19:00 88 12/03/21 19:00 37.7 86 16 96/63 95 Mechanical Ventilator 40.00 12/03/21 18:23 79 16 93 40 12/03/21 18:00 37.5 75 16 93/49 93 Mechanical Ventilator 40.00 12/03/21 17:25 80 80/55 12/03/21 17:00 37.5 87 15 80/55 94 Mechanical Ventilator 40.00 12/03/21 16:00 94 Mechanical Ventilator 40 12/03/21 16:00 37.4 92 16 92/60 93 Mechanical Ventilator 40.00 12/03/21 15:00 37.4 108 19 118/76 95 Mechanical Ventilator 40.00 12/03/21 14:44 96 19 96 40 12/03/21 14:00 37.4 90 16 95/62 94 Mechanical Ventilator 40.00 12/03/21 13:51 92 94/62 12/03/21 13:00 37.3 97 17 99/59 92 Mechanical Ventilator 40.00 12/03/21 12:44 95 12/03/21 11:58 36.6 91 16 100/67 91 Mechanical Ventilator 40.00 12/03/21 11:58 92 Mechanical Ventilator 40 12/03/21 11:00 37.3 85 16 106/52 91 Mechanical Ventilator 40.00 12/03/21 10:44 80 16 94 40 12/03/21 10:00 37.1 78 15 110/73 95 Mechanical Ventilator 40.00 12/03/21 09:56 86 102/66 12/03/21 09:00 37.0 86 16 102/66 93 Mechanical Ventilator 40.00 12/03/21 08:28 Mechanical Ventilator 40.00 12/03/21 08:24 94 Mechanical Ventilator 40 12/03/21 08:00 37.1 88 16 96/58 94 Mechanical Ventilator 50.00 12/03/21 07:19 36.3 96 16 102/60 95 Mechanical Ventilator 50.00 I & O 12/04/21 07:00 Intake Total 3565 ml Output Total 3225 ml Balance 340 ml Capillary Refill : Less Than 3 Seconds General Appearance: No Apparent Distress, WD/WN HEENT: Other (Intubated and sedated) Neck: Non Tender, Supple Respiratory: Chest Non Tender, Lungs Clear, Normal Breath Sounds, No Accessory Muscle Use, No Respiratory Distress Cardiovascular: Regular Rate, Rhythm, No Murmur, Normal Peripheral Pulses Peripheral Pulses: 2+ Radial Pulses (R), 2+ Radial Pulses (L) Gastrointestinal: soft, distended (Slight), other (opening just above and to left of umbilicus (covered with ostomy device) no output) Extremity: Normal Inspection, Pedal Edema Neurologic/Psychiatric: Other (sedated mildly, easily awakens) Skin: Normal Color, Warm/Dry Results Lab Laboratory Tests 12/03/21 11:58: Glucometer 98 12/03/21 18:08: Glucometer 99 12/03/21 23:20: Glucometer 93 12/04/21 03:00: White Blood Count 10.1, Red Blood Count 2.89L, Hemoglobin 8.3L, Hematocrit 26L, Mean Corpuscular Volume 90, Mean Corpuscular Hemoglobin 29, Mean Corpuscular Hemoglobin Concent 32, Red Cell Distribution Width 16.1H, Platelet Count 225, Mean Platelet Volume 9.6, Immature Granulocyte % (Auto) 2, Neutrophils (%) (Auto) 76H, Lymphocytes (%) (Auto) 13, Monocytes (%) (Auto) 7, Eosinophils (%) (Auto) 1, Basophils (%) (Auto) 1, Neutrophils # (Auto) 7.7, Lymphocytes # (Auto) 1.3, Monocytes # (Auto) 0.7, Eosinophils # (Auto) 0.1, Basophils # (Auto) 0.1, Immature Granulocyte # (Auto) 0.2H, Sodium Level 142, Potassium Level 3.6, Chloride Level 106, Carbon Dioxide Level 27, Anion Gap 9, Blood Urea Nitrogen 28H, Creatinine 0.42L, Estimat Glomerular Filtration Rate 119, BUN/Creatinine Ratio 67, Glucose Level 92, Calcium Level 8.2L, Magnesium Level 1.9 Microbiology 12/02/21 Gram Stain, Resulted Pending 12/02/21 Sputum Culture - Preliminary, Resulted Staphylococcus aureus 11/27/21 Gram Stain - Final, Complete 11/27/21 Wound Culture - Final, Complete Mixed Bacterial Makenzie Staphylococcus aureus Staphylococcus aureus#2 11/26/21 Urine Culture - Final, Complete Morganella morganii Enterococcus faecalis 11/26/21 Blood Culture - Final, Complete No growth Assessment/Plan Assessment/Plan Assessment/Plan Constipation Respiratory Failure Ostomy status Conservative treatment at this time Patient has bowel in his left chest cavity Consider decompressive colonoscopy No urgent surgical indication at this time REJI JONES DO 12/04/21 1453: Subjective Time Seen by a Provider: 11:51 Subjective/Events-last exam Pt seen and examined, intubated and sedated. Nurse states no BM or flatus Review of Systems unable to obtain, pt intubated Objective Exam General Appearance: No Apparent Distress, Thin HEENT: Other (ET tube in place) Respiratory: Lungs Clear, Normal Breath Sounds, No Accessory Muscle Use, No Respiratory Distress, Decreased Breath Sounds (left) Cardiovascular: Regular Rate, Rhythm, No Murmur Gastrointestinal: soft, distended (Slight - no change from yesterday), other (opening just above and to left of umbilicus (covered with ostomy device) no output) Extremity: Pedal Edema Assessment/Plan Assessment/Plan Assessment/Plan Constipation Respiratory Failure Ostomy status Conservative treatment at this time Patient has bowel in his left chest cavity May need to consider decompressive colonoscopy if he does not have BM or replacing decompressive tube Supervisory-Addendum Brief Verification & Attestation Participated in pt care: history, MDM, physical Personally performed: exam, history, MDM, supervision of care Care discussed with: Medical Student Procedures: n/a Verification and Attestation of Medical Student E/M Service A medical student performed and documented this service. I then reviewed and verified all information documented by the medical student and made modifications to such information, when appropriate. I personally performed a physical exam, medical decision making and then discussed any differences between the notes and made revisions as necessary to create one note. Reji Jones , 12/04/21 , 14:53 MATTHEW MARQUEZ Dec 04, 2021 07:20 REJI JONES DO Dec 04, 2021 14:53
[2021-12-04] MEDS: VASOPRESSIN INJECTION 20 UNIT in NS (IVPB) 100 ML IV SCH (07:25)
--- NOTE | 2021-12-04 08:08 | Progress Note - Hospitalist ---
Subjective HPI/CC On Admission Date Seen by Provider: Dec 04, 2021 Pt is a 66yoCMcognitive impairment, mutism, and recent osteomyelitis of elbow presented to the ER due to altered mental status. He is intubated during my exam and unable to provide any history. He reportedly was found altered by his care staff at [facility] and was found to be quite hypoxic. Reportedly his oxygen saturation was 40% at the assisted and increased to 70% with 2 L. He was placed on BiPAP in the emergency department. He was also found to be very hypothermic with a temperature of 32. He was found to have a right middle lobe pneumonia and was placed on broad-spectrum IV antibiotics. He was placed on Levophed after central line placement due to hypotension. He was admitted to the ICU and shortly following that he had progressive respiratory distress and required intubation. Following intubation he suffered a PEA arrest and CPR was started immediately. They obtained ROSC but then he had a V. fib arrest which per the ER doctor looks similar to torsades at times. He responded to defibrillation and has maintained ROSC. Subjective/Events-last exam Pt remains intubated. No ROS possible. He did open eyes when I spoke to him but no other participation in exam. No family at bedside. Focused Exam Time of Focused Exam: 13:45 Objective Exam Vital Signs Vital Signs Date Time Temp Pulse Resp B/P (MAP) Pulse Ox O2 Delivery O2 Flow Rate FiO2 12/04/21 07:24 74 101/63 12/04/21 07:23 94 Mechanical Ventilator 40 12/04/21 07:17 16 12/04/21 07:00 37.1 40.00 Capillary Refill : Less Than 3 Seconds General Appearance: Chronically ill Respiratory: Decreased Breath Sounds; No Wheezing; Other (on vent) Cardiovascular: Regular Rate, Rhythm, No Murmur Gastrointestinal: Normal Bowel Sounds, Soft Genital/Rectal: Other (robb in place) Extremity: Pedal Edema Neurologic/Psychiatric: Alert (arouses to verbal stimuli, otherwise sedate and appears comfortable) Results/Procedures Lab Laboratory Tests 12/04/21 03:00 Patient resulted labs reviewed. Imaging: Reviewed Imaging Report Assessment/Plan Assessment and Plan Assess & Plan/Chief Complaint MRSA pneumonia MRSA wound infection UTI Acute respiratory failure with hypoxia and hypercapnia Cardiac arrest Off pressors still Ventilator requirements improving- failed SBT yesterday Continue Lasix TeleICU following, appreciate assistance with vent management Blood cultures with no growth Sputum culture with MRSA Wound culture with MRSA Urine culture with Morganella morganii and Enterococcus faecalis, <66803 CFU each Continue Vancomycin Consider LTACH referral if unable to liberate soon Constipation Colostomy Miralax Surgery consulted Discussed with Dr Jones, no current indication for decompressive colonoscopy at this time 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
[2021-12-04] MEDS: ASPIRIN 81 MG CHEW (CHILDREN'S ASA) PO SCH (08:10)
[2021-12-04] MEDS: METOCLOPRAMIDE 5 MG (REGLAN) TAB PO SCH ×2 (08:10→13:42)
[2021-12-04] MEDS: polyethylene glycoL POWDER 17 GM (MIRALAX) PACK PO SCH (08:10)
[2021-12-04] MEDS: FAMOTIDINE 20 MG (PEPCID) TABLET PO SCH (08:10)
[2021-12-04] MEDS: DOCUSATE SODIUM 10 MG/ML 10 ML UDC (COLACE) PO SCH (08:10)
[2021-12-04] MEDS ORDERED: FUROSEMIDE 40 MG/4 ML INJ (LASIX) IVP SCH (09:00)
[2021-12-04 10:07] VITALS: BP 94/79
[2021-12-04] MEDS: ENOXAPARIN 40 MG/0.4 ML (LOVENOX) SYR SC SCH (11:03)
--- NOTE | 2021-12-04 11:54 | Tele-ICU Progress Note ---
Subjective Date Seen by a Provider: Dec 04, 2021 Time Seen by a Provider: 11:53 Subjective/Events-last exam Available chart/ vitals / labs / Images reviewed Video assessment done using teleICU camera, rest of exam as per RN Discussed with RN , EXAM PER RN Events overnight : Afebrile FiO2 - 50% I/O =positive 3 L Drips: Pressors: levo .06 vaso hydrocor Sedation gtt: propofol 5 precedex 1.0 ( RASS -2 ) VENT SETTINGS and ABG reviewed ? candidate for SBT today REVIEWED Cardiovascular Stability / Sedation Score / FI02/PEEP / ABG / CXR Consultants: Hospital course: (11/26) 66M Admitted from care home with intellectual disability and septic shock Intubated then PEA arrest 11/27 - 70% +10 , vaso /levo /propofol 11/28 - 50 % +8 , follows commands . LEVO 0.02 11/29- 40% +8 changed to recedex 11/30- 50 % + 5. diuresuis SBT 2 h -retained CO2 12/01 - 59% , bcak in pressoers , Stress dose steroids 12/02 -OFF LEVO A/P Acute hypoxic and hypercapnic resp failure - AC 20 450 50% peep 5 . 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 and tube was no longer needed now fistula is closing up - -as per sx , anticipated need for decompressive colonoscopies and/or placement of tube back through opening and into colon ( possible by IR - management as per Sx S/p PEA arrest post intubation - CTH 11/26 - no acute findings, but reported slight edema and underlying infarctions - to be repeated CT vs MRI latter - Cognitive impairment at baseline , off propofol seems follow scommands - follow off sedation - try precedex Vfib / torsads for which he received defibrillation - Amiodarone gtt -OFF due to ken - ECHO - 11/28 -EF 60% elevation of the left hemidiaphragm, - chronic H/o SZ - cont phosphenitoin Pulm HTN - by ECHO RVSP 45mm Hg - diuresis 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 12/01 - PICC (Central Line Necessity Reviewed) Ramirez: + OG: - check cxr and place on LIS Nutrition: TF - tolerationg Analgesia: Anxiety/ delirium VTE Prophylaxis: SCD lovenox Stress Ulcer Prophylaxis: PPI Plans in collaboration with bedside consultants and IM MDs. Discussed with RN to reach out if any questions or concerns A total of 35 minutes of critical care time was devoted to this patient today, required to treat and/or prevent further deterioration of critical care condition ( as above) . Sepsis Event Evaluation Height, Weight, BMI Height: 6'1" Weight: 118lbs. 3.0oz. [id number]; 28.63 BMI Method:Estimated Focused Exam Time of Focused Exam: 13:45 Exam Exam Patient acknowledged, consented, and participated in this virtual visit which was conducted using real time audio/video Vital Signs Date Time Temp Pulse Resp B/P (MAP) Pulse Ox O2 Delivery O2 Flow Rate FiO2 12/04/21 11:00 37.0 85 19 94/55 97 Mechanical Ventilator 50.00 12/04/21 10:07 84 17 94 40 12/04/21 10:00 36.9 84 17 97/60 95 Mechanical Ventilator 50.00 12/04/21 09:00 36.9 93 21 120/72 96 Mechanical Ventilator 50.00 12/04/21 08:12 Mechanical Ventilator 50.00 12/04/21 08:00 37.1 12/04/21 08:00 37.1 88 21 113/70 93 Mechanical Ventilator 40.00 12/04/21 07:24 74 101/63 12/04/21 07:23 94 Mechanical Ventilator 40 12/04/21 07:17 84 16 96 40 12/04/21 07:00 37.1 73 16 106/65 96 Mechanical Ventilator 40.00 12/04/21 06:59 73 12/04/21 06:00 37.1 80 17 94/66 94 Mechanical Ventilator 40.00 12/04/21 05:00 37.1 78 17 98/56 93 Mechanical Ventilator 40.00 12/04/21 05:00 80 20 95 12/04/21 04:00 37.1 12/04/21 04:00 37.2 76 16 103/66 92 Mechanical Ventilator 40.00 12/04/21 03:52 94 Mechanical Ventilator 40 12/04/21 03:11 77 90/55 12/04/21 03:00 37.3 80 18 91/58 95 Mechanical Ventilator 40.00 12/04/21 02:35 75 16 96 40 12/04/21 02:00 37.4 71 15 90/55 95 Mechanical Ventilator 40.00 12/04/21 01:00 37.4 81 15 86/56 94 Mechanical Ventilator 40.00 12/04/21 01:00 83 12/04/21 00:51 80 95/60 12/04/21 00:17 94 Mechanical Ventilator 40 12/04/21 00:00 37.5 90 17 95/60 92 Mechanical Ventilator 40.00 12/03/21 23:44 37.6 12/03/21 23:00 37.7 94 18 101/60 92 Mechanical Ventilator 40.00 12/03/21 22:00 37.7 81 16 102/61 96 Mechanical Ventilator 40.00 12/03/21 21:49 81 18 96 40 12/03/21 21:00 37.7 82 16 97/65 92 Mechanical Ventilator 40.00 12/03/21 20:51 86 103/67 12/03/21 20:00 94 Mechanical Ventilator 40 12/03/21 20:00 37.6 89 18 103/67 92 Mechanical Ventilator 40.00 12/03/21 19:00 88 12/03/21 19:00 37.7 86 16 96/63 95 Mechanical Ventilator 40.00 12/03/21 18:23 79 16 93 40 12/03/21 18:00 37.5 75 16 93/49 93 Mechanical Ventilator 40.00 12/03/21 17:25 80 80/55 12/03/21 17:00 37.5 87 15 80/55 94 Mechanical Ventilator 40.00 12/03/21 16:00 94 Mechanical Ventilator 40 12/03/21 16:00 37.4 92 16 92/60 93 Mechanical Ventilator 40.00 12/03/21 15:00 37.4 108 19 118/76 95 Mechanical Ventilator 40.00 12/03/21 14:44 96 19 96 40 12/03/21 14:00 37.4 90 16 95/62 94 Mechanical Ventilator 40.00 12/03/21 13:51 92 94/62 12/03/21 13:00 37.3 97 17 99/59 92 Mechanical Ventilator 40.00 12/03/21 12:44 95 12/03/21 11:58 36.6 91 16 100/67 91 Mechanical Ventilator 40.00 12/03/21 11:58 92 Mechanical Ventilator 40 I & O 12/04/21 07:00 Intake Total 3565 ml Output Total 3225 ml Balance 340 ml Height & Weight Height: 6'1" Weight: 118lbs. 3.0oz. 53.029254fr; 28.63 BMI Method:Estimated General Appearance: Chronically ill HEENT: Moist Mucous Membranes; No Scleral Icterus (L), No Scleral Icterus (R); Other (let pupil dilated and minimally reactive, right pupil 3mm and reactive) Neck: Normal Inspection, Supple, Other (central line) Respiratory: Decreased Breath Sounds; No Wheezing; Other (on vent) Cardiovascular: Regular Rate, Rhythm, No Murmur Capillary Refill: Less Than 3 Seconds Peripheral Pulses: 2+ Radial Pulses (R), 2+ Radial Pulses (L) Gastrointestinal: soft, distended (Slight), other (opening just above and to left of umbilicus (covered with ostomy device) no output) Extremity: Pedal Edema Neurologic/Psychiatric: Alert (arouses to verbal stimuli, otherwise sedate and appears comfortable) Skin: Normal Color, Warm/Dry; No Jaundice, No Mottled Results Lab Laboratory Tests 12/03/21 05:05 12/04/21 03:00 Assessment/Plan Assessment/Plan 1 ALEJANDRINA PLASCENCIA MD Dec 04, 2021 11:53
[2021-12-04] MEDS: PROPOFOL DRIP (ICU) 100 ML IV SCH (13:43)
[2021-12-04] MEDS ORDERED: aCETylcysteine 20% (MUCOMYST) 4 ML SOLN VIAL INH SCH (14:00)
[2021-12-04] MEDS: NOREPINEPHRINE 8 MG/250 ML 250 ML IV SCH (14:21)
[2021-12-04 14:51] VITALS: BP 108/55
--- NOTE | 2021-12-04 15:53 | Progress Note ---
Standard Progress Note Progress Notes/Assess & Plan Date Seen by a Provider: Dec 04, 2021 Time Seen by a Provider: 15:52 Progress/Assessment & Plan The patient failed ventilator weaning trials 2 days in a row. He will be transferred to an LTAC today. I have no further cardiac recommendations. He does not necessarily need any cardiology follow-up after discharge. Please also see my previous documentation. I did not see the patient today since he will be transferred to another facility. MIGUELINA THAYER JR, MD Dec 04, 2021 15:53
[2021-12-04] MEDS ORDERED: HYDROCORTISONE 100 MG/2 ML (Solu-CORTEF) VIAL IV SCH (21:00)
[2021-12-05] MEDS ORDERED: TROUGH ORDER-PHARMACY XX ONE
== END 2021-12-04 16:26 | DRG 870 ==
LOC: ER 14:14 → ICU 17:05
PROVIDERS: ADMIT Family Medicine; ATTEND Internal Medicine
PROC: 5A1955Z Respiratory Ventilation, Greater than 96 Consecutive Hours (ICD-10-PCS; principal; 2021-11-26)
PROC: 5A12012 Performance of Cardiac Output, Single, Manual (ICD-10-PCS; 2021-11-26)
PROC: 0BH17EZ Insertion of Endotracheal Airway into Trachea, Via Natural or Artificial Opening (ICD-10-PCS; 2021-11-26)
PROC: 5A09357 Assistance with Respiratory Ventilation, Less than 24 Consecutive Hours, Continuous Positive Airway Pressure (ICD-10-PCS; 2021-11-26)
DX: A41.9 Sepsis, unspecified organism (principal); J96.01 Acute respiratory failure with hypoxia; R65.21 Severe sepsis with septic shock; I46.9 Cardiac arrest, cause unspecified; I49.01 Ventricular fibrillation; J96.02 Acute respiratory failure with hypercapnia; J15.212 Pneumonia due to Methicillin resistant Staphylococcus aureus; R47.01 Aphasia; N39.0 Urinary tract infection, site not specified; E87.2 Acidosis; M86.8X8 Other osteomyelitis, other site; Z79.82 Long term (current) use of aspirin; Z79.899 Other long term (current) drug therapy; Z86.711 Personal history of pulmonary embolism; G40.909 Epilepsy, unspecified, not intractable, without status epilepticus; K21.9 Gastro-esophageal reflux disease without esophagitis; G31.84 Mild cognitive impairment of uncertain or unknown etiology; H05.89 Other disorders of orbit; I27.20 Pulmonary hypertension, unspecified; S51.009A Unspecified open wound of unspecified elbow, initial encounter; B95.62 Methicillin resistant Staphylococcus aureus infection as the cause of diseases classified elsewhere; K59.00 Constipation, unspecified; I34.0 Nonrheumatic mitral (valve) insufficiency; E87.70 Fluid overload, unspecified
CPT/HCPCS: 36415; 36569; 51702; 70450; 71045; 74018; 76937; 80048; 80053; 80185; 80202; 81000; 82533; 82728; 82805; 82947; 83540; 83550; 83605; 83735; 83880; 84100; 84145; 84478; 84484; 85007; 85025; 85027; 85379; 85384; 85610; 85730; 86022; 86141; 87040; 87070; 87077; 87081; 87088; 87186; 87205; 87449; 87636; 93005; 93306; 93970; 94002; 94003; 94640; 94799; 96361; 96365; 96366; 96367; 96368; 99291